=== PATIENT | male | born 1945 | race Caucasian/White ===

== ENCOUNTER → 2016-05-27 | Outpatient (CLI) | payer OTHER, MEDICARE ==
[~2016-05-27] MED LIST: B-COCAP2 PO; CHOL1000 PO; GLUC10007 PO; LISI5TAB PO; METH-589 PO; MULT-506 PO; OMEG10007 PO
[2016-05-27 16:51] LABS: BASO % 0.6 %; BASO ABS # 0.04 K/uL (0-0.2); COMPLETE YES; EOS % 1.2 %; HEMATOCRIT 41.6 % (42-52); IG% 0.3 %; LYMPH % 41.3 %; LYMPH ABS # 2.72 K/uL (1.2-3.4); MEAN CELL VOLUME 87.8 fL (80-100); MEAN CORPUSCULAR HEMOGLOBIN 30.8 pg (25-34); MEAN CORPUSCULAR HGB CONC 35.1 g/dl (32-36); MONO % 10.8 %; NEUT % 45.8 %; PLATELET COUNT 176 K/uL (130-400); RED BLOOD COUNT 4.74 M/uL (4.7-6.1); WHITE BLOOD COUNT 6.58 K/uL (4.8-10.8)
[2016-05-27 17:12] LABS: THYROID STIMULATING HORMONE 1.91 uIu/ml (0.300-4.500)
== END | disposition home or self-care (01) ==
LOC: C.LABBC 14:30
PROVIDERS: ATTEND Internal Medicine Endocrinology, Diabetes & Metabolism
DX: E05.00 Thyrotoxicosis with diffuse goiter without thyrotoxic crisis or storm (principal); R07.89 Other chest pain

== ENCOUNTER → 2016-06-06 | Outpatient (CLI) | payer OTHER, MEDICARE | END | disposition home or self-care (01) | LOC: C.RDSM 08:00 | PROVIDERS: ATTEND Physical Medicine & Rehabilitation Sports Medicine | DX: Z96.651 Presence of right artificial knee joint (principal); M25.561 Pain in right knee; M25.562 Pain in left knee ==

== ENCOUNTER → 2016-08-23 | Outpatient (CLI) | payer OTHER, MEDICARE ==
[2016-08-23 17:25] LABS: ALKALINE PHOSPHATASE 57 U/L (45-117); ALT/SGPT 32 U/L (12-78); AST/SGOT 19 U/L (15-37); BLOOD UREA NITROGEN 20 mg/dl (7-18); CALCIUM 8.9 mg/dl (8.5-10.1); CARBON DIOXIDE 27 mmol/L (21-32); CHLORIDE 109 mmol/L (98-107); GLUCOSE 99 mg/dl (70-99); HDL CHOLESTEROL 36 mg/dl; POTASSIUM 4.2 mmol/L (3.5-5.1); SODIUM 143 mmol/L (136-145)
[2016-08-23 17:28] LABS: ALB/GLOB RATIO 0.9 (0.9-2); CHOLESTEROL 195 mg/dl (0-200); CHOLESTEROL/HDL RATIO 5.4; LDL CHOLESTEROL CALCULATED 121 mg/dl; TRIGLYCERIDES 191 mg/dl (0-150); VERY LOW DENSITY LIPOPROT CALC 38 mg/dl
[2016-08-24 06:37] LABS: ESTIMATED AVERAGE GLUCOSE 134 mg/dl; HA1C FLAG Normal (Normal)
--- NOTE | 2016-08-31 11:46 | CODING QUERY MEDICAL NECESSITY ---
CQSUPPORTING DIAGNOSIS NEEDED A supporting diagnosis is required for the test/procedure performed on this patient in order for us to be reimbursed by the patient's insurance. Please provide a supporting diagnosis for the following test/procedure listed below next to the test name along with your signature. *If there is no additional diagnosis for this patient that would support the following test/procedure please document that below next to the test/procedure. Test(s)/Procedure(s) that require a supporting diagnosis: LIDIA 08/23/16 GLYCATED HEMOGLOBIN Provider Signature: Date: Thank you Trisha Dodge ASYM III Information Management Once completed, please kindly fax back to [phone] For questions please call [phone]
== END | disposition home or self-care (01) ==
LOC: C.LABBC 13:32
PROVIDERS: ATTEND Physician Assistant
DX: R73.03 Prediabetes (principal); I10 Essential (primary) hypertension; E78.5 Hyperlipidemia, unspecified; E05.00 Thyrotoxicosis with diffuse goiter without thyrotoxic crisis or storm

== ENCOUNTER → 2016-11-29 | Outpatient (CLI) | payer OTHER, MEDICARE ==
[2016-11-29 17:22] LABS: THYROID STIMULATING HORMONE 1.72 uIu/ml (0.300-4.500)
== END | disposition home or self-care (01) ==
LOC: C.LABBC 13:58
PROVIDERS: ATTEND Physician Assistant
DX: E05.00 Thyrotoxicosis with diffuse goiter without thyrotoxic crisis or storm (principal)

== ENCOUNTER → 2017-02-27 | Outpatient (CLI) | payer OTHER, MEDICARE ==
[2017-02-27 11:07] LABS: ALT/SGPT 31 U/L (12-78); BLOOD UREA NITROGEN 21 mg/dl (7-18); CARBON DIOXIDE 25 mmol/L (21-32); CHLORIDE 105 mmol/L (98-107); CHOLESTEROL 219 mg/dl (0-200); CREATININE 1.01 mg/dl (0.60-1.40); GLUCOSE 132 mg/dl (70-99); POTASSIUM 4.1 mmol/L (3.5-5.1); SODIUM 137 mmol/L (136-145); TRIGLYCERIDES 233 mg/dl (0-150); VERY LOW DENSITY LIPOPROT CALC 47 mg/dl
[2017-02-27 11:17] LABS: CHOLESTEROL/HDL RATIO 5.5; HDL CHOLESTEROL 40 mg/dl; LDL CHOLESTEROL CALCULATED 132 mg/dl
[2017-02-27 12:21] LABS: ESTIMATED AVERAGE GLUCOSE 128 mg/dl; HA1C FLAG Normal (Normal)
== END | disposition home or self-care (01) ==
LOC: C.LABBC 07:59
PROVIDERS: ATTEND Physician Assistant
DX: E05.90 Thyrotoxicosis, unspecified without thyrotoxic crisis or storm (principal); R73.03 Prediabetes; I10 Essential (primary) hypertension

== ENCOUNTER → 2017-03-23 | Outpatient (CLI) | payer OTHER, MEDICARE ==
[~2017-03-23] MED LIST changes: +NRN300 PO
== END | disposition home or self-care (01) ==
LOC: C.LABBC 10:54
PROVIDERS: ATTEND Internal Medicine Endocrinology, Diabetes & Metabolism
DX: E05.90 Thyrotoxicosis, unspecified without thyrotoxic crisis or storm (principal)

== ENCOUNTER 2017-05-01 13:05 | Emergency (ER) | payer OTHER, MEDICARE ==
[~2017-05-01] VITALS: Ht 185.4 cm; Wt 114.7 kg
[~2017-05-01 13:05] MED LIST changes: -NRN300 PO
[2017-05-01 13:10] VITALS: TEMP 36.4; Ht 185.4 cm; Wt 114.7 kg
--- NOTE | 2017-05-01 14:20 | DIAGNOSTIC IMAGING REPORT ---
CT OF THE HEAD WITHOUT CONTRAST CLINICAL HISTORY: Fall. COMPARISON STUDY: Head CT T February 06, 2015. TECHNIQUE: Helical axial images of the head were obtained without IV contrast. Automated exposure control was utilized for the study. A dose lowering technique was utilized adhering to the principles of ALARA. FINDINGS: No acute intracranial hemorrhage, midline shift or mass effect is present. Ventricular system is stable. Basilar cisterns are patent. There are no extra-axial collections. Rodriguez-white differentiation is maintained. Mild white matter hypodensity suggests small vessel disease. A small left posterior scalp contusion is noted. There is no calvarial fracture. IMPRESSION: 1. No acute intracranial findings. 2. Small left posterior scalp contusion. No calvarial fracture. Electronically signed by: Roderick Villa M.D. 05/01/2017 2:19 PM Dictated Date/Time: 05/01/2017 2:17 PM
[2017-05-01] MEDS ORDERED: NRN300 PO (14:23)
--- NOTE | 2017-05-01 14:25 | DIAGNOSTIC IMAGING REPORT ---
CERVICAL SPINE W/O CLINICAL HISTORY: 72 years-old Male presenting with EVAL TRAUMA, fall, head injury, head and neck pain. TECHNIQUE: Multidetector CT of the cervical spine was performed without the use of intravenous contrast. IV contrast: None. A dose lowering technique was used consistent with the principles of ALARA (as low as reasonably achievable). COMPARISON: None. CT DOSE (mGy.cm): The estimated cumulative dose is 1114.04 mGy.cm. FINDINGS: Thread Grinder topogram: Unremarkable. Straightening of normal cervical lordosis likely positional and related to degenerative change. Vertebral bodies demonstrate normal height and alignment. Intervertebral disc height loss noted at C4-5 through C7-T1, where there are disc osteophyte complexes. No acute fracture or subluxation. No osseous spinal canal narrowing. Disc osteophyte complexes/uncovertebral hypertrophy and facet arthropathy result in osseous neural foraminal narrowing on the left at C4-5, bilaterally at C5-6, bilaterally at C6-7, and on the right at C7-T1. Lucent lesion noted in the right lateral mass of C1, indeterminate. Skull base intact. IMPRESSION: 1. No acute osseous injury. 2. Multilevel degenerative changes with varying degrees of osseous neural foraminal narrowing. 3. Indeterminate lucent lesion in the right lateral mass of C1. Correlate for a history of malignancy. Electronically signed by: Hawk Rene M.D. 05/01/2017 2:23 PM Dictated Date/Time: 05/01/2017 2:19 PM
--- NOTE | 2017-05-01 14:52 | EMERGENCY ROOM VISIT NOTE ---
ED Visit Note First contact with patient: 13:38 CHIEF COMPLAINT: Head injury 3 and half hours ago HISTORY OF PRESENT ILLNESS: Patient is a 72-year-old white male who presents to emergency department for evaluation after he sustained a head injury earlier this morning. Patient reports that he was taking some garbage out to the dumpster, and did not realize that the ground with icy, slipped and fell landing primarily striking the back of his head on the asphalt. He states that he was dazed initially, and felt slightly like he was going to pass out, but did not. He laid on the ground for a few moments, reached his hand back and felt that he had some blood work he struck his head. He was able to get up and was back into his home. He was seen at [facility] [place] them referred to the emergency department. He reports a mild generalized headache in addition to pain really struck the back of his head. He also complains of pain primarily in the left side of his neck that is worse with movement. He feels a little bit woozy at times, but denies evelyn lightheadedness or dizziness. No vision changes. No nausea or vomiting. He denies any difficulty with balance, speech or coordination. He denies any numbness, tingling or weakness radiating into the upper extremities. REVIEW OF SYSTEMS: Review of systems as per HPI. All other systems reviewed were negative. 10 systems reviewed. PMH: Electronic medical records are reviewed and summarized as above/below. See Problem List. He believes that his tetanus is up-to-date. SOCIAL HISTORY: Patient lives at home. PHYSICAL EXAM: Vital Signs: Reviewed Nurse's notes. CONSTITUTIONAL: Patient is a pleasant, well-appearing 72-year-old white male who is awake and alert and in no acute distress. GCS: 15 HEENT: Occipital scalp hematoma with abrasion, no repairable laceration. Pupils equal, round, reactive to light and accommodation. EOMs intact without nystagmus. Sclera are anicteric. Tympanic membranes intact, with normal landmarks. External canals are clear. No hemotympanum or Claros sign. Oral and nasopharynx are clear. No CSF rhinorrhea. Mucous membranes are moist. NECK: Supple, nontender, no lymphadenopathy. Full range of motion. HEART: Regular rate and rhythm, with normal S1 and S2, no murmur or gallop or rub is heard. LUNGS: Breath sounds equal and clear to auscultation without wheezes, rales, or rhonchi heard. SKIN: No lesions or rash, normal skin turgor. EXTREMITIES: No cyanosis, edema, joint tenderness or swelling. No deformity. NEUROLOGICAL: Alert and oriented x4. Cranial nerves 2 through 12, sensation and strength grossly intact. Gait is normal. Patient is able to toe, heel and tandem walk without difficulty. Negative Romberg, and pronator drift. Finger to nose, finger to finger and rapid alternating movements are intact. Immediate , recent and remote memories are intact. Concentration is normal. ED course: The patient was seen and assessed as above. Head and cervical spine CT scans were obtained. CT scan did not note any evidence for acute intracranial bleed, skull fracture or C-spine fracture. Patient was. CT findings were discussed with the patient. Conservative care measures were discussed. Differential diagnosis included head/scalp contusion, skull fracture , acute intracranial bleed, concussion, C-spine injury, among others. The patient was reassured. He was educated on the worrisome signs and symptoms for which she should return to the emergency he was discharged home in good condition. Medication reconciliation: I attest that I have personally reviewed the patient' s current medication list. Blood pressure screening: Patient was found to have a slightly elevated blood pressure due to circumstances. I do not believe that the patient requires hypertension monitoring. CERVICAL SPINE W/O CLINICAL HISTORY: 72 years-old Male presenting with EVAL TRAUMA, fall, head injury, head and neck pain. TECHNIQUE: Multidetector CT of the cervical spine was performed without the use of intravenous contrast. IV contrast: None. A dose lowering technique was used consistent with the principles of ALARA (as low as reasonably achievable). COMPARISON: None. CT DOSE (mGy.cm): The estimated cumulative dose is 1114.04 mGy.cm. FINDINGS: Airfield Engineer Officer topogram: Unremarkable. Straightening of normal cervical lordosis likely positional and related to degenerative change. Vertebral bodies demonstrate normal height and alignment. Intervertebral disc height loss noted at C4-5 through C7-T1, where there are disc osteophyte complexes. No acute fracture or subluxation. No osseous spinal canal narrowing. Disc osteophyte complexes/uncovertebral hypertrophy and facet arthropathy result in osseous neural foraminal narrowing on the left at C4-5, bilaterally at C5-6, bilaterally at C6-7, and on the right at C7-T1. Lucent lesion noted in the right lateral mass of C1, indeterminate. Skull base intact. IMPRESSION: 1. No acute osseous injury. 2. Multilevel degenerative changes with varying degrees of osseous neural foraminal narrowing. 3. Indeterminate lucent lesion in the right lateral mass of C1. Correlate for a history of malignancy. CT OF THE HEAD WITHOUT CONTRAST CLINICAL HISTORY: Fall. COMPARISON STUDY: Head CT T February 06, 2015. TECHNIQUE: Helical axial images of the head were obtained without IV contrast. Automated exposure control was utilized for the study. A dose lowering technique was utilized adhering to the principles of ALARA. FINDINGS: No acute intracranial hemorrhage, midline shift or mass effect is present. Ventricular system is stable. Basilar cisterns are patent. There are no extra-axial collections. Rodriguez-white differentiation is maintained. Mild white matter hypodensity suggests small vessel disease. A small left posterior scalp contusion is noted. There is no calvarial fracture. IMPRESSION: 1. No acute intracranial findings. 2. Small left posterior scalp contusion. No calvarial fracture. Problem List Medical Problems: (1) Anemia Status: Resolved (2) Dehydration Status: Resolved (3) Diverticulosis Status: Chronic (4) Essential (Primary) Hypertension Status: Chronic (5) Prostatitis Status: Resolved (6) Right knee DJD Status: Resolved (7) Skin cancer Status: Resolved (8) Syncope Status: Resolved (9) Vasovagal episode Status: Resolved Surgical Problems: (1) Knee Joint Replacement Status Status: Resolved Current/Historical Medications Scheduled Cholecalciferol (Vitamin D3), 1,000 UNITS PO QAM Fish Oil (St John-3), 3 CAP PO QAM Gabapentin (Gabapentin), 300 MG PO BID Glucosamine Sulfate (Glucosamine), 2 TAB PO QAM Lisinopril (Prinivil), 5 MG PO QAM Methimazole (Methimazole ), 2.5 MG PO QAM Multivitamin (Multivitamin), 1 TAB PO QAM Vitamin B Cmplx/Vitc/Folic Ac (Nephrocaps), 1 CAP PO QAM Allergies Coded Allergies: No Known Allergies (Verified , 05/01/17) Vital Signs Date Time Temp Pulse Resp B/P (MAP) Pulse Ox O2 Delivery O2 Flow Rate FiO2 05/01/17 15:23 83 18 149/91 99 05/01/17 13:10 36.4 82 20 158/95 98 Room Air Departure Information Impression Primary Impression: Closed head injury Additional Impressions: Scalp abrasion Neck pain Fall Referrals Susie Grissom MD (PCP) Patient Instructions [facility] Additional Instructions CONCUSSION DISCHARGE INSTRUCTIONS: What is a concussion? A concussion is a disturbance in the function of the brain caused by a direct or indirect force to the head. It results in a variety of symptoms like: headache, balance problems, nausea, vomiting, vision problems, hearing problems/ringing, drowsiness, irritability, and/or difficulty concentrating or remembering. A concussion may, or may not involve memory problems or loss of consciousness. Concussion instructions: Stop and stay away from ALL physical activity until you are symptom free from: Headaches Balance problems Feeling "dinged" Poor concentration Drowsy Fatigued Rest and avoid strenuous activities for the next few days. Get 8-10 hours of sleep per night. Limit activities that involve significant concentration and attention during this time to speed your recovery. This includes studying, attending school, playing video games, and heavy reading. Your brain needs to rest. Eat right and eat often. Now is the time to feed your brain. Well balanced diets that avoid high sugar foods, sodas, caffeine, etc. are better for your brain. NO ALCOHOL OR DRUGS! Avoid stimulants like caffeine, red bull, mountain dew, "energy" drinks, etc. Tylenol(acetaminophen) may be used for headaches. Use 1000mg every six hours as needed. Avoid using more than 3000mg in a 24 hour period. Avoid anti-inflammatories such as aspirin, ibuprofen, Alleve, naprosyn, Motrin, or Advil as these can interfere with blood clotting and lead to bleeding within the brain after a traumatic injury. Stepwise return to sports for athletes: You may progress to the next step after 24 hours if you are symptom free. If you experience symptoms, you must return to the previous stage and try again after another 24 hours of rest and being symptom free. Best case scenario is full contact game play in 96 hours from the time of injury. Remember repeat concussions are worse than the first. Time invested in recovery will allow for better performance and less downtime in the future. If you have any questions see your market development trainer or make an appointment to see one of the team physicians. 1) No activity, complete rest. Once all symptoms have resolved, report to the team physician or market development trainer to be cleared to progress to step 2. 2) Start light aerobic exercise, such as walking or stationary cycling, no resistance training permitted. 3) Sport specific exercises. Add light resistance slowly. Go slow to allow your body to readapt. 4) Non-contact full speed practice. 5) Full contact practice and/or game play. FOLLOW UP INSTRUCTIONS: You should have a follow up with your family doctor or team physician in 3-5 days regarding your injury. POST CONCUSSIVE SYNDROME: Occasionally patients can experience a postconcussive syndrome which includes prolonged headaches and memory difficulties. This may occur over the next several days, weeks or rarely, even months. It is important to have a primary care physician follow-up in order to help if the situation develops. Problems could arise over the next 24 to 48 hours. You should not be left alone and MUST go to the hospital immediately if you: -Have a headache that suddenly gets worse. -Are very drowsy or cannot be woken up from sleep. -Can't recognize people or places. -Have repeated vomiting. -Behave unusually, seemed confused, or start acting irritable. -Have a seizure (arms and legs start jerking uncontrollably). -Have weak or numb arms or legs. -Are unsteady on your feet -Experience slurred speech or difficulty speaking. Problem Qualifiers
[2017-05-01 15:23] VITALS: BP 149/91; PULSE 83; O2SAT 99
== END 2017-05-01 15:20 | disposition home or self-care (01) ==
LOC: C.EDB 13:07 → C.EDD 15:20
DX: S09.90XA Unspecified injury of head, initial encounter (principal); S00.01XA Abrasion of scalp, initial encounter; W00.0XXA Fall on same level due to ice and snow, initial encounter; Y93.E9 Activity, other interior property and clothing maintenance; M54.2 Cervicalgia; K57.90 Diverticulosis of intestine, part unspecified, without perforation or abscess without bleeding; I10 Essential (primary) hypertension; Z96.659 Presence of unspecified artificial knee joint; Z85.828 Personal history of other malignant neoplasm of skin

== ENCOUNTER → 2017-05-29 | Outpatient (CLI) | payer OTHER, MEDICARE ==
[~2017-05-29] MED LIST changes: +NRN300 PO
== END | disposition home or self-care (01) ==
LOC: C.RDSM 13:15
PROVIDERS: ATTEND Physical Medicine & Rehabilitation Sports Medicine
DX: Z96.651 Presence of right artificial knee joint (principal); M17.12 Unilateral primary osteoarthritis, left knee

== ENCOUNTER → 2017-06-19 | Outpatient (CLI) | payer OTHER, MEDICARE ==
[~2017-06-19] MED LIST changes: +GADAVIST IV PRN
--- NOTE | 2017-06-19 16:07 | DIAGNOSTIC IMAGING REPORT ---
CERVICAL SPINE COMBO CLINICAL HISTORY: 72 years-old Male presenting with HX OF BONE CA,EVAL LESION ON C1, reported fall on ice with head injury, neck pain and stiffness. TECHNIQUE: Multisequence, multiplanar MR imaging of the cervical spine was performed before and after the administration of intravenous contrast. IV contrast: 10.5 mL of Gadavist. COMPARISON: CT of the cervical spine from 02/28/2018. FINDINGS: Localizer images: Unremarkable. Straightening of normal cervical lordosis likely positional and due to multilevel degenerative change. Vertebral bodies maintain normal height, alignment, and bone marrow signal intensity. The focal lesion in C1 of clinical interest loses signal on fat suppression, consistent with an intraosseous lipoma. Diffuse intervertebral disc desiccation with disc osteophyte complexes noted from C3-4 through C7-T1. Multilevel degenerative changes further detailed below: C2-3: No significant spinal canal or neural foraminal narrowing. C3-4: Disc osteophyte complex/uncovertebral hypertrophy results in mild right neural foraminal narrowing and minimal effacement of the ventral thecal sac. C4-5: Disc osteophyte complex/uncovertebral hypertrophy results in minimal bilateral neural foraminal narrowing and anterior thecal sac effacement. Mild contouring of the anterior spinal cord. C5-6: Disc osteophyte complex/uncovertebral hypertrophy results in mild right and moderate left neural foraminal narrowing. Mild effacement of the ventral thecal sac with contouring of the anterior spinal cord. C6-7: Disc osteophyte complex/uncovertebral hypertrophy results in severe right and moderate to severe left neural foraminal narrowing. Minimal effacement of the ventral thecal sac evident. C7-T1: Disc osteophyte complex results in moderate to severe right neural foraminal narrowing. No significant spinal canal narrowing. Cervical spinal cord maintains normal morphology and signal intensity apart from mild contouring deformities as detailed above. No evidence of circumferential impingement. No abnormal spinal cord signal intensity. Craniocervical junction normal. Paraspinal soft tissues within normal limits. Postcontrast imaging demonstrates no abnormal spinal cord enhancement. Vertebral bodies demonstrate normal enhancement. The lesion and C1 is T1 hyperintense precontrast due to fat content. No suspicious nodular enhancement. IMPRESSION: 1. No suspicious osseous lesion. 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 2. Multilevel degenerative changes with very degrees of neural foraminal and spinal canal stenosis as detailed above. No spinal cord impingement. Electronically signed by: Hawk Rene M.D. 06/19/2017 4:06 PM Dictated Date/Time: 06/19/2017 3:59 PM
== END | disposition home or self-care (01) ==
LOC: C.MRI 14:35
PROVIDERS: ATTEND Internal Medicine Hematology & Oncology
DX: D48.0 Neoplasm of uncertain behavior of bone and articular cartilage (principal)

== ENCOUNTER → 2017-06-26 | Outpatient (CLI) | payer OTHER, MEDICARE ==
[~2017-06-26] MED LIST changes: -GADAVIST IV PRN
== END | disposition home or self-care (01) ==
LOC: C.LABBC 13:26
PROVIDERS: ATTEND Physician Assistant
DX: E05.90 Thyrotoxicosis, unspecified without thyrotoxic crisis or storm (principal); R93.8 Abnormal findings on diagnostic imaging of other specified body structures

== ENCOUNTER → 2017-10-16 | Outpatient (CLI) | payer OTHER, MEDICARE | END | disposition home or self-care (01) | LOC: C.RDSM 11:04 | PROVIDERS: ATTEND Physical Medicine & Rehabilitation Sports Medicine | DX: Z96.653 Presence of artificial knee joint, bilateral (principal) ==

== ENCOUNTER 2018-11-24 00:13 | Inpatient (IN) ==
[2018-11-24] MEDS ORDERED: NITROGLYCERIN SL 0.4 MG/TAB TAB SL STA (00:32)
[2018-11-24] MEDS ORDERED: ASPIRIN 81 MG CHEW PO STA (00:32)
[2018-11-24 00:48] LABS: Hematocrit (blood only) 39.2 % (42-52); Hemoglobin 13.7 g/dL (14.0-18.0); Mean Corpuscular Hgb Conc 34.9 g/dL (32-36); Mean Corpuscular Volume 88.3 fL (80-100); Platelet Count 141 K/uL (130-400); RDW Coefficient of Variation 13.7 % (11.5-14.5); RDW Standard Deviation 44.9 fL (36.4-46.3); Red Blood Count 4.44 M/uL (4.7-6.1); White Blood Count 5.38 K/uL (4.8-10.8)
[2018-11-24 01:05] LABS: INR 1.1 (0.9-1.1); Prothrombin Time 11.4 Seconds (9.0-12.0)
[2018-11-24 01:10] LABS: BUN Creatinine Ratio 28.1 (10-20); Blood Urea Nitrogen 29 mg/dl (7-18); Calcium 8.6 mg/dl (8.5-10.1); Carbon Dioxide 28 mmol/L (21-32); Chloride 107 mmol/L (98-107); Est GFR (African American) 83.3; Est GFR (Non-African American) 71.9; Glucose 102 mg/dl (70-99); Magnesium 2.3 mg/dl (1.8-2.4); Potassium 3.9 mmol/L (3.5-5.1); Sodium 139 mmol/L (136-145)
[2018-11-24 01:15] LABS: Troponin I < 0.015 ng/ml (0-0.045)
[2018-11-24 01:28] LABS: Basophils # (auto) 0.02 K/uL (0-0.2); Basophils % (auto) 0.4 %; Eosinophils % (auto) 1.9 %; Immature Granulocytes # (auto) 0.01 K/uL (0.00-0.02); Immature Granulocytes % (auto) 0.2 %; Lymphocytes # (auto) 2.75 K/uL (1.2-3.4); Lymphocytes % (auto) 51.1 %; Monocytes # (auto) 0.54 K/uL (0.11-0.59); Neutrophils # (auto) 1.96 K/uL (1.4-6.5); Neutrophils % (auto) 36.4 %; RBC Morphology Unremarkable
[2018-11-24] MEDS ORDERED: MAGNESIUM HYDROXIDE SUSP 30 ML UDC PO PRN (03:44)
[2018-11-24] MEDS ORDERED: ALUMINUM/MAGNESIUM SUSP 30 ML UDC PO PRN (03:44)
[2018-11-24] MEDS ORDERED: ONDANSETRON INJ 2 MG/ML 2 ML VIAL IV PRN (03:44)
[2018-11-24] MEDS ORDERED: ACETAMINOPHEN 325 MG TAB PO PRN (03:44)
--- NOTE | 2018-11-24 04:49 | Emergency Department Note ---
Entered by Bright Herrera acting as a scribe for ED Provider Note Name: Rom Mart Age: 73 Arrives Via: Private Vehicle Informant: Self CC: Substernal chest pain HPI: 73 y/o male arrives for evaluation of intermittent chest pain and palpitations beginning a few months ago. The patient states he gets an anxious feeling in his chest that is a combination of pain and shortness of breath. He reports afterwards he feels mildly weak, slightly nauseous, and loopy. The patient notes his chest pain is currently gone, but he still feels slightly off. He states during his episodes, his pulse also seems lower. He states his heart rate has frequently been in the 50s, and this evening it dropped to the 30s on his machine. The patient's reports she took his pulse with her hand and found it to be in the 60s but irregular. He notes he was evaluated by Dr. Holloway for similar symptoms and had a day monitor on and is scheduled to wear a month long halter monitor. The patient states he came into the ED because his symptoms have been more frequent. He reports he takes Lisinopril for his HTN and nothing for his high cholesterol. The patient notes a history of an incomplete RBBB and denies a history of stent placement, AL, and heart catheterization. He states he has a history of smoking and has had stress tests performed as well. The patient denies abdominal pain, headache, shoulder pain, and neck pain. He denies a history of using blood thinners, stomach ulcers, and DM. The patient notes a history of smoking. He takes Meloxicam for knee pain. ROS: See above HPI for pertinent positives & negatives. A total of 10 systems reviewed and were otherwise negative. Past Medical History: AA, anxiety, diverticulosis, dyslipidemia, graves d isease, HTN, incomplete RBBB Past Surgical History: Knee surgery Family History: DM, cancer, AL Social History: and lives with spouse. Home Medications: lisinopril, gabapentin, meloxicam Allergies amoxicillin Physical: Vitals: BP 149/93, Pulse 62, Resp 20, Temp 97.5 F, O2Sat 98 on RA Exam: GENERAL: Patient is anxious appearing and in mild acute distress. EYES: No scleral icterus, unremarkable pupils. ENT: Mucous membranes moist, no nasal congestion. NECK: No masses appreciated, no meningismus, trachea is midline. RESPIRATORY: No dyspnea. Clear to auscultation and equal bilaterally. No wheeze, no rhonchi. CARDIOVASCULAR: Regular rate and rhythm. No murmurs, rubs, gallops appreciated. GASTROINTESTINAL: Abdomen soft, non-tender, no peritonitis. Bowel sounds positive. No masses appreciated. BACK: No midline tenderness, no CVA tenderness EXTREMITIES: Normal motion all extremities, no cyanosis, no edema. NEUROLOGIC: Alert and oriented, no acute motor or sensory deficits, no focal wea kness, cranial nerves grossly intact. SKIN: No rash, no jaundice, no diaphoresis. ED Course: Prior Medical Record, Triage/Nursing Notes, Medications, Allergies reviewed by Me Vital Signs: reviewed and remarkable for HTN Labs: Reviewed and remarkable for wnl Interventions: saline lock, asa 324mg po, slntg Imaging: X ray results are stated below per my interpretation: Chest: 1 view: No infiltrate, no effusion, normal cardiac border. EKG #1: Per My Interpretation: Indication Chest Discomfort: Sinus Rhythm 65 bpm without ischemia nor ectopy. There is 1st av block and incomplete RBBB. QTC 430. When compared to EKG 05/12/2014 the AV block is new and rbbb is similar. EKG #2: Per My Interpretation: Indication Rhythm Change: Sinus sven with bigemeny and HTN 34 bpm. 1st av block. Incomplete RBBB. When compared to earlier now in bigemeny Consults: 0148: I discussed the patient's case with Dr. Majano, [facility] Hospitalist. The patient will be evaluated for further management and care. Reassessments/Times: 0024: Past medical records reviewed. The patient was evaluated in room A02. A complete history and physical exam was performed. 0123: I reevaluated the patient and discussed his test results. He currently has a heart rate of 30 and is in bigeminy. He denies current chest discomfort. He is agreeable with the treatment plan and hospitalist evaluation. Blood pressure: Elevated - Monitored by hospitalist Disposition: Hospitalization Prescriptions: none. Differentials: Differential: Cardiac Ischemia (STEMI, NSTEMI, Unstable Angina, etc), Aortic Dissection, Arrhythmia, Pulmonary Embolism, Pneumonia, Pneumothorax, MSK, Infectious, Pericarditis/Myocarditis, Esophageal Rupture, Gastrointestinal, amongst other pathologies entertained. Medical Decision Makin yr old male with vague discomfort of chest associated with palpitations/bradycardia. ON exam looks well with 1st av block on EKG but otherwise unremarkable exam and findings. Initially given asa/slntg with improvement in BP. No evidence ACS, PE, Dissection. After a little while noticed on monitor converted to bigemeny and EKG confirms this which is clearly associated with bradycardic pulse. He has furtherly having no further symptoms. His heart rate remains in 30s for prolonged periods of times and I suspect this is cause of his symptoms. Reviewed with hospitalist who will evaluate further. Impression: Bradycardia Chest discomfort Toby Sloan MD The scribe's documentation has been prepared under my direction and personally reviewed by me in its entirety. I confirm that the note above accurately reflects all work, treatment, procedures, and medical decision making performed by me. 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) Hypertension (Chronic) Incomplete RBBB (Chronic) Prediabetes (Chronic) Surgical History H/O elbow surgery H/O knee surgery Family History Mother Type 2 diabetes mellitus Social History Preferred Language: Iraqi Communication Ability: Effective Visual Impairment: No Limitations Hearing Ability: Normal Beliefs That Will Affect Care: None marital status: Current Living Situation: Spouse current occupational status: retired Other Information That Helps Us Care for You: No Feels Safe at Home: Yes Safety Concerns: Feels Safe At This Time Smoking Status: Never smoker Tobacco Type: cigarettes ; Age Started Using Tobacco: 22 ; Age Quit Using Tobacco: 57 ; packs per day: 1 ; Hx Alcohol Use: Yes Alcohol Intake Frequency: Rarely Hx Substance Use: No Childhood Exposure to Second-Hand Smoke: Yes Dental Care, Regularly: No Physical Activity Frequency: Daily Seatbelt Use: always Sunscreen Use: Yes Results & Data Vital Signs Vital Signs - 24 hr 11/24/18 00:18 11/24/18 00:39 11/24/18 01:35 Temperature 36.4 C L Temperature Source Oral Sepsis Recent Fever Within 48 Hours No Sepsis Action Taken by Nursing No Action Required Pulse Rate 70 Pulse Rate [Right Finger] 62 71 Pulse Rhythm [Right Finger] Regular Pulse Strength [Right Finger] Normal Respiratory Rate 18 20 16 Respiratory Effort / Characteristics Non-Labored Non-Labored Non-Labored Respiratory Depth Normal Normal Normal Respiratory Pattern Regular Regular Blood Pressure 156/89 H Blood Pressure [Right Arm] 149/93 H 145/68 H Blood Pressure Mean 111 Blood Pressure Mean [Right Arm] 111 93 Blood Pressure Position [Right Arm] Lying Lying Pulse Oximetry 98 98 96 Oxygen Delivery Method Room Air Room Air Room Air 11/24/18 02:29 Temperature Temperature Source Sepsis Recent Fever Within 48 Hours Sepsis Action Taken by Nursing Pulse Rate Pulse Rate [Right Finger] 56 L Pulse Rhythm [Right Finger] Pulse Strength [Right Finger] Respiratory Rate 16 Respiratory Effort / Characteristics Non-Labored Respiratory Depth Normal Respiratory Pattern Regular Blood Pressure Blood Pressure [Right Arm] 158/91 H Blood Pressure Mean Blood Pressure Mean [Right Arm] 113 Blood Pressure Position [Right Arm] Pulse Oximetry 97 Oxygen Delivery Method Room Air Home Medications Current Medication List: was personally reviewed by me Laboratory Data Attestation: I reviewed the patient's lab results. Result diagrams: 11/24/18 00:35 11/24/18 00:35 Lab Results 11/24/18 11/24/18 11/24/18 Range/Units 00:35 00:35 00:35 WBC 5.38 (4.8-10.8) K/uL RBC 4.44 L (4.7-6.1) M/uL Hgb 13.7 L (14.0-18.0) g/dL Hct 39.2 L (42-52) % MCV 88.3 (80-100) fL MCH 30.9 (25-34) pg MCHC 34.9 (32-36) g/dL RDW Std Deviation 44.9 (36.4-46.3) fL RDW Coeff of Shantel 13.7 (11.5-14.5) % Plt Count 141 (130-400) K/uL MPV 10.0 (7.4-10.4) fL Immature Gran % (Auto) 0.2 % Neut % (Auto) 36.4 % Lymph % (Auto) 51.1 % [place] % (Auto) 10.0 % Eos % (Auto) 1.9 % Baso % (Auto) 0.4 % Immature Gran # (Auto) 0.01 (0.00-0.02) K/uL Neut # (Auto) 1.96 (1.4-6.5) K/uL Lymph # (Auto) 2.75 (1.2-3.4) K/uL [place] # (Auto) 0.54 (0.11-0.59) K/uL Eos # (Auto) 0.10 (0-0.5) K/uL Baso # (Auto) 0.02 (0-0.2) K/uL RBC Morphology Unremarkable PT 11.4 (9.0-12.0) Seconds INR 1.1 (0.9-1.1) Sodium 139 (136-145) mmol/L Potassium 3.9 (3.5-5.1) mmol/L Chloride 107 (98-107) mmol/L Carbon Dioxide 28 (21-32) mmol/L Anion Gap 4.0 (3-11) BUN 29 H (7-18) mg/dl Creatinine 1.04 (0.6-1.4) mg/dl Est Cr Clr Drug Dosing 84.0 ml/min Est GFR ( Amer) 83.3 Est GFR (Non-Af Amer) 71.9 BUN/Creatinine Ratio 28.1 H (10-20) Glucose 102 H (70-99) mg/dl Calcium 8.6 (8.5-10.1) mg/dl Magnesium 2.3 (1.8-2.4) mg/dl Troponin I < 0.015 (0-0.045) ng/ml TSH 2.400 (0.300-4.500) uIu/ml Administered Medications Discontinued Medications Aspirin (Aspirin Chew) 324 mg PO NOW STA Stop: 11/24/18 00:33 Last Admin: 11/24/18 00:38 Dose: 324 mg Documented by: [id number] Nitroglycerin (Nitrostat) 0.4 mg SL NOW STA Stop: 11/24/18 00:33 Last Admin: 11/24/18 00:38 Dose: 0.4 mg Documented by: [id number] Blood Pressure Blood Pressure Findings: Elevated blood pressure Blood Pressure Disposition: further management by hospitalist Discharge Plan Visit Data *Final* Discharge Date/Time: 11/24/18 03:16 Chief Complaint: Cardiac Assessment Stated Complaint: IRREG HEART BEAT-SLOW,STRANGE CHEST FEELING ED Provider: oTby Sloan Discharge Problem: Bradycardia, Chest discomfort Patient Disposition: Admitted As Inpatient Discharge Instructions Interventions: ED Discharge Assessment Last Done: 11/24/18 03:16 The scribe's documentation has been prepared under my direction and personally reviewed by me in its entirety. I confirm that the note above accurately reflects all work, treatment, procedures, and medical decision making performed by me.
--- NOTE | 2018-11-24 05:06 | History & Physical Report ---
Date of Service November 24, 2018 Assessment & Plan (1) Bradycardia: Patient was noted on monitor in the ED, and from presence of EKGs, to have alternating normal sinus rhythm with atrial bigeminy. The patient will be admitted to telemetry for serial cardiac enzymes, serial EKG's, cardiac rhythm monitoring and a 2-D echocardiogram with Dopplers. We will consult his industrial relations manager Dr. Holloway. Present on Admission?: Yes (2) Chest discomfort: See above Present on Admission?: Yes (3) AAA (abdominal aortic aneurysm): Being followed in the outpatient setting (4) Dyslipidemia: Being followed in the outpatient setting Present on Admission?: Yes (5) Graves disease: Being followed in the outpatient setting. Present on Admission?: Yes (6) Hypertension: Hold lisinopril Present on Admission?: Yes History of Present Illness Chief Complaint: The patient presents to the emergency department with complaint of intermittent chest discomfort and palpitations over the past few months, that in particular worsened over the past 24 hours. Primary Care Provider: Susie Grissom MD The patient is a 73-year-old male with a past medical history including hypertension, dyslipidemia, Graves' disease, incomplete right bundle branch block, anxiety and diverticulosis, who presents to the emergency department for a 24-hour worsening of ongoing chest discomfort and palpitations. He has been seen by Dr. Holloway from cardiology, having had a recently normal 24-hour Holter monitor, and was told there would be plans for a longer interval monitor in his near future, but he was waiting until golf season was over. He does not have any associated lightheadedness, dizziness or near syncopal associated symptoms. He denies any accompanying neurologic symptoms such as headaches focal weakness numbness or tingling in arms or legs. Allergies Allergy/AdvReac Type Severity Reaction Status Date / Time amoxicillin Allergy Severe HEAD TO Verified 11/24/18 01:32 TOE ITCHY RASH Home Medications Home Medications Medication Instructions Recorded Confirmed Type gabapentin 300 mg capsule 300 mg PO BID 10/22/18 11/24/18 History cholecalciferol (vitamin D3) 1,000 1,000 units PO DAILY tab 10/30/18 11/24/18 History unit (25 mcg) tablet lisinopril 10 mg tablet 10 mg PO DAILY #90 tab 10/30/18 11/24/18 History meloxicam 15 mg tablet 7.5 mg PO DAILY #30 tab 10/30/18 11/24/18 History glucos sul [id number] 1 cap PO DAILY 11/24/18 11/24/18 History [Glucosamine Chondroitin] multivitamin 1 tab PO DAILY 11/24/18 11/24/18 History omega 0-scp-otf-fish oil [[place]-3] 1 cap PO DAILY 11/24/18 11/24/18 History vitamin B complex 1 tab PO DAILY 11/24/18 11/24/18 History Past Med/Surg History Medical History AAA (abdominal aortic aneurysm) (Chronic) Acid indigestion (Chronic) Anxiety (Chronic) Diverticulosis of colon (Chronic) Dyslipidemia (Chronic) Dysmetabolic syndrome X (Chronic) Erectile dysfunction (Chronic) Essential hypertriglyceridemia (Chronic) Graves disease (Chronic) Hepatic steatosis (Chronic) 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) Hypertension (Chronic) Incomplete RBBB (Chronic) Prediabetes (Chronic) Surgical History H/O elbow surgery H/O knee surgery Family History Mother Type 2 diabetes mellitus Social History Preferred Language: Kazakh Communication Ability: Effective Visual Impairment: No Limitations Hearing Ability: Normal Beliefs That Will Affect Care: None marital status: Current Living Situation: Spouse current occupational status: retired Other Information That Helps Us Care for You: No Feels Safe at Home: Yes Safety Concerns: Feels Safe At This Time Smoking Status: Never smoker Tobacco Type: cigarettes ; Age Started Using Tobacco: 22 ; Age Quit Using Tobacco: 57 ; packs per day: 1 ; Hx Alcohol Use: Yes Alcohol Intake Frequency: Rarely Hx Substance Use: No Childhood Exposure to Second-Hand Smoke: Yes Dental Care, Regularly: No Physical Activity Frequency: Daily Seatbelt Use: always Sunscreen Use: Yes Review of Systems Review of Systems: The patient denies shortness of breath, dyspnea on exertion, cough, lower extremity swelling, sore throat, fevers, chills, sweats, weight change, fatigue, nausea, vomiting, diarrhea , constipation, abdominal pain, pelvic pain, blood in urine or stool, dysuria, urinary frequency or urgency, memory loss, loss of consciousness, rash, abnormal bruising or bleeding, imbalance, focal or generalized weakness, numbness or tingling in arms or legs, generalized arthralgias or myalgias, back or neck pain, or night sweats. The review of systems is otherwise negative other than for that already noted above, and at least 10 systems have been reviewed. Physical Exam Physical Exam: The patient is awake, alert and oriented 3, well developed and well nourished, normocephalic and atraumatic, sitting upright in bed and in no acute distress. HEENT--PERRL, EOMI, mucous membranes and oropharynx normal. Neck--supple. No JVD. No bruits. Thyroid normal, trachea midline, no adenopathy. Heart--normal S1 and S2. No murmurs, rubs or gallops. Lungs--clear bilaterally, no respiratory distress, no accessory muscle use. Abdomen--normal bowel sounds and soft. Nontender. Nondistended. Extremities--no cyanosis or clubbing. No edema. There are good distal pulses b/l. Dermatologic--normal skin turgor, normal color, no abnormal lymph nodes, no rash. Neurologic--cranial nerves II through XII grossly intact. Rheumatologic--normal range of motion. Psychiatric--normal affect. Results & Data Vital Signs (Past 12 Hours) Vital Signs Temp Pulse Pulse Resp BP BP Pulse Ox 11/24/18 03:44 98.2 F 67 16 126/71 97 11/24/18 03:30 64 11/24/18 03:16 71 16 121/75 99 11/24/18 03:00 64 16 121/75 96 11/24/18 02:29 56 L 16 158/91 H 97 11/24/18 01:35 71 16 145/68 H 96 11/24/18 00:39 62 20 149/93 H 98 11/24/18 00:18 97.5 F L 70 18 156/89 H 98 Laboratory Results Laboratory Results WBC 5.38 K/uL (4.8-10.8) 11/24/18 00:35 RBC 4.44 M/uL (4.7-6.1) L 11/24/18 00:35 Hgb 13.7 g/dL (14.0-18.0) L 11/24/18 00:35 Hct 39.2 % (42-52) L 11/24/18 00:35 MCV 88.3 fL (80-100) 11/24/18 00:35 MCH 30.9 pg (25-34) 11/24/18 00:35 MCHC 34.9 g/dL (32-36) 11/24/18 00:35 RDW Std Deviation 44.9 fL (36.4-46.3) 11/24/18 00:35 RDW Coeff of Shantel 13.7 % (11.5-14.5) 11/24/18 00:35 Plt Count 141 K/uL (130-400) 11/24/18 00:35 MPV 10.0 fL (7.4-10.4) 11/24/18 00:35 Immature Gran % (Auto) 0.2 % 11/24/18 00:35 Neut % (Auto) 36.4 % 11/24/18 00:35 Lymph % (Auto) 51.1 % 11/24/18 00:35 [place] % (Auto) 10.0 % 11/24/18 00:35 Eos % (Auto) 1.9 % 11/24/18 00:35 Baso % (Auto) 0.4 % 11/24/18 00:35 Immature Gran # (Auto) 0.01 K/uL (0.00-0.02) 11/24/18 00:35 Neut # (Auto) 1.96 K/uL (1.4-6.5) 11/24/18 00:35 Lymph # (Auto) 2.75 K/uL (1.2-3.4) 11/24/18 00:35 [place] # (Auto) 0.54 K/uL (0.11-0.59) 11/24/18 00:35 Eos # (Auto) 0.10 K/uL (0-0.5) 11/24/18 00:35 Baso # (Auto) 0.02 K/uL (0-0.2) 11/24/18 00:35 RBC Morphology Unremarkable 11/24/18 00:35 PT 11.4 Seconds (9.0-12.0) 11/24/18 00:35 INR 1.1 (0.9-1.1) 11/24/18 00:35 Sodium 139 mmol/L (136-145) 11/24/18 00:35 Potassium 3.9 mmol/L (3.5-5.1) 11/24/18 00:35 Chloride 107 mmol/L (98-107) 11/24/18 00:35 Carbon Dioxide 28 mmol/L (21-32) 11/24/18 00:35 Anion Gap 4.0 (3-11) 11/24/18 00:35 BUN 29 mg/dl (7-18) H 11/24/18 00:35 Creatinine 1.04 mg/dl (0.6-1.4) 11/24/18 00:35 Est Cr Clr Drug Dosing 84.0 ml/min 11/24/18 00:35 Est GFR ( Amer) 83.3 11/24/18 00:35 Est GFR (Non-Af Amer) 71.9 11/24/18 00:35 BUN/Creatinine Ratio 28.1 (10-20) H 11/24/18 00:35 Glucose 102 mg/dl (70-99) H 11/24/18 00:35 Calcium 8.6 mg/dl (8.5-10.1) 11/24/18 00:35 Magnesium 2.3 mg/dl (1.8-2.4) 11/24/18 00:35 Troponin I < 0.015 ng/ml (0-0.045) 11/24/18 00:35 TSH 2.400 uIu/ml (0.300-4.500) 11/24/18 00:35 Code Status & VTE Plan Code Status Full code VTE Prophylaxis Plan VTE Prophylaxis will be ordered: Yes PG Care Time/CCT Total # of Minutes Spent Total Time Spent with Patient: Total time spent is greater than 50% in coordination of care (as documented) at patient's floor/unit and/or counseling patient:
[2018-11-24 05:54] LABS: Basophils # (auto) 0.02 K/uL (0-0.2); Basophils % (auto) 0.4 %; Eosinophils # (auto) 0.11 K/uL (0-0.5); Eosinophils % (auto) 2.2 %; Hematocrit (blood only) 37.4 % (42-52); Lymphocytes # (auto) 2.42 K/uL (1.2-3.4); Lymphocytes % (auto) 47.5 %; Mean Corpuscular Hgb Conc 34.8 g/dL (32-36); Mean Corpuscular Volume 87.8 fL (80-100); Mean Platelet Volume 10.9 fL (7.4-10.4); Monocytes # (auto) 0.58 K/uL (0.11-0.59); Monocytes % (auto) 11.4 %; Neutrophils # (auto) 1.96 K/uL (1.4-6.5); Neutrophils % (auto) 38.5 %; Platelet Count 129 K/uL (130-400); RDW Coefficient of Variation 13.7 % (11.5-14.5); RDW Standard Deviation 43.6 fL (36.4-46.3); Red Blood Count 4.26 M/uL (4.7-6.1); White Blood Count 5.09 K/uL (4.8-10.8)
[2018-11-24 06:09] LABS: INR 1.1 (0.9-1.1); Partial Thromboplastin Time 27.6 Seconds (21.0-31.0); Prothrombin Time 11.6 Seconds (9.0-12.0)
--- NOTE | 2018-11-24 06:19 | XRay Report ---
XR chest 1V portable CLINICAL HISTORY: Atypical chest pain COMPARISON STUDY: 05/12/2014 FINDINGS: Heart is mildly enlarged. There is no failure. There is no focal pulmonary consolidation. T here are no pleural effusions.[ IMPRESSION: No active disease in the chest. Electronically signed by: Aayush Vu M.D. 11/24/2018 6:17 AM
[2018-11-24 06:21] LABS: Albumin Level 3.2 gm/dl (3.4-5.0); BUN Creatinine Ratio 31.4 (10-20); Calcium 8.2 mg/dl (8.5-10.1); Creatinine Clr Calc Pharmacy 96.6 ml/min; Est GFR (African American) 99.7; Potassium 3.9 mmol/L (3.5-5.1)
[2018-11-24 06:24] LABS: Albumin Globulin Ratio 0.9 (0.9-2); Bilirubin,Total 0.4 mg/dl (0.2-1); Globulin 3.7 gm/dl (2.5-4.0); Total Protein 6.9 gm/dl (6.4-8.2)
[2018-11-24] MEDS ORDERED: NON-FORMULARY MEDICATION (Glucos Sul 2kcl-Msm-Chond-C-Mn [Glucosamine Chondroitin] 1 CAP) PO SCH (09:00)
[2018-11-24] MEDS ORDERED: LISINOPRIL 10 MG TAB PO SCH (09:00)
[2018-11-24] MEDS: MULTIVITAMIN TAB PO SCH (09:01)
[2018-11-24] MEDS: GABAPENTIN 300 MG CAP PO SCH ×2 (09:01→20:38)
[2018-11-24] MEDS: CHOLECALCIFEROL 1,000 UNITS TAB PO SCH (09:02)
[2018-11-24] MEDS: VITAMIN B COMPLEX TAB PO SCH (09:02)
[2018-11-24] MEDS: HEPARIN SOD 5,000 UNIT/0.5 ML VIAL SQ SCH ×2 (09:08→20:39)
--- NOTE | 2018-11-24 10:59 | Cardiology Consultation ---
Date of Consultation November 24, 2018 Assessment & Plan (1) Lightheaded: I believe his lightheadedness is due to his ventricular bigeminy leading to decreased cardiac output, possibly decreased blood pressure. We have not proven that but based on monitoring here in the hospital that seems to be the case. (2) Bradycardia: I have not seen significant bradycardia, he reports that but I believe that is due to his blood pressure cuff not recording all the premature beats since they probably do not create a pulse, we have not seen bradycardia on the monitor. (3) Incomplete RBBB: He does have an incomplete right bundle branch block pattern, he also has first-degree AV block but he has had no high-grade AV block identified. I would not pursue evaluation of this but we will be keeping him on the monitor. (4) Ventricular bigeminy: He has episodes of ventricular bigeminy, these are intermittent and his twelve-lead electrocardiograms do not show them. I therefore do not know where the premature beats are coming from but they seem unifocal. Treatment options include initially medical therapy with beta blockade or calcium blockade, possibly antiarrhythmic therapy and lastly consideration of ablation but I would not move to that right away. I am going to start beta-blockade today, he is on lisinopril and I am going to discontinue that although he already had it today. If he has a little bit of hypotension today I would not be overly concerned about it since he did have the lisinopril. Possibly we can get by with just with a beta-melanie for control of blood pressure and his arrhythmia. I would keep him on the monitor at least overnight to see how effective this dose. History of Present Illness Attending Physician: Aleksandar Burr MD History of Present Illness This is a 73-year-old gentleman who has had several episodes of syncope. The first episode he recalls was somewhere before 2004, it was hot and humid and he was at a driving range and afterwards he passed out as a passenger in a car. The episode was probably brief although he doesn't know the duration. I don't believe he was evaluated at that time. Around 10 years later he lost a lot of weight (about 20 pounds) in the beginning of 2014 evidently from a thyroid condition, and had a knee replacement in April 2014. Following surgery he felt felt weak and "played out". He was getting physical therapy at home, he felt dizzy and passed out on his steps. He thinks it may been 10-15 seconds. Evaluation at that time was unremarkable except that he was observed to have intermittent first degree AV block and an unusual situation where when his ID interval shortened he appeared to develop an intraventricular conduction abnormality suggesting the possibility of an unusual AV electrical connection. He had no indication for pacing however therefore we have been watching for recurrent symptoms or signs of AV block. He also has a distal abdominal aortic aneurysm with a mural thrombus present and a true lumen of 2.1 cm, the aneurysm is around 3.2 cm in diameter. This has been stable and asymptomatic. He has been having difficulty with episodic lightheadedness that we have not been able to diagnose, he noticed that again prior to admission and also noted on his blood pressure cuff that his heart rate was low and irregular and therefore came into the emergency room. He has had a little bit of that here in the hospital as well. Allergies Allergy/AdvReac Type Severity Reaction Status Date / Time amoxicillin Allergy Severe HEAD TO Verified 11/24/18 01:32 TOE ITCHY RASH Home Medications Home Medications Medication Instructions Recorded Confirmed Type gabapentin 300 mg capsule 300 mg PO BID 10/22/18 11/24/18 History cholecalciferol (vitamin D3) 1,000 1,000 units PO DAILY tab 10/30/18 11/24/18 History unit (25 mcg) tablet lisinopril 10 mg tablet 10 mg PO DAILY #90 tab 10/30/18 11/24/18 History meloxicam 15 mg tablet 7.5 mg PO DAILY #30 tab 10/30/18 11/24/18 History glucos sul [id number] 1 cap PO DAILY 11/24/18 11/24/18 History [Glucosamine Chondroitin] multivitamin 1 tab PO DAILY 11/24/18 11/24/18 History omega [id number]-[id number]-fish oil [[place]-3] 1 cap PO DAILY 11/24/18 11/24/18 History vitamin B complex 1 tab PO DAILY 11/24/18 11/24/18 History Patient History Medical History AAA (abdominal aortic aneurysm) (Chronic) Acid indigestion (Chronic) Anxiety (Chronic) Diverticulosis of colon (Chronic) Dyslipidemia (Chronic) Dysmetabolic syndrome X (Chronic) Erectile dysfunction (Chronic) Essential hypertriglyceridemia (Chronic) Graves disease (Chronic) Hepatic steatosis (Chronic) 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) Hypertension (Chronic) Incomplete RBBB (Chronic) Prediabetes (Chronic) Surgical History H/O elbow surgery H/O knee surgery Family History Mother Type 2 diabetes mellitus Social History Preferred Language: Y[place] Communication Ability: Effective Visual Impairment: No Limitations Hearing Ability: Normal Beliefs That Will Affect Care: None marital status: Current Living Situation: Spouse current occupational status: retired Other Information That Helps Us Care for You: No Feels Safe at Home: Yes Safety Concerns: Feels Safe At This Time Smoking Status: Never smoker Tobacco Type: cigarettes ; Age Started Using Tobacco: 22 ; Age Quit Using Tobacco: 57 ; packs per day: 1 ; Hx Alcohol Use: Yes Alcohol Intake Frequency: Rarely Hx Substance Use: No Childhood Exposure to Second-Hand Smoke: Yes Dental Care, Regularly: No Physical Activity Frequency: Daily Seatbelt Use: always Sunscreen Use: Yes Review of Systems Review of Systems: All systems reviewed & are unremarkable except as noted in HPI & below Physical Exam Physical Exam: Constitutional: Alert, cooperative and in no distress. HEENT: Unremarkable Neck: No jugular venous distention, carotid pulses are normal and equal bilaterally without bruits. Pulmonary: Clear to auscultation bilaterally. Cardiac: Regular rhythm with no murmur, gallop or rub. Abdomen: Soft, nontender with normal bowel sounds. Extremities: No edema. Distal pulses intact. Neurologic: No focal findings. Gait is steady. Skin: No rash, ecchymoses or petechiae. Results & Data Vital Signs (Past 12 Hours) Vital Signs Temp Pulse Pulse Resp BP BP Pulse Ox 11/24/18 07:11 36.3 C L 59 L 18 117/72 94 11/24/18 03:44 36.8 C 67 16 126/71 97 11/24/18 03:30 64 11/24/18 03:16 71 16 121/75 99 11/24/18 03:00 64 16 121/75 96 11/24/18 02:29 56 L 16 158/91 H 97 11/24/18 01:35 71 16 145/68 H 96 11/24/18 00:39 62 20 149/93 H 98 11/24/18 00:18 36.4 C L 70 18 156/89 H 98 PG Care Time/CCT Total # of Minutes Spent Total Time Spent with Patient: Total time spent is greater than 50% in coordination of care (as documented) at patient's floor/unit and/or counseling patient:
[2018-11-24] MEDS: METOPROLOL TARTRATE 50 MG TAB PO SCH ×2 (11:55→20:38)
--- NOTE | 2018-11-24 15:31 | History & Physical Bridge Note ---
Date of Service November 24, 2018 History & Physical Bridge Note Patient seen and examined this morning. Feeling well this minimal dizziness. Only mildly bradycardic this morning. Normal BP. - Started on beta-melanie by cardiology; holding lisinopril - Echo pending - Follow with Dr. Holloway in the morning
[2018-11-24] MEDS: MELOXICAM 7.5 MG TAB PO SCH (20:38)
[2018-11-25 05:51] LABS: Basophils # (auto) 0.03 K/uL (0-0.2); Basophils % (auto) 0.6 %; Eosinophils # (auto) 0.08 K/uL (0-0.5); Eosinophils % (auto) 1.5 %; Hematocrit (blood only) 38.3 % (42-52); Hemoglobin 13.5 g/dL (14.0-18.0); Immature Granulocytes # (auto) 0.01 K/uL (0.00-0.02); Immature Granulocytes % (auto) 0.2 %; Lymphocytes # (auto) 2.29 K/uL (1.2-3.4); Lymphocytes % (auto) 42.5 %; Mean Corpuscular Hgb Conc 35.2 g/dL (32-36); Mean Corpuscular Volume 88.7 fL (80-100); Mean Platelet Volume 10.8 fL (7.4-10.4); Monocytes # (auto) 0.33 K/uL (0.11-0.59); Monocytes % (auto) 6.1 %; Neutrophils # (auto) 2.65 K/uL (1.4-6.5); Neutrophils % (auto) 49.1 %; Platelet Count 131 K/uL (130-400); RDW Coefficient of Variation 13.7 % (11.5-14.5); RDW Standard Deviation 44.7 fL (36.4-46.3); Red Blood Count 4.32 M/uL (4.7-6.1); White Blood Count 5.39 K/uL (4.8-10.8)
[2018-11-25 06:00] LABS: INR 1.1 (0.9-1.1); Prothrombin Time 11.4 Seconds (9.0-12.0)
[2018-11-25 06:30] LABS: BUN Creatinine Ratio 28.4 (10-20); Calcium 8.1 mg/dl (8.5-10.1); Creatinine Clr Calc Pharmacy 94.5 ml/min; Est GFR (African American) 97.9; Est GFR (Non-African American) 84.5; Potassium 4.1 mmol/L (3.5-5.1)
[2018-11-25 06:33] LABS: Albumin Globulin Ratio 0.8 (0.9-2); Bilirubin,Total 0.5 mg/dl (0.2-1); Globulin 3.6 gm/dl (2.5-4.0); Total Protein 6.6 gm/dl (6.4-8.2)
[2018-11-25] MEDS: GABAPENTIN 300 MG CAP PO SCH (09:01)
[2018-11-25] MEDS: VITAMIN B COMPLEX TAB PO SCH (09:01)
[2018-11-25] MEDS: MELOXICAM 7.5 MG TAB PO SCH ×2 (09:01→09:07)
[2018-11-25] MEDS: MULTIVITAMIN TAB PO SCH (09:01)
[2018-11-25] MEDS: CHOLECALCIFEROL 1,000 UNITS TAB PO SCH (09:01)
[2018-11-25] MEDS: HEPARIN SOD 5,000 UNIT/0.5 ML VIAL SQ SCH (09:02)
--- NOTE | 2018-11-25 09:38 | Cardiology Progress Note ---
Date of Service November 25, 2018 Assessment & Plan (1) Lightheaded: I believe his lightheadedness is due to his ventricular bigeminy leading to decreased cardiac output, possibly decreased blood pressure. We have not proven that but based on monitoring here in the hospital that seems to be the case. (2) Bradycardia: I have not seen significant bradycardia, he reports that but I believe that is due to his blood pressure cuff not recording all the premature beats since they probably do not create a pulse, we have not seen bradycardia on the monitor. (3) Incomplete RBBB: He does have an incomplete right bundle branch block pattern, he also has first-degree AV block but he has had no high-grade AV block identified. I would not pursue evaluation of this but we will be keeping him on the monitor. So far he has had no evidence of AV block of higher degree. (4) Ventricular bigeminy: He has episodes of ventricular bigeminy, these are intermittent and his twelve-lead electrocardiograms do not show them. I therefore do not know where the premature beats are coming from but they seem unifocal. Treatment options include initially medical therapy with beta blockade or calcium blockade, possibly antiarrhythmic therapy and lastly consideration of ablation but I would not move to that right away. I am going to increase did not derive much benefit from beta-blockade today, he 50 mg twice a day. Possibly we can get by with just with a beta-melanie for control of blood pressure and his arrhythmia. I would keep him on the monitor at least until the afternoon is, to see how effective this dose if this does not work to help control the arrhythmia then we can switch to a calcium channel melanie and I think he can still go home. If we do switch to a calcium channel melanie I would probably start Calan SR tomorrow morning, since he is on high-dose beta-blockade I would probably go with a higher dose of verapamil, perhaps 300 mg daily. Unfortunately none of the electrocardiograms here show the PVCs, it would be nice to have a twelve-lead electrocardiogram to identify them. We are prepared to do 12 leads if he has recurrent ventricular bigeminy, generally lasts long enough that we can get a recording. That way we can get a better idea of where they originate to determine whether ablation is a reasonable option in the future. Subjective In general he is feeling well, he is aware from time to time of his arrhythmia. He is tolerating the change in medications well. Physical Exam Physical Exam: Constitutional: Alert, cooperative and in no distress. Pulmonary: Clear to auscultation bilaterally. Cardiac: Regular rhythm with no murmur, gallop or rub. Abdomen: Soft, nontender with normal bowel sounds. Extremities: No edema. Skin: No rash, ecchymoses or petechiae. Results & Data Vital Signs (Past 12 Hours) Vital Signs Temp Pulse Resp BP Pulse Ox 11/25/18 07:50 36.8 C 62 17 106/65 95 11/25/18 03:44 36.4 C L 61 16 113/66 95 11/24/18 23:02 36.3 C L 56 L 19 108/57 L 96 Diagnostic Findings Electrocardiogram: Sinus bradycardia, no PVCs Telemetry: Periods of ventricular bigeminy, no significantly slow sinus rhythm or ventricular tachycardia. PG Care Time/CCT Total # of Minutes Spent Total Time Spent with Patient: Total time spent is greater than 50% in coordination of care (as documented) at patient's floor/unit and/or counseling patient:
[2018-11-25] MEDS ORDERED: METOPROLOL TARTRATE 100 MG TAB PO SCH ×2 (09:45→16:30)
[2018-11-25] MEDS: METOPROLOL TARTRATE 50 MG TAB PO SCH (10:35)
--- NOTE | 2018-11-25 16:34 | Discharge Summary ---
Date of Service November 25, 2018 Admission HPI Per Admitting Provider The patient is a 73-year-old male with a past medical history including hypertension, dyslipidemia, Graves' disease, incomplete right bundle branch block, anxiety and diverticulosis, who presents to the emergency department for a 24-hour worsening of ongoing chest discomfort and palpitations. He has been seen by Dr. Holloway from cardiology, having had a recently normal 24-hour Holter monitor, and was told there would be plans for a longer interval monitor in his near future, but he was waiting until golf season was over. He does not have any associated lightheadedness, dizziness or near syncopal associated symptoms. He denies any accompanying neurologic symptoms such as headaches focal weakness numbness or tingling in arms or legs. Principal Diagnosis Symptomatic ventricular bigeminy Discharge Exam Constitutional WD/WN, vitals as above Eyes + anicteric sclerae ENMT external ear and nose normal, oropharynx normal Neck trachea midline, no thyromegaly Respiratory normal respiratory effort, lungs clear to auscultation Cardiovascular RRR, no murmur, no edema (With frequent ectopy) Extremities: no calf tenderness Gastrointestinal (Abdomen) normal bowel sounds, soft, nontender, no hepatosplenomegaly Musculoskeletal Extremities: extremities normal to inspection; no cyanosis and no clubbing Skin no rashes, warm and dry Neurologic moves all extremities and awake; no focal motor deficits Psychiatric A+Ox3, euthymic affect Discharge Data Allergies Allergy/AdvReac Type Severity Reaction Status Date / Time amoxicillin Allergy Severe HEAD TO Verified 11/24/18 01:32 TOE ITCHY RASH Consultations Cardiology Procedures Performed Echocardiogram Ordered Studies Chest x-ray Hospital Course (1) Ventricular bigeminy: Patient admitted with palpitations and feeling intermittently lightheaded due to frequent ventricular bigeminy Seen by cardiology here Troponin was negative TSH was normal at 2.4 Echocardiogram without structural abnormality and with preserved EF ECG with first-degree AV block and incomplete right bundle branch block Had frequent bigeminy and frequent PVCs on telemetry throughout his stay which improved with starting him on and then increasing the dose of metoprolol tartrate to 100 mg p.o. twice daily Seen in consultation by cardiology/electrophysiology-recommended stable for discharge to home on metoprolol tartrate 100 mg p.o. twice daily and will have close follow-up in the office later this week Patient was feeling much improved overall at the time of discharge (2) Bradycardia: Patient was admitted with bradycardia but was actually having frequent ventricular bigeminy and having falsely low heart rate readings due to the ectopic beats not being picked up (3) Chest discomfort: See above, was more a sensation of heart palpitations and not chest pressure angina Troponin was negative No ischemic changes on ECG (4) AAA (abdominal aortic aneurysm): Being followed in the outpatient setting, no need for vascular intervention (5) Dyslipidemia: Continue omega-3 (6) Graves disease: Has a history of such TSH here is normal (7) Hypertension: Was started on metoprolol for PVCs and bigeminy as above. He did then have some low normal blood pressures -He was advised to stop his lisinopril -Started on metoprolol tartrate 100 mg p.o. twice daily as above -Follow blood pressures as an outpatient-gave precautions to call MD if blood pressures drop below the 90 systolic or the 50s for the diastolic or if has lightheadedness (8) DVT prophylaxis: Was provided with heparin SQ Disposition-stable for discharge to home Total Time Total Time Spent Total Time Spent (In Minutes): Greater than 30 minutes Total Time Includes: Examination of the Patient, Discharge Planning, Medication Reconciliation and Communication With Other Providers (Cardiology) Discharge Plan Discharge Items Patient Disposition: Home - Self-Care Reason For Visit: SYMPTOMATIC BRADYCARDIA Discharge Diagnosis: Ventricular bigeminy, palpitations Condition: Good Discharge Goals: Diagnostic testing, Improve disease control, Learn about illness and Therapeutic intervention Activity: As commented below Lifting: Gradually increase as tolerated Bathing: No limitations Exercise/Sports: Gradually increase as tolerated Driving/Machine Use: No limitations Non-emergency contact: Primary Care Provider and Computer Hardware Technician Call non-emergency contact if: you have any medication questions and your symptoms worsen Follow-up/Referrals: Deepak Holloway MD [Family Provider] - (Dr. Holloway's office will call you with your appointment date and time on this .) Susie Grissom MD [Primary Care Provider] - (Please call for a follow up appointment within 1-2 weeks after discharge. ) Diet: Heart Healthy Addtl Provider Instructions: You were admitted with palpitations secondary to frequent premature ventricular contractions (PVCs). You were seen by Dr. Holloway who recommended starting you on metoprolol tartrate 100mg by mouth twice daily. This did decrease the number of extra beats you had. He wants you to STOP your lisinopril so your blood pressure does not drop too low. Please follow up with Dr. Holloway on and call your PCP to schedule an appointment. Prescriptions: New metoprolol tartrate 100 mg Tablet 100 mg PO BID Qty: 60 RF: 0 Continued gabapentin 300 mg capsule 300 mg PO BID RF: 0 cholecalciferol (vitamin D3) 1,000 unit (25 mcg) tablet 1,000 units PO DAILY RF: 0 meloxicam 15 mg tablet 7.5 mg PO DAILY Qty: 30 RF: 0 multivitamin Tablet 1 tab PO DAILY RF: 0 vitamin B complex Tablet 1 tab PO DAILY RF: 0 [place]-3 350 mg-235 mg- 90 mg-597 mg Capsule,Delayed Release(Dr/Ec) 1 cap PO DAILY RF: 0 Glucosamine Chondroitin 550-30-1 mg Capsule 1 cap PO DAILY RF: 0 Discontinued lisinopril 10 mg tablet 10 mg PO DAILY Qty: 90 RF: 0 Stand-Alone Forms: [facility] Discharge Orders: Discharge Order (Routine); Ordered 11/25/18 Ordered By: Lilliam Doan Admission Data Admit Date/Time: 11/24/18 02:48 Attending Provider: Lilliam Doan Admit Provider: Carl Majano Primary Care Provider: Susie Grissom Other Providers: Deepak Holloway ; Aleksandar Burr Service: Telemetry Other Interventions: Discharge Summary Assessment (RN) Last Done: 11/25/18 16:58 Pending Studies at Discharge: No
== END 2018-11-25 17:49 | disposition home or self-care (01) | DRG 316 ==
LOC: ED 00:13 → SUATTDRO 02:48 → 2E 02:48

== ENCOUNTER 2019-09-10 17:25 | Inpatient (IN) ==
[2019-09-10] MEDS ORDERED: ACETAMINOPHEN 1,000 MG/100 ML VIAL IV STA (18:14)
[2019-09-10] MEDS ORDERED: SODIUM CHLORIDE 0.9% 1000ML 1,000 ML IV SCH (18:15)
[2019-09-10] MEDS ORDERED: METOPROLOL TARTRATE 1 MG/ML VIAL IV PRN ×2 (18:25→22:21)
[2019-09-10 18:26] LABS: Basophils # (auto) 0.01 K/uL (0-0.2); Basophils % (auto) 0.2 %; Eosinophils # (auto) 0.01 K/uL (0-0.5); Eosinophils % (auto) 0.2 %; Hematocrit (blood only) 38.1 % (42-52); Hemoglobin 13.2 g/dL (14.0-18.0); Immature Granulocytes # (auto) 0.08 K/uL (0.00-0.02); Immature Granulocytes % (auto) 1.2 %; Lymphocytes # (auto) 1.38 K/uL (1.2-3.4); Lymphocytes % (auto) 21.4 %; Mean Corpuscular Hemoglobin 29.3 pg (25-34); Mean Corpuscular Hgb Conc 34.6 g/dL (32-36); Mean Corpuscular Volume 84.5 fL (80-100); Mean Platelet Volume 9.6 fL (7.4-10.4); Monocytes # (auto) 0.62 K/uL (0.11-0.59); Monocytes % (auto) 9.6 %; Neutrophils # (auto) 4.34 K/uL (1.4-6.5); Neutrophils % (auto) 67.4 %; Platelet Count 187 K/uL (130-400); RDW Coefficient of Variation 13.5 % (11.5-14.5); RDW Standard Deviation 41.4 fL (36.4-46.3); Red Blood Count 4.51 M/uL (4.7-6.1); White Blood Count 6.44 K/uL (4.8-10.8)
[2019-09-10 18:36] LABS: Sodium 128 mmol/L (136-145)
[2019-09-10 18:37] LABS: Alanine Aminotransferase 66 U/L (12-78); Albumin Level 2.7 gm/dl (3.4-5.0); Aspartate Aminotransferase 95 U/L (15-37); BUN Creatinine Ratio 23.8 (10-20); Blood Urea Nitrogen 21 mg/dl (7-18); Carbon Dioxide 21 mmol/L (21-32); Chloride 97 mmol/L (98-107); Creatinine Clr Calc Pharmacy 97.5 ml/min; Est GFR (Non-African American) 85.4; Glucose 109 mg/dl (70-99); Lipase 85 U/L (73-393)
[2019-09-10 18:41] LABS: Albumin Globulin Ratio 0.5 (0.9-2); Alkaline Phosphatase 262 U/L (45-117); Bilirubin,Total 0.9 mg/dl (0.2-1); Globulin 5.2 gm/dl (2.5-4.0); Total Protein 7.9 gm/dl (6.4-8.2); Troponin I < 0.015 ng/ml (0-0.045)
[2019-09-10 18:47] LABS: INR 1.3 (0.9-1.1); Partial Thromboplastin Ratio 1.2; Partial Thromboplastin Time 34.3 Seconds (21.0-31.0); Prothrombin Time 13.2 Seconds (9.0-12.0)
[2019-09-10 19:13] LABS: Thyroid Stimulating Hormone 0.062 uIu/ml (0.300-4.500)
[2019-09-10 19:25] LABS: T4 Free Thyroxine 1.67 ng/dl (0.8-1.6)
--- NOTE | 2019-09-10 21:24 | History & Physical Report ---
Date of Service September 10, 2019 Assessment & Plan (1) Lethargy: Patient's main presenting symptom to the ED was lethargy. These are the same symptoms that he had when he initially developed Graves' disease 5 years ago. Present on Admission?: Yes (2) New onset atrial fibrillation: New onset atrial fibrillation/hypertension- The patient will be admitted to telemetry for serial cardiac enzymes, serial EKG's, cardiac rhythm monitoring and a 2-D echocardiogram with Dopplers. Continue metoprolol tartrate 100 mg p.o. twice daily Continue to treat Graves' disease. Placed on Lopressor 5 mg IV every 4 hours as needed. Consult cardiology Present on Admission?: Yes (3) History of Graves' disease: Restarted on methimazole 15 mg p.o. daily approximately 2 weeks ago. We will consider calling endocrinology in the a.m. for further recommendations, as they will be following his hyperthyroidism as outpatient Present on Admission?: Yes (4) Hypertension: See above Present on Admission?: Yes (5) Fever: Patient had a single recorded elevated temperature upon arrival of 101.3 F. He did not have any further elevated temperatures, and shows no signs of active infection. Temperature may be secondary to partially treated hyperthyroidism, and will monitor for now unless more specific symptoms develop Present on Admission?: Yes (6) Obstructive sleep apnea syndrome: Placed order for CPAP to use at bedtime as needed Present on Admission?: Yes History of Present Illness Chief Complaint: Patient presents to the emergency department with complaint of a few weeks of generalized fatigue that he blames on his Graves' disease Primary Care Provider: Susie Grissom MD The patient is a 74-year-old male with a past medical history including Graves' disease, perianal abscess, obstructive sleep apnea, ventricular bigeminy, bradycardia, AAA, GERD, anxiety, dyslipidemia, disc metabolic syndrome, hepatic steatosis, 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 The patient reports he had been treated for Graves' disease with antithyroid medications for 3 years beginning 5 years ago and was stopped 2 years ago. About 2 weeks ago, he began to have the symptoms of fatigue and generalized lethargy, and was restarted on his antithyroid me dication at that time. He reports however his symptoms have been persistent, and he presents to the ED for assessment tonight. He denies any recent travels or sick exposures, including COVID exposures. He was COVID-19 negative while in the ER. He was noted to have new onset atrial fibrillation with RVR on monitor in the ED, and did respond to Lopressor 5 mg IV with return to sinus rhythm. TSH was 0.062, and free T4 was 1.67. Sodium was 128 hemoglobin was 13.2. Allergies Allergy/AdvReac Type Severity Reaction Status Date / Time amoxicillin Allergy Severe HEAD TO Verified 09/10/19 20:44 TOE ITCHY RASH Home Medications Home Medications Medication Instructions Recorded Confirmed Type gabapentin 300 mg capsule 300 mg PO BID 10/22/18 09/10/19 History cholecalciferol (vitamin D3) 25 1,000 units PO DAILY tab 10/30/18 09/10/19 History mcg (1,000 unit) tablet Glucosamine Chondroitin 1 cap PO DAILY 11/24/18 09/10/19 History [place]vel-3 1 cap PO DAILY 11/24/18 09/10/19 History multivitamin 1 tab PO DAILY 11/24/18 09/10/19 History vitamin B complex 1 tab PO DAILY 11/24/18 09/10/19 History metoprolol tartrate 100 mg tablet 100 mg PO BID #60 tab 12/23/18 09/10/19 Rx meloxicam 7.5 mg tablet 7.5 mg PO DAILY #60 tab 01/29/19 09/10/19 History CPAP Machine #1 ea 02/21/19 09/10/19 Rx methimazole 5 mg tablet 15 mg PO DAILY tab 09/10/19 09/10/19 History methocarbamol 500 mg PO Q8H 09/10/19 09/10/19 History Past Med/Surg History Medical History AAA (abdominal aortic aneurysm) (Chronic) Acid indigestion (Chronic) Anxiety (Chronic) Diverticulosis of colon (Chronic) Dyslipidemia (Chronic) Dysmetabolic syndrome X (Chronic) Erectile dysfunction (Chronic) Essential hypertriglyceridemia (Chronic) Graves disease (Chronic) Hepatic steatosis (Chronic) 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) Hypertension (Chronic) Incomplete RBBB (Chronic) Obstructive sleep apnea syndrome Prediabetes (Chronic) Rectal fistula Skin cancer (Resolved) Sleep apnea Surgical History H/O elbow surgery H/O knee surgery History of wisdom tooth extraction Status post Mohs surgery Family History Mother Type 2 diabetes mellitus Denies family history of Ovarian cancer Prostate cancer Cardiac disorder Myocardial infarction Breast cancer Colorectal cancer Social History Preferred Language: Mongolian Communication Ability: Effective Visual Impairment: No Limitations Hearing Ability: Normal Oil Filters Inspector Required: No Beliefs That Will Affect Care: None marital status: Current Living Situation: Spouse current occupational status: retired Feels Safe at Home: Yes Safety Concerns: Feels Safe At This Time Smoking Status: Former smoker packs per day: 1 ; Hx Alcohol Use: Yes Alcohol Intake Frequency: Rarely Hx Substance Use: No Childhood Exposure to Second-Hand Smoke: Yes Dental Care, Regularly: No Physical Activity Frequency: Daily Seatbelt Use: always Sunscreen Use: Yes Review of Systems Review of Systems: The patient denies chest pain, shortness of breath, dyspnea on exertion, cough, lower extremity swelling, sore throat, fevers, chills, sweats, nausea, vomiting, diarrhea , constipation, abdominal pain, pelvic pain, blood in urine or stool, dysuria, urinary frequency or urgency, lightheadedness, dizziness, headache, memory loss, loss of consciousness, rash, abnormal bruising or bleeding, imbalance, focal weakness, numbness or tingling in arms or legs, generalized arthralgias or myalgias, back or neck pain, or night sweats. The review of systems is otherwise negative other than for that already noted above, and at least 10 systems have been reviewed. Physical Exam Physical Exam: The patient is awake, alert and oriented 3, well developed and well nourished, normocephalic and atraumatic, lying in bed and in no acute distress. HEENT--PERRL, EOMI, mucous membranes and oropharynx normal. Neck--supple. No JVD. No bruits. Thyroid normal, trachea midline, no adenopathy. Heart--normal S1 and S2. No murmurs, rubs or gallops. Lungs--clear bilaterally, no respiratory distress, no accessory muscle use. Abdomen--normal bowel sounds and soft. Nontender. Nondistended. Extremities--no cyanosis or clubbing. No edema. Dermatologic--normal skin turgor, normal color, no abnormal lymph nodes, no rash. Neurologic--cranial nerves II through XII grossly intact. Rheumatologic--normal range of motion. Psychiatric--lethargic Results & Data Results & Data ([facility]) Vital Signs (Past 12 Hours) Vital Signs Temp Pulse Resp BP Pulse Ox 09/10/19 20:30 99.1 F 09/10/19 20:01 83 20 94 09/10/19 20:00 85 20 146/77 H 93 09/10/19 19:31 89 20 94 09/10/19 19:30 105 H 20 134/85 93 09/10/19 19:01 95 H 20 93 09/10/19 19:00 90 20 136/90 94 09/10/19 18:48 105 H 145/71 H 09/10/19 17:30 101.3 F H 129 H 20 152/75 H 92 Laboratory Results Laboratory Results WBC 6.44 K/uL (4.8-10.8) 09/10/19 17:45 RBC 4.51 M/uL (4.7-6.1) L 09/10/19 17:45 Hgb 13.2 g/dL (14.0-18.0) L 09/10/19 17:45 Hct 38.1 % (42-52) L 09/10/19 17:45 MCV 84.5 fL (80-100) 09/10/19 17:45 MCH 29.3 pg (25-34) 09/10/19 17:45 MCHC 34.6 g/dL (32-36) 09/10/19 17:45 RDW Std Deviation 41.4 fL (36.4-46.3) 09/10/19 17:45 RDW Coeff of Shantel 13.5 % (11.5-14.5) 09/10/19 17:45 Plt Count 187 K/uL (130-400) 09/10/19 17:45 MPV 9.6 fL (7.4-10.4) 09/10/19 17:45 Immature Gran % (Auto) 1.2 % 09/10/19 17:45 Neut % (Auto) 67.4 % 09/10/19 17:45 Lymph % (Auto) 21.4 % 09/10/19 17:45 [place] % (Auto) 9.6 % 09/10/19 17:45 Eos % (Auto) 0.2 % 09/10/19 17:45 Baso % (Auto) 0.2 % 09/10/19 17:45 Neut # (Auto) 4.34 K/uL (1.4-6.5) 09/10/19 17:45 Lymph # (Auto) 1.38 K/uL (1.2-3.4) 09/10/19 17:45 [place] # (Auto) 0.62 K/uL (0.11-0.59) H 09/10/19 17:45 Eos # (Auto) 0.01 K/uL (0-0.5) 09/10/19 17:45 Baso # (Auto) 0.01 K/uL (0-0.2) 09/10/19 17:45 Immature Gran # (Auto) 0.08 K/uL (0.00-0.02) H 09/10/19 17:45 PT 13.2 Seconds (9.0-12.0) H 09/10/19 17:45 INR 1.3 (0.9-1.1) H 09/10/19 17:45 APTT 34.3 Seconds (21.0-31.0) H 09/10/19 17:45 PTT Ratio 1.2 09/10/19 17:45 Sodium 128 mmol/L (136-145) L 09/10/19 17:45 Potassium 4.0 mmol/L (3.5-5.1) 09/10/19 17:45 Chloride 97 mmol/L (98-107) L 09/10/19 17:45 Carbon Dioxide 21 mmol/L (21-32) 09/10/19 17:45 Anion Gap 11.0 (3-11) 09/10/19 17:45 BUN 21 mg/dl (7-18) H 09/10/19 17:45 Creatinine 0.89 mg/dl (0.6-1.4) 09/10/19 17:45 Est Cr Clr Drug Dosing 97.5 ml/min 09/10/19 17:45 Est GFR ( Amer) 99.0 09/10/19 17:45 Est GFR (Non-Af Amer) 85.4 09/10/19 17:45 BUN/Creatinine Ratio 23.8 (10-20) H 09/10/19 17:45 Glucose 109 mg/dl (70-99) H 09/10/19 17:45 Lactate 1.0 mmol/L (0.4-2.0) 09/10/19 18:43 Calcium 9.0 mg/dl (8.5-10.1) 09/10/19 17:45 Total Bilirubin 0.9 mg/dl (0.2-1) 09/10/19 17:45 AST 95 U/L (15-37) H 09/10/19 17:45 ALT 66 U/L (12-78) 09/10/19 17:45 Alkaline Phosphatase 262 U/L (45-117) H 09/10/19 17:45 Troponin I < 0.015 ng/ml (0-0.045) 09/10/19 22:45 Total Protein 7.9 gm/dl (6.4-8.2) 09/10/19 17:45 Albumin 2.7 gm/dl (3.4-5.0) L 09/10/19 17:45 Globulin 5.2 gm/dl (2.5-4.0) H 09/10/19 17:45 Albumin/Globulin Ratio 0.5 (0.9-2) L 09/10/19 17:45 Lipase 85 U/L (73-393) 09/10/19 17:45 TSH 0.062 uIu/ml (0.300-4.500) L 09/10/19 17:45 Free T4 1.67 ng/dl (0.8-1.6) H 09/10/19 17:45 COVID-19 PCR NEGATIVE (Negative) 09/10/19 18:55 SARS-CoV-2 RNA (RT-PCR) Cancelled 09/10/19 18:55 Code Status & VTE Plan Code Status Full code VTE Prophylaxis Plan VTE Prophylaxis will be ordered: Yes PG Care Time/CCT Total # of Minutes Spent Total Time Spent with Patient: Total time spent is greater than 50% in coordination of care (as documented) at patient's floor/unit and/or counseling patient: Coding Level of Care Code 59827 Initial Inpt Care Lvl 3 Diagnoses Lethargy R53.83 New onset atrial fibrillation I48.91 History of Graves' disease Z86.39 Hypertension I10 Fever R50.9 Fever type: unspecified Obstructive sleep apnea syndrome G47.33 (1) Fever Fever type: unspecified Qualified Code(s): R50.9 - Fever, unspecified
[2019-09-10] MEDS ORDERED: ALUMINUM/MAGNESIUM SUSP 30 ML UDC PO PRN (22:21)
[2019-09-10] MEDS ORDERED: ONDANSETRON INJ 2 MG/ML 2 ML VIAL IV PRN (22:21)
[2019-09-10] MEDS ORDERED: MAGNESIUM HYDROXIDE SUSP 30 ML UDC PO PRN (22:21)
[2019-09-10] MEDS: GABAPENTIN 300 MG CAP PO SCH (23:15)
[2019-09-10] MEDS: METOPROLOL TARTRATE 100 MG TAB PO SCH (23:15)
[2019-09-10] MEDS: NSS + 20MEQ KCL 20 MEQ/1,000 ML BAG IV SCH (23:15)
[2019-09-10] MEDS: METHOCARBAMOL 500 MG TABLET PO SCH (23:15)
[2019-09-11] MEDS: ACETAMINOPHEN 325 MG TAB PO PRN ×3 (00:02→20:50)
--- NOTE | 2019-09-11 00:57 | Emergency Department Note ---
History of Present Illness General Chief complaint: Arrhythmia/Palpitations Stated complaint: TACHYCARDIA Time Seen by Provider: 09/10/19 18:10 Source: patient and RN notes reviewed Mode of arrival: EMS Limitations: no limitations History of Present Illness Provider complaint: Fever, generalized fatigue Maximum Pain Intensity: 4 This patient is a 74-year-old male who presents to the emergency department with complaints of generalized fatigue for the last week +. Patient states he has been treated for Graves' disease recently. Patient denies any chest pain or shortness of breath but does admit to some exertional fatigue. Patient denies any significant palpitations. He denies any recent cough, vomiting or diarrhea. Home Medications Home Medications Medication Instructions Recorded Confirmed Type gabapentin 300 mg capsule 300 mg PO BID 10/22/18 09/10/19 History cholecalciferol (vitamin D3) 25 1,000 units PO DAILY tab 10/30/18 09/10/19 History mcg (1,000 unit) tablet Glucosamine Chondroitin 1 cap PO DAILY 11/24/18 09/10/19 History [place]-3 1 cap PO DAILY 11/24/18 09/10/19 History multivitamin 1 tab PO DAILY 11/24/18 09/10/19 History vitamin B complex 1 tab PO DAILY 11/24/18 09/10/19 History metoprolol tartrate 100 mg tablet 100 mg PO BID #60 tab 12/23/18 09/10/19 Rx meloxicam 7.5 mg tablet 7.5 mg PO DAILY #60 tab 01/29/19 09/10/19 History CPAP Machine #1 ea 02/21/19 09/10/19 Rx methimazole 5 mg tablet 15 mg PO DAILY tab 09/10/19 09/10/19 History methocarbamol 500 mg PO Q8H 09/10/19 09/10/19 History Allergies Allergy/AdvReac Type Severity Reaction Status Date / Time amoxicillin Allergy Severe HEAD TO Verified 09/10/19 20:44 TOE ITCHY RASH Past Med/Surg History Medical History AAA (abdominal aortic aneurysm) (Chronic) Acid indigestion (Chronic) Anxiety (Chronic) Diverticulosis of colon (Chronic) Dyslipidemia (Chronic) Dysmetabolic syndrome X (Chronic) Erectile dysfunction (Chronic) Essential hypertriglyceridemia (Chronic) Graves disease (Chronic) Hepatic steatosis (Chronic) 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) Hypertension (Chronic) Incomplete RBBB (Chronic) Obstructive sleep apnea syndrome Prediabetes (Chronic) Rectal fistula Skin cancer (Resolved) Sleep apnea Surgical History H/O elbow surgery H/O knee surgery History of wisdom tooth extraction Status post Mohs surgery Family History Mother Type 2 diabetes mellitus Denies family history of Ovarian cancer Prostate cancer Cardiac disorder Myocardial infarction Breast cancer Colorectal cancer Social History Preferred Language: Lao Communication Ability: Effective Visual Impairment: No Limitations Hearing Ability: Normal Solar Technician Required: No Beliefs That Will Affect Care: None marital status: Current Living Situation: Spouse current occupational status: retired Feels Safe at Home: Yes Safety Concerns: Feels Safe At This Time Smoking Status: Former smoker packs per day: 1 ; Hx Alcohol Use: Yes Alcohol Intake Frequency: Rarely Hx Substance Use: No Childhood Exposure to Second-Hand Smoke: Yes Dental Care, Regularly: No Physical Activity Frequency: Daily Seatbelt Use: always Sunscreen Use: Yes Review of Systems See HPI for pertinent positives & negatives. and A total of 10 systems reviewed and were otherwise negative Physical Exam Vital Signs Vital Signs - 24 hr 09/10/19 17:30 09/10/19 18:48 09/10/19 19:00 Temperature 38.5 C H Temperature Source Oral Pulse Rate 129 H 105 H 90 Pulse Rate from SpO2 Sensor 94 H Pulse Rhythm Irregular Pulse Strength Normal Respiratory Rate 20 20 Respiratory Effort / Characteristics Non-Labored Spontaneous Respiratory Depth Normal Respiratory Pattern Regular Blood Pressure 152/75 H 145/71 H 136/90 Blood Pressure Mean 100 93 Blood Pressure Position Lying Pulse Oximetry 92 94 Oxygen Delivery Method Room Air Sepsis Recent Fever Within 48 Hours No Sepsis New/Unexplained Change in Mental Status No Sepsis Action Taken by Nursing No Action Required 09/10/19 19:01 09/10/19 19:30 09/10/19 19:31 Temperature Temperature Source Pulse Rate 95 H 105 H 89 Pulse Rate from SpO2 Sensor 99 H 102 H 91 H Pulse Rhythm Pulse Strength Respiratory Rate 20 20 20 Respiratory Effort / Characteristics Respiratory Depth Respiratory Pattern Blood Pressure 134/85 Blood Pressure Mean 111 Blood Pressure Position Pulse Oximetry 93 93 94 Oxygen Delivery Method Sepsis Recent Fever Within 48 Hours Sepsis New/Unexplained Change in Mental Status Sepsis Action Taken by Nursing 09/10/19 20:00 09/10/19 20:01 09/10/19 20:30 Temperature 37.3 C Temperature Source Oral Pulse Rate 85 83 85 Pulse Rate from SpO2 Sensor 79 85 83 Pulse Rhythm Pulse Strength Respiratory Rate 20 20 21 Respiratory Effort / Characteristics Respiratory Depth Respiratory Pattern Blood Pressure 146/77 H 115/78 Blood Pressure Mean 94 95 Blood Pressure Position Pulse Oximetry 93 94 90 Oxygen Delivery Method Sepsis Recent Fever Within 48 Hours Sepsis New/Unexplained Change in Mental Status Sepsis Action Taken by Nursing 09/10/19 20:31 09/10/19 21:00 09/10/19 21:01 Temperature Temperature Source Pulse Rate 85 84 84 Pulse Rate from SpO2 Sensor 83 82 84 Pulse Rhythm Pulse Strength Respiratory Rate 19 19 21 Respiratory Effort / Characteristics Respiratory Depth Respiratory Pattern Blood Pressure 154/85 H Blood Pressure Mean 92 Blood Pressure Position Pulse Oximetry 94 94 94 Oxygen Delivery Method Sepsis Recent Fever Within 48 Hours Sepsis New/Unexplained Change in Mental Status Sepsis Action Taken by Nursing Vital signs reviewed. General: Somewhat ill-appearing 74-year-old male, no significant distress. HEENT: No scleral icterus, PERRLA, neck supple. Atraumatic. Cardiovascular: Tachycardic, irregular, no extra sounds. Pulmonary: Clear to auscultation bilaterally, normal work of breathing. Abdomen: Soft, nontender, nondistended, positive bowel sounds. Musculoskeletal: Atraumatic, no peripheral edema. Neurologic: Patient awake alert and oriented x 3 Skin: Warm, dry, no rash Course Administered Medications Acetaminophen (Tylenol) 650 mg PO Q4H PRN PRN Reason: Pain or Fever Stop: 10/10/19 22:20 Last Admin: 09/11/19 00:02 Dose: 650 mg Documented by: [id number] Gabapentin (Neurontin) 300 mg PO BID [facility] Stop: 10/10/19 22:29 Last Admin: 09/10/19 23:15 Dose: 300 mg Documented by: [id number] Potassium Chloride/Sodium Chloride (Normal Saline W/20 Meq Kcl) 20 meq in 1,000 mls @ 80 mls/hr IV .[id number] [facility] Stop: 10/10/19 22:29 Last Admin: 09/10/19 23:15 Dose: 80 mls/hr Documented by: [id number] Methocarbamol (Robaxin) 500 mg PO Q8 [facility] Stop: 10/10/19 22:29 Last Admin: 09/10/19 23:15 Dose: 500 mg Documented by: [id number] Metoprolol Tartrate (Lopressor) 100 mg PO BID [facility] Stop: 10/10/19 22:29 Last Admin: 09/10/19 23:15 Dose: 100 mg Documented by: [id number] Discontinued Medications Sodium Chloride (Nss 1000ml) 1,000 mls @ 999 mls/hr IV .Q1H1M [facility] Stop: 09/10/19 19:15 Last Infusion: 09/10/19 19:55 Dose: 0 mls/hr Documented by: [id number] Admin: 09/10/19 18:48 Dose: 999 mls/hr Documented by: [id number] Acetaminophen (Ofirmev) 1,000 mg in 100 mls @ 400 mls/hr IV NOW STA Stop: 09/10/19 18:28 Last Infusion: 09/10/19 19:11 Dose: 0 mls/hr Documented by: [id number] Admin: 09/10/19 18:49 Dose: 400 mls/hr Documented by: [id number] Metoprolol Tartrate (Lopressor) 5 mg IV Q5M PRN PRN Reason: Tachycardia Stop: 10/10/19 18:24 Last Admin: 09/10/19 18:48 Dose: 5 mg Documented by: [id number] Medical Decision Making Differential Diagnosis Differential diagnosis: Etiologies such as viral syndrome, otitis, pharyngitis, pneumonia, influenza, meningitis, urinary tract infection, septic arthritis, soft tissue infectious process, intra-abdominal process, sepsis, bacteremia, as well as others were entertained. Medical Records Attestation: I reviewed the patient's medical records. Home Medications Current Medication List: was personally reviewed by me Laboratory Data Attestation: I reviewed the patient's lab results. Result diagrams: 09/10/19 17:45 09/10/19 17:45 Lab Results 09/10/19 09/10/19 09/10/19 Range/Units 17:45 17:45 17:45 WBC 6.44 (4.8-10.8) K/uL RBC 4.51 L (4.7-6.1) M/uL Hgb 13.2 L (14.0-18.0) g/dL Hct 38.1 L (42-52) % MCV 84.5 (80-100) fL MCH 29.3 (25-34) pg MCHC 34.6 (32-36) g/dL RDW Std Deviation 41.4 (36.4-46.3) fL RDW Coeff of Shantel 13.5 (11.5-14.5) % Plt Count 187 (130-400) K/uL MPV 9.6 (7.4-10.4) fL Immature Gran % (Auto) 1.2 % Neut % (Auto) 67.4 % Lymph % (Auto) 21.4 % [facility] % (Auto) 9.6 % Eos % (Auto) 0.2 % Baso % (Auto) 0.2 % Neut # (Auto) 4.34 (1.4-6.5) K/uL Lymph # (Auto) 1.38 (1.2-3.4) K/uL [facility] # (Auto) 0.62 H (0.11-0.59) K/uL Eos # (Auto) 0.01 (0-0.5) K/uL Baso # (Auto) 0.01 (0-0.2) K/uL Immature Gran # (Auto) 0.08 H (0.00-0.02) K/uL PT 13.2 H (9.0-12.0) Seconds INR 1.3 H (0.9-1.1) APTT 34.3 H (21.0-31.0) Seconds PTT Ratio 1.2 Sodium 128 L (136-145) mmol/L Potassium 4.0 (3.5-5.1) mmol/L Chloride 97 L (98-107) mmol/L Carbon Dioxide 21 (21-32) mmol/L Anion Gap 11.0 (3-11) BUN 21 H (7-18) mg/dl Creatinine 0.89 (0.6-1.4) mg/dl Est Cr Clr Drug Dosing 97.5 ml/min Est GFR ( Amer) 99.0 Est GFR (Non-Af Amer) 85.4 BUN/Creatinine Ratio 23.8 H (10-20) Glucose 109 H (70-99) mg/dl Lactate (0.4-2.0) mmol/L Calcium 9.0 (8.5-10.1) mg/dl Total Bilirubin 0.9 (0.2-1) mg/dl AST 95 H (15-37) U/L ALT 66 (12-78) U/L Alkaline Phosphatase 262 H (45-117) U/L Troponin I < 0.015 (0-0.045) ng/ml Total Protein 7.9 (6.4-8.2) gm/dl Albumin 2.7 L (3.4-5.0) gm/dl Globulin 5.2 H (2.5-4.0) gm/dl Albumin/Globulin Ratio 0.5 L (0.9-2) Lipase 85 (73-393) U/L TSH (0.300-4.500) uIu/ml Free T4 (0.8-1.6) ng/dl COVID-19 PCR (Negative) SARS-CoV-2 RNA (RT-PCR) 09/10/19 09/10/19 09/10/19 Range/Units 17:45 18:43 18:55 WBC (4.8-10.8) K/uL RBC (4.7-6.1) M/uL Hgb (14.0-18.0) g/dL Hct (42-52) % MCV (80-100) fL MCH (25-34) pg MCHC (32-36) g/dL RDW Std Deviation (36.4-46.3) fL RDW Coeff of Shantel (11.5-14.5) % Plt Count (130-400) K/uL MPV (7.4-10.4) fL Immature Gran % (Auto) % Neut % (Auto) % Lymph % (Auto) % [facility] [place] % (Auto) % Eos % (Auto) % Baso % (Auto) % Neut # (Auto) (1.4-6.5) K/uL Lymph # (Auto) (1.2-3.4) K/uL [facility] [place] # (Auto) (0.11-0.59) K/uL Eos # (Auto) (0-0.5) K/uL Baso # (Auto) (0-0.2) K/uL Immature Gran # (Auto) (0.00-0.02) K/uL PT (9.0-12.0) Seconds INR (0.9-1.1) APTT (21.0-31.0) Seconds PTT Ratio Sodium (136-145) mmol/L Potassium (3.5-5.1) mmol/L Chloride (98-107) mmol/L Carbon Dioxide (21-32) mmol/L Anion Gap (3-11) BUN (7-18) mg/dl Creatinine (0.6-1.4) mg/dl Est Cr Clr Drug Dosing ml/min Est GFR ( Amer) Est GFR (Non-Af Amer) BUN/Creatinine Ratio (10-20) Glucose (70-99) mg/dl Lactate 1.0 (0.4-2.0) mmol/L Calcium (8.5-10.1) mg/dl Total Bilirubin (0.2-1) mg/dl AST (15-37) U/L ALT (12-78) U/L Alkaline Phosphatase (45-117) U/L Troponin I (0-0.045) ng/ml Total Protein (6.4-8.2) gm/dl Albumin (3.4-5.0) gm/dl Globulin (2.5-4.0) gm/dl Albumin/Globulin Ratio (0.9-2) Lipase (73-393) U/L TSH 0.062 L (0.300-4.500) uIu/ml Free T4 1.67 H (0.8-1.6) ng/dl COVID-19 PCR (Negative) SARS-CoV-2 RNA (RT-PCR) Cancelled 09/10/19 Range/Units 18:55 WBC (4.8-10.8) K/uL RBC (4.7-6.1) M/uL Hgb (14.0-18.0) g/dL Hct (42-52) % MCV (80-100) fL MCH (25-34) pg MCHC (32-36) g/dL RDW Std Deviation (36.4-46.3) fL RDW Coeff of Shantel (11.5-14.5) % Plt Count (130-400) K/uL MPV (7.4-10.4) fL Immature Gran % (Auto) % Neut % (Auto) % Lymph % (Auto) % [facility] [place] [facility] % (Auto) % Eos % (Auto) % Baso % (Auto) % Neut # (Auto) (1.4-6.5) K/uL Lymph # (Auto) (1.2-3.4) K/uL [facility] [place] [facility] # (Auto) (0.11-0.59) K/uL Eos # (Auto) (0-0.5) K/uL Baso # (Auto) (0-0.2) K/uL Immature Gran # (Auto) (0.00-0.02) K/uL PT (9.0-12.0) Seconds INR (0.9-1.1) APTT (21.0-31.0) Seconds PTT Ratio Sodium (136-145) mmol/L Potassium (3.5-5.1) mmol/L Chloride (98-107) mmol/L Carbon Dioxide (21-32) mmol/L Anion Gap (3-11) BUN (7-18) mg/dl Creatinine (0.6-1.4) mg/dl Est Cr Clr Drug Dosing ml/min Est GFR ( Amer) Est GFR (Non-Af Amer) BUN/Creatinine Ratio (10-20) Glucose (70-99) mg/dl Lactate (0.4-2.0) mmol/L Calcium (8.5-10.1) mg/dl Total Bilirubin (0.2-1) mg/dl AST (15-37) U/L ALT (12-78) U/L Alkaline Phosphatase (45-117) U/L Troponin I (0-0.045) ng/ml Total Protein (6.4-8.2) gm/dl Albumin (3.4-5.0) gm/dl Globulin (2.5-4.0) gm/dl Albumin/Globulin Ratio (0.9-2) Lipase (73-393) U/L TSH (0.300-4.500) uIu/ml Free T4 (0.8-1.6) ng/dl COVID-19 PCR NEGATIVE (Negative) SARS-CoV-2 RNA (RT-PCR) ECG Data Attestation: I personally reviewed and interpreted this ECG as follows: Indication: + weakness Rate (beats per minute): 121 Rhythm: + atrial fibrillation ECG Intervals/blocks: + Incomplete right bundle branch block and + Prolonged QT ECG ST segments: + Nonspecific ST abnormalities Blood Pressure Blood Pressure Findings: Elevated blood pressure Blood Pressure Disposition: further management by hospitalist MDM Narrative This patient was evaluated and appeared to be in no significant distress. An order for cardiac monitoring was placed and the patient is noted to be in a rapid atrial fibrillation. He is also noted to be febrile. Patient was given 1 g of IV Tylenol, gentle IV hydration. He was placed on airborne precautions and a rapid COVID swab was performed. COVID is negative. Patient was given IV metoprolol with conversion to a normal sinus rhythm. Patient's TSH is 0.062 with a free T4 of 1.67. Patient's troponin is negative. WBC is within normal limits as well as a lactate of 1.0. Sodium was noted to be 128. Patient remained stable for several hours in the emergency department. Patient's case was discussed with Dr. Rouse of the hospitalist service who will evaluate the patient for further management. Patient is aware of the plan and agrees. Impression & Plan New onset atrial fibrillation, Fever Discharge Plan Visit Data *Final* Discharge Date/Time: 09/10/19 22:03 Chief Complaint: Arrhythmia/Palpitations Stated Complaint: TACHYCARDIA ED Provider: Chiara Davies Discharge Problem: New onset atrial fibrillation, Fever Patient Disposition: Admitted As Inpatient Discharge Instructions Interventions: ED Discharge Assessment Last Done: 09/10/19 22:03 Discharge Problem: Fever Qualifiers: Fever type: unspecified Qualified Code(s): R50.9 - Fever, unspecified
[2019-09-11] MEDS: METHOCARBAMOL 500 MG TABLET PO SCH ×2 (05:52→14:24)
[2019-09-11 07:35] LABS: Basophils # (auto) 0.01 K/uL (0-0.2); Basophils % (auto) 0.2 %; Eosinophils # (auto) 0.01 K/uL (0-0.5); Eosinophils % (auto) 0.2 %; Hematocrit (blood only) 33.9 % (42-52); Hemoglobin 11.9 g/dL (14.0-18.0); Immature Granulocytes # (auto) 0.09 K/uL (0.00-0.02); Immature Granulocytes % (auto) 1.7 %; Lymphocytes # (auto) 1.25 K/uL (1.2-3.4); Lymphocytes % (auto) 24.1 %; Mean Corpuscular Hemoglobin 29.4 pg (25-34); Mean Corpuscular Hgb Conc 35.1 g/dL (32-36); Mean Corpuscular Volume 83.7 fL (80-100); Monocytes # (auto) 0.39 K/uL (0.11-0.59); Monocytes % (auto) 7.5 %; Neutrophils # (auto) 3.44 K/uL (1.4-6.5); Neutrophils % (auto) 66.3 %; Platelet Count 160 K/uL (130-400); RDW Coefficient of Variation 13.6 % (11.5-14.5); RDW Standard Deviation 41.6 fL (36.4-46.3); Red Blood Count 4.05 M/uL (4.7-6.1); White Blood Count 5.19 K/uL (4.8-10.8)
[2019-09-11 07:49] LABS: INR 1.3 (0.9-1.1); Partial Thromboplastin Ratio 1.2; Partial Thromboplastin Time 32.6 Seconds (21.0-31.0); Prothrombin Time 13.2 Seconds (9.0-12.0)
--- NOTE | 2019-09-11 08:04 | XRay Report ---
XR chest 1V portable CLINICAL HISTORY: febrile, hypoxia COMPARISON STUDY: 11/24/2018 FINDINGS: The heart is enlarged. There are right midlung zone airspace opacity suspicious for pneumon itis. The left lung appears generally clear. There is no failure. There are no pleural effusions.[ IMPRESSION: Right perihilar airspace opacity suspicious for a pneumonitis. Clinical and radiographic follow-up is recommended ACT 112: Negative or not required by law. Electronically signed by: Aayush Vu M.D. 09/11/2019 8:03 AM
[2019-09-11 08:07] LABS: Albumin Level 2.2 gm/dl (3.4-5.0); Calcium 8.2 mg/dl (8.5-10.1); Est GFR (African American) 105.6; Est GFR (Non-African American) 91.1; Magnesium 2.4 mg/dl (1.8-2.4); Phosphorus 3.3 mg/dl (2.5-4.9); Potassium 3.9 mmol/L (3.5-5.1)
[2019-09-11] MEDS: VITAMIN B COMPLEX TAB PO SCH (08:58)
[2019-09-11] MEDS: GABAPENTIN 300 MG CAP PO SCH ×2 (08:58→20:45)
[2019-09-11] MEDS: METOPROLOL TARTRATE 100 MG TAB PO SCH ×2 (08:58→20:44)
[2019-09-11] MEDS: CHOLECALCIFEROL 1,000 UNITS 25 MCG TAB PO SCH (08:59)
[2019-09-11] MEDS: MULTIVITAMIN TAB PO SCH (08:59)
[2019-09-11] MEDS: OMEGA-3 (PURIFIED FISH OIL) 1 GM CAP PO SCH (08:59)
[2019-09-11] MEDS ORDERED: methIMAzole 5 MG TABLET PO SCH (09:00)
[2019-09-11] MEDS ORDERED: NON-FORMULARY MEDICATION (Glucos Sul 2kcl-Msm-Chond-C-Mn [Glucosamine Chondroitin] 1 CAP) PO SCH (09:00)
--- NOTE | 2019-09-11 11:00 | Cardiology Consultation ---
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 New onset Atrial Fib/Flutter in the setting of Graves Disease -Atrial Flutter initially noted on Telemetry with conversion to Atrial Fibrillation and finally Sinus Rhythm s/p IV Lopressor at 19:33 on 09/10/19. -No noted prior history atrial fib/flutter, unseen on most recent holter monitor study 12/05/19 -TTE EF 55-60%, no LV dysfunction, no significant change from Echo on 11/25/19 -Likely secondary to current recurrence of Graves Dz -TSH 0.062, T4 1.67 -Would continue with Methimazole 15mg QD -[id number] score 2 -Would recommend starting long-term anticoagulation at this time, will give 1 dose of Eliquis 5mg PO now. -Patient will require further consideration of continuing anticoagulation s/p control of Graves disease as it likely precipitated current afib/aflutter. Hx Ventricular Bigeminy -Followed closely with Dr. Holloway -Multiple PVCs with Bigeminy and Trigeminy noted on Telemetry -Has been well controlled on BB therapy -Continue Metoprolol Tartrate 100mg BID (2) Fatigue: (3) History of Graves' disease: (4) Ventricular bigeminy: (5) Graves disease: (6) New onset atrial flutter: Supervising Physician Co-Signing Physician Notes Pt seen and examined with Dr. Vee. Agree with his assessment and plan. Will start Eliquis as extermination inspector anticoagulant. Continue metoprolol succinate. Followup with Dr. Holloway. 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 Upon arrival to the ED patient was found to be in afib/aflutter and was treated with IV bolus and Lopressor IV which spontaneously converted him around 7:33PM while in the ED. Since then patient has continued to be in sinus rhythm with multiple PVCs. Patient notes that he had been feeling increasingly weaker and "lousy" for the past 2 weeks, possibly longer, and that his symptoms were reminiscent of his Graves disease from 5 years ago. He notes that he was treated for 3 years and has been in remission for the past 2 until more recently when he was restarted on Methimazole. He also notes that he has followed with Dr. Holloway for his ventricular bigemy which has been well controlled with metoprolol tartrate 100mg BID. They had discussed the possibility of a calcium channel blockade, antiarrhythmia, or possible ablation, but as his symptoms had been well controlled opted to continue with beta melanie therapy alone. Currently patient notes that he still feels tired, but otherwise has no other complaints. States he has no chest pain, chest pressure, dizziness, shortness of breath, palpitations that he can feel. Allergies Allergy/AdvReac Type Severity Reaction Status Date / Time amoxicillin Allergy Severe HEAD TO Verified 09/10/19 20:44 TOE ITCHY RASH Home Medications Home Medications Medication Instructions Recorded Confirmed Type gabapentin 300 mg capsule 300 mg PO BID 10/22/18 09/10/19 History cholecalciferol (vitamin D3) 25 1,000 units PO DAILY tab 10/30/18 09/10/19 History mcg (1,000 unit) tablet Glucosamine Chondroitin 1 cap PO DAILY 11/24/18 09/10/19 History [place]-3 1 cap PO DAILY 11/24/18 09/10/19 History multivitamin 1 tab PO DAILY 11/24/18 09/10/19 History vitamin B complex 1 tab PO DAILY 11/24/18 09/10/19 History metoprolol tartrate 100 mg tablet 100 mg PO BID #60 tab 12/23/18 09/10/19 Rx meloxicam 7.5 mg tablet 7.5 mg PO DAILY #60 tab 01/29/19 09/10/19 History CPAP Machine #1 ea 02/21/19 09/10/19 Rx methimazole 5 mg tablet 15 mg PO DAILY tab 09/10/19 09/10/19 History methocarbamol 500 mg PO Q8H 09/10/19 09/10/19 History Patient History Medical History AAA (abdominal aortic aneurysm) (Chronic) Acid indigestion (Chronic) Anxiety (Chronic) Diverticulosis of colon (Chronic) Dyslipidemia (Chronic) Dysmetabolic syndrome X (Chronic) Erectile dysfunction (Chronic) Essential hypertriglyceridemia (Chronic) Graves disease (Chronic) Hepatic steatosis (Chronic) 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) Hypertension (Chronic) Incomplete RBBB (Chronic) Obstructive sleep apnea syndrome Prediabetes (Chronic) Rectal fistula Skin cancer (Resolved) Sleep apnea Surgical History H/O elbow surgery H/O knee surgery History of wisdom tooth extraction Status post Mohs surgery Family History Mother Type 2 diabetes mellitus Denies family history of Ovarian cancer Prostate cancer Cardiac disorder Myocardial infarction Breast cancer Colorectal cancer Social History Preferred Language: Japanese Communication Ability: Effective Visual Impairment: No Limitations Hearing Ability: Normal Telehealth Director Required: No Beliefs That Will Affect Care: None marital status: Current Living Situation: Spouse current occupational status: retired Feels Safe at Home: Yes Safety Concerns: Feels Safe At This Time Smoking Status: Former smoker packs per day: 1 ; Hx Alcohol Use: Yes Alcohol Intake Frequency: Rarely Hx Substance Use: No Childhood Exposure to Second-Hand Smoke: Yes Dental Care, Regularly: No Physical Activity Frequency: Daily Seatbelt Use: always Sunscreen Use: Yes Review of Systems Constitutional: + weakness; no fever and no chills Eyes: no worsening vision Respiratory: no cough, no chest congestion, no dyspnea, no dyspnea on exertion and no pain on inspiration Cardiovascular: no chest pain, no chest pain at rest, no radiating jaw, neck or arm pain, no dyspnea, no dyspnea on exertion, no palpitations, no lightheadedness and no syncope Gastrointestinal: no abdominal pain, no nausea, no vomiting, no constipation and no diarrhea/loose stools Genitourinary: no dysuria Musculoskeletal: + back pain Neurologic: no falls Endocrine: + fatigue Physical Exam Constitutional: well developed, well nourished and cooperative; no acute distress tired appearing Eyes: normal visual gallardo by confrontation Neck: normal visual inspection Respiratory: normal respiratory effort, lungs clear to auscultation Cardiovascular: Rate/Rhythm: regular rate and regular rhythm (occasional extra beats ) Vessels: posterior tibial pulses present, dorsalis pedis pulses present, radial pulses present and ulnar pulses present; no JVD and no carotid bruit Gastrointestinal (Abdomen): normal bowel sounds, soft, nontender, no hepatosplenomegaly Inspection/Auscultation: abdomen normal to inspection Neurologic: PERRL, EOMI, accommodation nl, no face palsy, no dysarthria Psychiatric: A+Ox3, euthymic affect Results & Data ([facility]) Vital Signs (Past 12 Hours) Vital Signs Temp Pulse Pulse Resp BP Pulse Ox 09/11/19 07:33 37.2 C 73 20 137/81 94 09/11/19 03:22 36.6 C 68 18 133/80 95 09/11/19 00:18 82 09/10/19 23:30 36.8 C 80 18 153/82 H 94 PG Care Time/CCT Total # of Minutes Spent Total Time Spent with Patient: Total time spent is greater than 50% in coordination of care (as documented) at patient's floor/unit and/or counseling patient: Coding Level of Care Code 77071 OBS Care - Level 3 Diagnoses New onset atrial fibrillation I48.91 Fatigue R53.83 History of Graves' disease Z86.39 Ventricular bigeminy I49.9 Graves disease E05.00 New onset atrial flutter I48.92 Resident Activity Tracking Resident Involvement: Resident Care Provided Care Provided: Adult Hospital Medicine
--- NOTE | 2019-09-11 11:28 | XCELERA ---
[id number]
[2019-09-11] MEDS: NSS + 20MEQ KCL 20 MEQ/1,000 ML BAG IV SCH (12:03)
--- NOTE | 2019-09-11 13:16 | Electrocardiogram Report ---
Test Reason : Blood Pressure : / mmHG Vent. Rate : 121 BPM Atrial Rate : 121 BPM P-R Int : 148 ms QRS Dur : 096 ms QT Int : 340 ms P-R-T Axes : 086 055 061 degrees QTc Int : 482 ms Atrial flutter with variable A-V block Incomplete right bundle branch block Borderline ECG When compared with ECG of 25-NOV-2018 11:35, Significant changes have occurred Confirmed by Nakul Brooks ([id number]) on 09/11/2019 1:16:14 PM Referred By: REFERRED SELF Confirmed By:Nakul Brooks
--- NOTE | 2019-09-11 15:49 | Hospitalist Progress Note ---
Date of Service September 11, 2019 Assessment & Plan (1) Lethargy: Patient's main presenting symptom to the ED was lethargy. These are the same symptoms that he had when he initially developed Graves' disease 5 years ago. - Likely from combination of Graves and afib (2) New onset atrial fibrillation: New onset atrial fibrillation. Does have a history of PVCs in the past. - Troponins negative x 3. - Echo shows EF 55-60%. No regional wall motion abnormalities. - Transition to metoprolol XL 200 mg daily - Started on Eliquis by cardiology - Consult cardiology - Appreciate recs (3) History of Graves' disease: Restarted on methimazole 15 mg p.o. daily approximately 2 weeks ago. - Discussed with Dr. Darnell on 09/10 -> Will increase methimazole to 10 mg PO BID (4) Hypertension: BP is 150/80 today. - Continue beta-melanie (5) Fever: Patient had a single recorded elevated temperature upon arrival of 101.3 F. He did not have any further elevated temperatures, and shows no signs of active infection. - Likely due to hyperthyroidism (6) Obstructive sleep apnea syndrome: Placed order for CPAP to use at bedtime as needed. Admission and Anticipated Discharge Date Admission Date: September 10, 2019 Subjective Still feels fairly wiped out today. No major focal issues. Reports no fevers/chills, chest pain, shortness of breath, abdominal pain, nausea, or vomiting. Physical Exam Constitutional: WD/WN, vitals as above Eyes: EOM intact bilaterally; no conjunctival abnormality ENMT: external ear and nose normal, oropharynx normal Neck: trachea midline, no thyromegaly normal visual inspection Respiratory: normal respiratory effort, lungs clear to auscultation no respiratory distress Cardiovascular: RRR, no murmur, no edema Gastrointestinal (Abdomen): Inspection/Auscultation: abdomen normal to inspection; abdomen not distended Musculoskeletal: no cyanosis or clubbing, extremities motor strength 5/5 Skin: no rashes, warm and dry Neurologic: moves all extremities and awake Psychiatric: Orientation: alert, oriented to person and cooperative Results & Data Results & Data ([facility]) Vital Signs (Past 12 Hours) Vital Signs Temp Pulse Pulse Resp BP Pulse Ox 09/11/19 15:28 79 09/11/19 15:26 37.4 C 77 18 151/82 H 96 06/24/20 12:14 36.8 C 68 20 122/70 93 09/11/19 07:33 37.2 C 73 20 137/81 94 PG Care Time/CCT Total # of Minutes Spent Total Time Spent with Patient: Total time spent is greater than 50% in coordination of care (as documented) at patient's floor/unit and/or counseling patient: Coding Level of Care Code 77474 Subseq Hosp Care Lvl 3 Diagnoses Lethargy R53.83 New onset atrial fibrillation I48.91 History of Graves' disease Z86.39 Hypertension I10 Fever R50.9 Fever type: unspecified Obstructive sleep apnea syndrome G47.33 (1) Fever Fever type: unspecified Qualified Code(s): R50.9 - Fever, unspecified
[2019-09-11] MEDS ORDERED: METHOCARBAMOL 500 MG TABLET PO PRN (16:45)
[2019-09-11] MEDS: methIMAzole 5 MG TABLET PO SCH (20:44)
[2019-09-11] MEDS: APIXABAN 5 MG TABLET PO SCH (20:45)
[2019-09-12 07:08] LABS: Basophils # (auto) 0.01 K/uL (0-0.2); Basophils % (auto) 0.2 %; Eosinophils # (auto) 0.02 K/uL (0-0.5); Eosinophils % (auto) 0.4 %; Hematocrit (blood only) 34.5 % (42-52); Hemoglobin 11.7 g/dL (14.0-18.0); Immature Granulocytes # (auto) 0.11 K/uL (0.00-0.02); Immature Granulocytes % (auto) 2.2 %; Lymphocytes % (auto) 23.5 %; Mean Corpuscular Hemoglobin 28.8 pg (25-34); Mean Corpuscular Hgb Conc 33.9 g/dL (32-36); Mean Platelet Volume 9.1 fL (7.4-10.4); Monocytes # (auto) 0.38 K/uL (0.11-0.59); Monocytes % (auto) 7.4 %; Neutrophils # (auto) 3.39 K/uL (1.4-6.5); Neutrophils % (auto) 66.3 %; Platelet Count 182 K/uL (130-400); RDW Coefficient of Variation 13.8 % (11.5-14.5); RDW Standard Deviation 42.9 fL (36.4-46.3); Red Blood Count 4.06 M/uL (4.7-6.1); White Blood Count 5.11 K/uL (4.8-10.8)
[2019-09-12 07:18] LABS: INR 1.3 (0.9-1.1); Partial Thromboplastin Ratio 1.2; Partial Thromboplastin Time 33.7 Seconds (21.0-31.0); Prothrombin Time 13.5 Seconds (9.0-12.0)
[2019-09-12 07:40] LABS: Albumin Level 2.1 gm/dl (3.4-5.0); BUN Creatinine Ratio 23.1 (10-20); Calcium 8.4 mg/dl (8.5-10.1); Creatinine Clr Calc Pharmacy 139.9 ml/min; Est GFR (African American) 114.9; Est GFR (Non-African American) 99.1; Magnesium 2.1 mg/dl (1.8-2.4)
[2019-09-12 07:41] LABS: Phosphorus 3.4 mg/dl (2.5-4.9)
[2019-09-12] MEDS: APIXABAN 5 MG TABLET PO SCH (07:49)
[2019-09-12] MEDS: CHOLECALCIFEROL 1,000 UNITS 25 MCG TAB PO SCH (07:49)
[2019-09-12] MEDS: VITAMIN B COMPLEX TAB PO SCH (07:49)
[2019-09-12] MEDS: MULTIVITAMIN TAB PO SCH (07:49)
[2019-09-12] MEDS: GABAPENTIN 300 MG CAP PO SCH (07:49)
[2019-09-12] MEDS: methIMAzole 5 MG TABLET PO SCH (07:49)
[2019-09-12] MEDS: OMEGA-3 (PURIFIED FISH OIL) 1 GM CAP PO SCH (07:49)
[2019-09-12] MEDS ORDERED: METOPROLOL SUCC 50MG EXT REL TAB PO SCH (09:00)
[2019-09-12 12:11] LABS: Appearance Urine Clear (Clear); Bacteria Urine Automated Negative (Negative); Bilirubin Urine Negative (Negative); Blood Urine 2+ (Negative); Color Urine Dark Yellow; Glucose Urine UA 1+ (Negative); Ketones Urine Trace (Negative); Leukocyte Esterase Urine Negative (Negative); Nitrite Urine Negative (Negative); Protein Urine Trace (Negative); Specific Gravity Urine 1.029 (1.000-1.030); Urobilinogen Urine Negative (Negative)
--- NOTE | 2019-09-12 16:16 | Discharge Summary ---
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 The patient reports he had been treated for Graves' disease with antithyroid medications for 3 years beginning 5 years ago and was stopped 2 years ago. About 2 weeks ago, he began to have the symptoms of fatigue and generalized lethargy, and was restarted on his antithyroid medi cation at that time. He reports however his symptoms have been persistent, and he presents to the ED for assessment tonight. He denies any recent travels or sick exposures, including COVID exposures. He was COVID-19 negative while in the ER. He was noted to have new onset atrial fibrillation with RVR on monitor in the ED, and did respond to Lopressor 5 mg IV with return to sinus rhythm. TSH was 0.062, and free T4 was 1.67. Sodium was 128 hemoglobin was 13.2. Principal Diagnosis Hyperthyroidism New onset atrial fibrillation Discharge Exam Constitutional WD/WN, vitals as above Eyes EOM intact bilaterally; no conjunctival abnormality ENMT external ear and nose normal, oropharynx normal Neck trachea midline, no thyromegaly normal visual inspection Respiratory normal respiratory effort, lungs clear to auscultation no respiratory distress Cardiovascular RRR, no murmur, no edema Gastrointestinal (Abdomen) Inspection/Auscultation: abdomen normal to inspection; abdomen not distended Musculoskeletal no cyanosis or clubbing, extremities motor strength 5/5 Skin no rashes, warm and dry Neurologic moves all extremities and awake Psychiatric Orientation: alert, oriented to person and cooperative Discharge Data Allergies Allergy/AdvReac Type Severity Reaction Status Date / Time amoxicillin Allergy Severe HEAD TO Verified 09/10/19 20:44 TOE ITCHY RASH Consultations 09/10/19 20:24 ED Decision to Admit Stat 09/10/19 22:21 Consult Cardiology Routine Consult Case Management - Discharge Planning Routine Hospital Course (1) Lethargy: Patient's main presenting symptom to the ED was lethargy. These are the same symptoms that he had when he initially developed Graves' disease 5 years ago. - Likely from combination of Graves and afib -> No major change from admission; however, in discussion with Dr. Darnell, it can take up to a month to feel ~75% better, so possibly still just needs time. (2) New onset atrial fibrillation: New onset atrial fibrillation. Does have a history of PVCs in the past. CHads-Vasc of 2. - Troponins negative x 3. - Echo shows EF 55-60%. No regional wall motion abnormalities. - Transition to metoprolol XL 100 mg daily from tartrate - Started on Eliquis by cardiology - Consult cardiology - Appreciate recs -> May be able to stop anticoagulation if the afib resolves with resolution of his hyperthyroidism. (3) History of Graves' disease: Restarted on methimazole 15 mg p.o. daily approximately 2 weeks ago. - Discussed with Dr. Darnell on 09/10 -> Will increase methimazole to 10 mg PO BID -> May need iodine ablation in the future if this round is harder to control. (4) Hypertension: BP is 150/80 yesterday. Up to 170/75. - Continue beta-melanie (5) Fever: Patient had a single recorded elevated temperature upon arrival of 101.3 F. He did not have any further elevated temperatures until the day of discharge. He showed no signs of active infection, and WBC was normal. CXR showed a pneumonitis; however, he had no cough, no shortness of breath, no other respiratory symptoms. - Likely due to hyperthyroidism (6) Obstructive sleep apnea syndrome: Placed order for CPAP to use at bedtime as needed. Total Time Total Time Spent Total Time Spent (In Minutes): 35 Discharge Plan Discharge Items Patient Disposition: Home - Self-Care Reason For Visit: ATRIAL FIB WITH RVR Discharge Diagnosis: Hyperthyroidism, atrial fibrillation Activity: Resume your previous activity Non-emergency contact: Primary Care Provider and Specialist Call non-emergency contact if: your symptoms worsen and your temperature is above 101 Follow-up/Referrals: Derek Darnell MD [Physician] - 09/17/19 8:00 am (Please, follow up with Dr. Darnell on MondaySeptember 16 at 8:00 am via a PHONE VISIT. If you have any questions, call the office at [phone].) Susie Grissom MD [Primary Care Provider] - 09/19/19 9:20 am (Please, follow up at Dr. Grissom's office with her associate, Kalin MANZO, on September 18 at 9:20 am. *If you need to change this appointment, call their office at [phone].) Diet: Heart Healthy Addtl Attending Provider Instructions: You were admitted for not feeling well and generally sick. We think this is for two reasons which are linked. First, you unfortunately are having a recurrence of your hyperthyroidism. You were started to get treated for this, but you are still in the early phase. Dr. Darnell is recommending an increase in your methimazole for at least the next few weeks to help get things back under control. If you still have trouble controlling your thyroid, you may need an iodine ablation; however, Dr. Darnell will discuss the specifics of this. In the hospital, we noted you had a heart arrhythmia called atrial fibrillation. This is new for you. This can cause your heart rate to speed up, and in this case it did start to go faster in the doctor's office. It can also cause symptoms such as fatigue and shortness of breath. Hyperthyroidism can cause this rhythm to occur and can speed up the heart rate when you are in afib. Luckily, you popped out of it on your own. We would like you to take a blood thinner for at least the next 4-6 weeks to help prevent stroke. If your thyroid gets back into line and you don't have any more episodes of afib, you may be able to stop the anticoagulation after that; however, you will need to speak with Dr. Brooks about this before stopping the medication. While on this medication, please reduce or even avoid taking your meloxicam or other NSAIDs as it can increase your risk of bleeding. Tylenol is probably the safest option while on a blood thinner. You had an episode of hematuria (blood in the urine) on the day of discharge. This is not the first time this has happened. Your cystoscopy with Dr. 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 If you have more episodes of blood in the urine, you may need to go back to Dr. Pineda to see if there are other treatment options. Our testing today DID NOT show a urinary tract infection. Pending Studies at Discharge: No Stand-Alone Forms: My [facility] [employer], Smoking Cessation Medications and DC Order Prescriptions: New Eliquis 5 mg Tablet 5 mg PO BID Qty: 60 RF: 0 metoprolol succinate 100 mg tablet extended release 24 hr 100 mg PO DAILY Qty: 30 RF: 0 methimazole 10 mg tablet 10 mg PO BID Qty: 60 RF: 0 Continued gabapentin 300 mg capsule 300 mg PO BID RF: 0 (DME) CPAP Machine Misc See Rx Instructions .ROUTE .MEDSUPPLY Qty: 1 RF: 0 cholecalciferol (vitamin D3) 1,000 unit (25 mcg) tablet 1,000 units PO DAILY RF: 0 methocarbamol 500 mg tablet 500 mg PO Q8H RF: 0 multivitamin Tablet 1 tab PO DAILY RF: 0 vitamin B complex Tablet 1 tab PO DAILY RF: 0 Rawson-3 350 mg-235 mg- 90 mg-597 mg Capsule,Delayed Release(Dr/Ec) 1 cap PO DAILY RF: 0 Glucosamine Chondroitin 550-30-1 mg Capsule 1 cap PO DAILY RF: 0 Discontinued metoprolol tartrate 100 mg tablet 100 mg PO BID Qty: 60 RF: 11 meloxicam 7.5 mg tablet 7.5 mg PO DAILY Qty: 60 RF: 0 methimazole 5 mg tablet 15 mg PO DAILY RF: 0 Discharge Orders: Discharge Order (Routine); Ordered 09/12/19 Ordered By: Aleksandar Burr Admission Data Admit Date/Time: 09/10/19 21:21 Attending Provider: Aleksandar Burr Admit Provider: Carl Majano Primary Care Provider: Susie Grissom Other Providers: Deepak Holloway ; Aleksandar Burr Other Interventions: Discharge Summary Assessment (RN) Last Done: 09/12/19 15:33 Coding Level of Care Code D/C Day Management >30 mins Diagnoses Lethargy R53.83 New onset atrial fibrillation I48.91 History of Graves' disease Z86.39 Hypertension I10 Fever R50.9 Fever type: unspecified Obstructive sleep apnea syndrome G47.33
== END 2019-09-12 17:15 | disposition home or self-care (01) | DRG 310 ==
LOC: ED 17:25 → 2N 21:21 → SUATTDRO 21:21 → 2N 22:03

== ENCOUNTER 2019-10-04 17:38 | Inpatient (IN) ==
--- NOTE | 2019-10-04 18:05 | Emergency Department Note ---
Impression & Plan Sepsis, Pneumonia, Lung mass ED Provider Note NAME: JAZZY CLAYTON AGE: 74 SEX: M : 1945 ARRIVES VIA: Ambulance INFORMANT: Patient, ED PROVIDER(S): Man Fox DO CHIEF COMPLAINT: Weakness HPI: Patient is a 74-year-old male who presents the ER for not feeling well over the past several days. He notes that he has a past medical history of Graves' disease. He was recently admitted at the end of August and was found to be in A. fib. He was started on anticoagulation. He notes that he has been taking his medications. He has been having cough, chills and fevers intermittently since this time. He notes he is feeling more short of breath and the believes this is the case as well. He denies any belly pain, dysuria, urgency or frequency. He is eating and drinking okay. He notes that he feels extremely rundown. He was brought in by EMS and had a fever of 102. He has been tested once before for coronavirus which was negative. No exposure to anyone with coronavirus. No loss of taste or smell. He notes he was just tested today but does not have the results back. ROS: See above HPI for pertinent positives & negatives. A total of 10 systems reviewed and were otherwise negative. PAST MEDICAL HISTORY:See Below PAST SURGICAL HISTORY:See Below FAMILY HISTORY:See Below SOCIAL HISTORY:See Below HOME MEDICATIONS:See Below ALLERGIES:See Below VITALS:See Below PHYSICAL EXAMINATION: GENERAL: Sitting up in bed, alert, intermittent cough EYE EXAM: normal conjunctiva. OROPHARYNX: no exudate, no erythema, lips, buccal mucosa, and tongue normal and mucous membranes are moist NECK: supple, no nuchal rigidity, no adenopathy, non-tender LUNGS: Clear to auscultation. Normal chest wall mechanics HEART: no murmurs, S1 normal and S2 normal ABDOMEN: abdomen soft, non-tender, normo-active bowel sounds, no masses, no rebound or guarding. BACK: Back is symmetrical on inspection and there is no deformity, no midline tenderness, no CVA tenderness. SKIN: no rashes and no bruising UPPER EXTREMITIES: upper extremities are grossly normal. LOWER EXTREMITIES: No pitting edema. NEURO EXAM: Normal sensorium, cranial nerves II-XII grossly intact, normal speech, no gross weakness of arms, no gross weakness of legs. MEDICAL DECISION MAKING: Patient is a 74-year-old male who presents the ER for cough, shortness of breath and fever associated with feeling weak. He was brought in by EMS. He was found to be slightly hypoxic. He is placed on 2 L nasal cannula. He was found to be febrile. IV was established blood work was obtained showed a mild leukocytosis. Mild anemia at 8.9. INR is subtherapeutic at 1.4. BMP with a sodium of 132. Lactate was normal. LFTs was unremarkable. Troponin was negative. Procalcitonin was slightly elevated at 2.56. Patient was given IV cefepime, IV vancomycin, IV fluids. Chest x-ray showed worsening infiltrate. He was discussed with hospitalist and was admitted for sepsis. He was tested for coronavirus within the past 24 hours. Patient was updated and admitted for further work-up. Triage Nursing notes reviewed. Prior medical records reviewed Vital Signs: reviewed and remarkable for febrile, tachycardic and hypoxia Differential diagnosis: Differential diagnosis includes etiologies such as sepsis, UTI, pneumonia, metabolic, electrolyte abnormalities, cardiac sources, intracerebral event, toxicologic, neurological, as well as others were entertained. ER treatment provided: See below Diagnostics interpreted by me: ECG: Sinus tachycardia rate of 110 Normal axis No PVCs Right bundle branch block Normal QTC Cardiac Monitoring: An order was placed for continuous cardiac monitoring. The monitor shows a rate of 109 with sinus rhythm. Laboratory studies: As stated above and show below. Imaging studies: Chest x-ray with worsening infiltrate Consultation(s): Discussed with Dr. Carl Griffin for admission ED COURSE: Procedures: none Critical Care: I have personally spent 32 minutes of critical care time in the direct management of this patient. This includes bedside care, interpretation of diagnostic studies, and testing, discussion with consultants, patient, and family members, and other required patient management activities. This 32 minutes is in excess of all separately billable procedures. 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) Hypertension (Chronic) Incomplete RBBB (Chronic) Obstructive sleep apnea syndrome Perianal abscess Prediabetes (Chronic) Rectal fistula Skin cancer (Resolved) Sleep apnea Ventricular bigeminy Surgical History H/O elbow surgery H/O knee surgery History of wisdom tooth extraction Status post Mohs surgery Social History Preferred Language: Sinhala Communication Ability: Effective Visual Impairment: No Limitations Hearing Ability: Normal Content Strategy Lead Required: No Beliefs That Will Affect Care: None marital status: Current Living Situation: Spouse current occupational status: retired Feels Safe at Home: Yes Smoking Status: Never smoker packs per day: 1 ; Hx Alcohol Use: Yes Alcohol Intake Frequency: Rarely Hx Substance Use: No Childhood Exposure to Second-Hand Smoke: Yes Dental Care, Regularly: No Physical Activity Frequency: Daily Seatbelt Use: always Sunscreen Use: Yes Allergies Allergies Allergy/AdvReac Type Severity Reaction Status Date / Time amoxicillin Allergy Severe HEAD TO Verified 10/04/19 19:42 TOE ITCHY RASH Home Meds Home Medications Medication Instructions Recorded Confirmed gabapentin 300 mg capsule 300 mg PO TID 10/22/18 10/04/19 cholecalciferol (vitamin D3) 25 1,000 units PO DAILY tab 10/30/18 10/04/19 mcg (1,000 unit) tablet Glucosamine Chondroitin 1 cap PO DAILY 11/24/18 10/04/19 Hewitt-3 1 cap PO DAILY 11/24/18 10/04/19 multivitamin 1 tab PO DAILY 11/24/18 10/04/19 vitamin B complex 1 tab PO DAILY 11/24/18 10/04/19 acetaminophen 500 mg tablet 1,000 mg PO Q6H PRN tab 09/19/19 10/04/19 methocarbamol 500 mg tablet 500 mg PO DAILY tab 09/19/19 10/04/19 docusate sodium 100 mg capsule 100 mg PO BID 09/23/19 10/04/19 calcium polycarbophil [FiberCon] 1,250 mg PO DAILY PRN 10/04/19 10/04/19 methimazole 15 mg PO BID 10/04/19 10/04/19 polyethylene glycol 3350 [Miralax] 17 g PO DAILY PRN 10/04/19 10/04/19 Previous Rx's Medication Instructions Recorded CPAP Machine #1 [id number] 02/21/19 apixaban [Eliquis] 5 mg PO BID #60 tab 09/12/19 metoprolol tartrate 100 mg tablet 100 mg PO BID #60 tab 09/23/19 Results & Data (ED) Vital Signs Vital Signs - 24 hr 10/04/19 17:45 10/04/19 18:30 10/04/19 19:00 Temperature 37.6 C H Temperature Source Oral Pulse Rate 111 H 105 H 99 H Pulse Rate from SpO2 Sensor 105 H 104 H Pulse Rhythm Regular Pulse Strength Normal Respiratory Rate 26 H 29 H 23 Respiratory Effort / Characteristics Non-Labored Spontaneous Respiratory Depth Normal Respiratory Pattern Regular Blood Pressure 145/76 H Blood Pressure Mean 99 Blood Pressure Position Lying Pulse Oximetry 90 95 95 Oxygen Delivery Method Room Air Nasal Cannula Nasal Cannula Oxygen Flow Rate 2 2 Sepsis Recent Fever Within 48 Hours Yes Sepsis New/Unexplained Change in Mental Status No Sepsis Action Taken by Nursing Physician Notified 10/04/19 19:35 10/04/19 20:00 10/04/19 20:30 Temperature Temperature Source Pulse Rate 102 H 97 H 93 H Pulse Rate from SpO2 Sensor 102 H 98 H 94 H Pulse Rhythm Pulse Strength Respiratory Rate 24 19 20 Respiratory Effort / Characteristics Respiratory Depth Respiratory Pattern Blood Pressure 148/79 H 134/79 131/77 Blood Pressure Mean 98 99 88 Blood Pressure Position Pulse Oximetry 96 95 95 Oxygen Delivery Method Nasal Cannula Nasal Cannula Nasal Cannula Oxygen Flow Rate 2 2 2 Sepsis Recent Fever Within 48 Hours Sepsis New/Unexplained Change in Mental Status Sepsis Action Taken by Nursing 10/04/19 21:00 Temperature Temperature Source Pulse Rate 91 H Pulse Rate from SpO2 Sensor 92 H Pulse Rhythm Pulse Strength Respiratory Rate 21 Respiratory Effort / Characteristics Respiratory Depth Respiratory Pattern Blood Pressure 136/70 Blood Pressure Mean 88 Blood Pressure Position Pulse Oximetry 96 Oxygen Delivery Method Nasal Cannula Oxygen Flow Rate 2 Sepsis Recent Fever Within 48 Hours Sepsis New/Unexplained Change in Mental Status Sepsis Action Taken by Nursing Laboratory Data Result diagrams: 10/04/19 18:04 10/04/19 18:01 Lab Results 10/04/19 10/04/19 10/04/19 Range/Units 18:01 18:01 18:01 WBC (4.8-10.8) K/uL RBC (4.7-6.1) M/uL Hgb (14.0-18.0) g/dL Hct (42-52) % MCV (80-100) fL MCH (25-34) pg MCHC (32-36) g/dL Plt Count (130-400) K/uL Immature Gran % (Auto) % Neut % (Auto) % Lymph % (Auto) % Adams % (Auto) % Eos % (Auto) % Baso % (Auto) % Neut # (Auto) (1.4-6.5) K/uL Lymph # (Auto) (1.2-3.4) K/uL Adams # (Auto) (0.11-0.59) K/uL Eos # (Auto) (0-0.5) K/uL Baso # (Auto) (0-0.2) K/uL Immature Gran # (Auto) (0.00-0.02) K/uL Absolute Nucleated RBC (0-0) K/uL Nucleated RBC % (auto) % PT 14.6 H (9.0-12.0) Seconds INR 1.4 H (0.9-1.1) APTT 37.9 H (21.0-31.0) Seconds PTT Ratio 1.4 Sodium 132 L (136-145) mmol/L Potassium 4.2 (3.5-5.1) mmol/L Chloride 100 (98-107) mmol/L Carbon Dioxide 25 (21-32) mmol/L Anion Gap 7.0 (3-11) BUN 24 H (7-18) mg/dl Creatinine 0.85 (0.6-1.4) mg/dl Est Cr Clr Drug Dosing Not Reportable Est GFR ( Amer) 100.9 Est GFR (Non-Af Amer) 87.1 BUN/Creatinine Ratio 27.9 H (10-20) Glucose 138 H (70-99) mg/dl Lactate 1.2 (0.4-2.0) mmol/L Calcium 8.9 (8.5-10.1) mg/dl Magnesium 2.2 (1.8-2.4) mg/dl Total Bilirubin 0.8 (0.2-1) mg/dl AST 72 H (15-37) U/L ALT 25 (12-78) U/L Alkaline Phosphatase 284 H (45-117) U/L Troponin I < 0.015 (0-0.045) ng/ml Total Protein 7.0 (6.4-8.2) gm/dl Albumin 1.9 L (3.4-5.0) gm/dl Globulin 5.1 H (2.5-4.0) gm/dl Albumin/Globulin Ratio 0.4 L (0.9-2) Procalcitonin (0-0.5) ng/ml 10/04/19 10/04/19 Range/Units 18:01 18:04 WBC 5.02 (4.8-10.8) K/uL RBC 3.09 L (4.7-6.1) M/uL Hgb 8.9 L (14.0-18.0) g/dL Hct 26.1 L (42-52) % MCV 84.5 (80-100) fL MCH 28.8 (25-34) pg MCHC 34.1 (32-36) g/dL Plt Count 148 (130-400) K/uL Immature Gran % (Auto) 2.2 % Neut % (Auto) 66.1 % Lymph % (Auto) 24.9 % Adams % (Auto) 6.6 % Eos % (Auto) 0.0 % Baso % (Auto) 0.2 % Neut # (Auto) 3.32 (1.4-6.5) K/uL Lymph # (Auto) 1.25 (1.2-3.4) K/uL Adams # (Auto) 0.33 (0.11-0.59) K/uL Eos # (Auto) 0.00 (0-0.5) K/uL Baso # (Auto) 0.01 (0-0.2) K/uL Immature Gran # (Auto) 0.11 H (0.00-0.02) K/uL Absolute Nucleated RBC 0.05 H (0-0) K/uL Nucleated RBC % (auto) 1.1 % PT (9.0-12.0) Seconds INR (0.9-1.1) APTT (21.0-31.0) Seconds PTT Ratio Sodium (136-145) mmol/L Potassium (3.5-5.1) mmol/L Chloride (98-107) mmol/L Carbon Dioxide (21-32) mmol/L Anion Gap (3-11) BUN (7-18) mg/dl Creatinine (0.6-1.4) mg/dl Est Cr Clr Drug Dosing Est GFR ( Amer) Est GFR (Non-Af Amer) BUN/Creatinine Ratio (10-20) Glucose (70-99) mg/dl Lactate (0.4-2.0) mmol/L Calcium (8.5-10.1) mg/dl Magnesium (1.8-2.4) mg/dl Total Bilirubin (0.2-1) mg/dl AST (15-37) U/L ALT (12-78) U/L Alkaline Phosphatase (45-117) U/L Troponin I (0-0.045) ng/ml Total Protein (6.4-8.2) gm/dl Albumin (3.4-5.0) gm/dl Globulin (2.5-4.0) gm/dl Albumin/Globulin Ratio (0.9-2) Procalcitonin 2.56 H (0-0.5) ng/ml Administered Medications Discontinued Medications Acetaminophen (Tylenol) 1,000 mg PO NOW STA Stop: 10/04/19 18:25 Last Admin: 10/04/19 19:39 Dose: 1,000 mg Documented by: [id number] Dexamethasone Sodium Phosphate (Decadron Pf) 10 mg IV NOW ONE Stop: 10/04/19 20:59 Last Admin: 10/04/19 21:45 Dose: 10 mg Documented by: [id number] Sodium Chloride (Nss 1000ml) 1,000 mls @ 999 mls/hr IV .Q1H1M ONE Stop: 10/04/19 19:24 Last Infusion: 10/04/19 20:30 Dose: 0 mls/hr Documented by: [id number] Admin: 10/04/19 18:25 Dose: 999 mls/hr Documented by: [id number] Cefepime HCl 1,000 mg/ Syringe 11.3 mls @ 5.5 mls/min IV NOW STA; Protocol Stop: 10/04/19 19:48 Last Admin: 10/04/19 20:30 Dose: 5.5 mls/min Documented by: [id number] Vancomycin HCl 2,000 mg/ (Sodium Chloride) 540 mls @ 200 mls/hr IV NOW ONE Stop: 10/04/19 22:27 Last Admin: 10/04/19 20:30 Dose: 200 mls/hr Documented by: [id number] Sodium Chloride (Nss 1000ml) 500 mls @ 999 mls/hr IV .Q31M ONE Stop: 10/04/19 20:19 Last Infusion: 10/04/19 21:17 Dose: 0 mls/hr Documented by: [id number] Admin: 10/04/19 20:30 Dose: 999 mls/hr Documented by: [id number] Levofloxacin/Dextrose (Levaquin/D5w) 500 mg in 100 mls @ 100 mls/hr IV NOW STA Stop: 10/04/19 21:57 Last Admin: 10/04/19 21:46 Dose: 100 mls/hr Documented by: [id number] Discharge Plan Visit Data Chief Complaint: Fever Stated Complaint: FEVER, COUGH, ILLNESS ED Provider: Man Fox Discharge Problem: Sepsis, Pneumonia, Lung mass Discharge Instructions Interventions: ED Discharge Assessment Last Done: 10/04/19 21:59 Discharge Problem: Sepsis Qualifiers: Sepsis type: sepsis due to unspecified organism Sepsis acute organ dysfunction status: unspecified Qualified Code(s): A41.9 - Sepsis, unspecified organism Pneumonia Qualifiers: Pneumonia type: due to unspecified organism Laterality: unspecified laterality Lung location: unspecified part of lung Qualified Code(s): J18.9 - Pneumonia, unspecified organism
[2019-10-04] MEDS ORDERED: ACETAMINOPHEN 500 MG TAB PO STA (18:24)
[2019-10-04] MEDS ORDERED: SODIUM CHLORIDE 0.9% 1000ML 1,000 ML IV ONE (18:24)
[2019-10-04 18:35] LABS: Nucleated RBC # (auto) 0.05 K/uL (0-0); Nucleated RBC % (auto) 1.1 %
[2019-10-04 18:46] LABS: INR 1.4 (0.9-1.1); Partial Thromboplastin Ratio 1.4; Partial Thromboplastin Time 37.9 Seconds (21.0-31.0); Prothrombin Time 14.6 Seconds (9.0-12.0)
[2019-10-04 18:53] LABS: Alanine Aminotransferase 25 U/L (12-78); Albumin Level 1.9 gm/dl (3.4-5.0); Aspartate Aminotransferase 72 U/L (15-37); BUN Creatinine Ratio 27.9 (10-20); Blood Urea Nitrogen 24 mg/dl (7-18); Calcium 8.9 mg/dl (8.5-10.1); Carbon Dioxide 25 mmol/L (21-32); Chloride 100 mmol/L (98-107); Est GFR (African American) 100.9; Est GFR (Non-African American) 87.1; Glucose 138 mg/dl (70-99); Magnesium 2.2 mg/dl (1.8-2.4); Potassium 4.2 mmol/L (3.5-5.1); Sodium 132 mmol/L (136-145)
[2019-10-04 18:56] LABS: Hematocrit (blood only) 26.1 % (42-52); Hemoglobin 8.9 g/dL (14.0-18.0); Mean Corpuscular Hemoglobin 28.8 pg (25-34); Mean Corpuscular Hgb Conc 34.1 g/dL (32-36); Mean Corpuscular Volume 84.5 fL (80-100); Platelet Count 148 K/uL (130-400); Red Blood Count 3.09 M/uL (4.7-6.1); White Blood Count 5.02 K/uL (4.8-10.8)
[2019-10-04 18:57] LABS: Basophils # (auto) 0.01 K/uL (0-0.2); Basophils % (auto) 0.2 %; Immature Granulocytes # (auto) 0.11 K/uL (0.00-0.02); Immature Granulocytes % (auto) 2.2 %; Lymphocytes # (auto) 1.25 K/uL (1.2-3.4); Lymphocytes % (auto) 24.9 %; Monocytes # (auto) 0.33 K/uL (0.11-0.59); Monocytes % (auto) 6.6 %; Neutrophils # (auto) 3.32 K/uL (1.4-6.5); Neutrophils % (auto) 66.1 %
[2019-10-04 18:58] LABS: Albumin Globulin Ratio 0.4 (0.9-2); Alkaline Phosphatase 284 U/L (45-117); Bilirubin,Total 0.8 mg/dl (0.2-1); Globulin 5.1 gm/dl (2.5-4.0); Troponin I < 0.015 ng/ml (0-0.045)
--- NOTE | 2019-10-04 19:38 | XRay Report ---
XR chest 1V portable HISTORY: 74 years-old Male SEPSIS acute sepsis COMPARISON: Chest radiograph 09/11/2019 TECHNIQUE: Portable AP view of the chest FINDINGS: Cardiac silhouette is moderately enlarged. Ill-defined opacities of the right midlung and right lung base have worsened from comparison. There is no pneumothorax, pleural effusion or overt pulmonary remberto ma. Bones appear grossly intact. IMPRESSION: 1. Airspace opacities of the right midlung and lateral right lung base have progressively worsened fr om the 09/11/2019 exam. Findings are suggestive of recurrent versus worsening pneumonia. Follow-up prem st radiographs are needed to document complete resolution and to exclude underlying malignancy. 2. Cardiomegaly without overt pulmonary edema. ACT 112: Negative or not required by law. The above report was generated using voice recognition software. It may contain grammatical, syntax o r spelling errors. Electronically signed by: Stewart Kan M.D. 10/04/2019 7:36 PM
[2019-10-04] MEDS ORDERED: CEFEPIME 1,000 MG in SYRINGE 0 ML IV STA (19:46)
[2019-10-04] MEDS ORDERED: VANCOMYCIN CONSULT ACTIVE PRN (19:46)
[2019-10-04] MEDS ORDERED: VANCOMYCIN HCL 2,000 MG in SODIUM CHLORIDE 0.9% 500 ML IV ONE (19:46)
[2019-10-04] MEDS ORDERED: SODIUM CHLORIDE 0.9% 1000ML 500 ML IV ONE (19:49)
[2019-10-04] MEDS ORDERED: LEVOFLOXACIN/D5W 500 MG/100 ML BAG IV STA (20:58)
[2019-10-04] MEDS ORDERED: DEXAMETHASONE **PF** INJ 10 MG/ML VIAL IV ONE (20:58)
[2019-10-04] MEDS ORDERED: IOVERSOL 100ml IV PRN (21:26)
[2019-10-04] MEDS ORDERED: ALUMINUM/MAGNESIUM SUSP 30 ML UDC PO PRN (22:32)
[2019-10-04] MEDS ORDERED: MAGNESIUM HYDROXIDE SUSP 30 ML UDC PO PRN (22:32)
[2019-10-04] MEDS ORDERED: METOPROLOL TARTRATE 50 MG TAB PO SCH (22:32)
[2019-10-04] MEDS ORDERED: APIXABAN 5 MG TABLET PO SCH (22:32)
[2019-10-04] MEDS ORDERED: POLYETHYLENE (MIRALAX) 17 GM PACK PO PRN (22:32)
[2019-10-04] MEDS ORDERED: ONDANSETRON INJ 2 MG/ML 2 ML VIAL IV PRN (22:32)
[2019-10-05] MEDS: DOCUSATE SODIUM 100 MG CAP PO SCH ×3 (00:18→20:48)
[2019-10-05] MEDS: methIMAzole 5 MG TABLET PO SCH ×3 (00:19→20:49)
--- NOTE | 2019-10-05 02:51 | History & Physical Report ---
Date of Service October 05, 2019 The patient was seen and examined on October 04, 2019 Assessment & Plan (1) Postobstructive pneumonia: Placed on vancomycin IV, cefepime IV and levofloxacin IV. Duonebs every 4 hours while awake and every 2 hours when necessary. Nasal cannula 2 L oxygen, titrate to keep pulse ox 95% Guaifenesin extended release 600 mg p.o. twice daily Repeat COVID-19 PCR testing pending from outpatient, and therefore admit to negative pressure room. Follow sputum culture and Gram stain. Given Decadron 10 mg IV in the ED, and will continue 6 mg IV every 12 hours. We will need consults to pulmonology and heme-onc, but will need Eliquis held first. Present on Admission?: Yes (2) Mass of middle lobe of right lung: X-ray today suggested a right midlung and lateral right lung process. CT scan of the chest without contrast was then ordered, and suggests a new lung mass. We will hold apixaban, for possible biopsy of the mass. Present on Admission?: Yes (3) Atrial fibrillation and flutter: Atrial fibrillation/flutter/hypertension- Hold apixaban, in the event that a lung biopsy will be performed this admission on lung mass. If no biopsy to be performed, will restart apixaban. Continue metoprolol tartrate 100 mg p.o. twice daily. Present on Admission?: Yes (4) Hypertension: See above Present on Admission?: Yes (5) Hyperthyroidism: Continue methimazole 15 mg p.o. twice daily Present on Admission?: Yes (6) Obstructive sleep apnea syndrome: CPAP at bedtime as needed Present on Admission?: Yes Admission and Anticipated Discharge Date Admission Date: October 04, 2019 History of Present Illness Chief Complaint: The patient presents to the emergency department with complaint of generalized fatigue, right hip pain, shortness of breath and overall not feeling well over the past several days. 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 Patient reports that he was treated for hyperthyroidism for 3 years beginning 5 years ago, and treatment was stopped due to being in remission. He was restarted on methimazole on 08/26/2019, along with metoprolol tartrate 100 mg p.o. twice daily. He had the acute onset of atrial fibrillation for which he was admitted on 09/10/2019. He was COVID-19 PCR negative on 09/10/2019. He did have COVID-19 testing drawn in the afternoon today as an outpatient, which is still pending at this time, and is in negative pressure in the ED at this time. Allergies Allergy/AdvReac Type Severity Reaction Status Date / Time amoxicillin Allergy Severe HEAD TO Verified 10/04/19 19:42 TOE ITCHY RASH Home Medications Home Medications Medication Instructions Recorded Confirmed Type gabapentin 300 mg capsule 300 mg PO TID 10/22/18 10/04/19 History cholecalciferol (vitamin D3) 25 1,000 units PO DAILY tab 10/30/18 10/04/19 History mcg (1,000 unit) tablet Glucosamine Chondroitin 1 cap PO DAILY 11/24/18 10/04/19 History Evarts-3 1 cap PO DAILY 11/24/18 10/04/19 History multivitamin 1 tab PO DAILY 11/24/18 10/04/19 History vitamin B complex 1 tab PO DAILY 11/24/18 10/04/19 History CPAP Machine #1 ea 02/21/19 09/19/19 Rx apixaban [Eliquis] 5 mg PO BID #60 tab 09/12/19 10/04/19 Rx acetaminophen 500 mg tablet 1,000 mg PO Q6H PRN tab 09/19/19 10/04/19 History methocarbamol 500 mg tablet 500 mg PO DAILY tab 09/19/19 10/04/19 History docusate sodium 100 mg capsule 100 mg PO BID 09/23/19 10/04/19 History metoprolol tartrate 100 mg tablet 100 mg PO BID #60 tab 09/23/19 10/04/19 Rx calcium polycarbophil [FiberCon] 1,250 mg PO DAILY PRN 10/04/19 10/04/19 History methimazole 15 mg PO BID 10/04/19 10/04/19 History polyethylene glycol 3350 [Miralax] 17 g PO DAILY PRN 10/04/19 10/04/19 History Past Med/Surg History Medical History (Updated 10/05/19 @ 03:39 by Carl Majano MD) AAA (abdominal aortic aneurysm) (Chronic) Acid indigestion Anxiety (Chronic) Atrial fibrillation and flutter Bradycardia (Inactive) Diverticulosis of colon Dyslipidemia (Chronic) Erectile dysfunction Graves disease (Chronic) Gross hematuria Hepatic steatosis (Chronic) 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) Hypertension (Chronic) Incomplete RBBB (Chronic) Obstructive sleep apnea syndrome Perianal abscess Prediabetes (Chronic) Rectal fistula Skin cancer (Resolved) Sleep apnea Ventricular bigeminy Surgical History H/O elbow surgery H/O knee surgery History of wisdom tooth extraction Status post Mohs surgery Social History Preferred Language: Thai Communication Ability: Effective Visual Impairment: No Limitations Hearing Ability: Normal Oven Heater Required: No Beliefs That Will Affect Care: None marital status: Current Living Situation: Spouse current occupational status: retired Other Information That Helps Us Care for You: No Feels Safe at Home: Yes Safety Concerns: Feels Safe At This Time Smoking Status: Former smoker packs per day: 1 ; Tobacco Cessation Education Requested by Patient: No Hx Alcohol Use: Yes Alcohol Intake Frequency: Rarely Hx Substance Use: No Childhood Exposure to Second-Hand Smoke: Yes Dental Care, Regularly: No Physical Activity Frequency: Daily Seatbelt Use: always Sunscreen Use: Yes Review of Systems Review of Systems: The patient denies chest pain, palpitations, shortness of breath, dyspnea on exertion cough, lower extremity swelling, sore throat, fevers, chills, sweats, nausea, vomiting, diarrhea , constipation, abdominal pain, pelvic pain, blood in urine or stool, dysuria, urinary frequency or urgency, lightheadedness, dizziness, headache, memory loss, loss of consciousness, rash, abnormal bruising or bleeding, imbalance, focal or generalized weakness, numbness or tingling in arms or legs, neck pain, or night sweats. The review of systems is otherwise negative other than for that already noted above, and at least 10 systems have been reviewed. Physical Exam Physical Exam: The patient is awake, alert and oriented 3, normocephalic and atraumatic, sitting upright in bed and in no acute distress. HEENT--PERRL, EOMI, mucous membranes and oropharynx normal. Neck--supple. No JVD. No bruits. Thyroid normal, trachea midline, no adenopathy. Heart--normal S1 and S2. No murmurs, rubs or gallops. Lungs--few coarse breath sounds on right. No respiratory distress, no accessory muscle use. Abdomen--normal bowel sounds and soft. Nontender. Nondistended. Extremities--no cyanosis or clubbing. No edema. Dermatologic--normal skin turgor, normal color, no abnormal lymph nodes, no rash. Neurologic--cranial nerves II through XII grossly intact. Rheumatologic--normal range of motion. Psychiatric--normal affect. Results & Data Results & Data ([facility]) Vital Signs (Past 12 Hours) Vital Signs Temp Pulse Pulse Resp BP BP Pulse Ox 10/05/19 00:58 91 H 10/05/19 00:16 97.3 F L 81 18 144/86 H 95 10/04/19 22:33 97.5 F L 88 18 147/84 H 96 10/04/19 21:49 93 H 20 149/95 H 96 10/04/19 21:00 91 H 21 136/70 96 10/04/19 20:30 93 H 20 131/77 95 10/04/19 20:00 97 H 19 134/79 95 10/04/19 19:35 102 H 24 148/79 H 96 10/04/19 19:00 99 H 23 95 10/04/19 18:30 105 H 29 H 95 10/04/19 17:45 99.7 F H 111 H 26 H 145/76 H 90 Laboratory Results Laboratory Results WBC 5.02 K/uL (4.8-10.8) 10/04/19 18:04 RBC 3.09 M/uL (4.7-6.1) L 10/04/19 18:04 Hgb 8.9 g/dL (14.0-18.0) L 10/04/19 18:04 Hct 26.1 % (42-52) L 10/04/19 18:04 MCV 84.5 fL (80-100) 10/04/19 18:04 MCH 28.8 pg (25-34) 10/04/19 18:04 MCHC 34.1 g/dL (32-36) 10/04/19 18:04 Plt Count 148 K/uL (130-400) 10/04/19 18:04 Immature Gran % (Auto) 2.2 % 10/04/19 18:04 Neut % (Auto) 66.1 % 10/04/19 18:04 Lymph % (Auto) 24.9 % 10/04/19 18:04 [place] % (Auto) 6.6 % 10/04/19 18:04 Eos % (Auto) 0.0 % 10/04/19 18:04 Baso % (Auto) 0.2 % 10/04/19 18:04 Neut # (Auto) 3.32 K/uL (1.4-6.5) 10/04/19 18:04 Lymph # (Auto) 1.25 K/uL (1.2-3.4) 10/04/19 18:04 [place] # (Auto) 0.33 K/uL (0.11-0.59) 10/04/19 18:04 Eos # (Auto) 0.00 K/uL (0-0.5) 10/04/19 18:04 Baso # (Auto) 0.01 K/uL (0-0.2) 10/04/19 18:04 Immature Gran # (Auto) 0.11 K/uL (0.00-0.02) H 10/04/19 18:04 Absolute Nucleated RBC 0.05 K/uL (0-0) H 10/04/19 18:04 Nucleated RBC % (auto) 1.1 % 10/04/19 18:04 PT 14.6 Seconds (9.0-12.0) H 10/04/19 18:01 INR 1.4 (0.9-1.1) H 10/04/19 18:01 APTT 37.9 Seconds (21.0-31.0) H 10/04/19 18:01 PTT Ratio 1.4 10/04/19 18:01 Sodium 132 mmol/L (136-145) L 10/04/19 18:01 Potassium 4.2 mmol/L (3.5-5.1) 10/04/19 18:01 Chloride 100 mmol/L (98-107) 10/04/19 18:01 Carbon Dioxide 25 mmol/L (21-32) 10/04/19 18:01 Anion Gap 7.0 (3-11) 10/04/19 18:01 BUN 24 mg/dl (7-18) H 10/04/19 18:01 Creatinine 0.85 mg/dl (0.6-1.4) 10/04/19 18:01 Est Cr Clr Drug Dosing Not Reportable 10/04/19 18:01 Est GFR ( Amer) 100.9 10/04/19 18:01 Est GFR (Non-Af Amer) 87.1 10/04/19 18:01 BUN/Creatinine Ratio 27.9 (10-20) H 10/04/19 18:01 Glucose 138 mg/dl (70-99) H 10/04/19 18:01 Lactate 1.2 mmol/L (0.4-2.0) 10/04/19 18:01 Calcium 8.9 mg/dl (8.5-10.1) 10/04/19 18: Magnesium 2.2 mg/dl (1.8-2.4) 10/04/19 18:01 Total Bilirubin 0.8 mg/dl (0.2-1) 10/04/19 18:01 AST 72 U/L (15-37) H 10/04/19 18:01 ALT 25 U/L (12-78) 10/04/19 18:01 Alkaline Phosphatase 284 U/L (45-117) H 10/04/19 18:01 Troponin I < 0.015 ng/ml (0-0.045) 10/04/19 18:01 Total Protein 7.0 gm/dl (6.4-8.2) 10/04/19 18:01 Albumin 1.9 gm/dl (3.4-5.0) L 10/04/19 18:01 Globulin 5.1 gm/dl (2.5-4.0) H 10/04/19 18:01 Albumin/Globulin Ratio 0.4 (0.9-2) L 10/04/19 18:01 Procalcitonin 2.56 ng/ml (0-0.5) H 10/04/19 18:01 Diagnostic Findings [facility] [place] [phone] XRay Report Patient: JAZZY CLAYTON Date: 10/04/19 MR#: [id number]: [address] Acct ID:[id number]: Date: 1945[facility] Zip: [place] [address] Age: 74Location: ED Sex: M Room/Bed: Att Phy:Diagnosis: FEVER, COUGH, ILLNESS Karen Phy: Susie Grissom MDService Date: 10/04/19 Fam Phy:Interpreting Phy: Rene Kan Admit Phy: Ordering Phy: Man Fox DO cc: ~ XR chest 1V portable HISTORY: 74 years-old Male SEPSIS acute sepsis COMPARISON: Chest radiograph 09/11/2019 TECHNIQUE: Portable AP view of the chest FINDINGS: Cardiac silhouette is moderately enlarged. Ill-defined opacities of the right midlung and right lung base have worsened from comparison. There is no pneumothorax, pleural effusion or overt pulmonary edema. Bones appear grossly intact. IMPRESSION: 1. Airspace opacities of the right midlung and lateral right lung base have progressively worsened from the 09/11/2019 exam. Findings are suggestive of recurrent versus worsening pneumonia. Follow-up chest radiographs are needed to document complete resolution and to exclude underlying malignancy. 2. Cardiomegaly without overt pulmonary edema. ACT 112: Negative or not required by law. The above report was generated using voice recognition software. It may contain grammatical, syntax or spelling errors. Electronically signed by: Stewart Kan M.D. 10/04/2019 7:36 PM Dictated: 10/04/191934 Transcribed: 10/04/191934 [facility] Patient: JAZZY CLAYTON JR (Male) : 49 Status: ER Date: 10/04/19 21:32 Room #: History: pneumonia Slices: [id number] Priors: [place]: Benjie Arredondo @ [phone] Exams: CT CHEST Without Contrast Accession Numbers: [id number] Preliminary Findings Only See Final Report For Complete Findings CT CHEST Without Contrast: Impression: Right lung mass measuring approximately 7 x 4.3 x 7.9 cm. This is concerning for malignancy. Associated opacities in the right lung, most significantly in the right upper lobe may represent postobstructive pneumonia. Bulky mediastinal lymphadenopathy. Findings are concerning for milo metastasis. Reactive lymphadenopathy is considered less likely. Small right pleural effusion. This could potentially represent a malignant effusion. Degenerative changes seen throughout the spine. Radiologist: Ruperto Louis MD Study ready at 21:36 and initial results transmitted at 21:45 *This report constitutes a preliminary interpretation only. Non-acute findings felt to be unrelated to the clinical presentation may not be discussed in this report. The study will be interpreted and a final report will be generated by the local Radiologist the following shift. To reach the [facility] radiology depa rtment call [phone]. If a discrepancy is found between the preliminary and final interpretations of this study, please notify us via our Client Portal at [email or web address] under QA Exams.You can also fax this report with a description of the discrepancy, or include the final report, to our daytime fax number [phone].If faxing, please indicate the severity of discrepancy using one of the following categories: [ ] 1 - Agree/Informational [ ] 2 - Unlikely to Affect Management [ ] 3 - Possible Eventual Change of Management [ ] 4 - Probable Immediate Change of Management For all other patient related information, please fax us at [phone]. [id number] Code Status & VTE Plan Code Status Full code VTE Prophylaxis Plan VTE Prophylaxis will be ordered: Yes PG Care Time/CCT Total # of Minutes Spent Total Time Spent with Patient: Total time spent is greater than 50% in coordination of care (as documented) at patient's floor/unit and/or counseling patient: Coding Level of Care Code 70795 Initial Inpt Care Lvl 3 Diagnoses Postobstructive pneumonia J18.9 Mass of middle lobe of right lung R91.8 Atrial fibrillation and flutter I48.91; I48.92 Hypertension I10 Hyperthyroidism E05.90 Obstructive sleep apnea syndrome G47.33
[2019-10-05] MEDS: CEFEPIME 1,000 MG in SYRINGE 0 ML IV SCH ×3 (05:00→20:47)
[2019-10-05] MEDS: VANCOMYCIN HCL 1,250 MG in SODIUM CHLORIDE 0.9% 250 ML IV SCH ×2 (05:27→17:46)
[2019-10-05] MEDS: CHOLECALCIFEROL 1,000 UNITS 25 MCG TAB PO SCH (08:15)
[2019-10-05] MEDS: METOPROLOL TARTRATE 100 MG TAB PO SCH ×2 (08:15→20:50)
[2019-10-05] MEDS: MULTIVITAMIN TAB PO SCH (08:15)
[2019-10-05] MEDS: VITAMIN B COMPLEX TAB PO SCH (08:16)
[2019-10-05] MEDS: GABAPENTIN 300 MG CAP PO SCH ×3 (08:16→20:49)
[2019-10-05] MEDS: OMEGA-3 (PURIFIED FISH OIL) 1 GM CAP PO SCH (08:16)
[2019-10-05] MEDS: METHOCARBAMOL 500 MG TABLET PO SCH (08:16)
--- NOTE | 2019-10-05 08:56 | XRay Report ---
XR hip RT 2V w pelvis CLINICAL HISTORY: Right hip pain. COMPARISON: CT of the abdomen and pelvis May 07, 2019. FINDINGS: Sacroiliac joints and symphysis pubis are intact. There is no acute fracture within the pe lvis or hips. There is mild osteoarthritis of the hips. IMPRESSION: 1. No acute fracture within the pelvis.. 2. Mild osteoarthritis of the bilateral hips. ACT 112: Negative or not required by law. Electronically signed by: Roderick Villa M.D. 10/05/2019 8:55 AM
[2019-10-05] MEDS ORDERED: NON-FORMULARY MEDICATION (Glucos Sul 2kcl-Msm-Chond-C-Mn [Glucosamine Chondroitin] 1 CAP) PO SCH (09:00)
--- NOTE | 2019-10-05 09:12 | CT Scan Report ---
CT chest wo con CT DOSE: 549.72 mGy.cm HISTORY: pneumonia TECHNIQUE: Multiaxial CT images of the chest were performed without contrast. A dose lowering techni que was utilized adhering to the principles of ALARA. COMPARISON: None. FINDINGS: Small right pleural effusion. Large right hilar/perihilar masslike opacity. This extends in to the right hilum and measures approximately 8 cm. This almost completely obstructs the right upper lobe and right middle lobe bronchi with moderate to severe narrowing of the right lower lobe bronchus . No suspicious lytic or blastic osseous lesions. Groundglass and nodular densities surrounding this suspected right lung mass may represent a postobstructive pneumonitis. This is most pronounced within the right upper lobe posteriorly. No pneumothorax. Mild emphysema. A 4 mm nodule within the left armand g apex on image 73. A 4 mm nodule within the left upper lobe posteriorly on image 125. Mediastinal an d left hilar lymphadenopathy. The heart is normal in size. Normal caliber thoracic aorta. The esophag us is also normal in caliber. Limited views of the upper abdomen demonstrate normal liver and spleen. The visualized adrenal glands are unremarkable. Dominant right paratracheal lymph node measures 3.7 cm. There is a single enlarged right axillary lymph node best seen image 24. This measures 14 x 11 mm . IMPRESSION: 1. An 8 cm right hilar/perihilar masslike opacity which results in near complete obstruction of the r ight upper and middle bronchi as well as moderate to severe narrowing of the right lower lobe bronchu s. There is associated mediastinal and left hilar lymphadenopathy. Therefore, this is highly suspicio us for a primary bronchogenic malignancy. Bronchoscopy recommended for further evaluation. 2. Small right pleural effusion, possibly malignant. 3. Groundglass and nodular opacity surrounding this right perihilar mass favor a postobstructive pneu monitis. 4. There are 2 subcentimeter nodules within the left lung measuring 4 mm. These bear watching on futu re examinations to exclude the possibility of metastatic disease. 5. A single enlarged high right axillary lymph node. ACT 112: Negative or not required by law. Electronically signed by: Jamaal Sparrow M.D. 10/05/2019 9:11 AM
[2019-10-05 09:34] LABS: Hemoglobin 9.8 g/dL (14.0-18.0); Immature Granulocytes # (auto) 0.08 K/uL (0.00-0.02); Immature Granulocytes % (auto) 1.7 %; Lymphocytes # (auto) 1.03 K/uL (1.2-3.4); Lymphocytes % (auto) 21.5 %; Mean Corpuscular Hemoglobin 28.7 pg (25-34); Mean Corpuscular Hgb Conc 33.8 g/dL (32-36); Mean Corpuscular Volume 84.8 fL (80-100); Mean Platelet Volume 9.6 fL (7.4-10.4); Monocytes # (auto) 0.12 K/uL (0.11-0.59); Monocytes % (auto) 2.5 %; Neutrophils # (auto) 3.55 K/uL (1.4-6.5); Neutrophils % (auto) 74.3 %; Nucleated RBC # (auto) 0.04 K/uL (0-0); Nucleated RBC % (auto) 0.7 %; Platelet Count 170 K/uL (130-400); RDW Coefficient of Variation 14.8 % (11.5-14.5); RDW Standard Deviation 46.1 fL (36.4-46.3); Red Blood Count 3.42 M/uL (4.7-6.1); White Blood Count 4.78 K/uL (4.8-10.8)
[2019-10-05] MEDS: ACETAMINOPHEN 500 MG TAB PO PRN ×2 (09:45→20:48)
[2019-10-05 09:48] LABS: INR 1.5 (0.9-1.1); Prothrombin Time 15.2 Seconds (9.0-12.0)
[2019-10-05 10:36] LABS: Albumin Level 1.8 gm/dl (3.4-5.0); BUN Creatinine Ratio 38.5 (10-20); Creatinine Clr Calc Pharmacy 114.1 ml/min; Est GFR (African American) 106.8; Est GFR (Non-African American) 92.2; Potassium 4.3 mmol/L (3.5-5.1)
[2019-10-05 10:39] LABS: Albumin Globulin Ratio 0.3 (0.9-2); Bilirubin,Total 0.5 mg/dl (0.2-1); Globulin 5.5 gm/dl (2.5-4.0); Total Protein 7.3 gm/dl (6.4-8.2)
--- NOTE | 2019-10-05 12:55 | Hospitalist Progress Note ---
Date of Service October 05, 2019 Assessment & Plan (1) Postobstructive pneumonia: RUL. Postobstructive due to large right-sided hilar mass (8cm) causing compression on bronchi leading to RUL, RML, and RLL. Cont cefepime. Cont levaquin. d/c vanco - MRSA swab neg. Await COVID-19 PCR, but suspect he does not have coronavirus. Follow blood cx's. Remains stable in RA. (2) Mass of middle lobe of right lung: Large right-sided lung mass causing compression of RUL, RML, and RLL bronchi. Most certainly this is lung cancer until proven otherwise. Spoke with Dr Lynn from pulmonary who will consult. In light of slow responses to questions, slight confusion, etc - needs brain MRI to r/o mets. Will also need CT abd/pelvis. COVID-19 testing will need to return before pursuing these studies. While I was in the room today I spoke with the patient and his who was on the phone. Discussed CT results, plan, etc. Answered questions. (3) Atrial fibrillation and flutter: Now in NSR. Cont BB. Hold eliquis as patient may need biopsy and/or thoracentesis. Cont tele monitoring. (4) Hypertension: Controlled with outpatient meds (5) Hyperthyroidism: Continue methimazole 15 mg p.o. twice daily 2nd Graves Disease Controlled (6) Obstructive sleep apnea syndrome: CPAP at bedtime (7) Pleural effusion: right-sided highly concerning for malignant effusion small in size but may be amenable to thoracentesis for diagnostic purposes (8) Prediabetes: a1c just over 6% in 04/2019 change diet to DM diet defer on BSGs since he is in airborne isolation (9) Anemia: progressive over time b12 wnl ferritin markedly elevated; will obtain rest of Fe panel in am check folate as well suspect due to malignancy (10) Hyponatremia: SIADH due to malignancy? check serum osm, urine osm, urine Na. bmp am. (11) Abnormal LFTs: 2nd to liver mets? alk phos elevation - from bone mets? will need CT abd/pelvis when able. due to slight confusion check ammonia level in am. (12) Severe protein-calorie malnutrition: 8.8% weight loss (10kg) since April. certainly hyperthyroidism contributed, but also the right lung mass is likely contributing. (13) DVT prophylaxis: hold eliquis for possible procedure extensively updated along with patient during the visit Admission and Anticipated Discharge Date Admission Date: October 04, 2019 Subjective patient reports essentially no cough. no dyspnea at rest. no orthopnea. does have JEAN BAPTISTE. no chest pain, chest tightness or pleuritic pain. no loss of taste or smell. has had several days in the last few weeks with nocturnal night-sweats. has had weight loss - 10kg since 04/2019. former smoker - 1ppd x 30 years. no COVID exposures. no travel. works as pediatric PT. Review of Systems Constitutional: + fatigue and + anorexia; no fever and no chills Ear, Nose, Mouth, Throat: no sore throat Respiratory: no hemoptysis and no wheezing Cardiovascular: no chest pain, no paroxysmal nocturnal dyspnea and no edema Gastrointestinal: no abdominal pain, no nausea and no vomiting Physical Exam Constitutional: no acute distress and no altered mental status (but slow at responding to questions ) ENMT: external ear and nose normal, oropharynx normal Respiratory: Auscultation: lungs clear to auscultation bilaterally and + diminished lung sounds (RUL and RLL ); no crackles and no wheezes Cardiovascular: Rate/Rhythm: regular rate and regular rhythm Heart Sounds: normal S1 and normal S2; no murmur Vessels: posterior tibial pulses present and dorsalis pedis pulses present; no JVD Extremities: no edema Gastrointestinal (Abdomen): normal bowel sounds, soft, nontender, no hepatosplenomegaly Skin: + pallor Psychiatric: Orientation: alert and oriented x 3 (but slow to respond, seems to have difficulty recalling events, etc) Results & Data Results & Data ([facility]) Vital Signs (Past 12 Hours) Vital Signs Temp Pulse Pulse Resp BP Pulse Ox 10/05/19 08:05 36.5 C 78 18 139/72 93 10/05/19 02:59 36.3 C L 70 16 151/88 H 97 10/05/19 00:58 91 H Laboratory Results Laboratory Results - last 24 hr 10/04/19 10/04/19 10/04/19 18:01 18:01 18:01 WBC RBC Hgb Hct MCV MCH MCHC RDW Std Deviation RDW Coeff of Shantel Plt Count MPV Immature Gran % (Auto) Neut % (Auto) Lymph % (Auto) Clayton % (Auto) Eos % (Auto) Baso % (Auto) Neut # (Auto) Lymph # (Auto) Clayton # (Auto) Eos # (Auto) Baso # (Auto) Immature Gran # (Auto) Absolute Nucleated RBC Nucleated RBC % (auto) PT 14.6 H INR 1.4 H APTT 37.9 H PTT Ratio 1.4 Sodium 132 L Potassium 4.2 Chloride 100 Carbon Dioxide 25 Anion Gap 7.0 BUN 24 H Creatinine 0.85 Est Cr Clr Drug Dosing Not Reportable Est GFR ( Amer) 100.9 Est GFR (Non-Af Amer) 87.1 BUN/Creatinine Ratio 27.9 H Glucose 138 H Lactate 1.2 Calcium 8.9 Magnesium 2.2 Total Bilirubin 0.8 AST 72 H ALT 25 Alkaline Phosphatase 284 H Troponin I < 0.015 Total Protein 7.0 Albumin 1.9 L Globulin 5.1 H Albumin/Globulin Ratio 0.4 L Procalcitonin Hepatitis C Ab Screen 10/04/19 10/04/19 10/05/19 18:01 18:04 09:14 WBC 5.02 RBC 3.09 L Hgb 8.9 L Hct 26.1 L MCV 84.5 MCH 28.8 MCHC 34.1 RDW Std Deviation RDW Coeff of Shantel Plt Count 148 MPV Immature Gran % (Auto) 2.2 Neut % (Auto) 66.1 Lymph % (Auto) 24.9 Clayton % (Auto) 6.6 Eos % (Auto) 0.0 Baso % (Auto) 0.2 Neut # (Auto) 3.32 Lymph # (Auto) 1.25 Clayton # (Auto) 0.33 Eos # (Auto) 0.00 Baso # (Auto) 0.01 Immature Gran # (Auto) 0.11 H Absolute Nucleated RBC 0.05 H Nucleated RBC % (auto) 1.1 PT INR APTT PTT Ratio Sodium Potassium Chloride Carbon Dioxide Anion Gap BUN Creatinine Est Cr Clr Drug Dosing Est GFR ( Amer) Est GFR (Non-Af Amer) BUN/Creatinine Ratio Glucose Lactate Calcium Magnesium Total Bilirubin AST ALT Alkaline Phosphatase Troponin I Total Protein Albumin Globulin Albumin/Globulin Ratio Procalcitonin 2.56 H Hepatitis C Ab Screen Neg 10/05/19 10/05/19 10/05/19 09:14 09:14 09:14 WBC 4.78 L RBC 3.42 L Hgb 9.8 L Hct 29.0 L MCV 84.8 MCH 28.7 MCHC 33.8 RDW Std Deviation 46.1 RDW Coeff of Shantel 14.8 H Plt Count 170 MPV 9.6 Immature Gran % (Auto) 1.7 Neut % (Auto) 74.3 Lymph % (Auto) 21.5 Clayton % (Auto) 2.5 Eos % (Auto) 0.0 Baso % (Auto) 0.0 Neut # (Auto) 3.55 Lymph # (Auto) 1.03 L Clayton # (Auto) 0.12 Eos # (Auto) 0.00 Baso # (Auto) 0.00 Immature Gran # (Auto) 0.08 H Absolute Nucleated RBC 0.04 H Nucleated RBC % (auto) 0.7 PT 15.2 H INR 1.5 H APTT PTT Ratio Sodium 133 L Potassium 4.3 Chloride 103 Carbon Dioxide 24 Anion Gap 7.0 BUN 29 H Creatinine 0.74 Est Cr Clr Drug Dosing 114.1 Est GFR ( Amer) 106.8 Est GFR (Non-Af Amer) 92.2 BUN/Creatinine Ratio 38.5 H Glucose 243 H Lactate Calcium 9.0 Magnesium Total Bilirubin 0.5 AST 55 H ALT 22 Alkaline Phosphatase 287 H Troponin I Total Protein 7.3 Albumin 1.8 L Globulin 5.5 H Albumin/Globulin Ratio 0.3 L Procalcitonin Hepatitis C Ab Screen PG Care Time/CCT Total # of Minutes Spent Total Time Spent with Patient: Total time spent is greater than 50% in coordination of care (as documented) at patient's floor/unit and/or counseling patient: Coding Level of Care Code 37458 Subseq Hosp Care Lvl 3 Diagnoses Postobstructive pneumonia J18.9 Mass of middle lobe of right lung R91.8 Atrial fibrillation and flutter I48.91; I48.92 Hypertension I10 Hypertension type: essential hypertension Hyperthyroidism E05.90 Obstructive sleep apnea syndrome G47.33 Pleural effusion J90 Prediabetes R73.03 Anemia D64.9 Anemia type: unspecified type Hyponatremia E87.1 Abnormal LFTs R94.5 Severe protein-calorie malnutrition E43 DVT prophylaxis Z29.9 (1) Hypertension Hypertension type: essential hypertension Qualified Code(s): I10 - Essential (primary) hypertension (2) Anemia Anemia type: unspecified type Qualified Code(s): D64.9 - Anemia, unspecified
--- NOTE | 2019-10-05 19:18 | Procedure Note ---
Procedure Note Date of Service October 05, 2019 Procedure: Diagnostic therapeutic ultrasound-guided catheter thoracentesis Salon Manager: Dr. Marquis Lynn Indication: Pleural effusion Consent: Signed by patient and verified with timeout prior to procedure Anesthesia: 8 mL's 1% lidocaine without epinephrine local. Procedure: Consent was verified and timeout performed. Appropriate imaging studies were reviewed prior to the procedure. Patient was placed in a seated position and limited thoracic ultrasound was performed of the right chest. Images not saved to the medical record due to technical issues. Site appropriate for thoracentesis was selected. The skin was prepped and draped in normal sterile fashion. Lidocaine was used for local analgesia. Fluid was aspirated via the finder needle. A small skin titi was made with the scalpel and the catheter over the needle apparatus was advanced over the rib into the pleural space. Using the syringe one-way valve system, a total of 250 mL's of cloudy jenni fluid was removed. Procedure was terminated due to adequate sampling. The catheter was removed and observed to be intact. A sterile dressing was applied. Post procedure chest x-ray was ordered. Fluid was sent for cytology, cell count differential, Gram stain and culture, LDH, pH, glucose, and total protein. The patient tolerated the procedure well without obvious complication Coding CPT Codes Pulmonary/Thoracic - Pulmonary and Thoracic: 76839 Thoracentesis w imaging ([id number]) [facility] [place] Procedure Codes (Charges) Pulmonary/Thoracic Procedure 1: Pulmonary and Thoracic: 52038 Thoracentesis w imaging
[2019-10-05 19:48] LABS: Total Protein Pleural Fluid 3.5 g/dl
--- NOTE | 2019-10-05 20:03 | Pulmonary Consultation ---
Date of Consultation October 05, 2019 Assessment & Plan (1) Mass of middle lobe of right lung: Impression: 74 Y/O M with R hilar lung mass, pleural effusion and associated adenopathy. Findings highly suggestive of neoplastic process. Recommendations: 1. Thoracentesis done tonight. Follow up CXR pending. Await pleural fluid studies and cytology. If positive would diagnose and stage. Cytology likely not going to be available until Mon or Tues 2. Recommend MRI of brain with contrast. If unable to do MRI, CT head with contrast. 3. If pleural fluid negative, lesions amenable to bronchoscopy with EBUS. Would need to be off eliquis for 24 hours and negative COVID test. 4. Will need outpatient PET scan 5. Will likely need medical oncology and possible radiation oncology evaluation once diagnosis made. 6. Work up can be done as outpatinet. From pulmonary perspective, OK to discharge. If bronch needed, I can set up as outpatinet next week. Call if questions. (2) Postobstructive pneumonia: (3) Pleural effusion: History of Present Illness Attending Physician: Murtaza Paz History of Present Illness Asked by hospitalists to assist with patient admitted with abnormal CT scan. History obtained from discussion with patient, hospitalists and review of EMR. 74 y/o M with 30 pack year history of tobacco abuse, quit smoking 20 years ago admitted with fevers, SOB and constitutional symptoms. CXR and CT abnormal. COVID testing done in outpatient setting and results pending. No prior CT imaging performed. Pt endorses cough but no sputum production. No chest pain. Some difficulty with memory and gait. No seizure activity. No [employer] imaging. Allergies Allergy/AdvReac Type Severity Reaction Status Date / Time amoxicillin Allergy Severe HEAD TO Verified 10/04/19 19:42 TOE ITCHY RASH Home Medications Home Medications Medication Instructions Recorded Confirmed Type gabapentin 300 mg capsule 300 mg PO TID 10/22/18 10/04/19 History cholecalciferol (vitamin D3) 25 1,000 units PO DAILY tab 10/30/18 10/04/19 History mcg (1,000 unit) tablet Glucosamine Chondroitin 1 cap PO DAILY 11/24/18 10/04/19 History Acton-3 1 cap PO DAILY 11/24/18 10/04/19 History multivitamin 1 tab PO DAILY 11/24/18 10/04/19 History vitamin B complex 1 tab PO DAILY 11/24/18 10/04/19 History CPAP Machine #1 ea 02/21/19 09/19/19 Rx apixaban [Eliquis] 5 mg PO BID #60 tab 09/12/19 10/04/19 Rx acetaminophen 500 mg tablet 1,000 mg PO Q6H PRN tab 09/19/19 10/04/19 History methocarbamol 500 mg tablet 500 mg PO DAILY tab 09/19/19 10/04/19 History docusate sodium 100 mg capsule 100 mg PO BID 09/23/19 10/04/19 History metoprolol tartrate 100 mg tablet 100 mg PO BID #60 tab 09/23/19 10/04/19 Rx calcium polycarbophil [FiberCon] 1,250 mg PO DAILY PRN 10/04/19 10/04/19 History methimazole 15 mg PO BID 10/04/19 10/04/19 History polyethylene glycol 3350 [Miralax] 17 g PO DAILY PRN 10/04/19 10/04/19 History Patient History Medical History (Updated 10/05/19 @ 20:04 by Marquis Lynn MD) AAA (abdominal aortic aneurysm) (Chronic) Acid indigestion Anxiety (Chronic) Atrial fibrillation and flutter Bradycardia (Inactive) Diverticulosis of colon Dyslipidemia (Chronic) Erectile dysfunction Graves disease (Chronic) Gross hematuria Hepatic steatosis (Chronic) 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) Hypertension (Chronic) Incomplete RBBB (Chronic) Obstructive sleep apnea syndrome Perianal abscess Prediabetes (Chronic) Rectal fistula Skin cancer (Resolved) Sleep apnea Ventricular bigeminy Surgical History H/O elbow surgery H/O knee surgery History of wisdom tooth extraction Status post Mohs surgery Social History Preferred Language: Russian Communication Ability: Effective Visual Impairment: No Limitations Hearing Ability: Normal System Analyst Required: No Beliefs That Will Affect Care: None marital status: Current Living Situation: Spouse current occupational status: retired Other Information That Helps Us Care for You: No Feels Safe at Home: Yes Safety Concerns: Feels Safe At This Time Smoking Status: Former smoker packs per day: 1 ; Tobacco Cessation Education Requested by Patient: No Hx Alcohol Use: Yes Alcohol Intake Frequency: Rarely Hx Substance Use: No Childhood Exposure to Second-Hand Smoke: Yes Dental Care, Regularly: No Physical Activity Frequency: Daily Seatbelt Use: always Sunscreen Use: Yes Review of Systems Review of Systems: See H&P. No changes Physical Exam Constitutional: WD/WN, vitals as above Neck: trachea midline, no thyromegaly Respiratory: normal respiratory effort Decreased BS R lung base Cardiovascular: RRR, no murmur, no edema Gastrointestinal (Abdomen): normal bowel sounds, soft, nontender, no hepatosplenomegaly Musculoskeletal: Extremities: extremities normal to inspection Skin: no rashes, warm and dry Neurologic: Nonfocal exam Lymphatic: no cervical lymphadenopathy Results & Data Results & Data ([facility]) Vital Signs (Past 12 Hours) Vital Signs Temp Pulse Resp BP Pulse Ox 10/05/19 16:00 36.5 C 78 18 126/72 94 10/05/19 12:00 36.3 C L 79 18 133/73 96 10/05/19 08:05 36.5 C 78 18 139/72 93 Laboratory Results 10/05/19 09:14 10/05/19 09:[address] chest independently reviewed. CT chest wo con CT DOSE: 549.72 mGy.cm HISTORY: pneumonia TECHNIQUE: Multiaxial CT images of the chest were performed without contrast. A dose lowering technique was utilized adhering to the principles of ALARA. COMPARISON: None. FINDINGS: Small right pleural effusion. Large right hilar/perihilar masslike opacity. This extends into the right hilum and measures approximately 8 cm. This almost completely obstructs the right upper lobe and right middle lobe bronchi with moderate to severe narrowing of the right lower lobe bronchus. No suspicious lytic or blastic osseous lesions. Groundglass and nodular densities surrounding this suspected right lung mass may represent a postobstructive pneumonitis. This is most pronounced within the right upper lobe posteriorly. No pneumothorax. Mild emphysema. A 4 mm nodule within the left lung apex on image 73. A 4 mm nodule within the left upper lobe posteriorly on image 125. Mediastinal and left hilar lymphadenopathy. The heart is normal in size. Normal caliber thoracic aorta. The esophagus is also normal in caliber. Limited views of the upper abdomen demonstrate normal liver and spleen. The visualized adrenal glands are unremarkable. Dominant right paratracheal lymph node measures 3.7 cm. There is a single enlarged right axillary lymph node best seen image 24. This measures 14 x 11 mm. IMPRESSION: 1. An 8 cm right hilar/perihilar masslike opacity which results in near complete obstruction of the right upper and middle bronchi as well as moderate to severe narrowing of the right lower lobe bronchus. There is associated mediastinal and left hilar lymphadenopathy. Therefore, this is highly suspicious for a primary bronchogenic malignancy. Bronchoscopy recommended for further evaluation. 2. Small right pleural effusion, possibly malignant. 3. Groundglass and nodular opacity surrounding this right perihilar mass favor a postobstructive pneumonitis. 4. There are 2 subcentimeter nodules within the left lung measuring 4 mm. These bear watching on future examinations to exclude the possibility of metastatic disease. 5. A single enlarged high right axillary lymph node. PG Care Time/CCT Total # of Minutes Spent Total Time Spent with Patient: Total time spent is greater than 50% in coordination of care (as documented) at patient's floor/unit and/or counseling patient: Coding Level of Care Code 12981 Initial Inpt Care Lvl 3 Diagnoses Mass of middle lobe of right lung R91.8 Postobstructive pneumonia J18.9 Pleural effusion J90
[2019-10-05 20:12] LABS: Appearance Pleural Fluid CLOUDY; Basophils, Fluid 0 %; Color Pleural Fluid YELLOW; Eosinophils, Fluid 0 %; Lymphocytes, Fluid 21 %; Mono,Macrophage,Mesothelial 38 %; Neutrophils, Fluid 41 %; RBC Pleural Fluid (A) 3000 /uL; Source Pleural Fluid RIGHT LUNG; WBC Pleural Fluid (A) 2198 /uL
[2019-10-05] MEDS: LACTOBACILLUS ACIDOPHILUS (FLORANEX) TAB PO SCH (20:50)
[2019-10-05] MEDS ORDERED: LEVOFLOXACIN/D5W 500 MG/100 ML BAG IV SCH (22:00)
[2019-10-06] MEDS: CEFEPIME 1,000 MG in SYRINGE 0 ML IV SCH ×2 (04:59→12:50)
--- NOTE | 2019-10-06 07:40 | Electrocardiogram Report ---
Test Reason : Blood Pressure : / mmHG Vent. Rate : 110 BPM Atrial Rate : 110 BPM P-R Int : 158 ms QRS Dur : 100 ms QT Int : 338 ms P-R-T Axes : 048 058 064 degrees QTc Int : 457 ms Sinus tachycardia Incomplete right bundle branch block Borderline ECG When compared with ECG of 10-SEP-2019 17:39, Sinus rhythm has replaced Atrial flutter Confirmed by Allen Casanova ([id number]) on 10/06/2019 7:40:11 AM Referred By: REFERRED SELF Confirmed By:Allen Casanova
[2019-10-06 07:55] LABS: Hematocrit (blood only) 27.5 % (42-52); Hemoglobin 9.3 g/dL (14.0-18.0); Immature Granulocytes # (auto) 0.17 K/uL (0.00-0.02); Immature Granulocytes % (auto) 3.3 %; Lymphocytes # (auto) 1.11 K/uL (1.2-3.4); Lymphocytes % (auto) 21.3 %; Mean Corpuscular Hemoglobin 28.3 pg (25-34); Mean Corpuscular Hgb Conc 33.8 g/dL (32-36); Mean Corpuscular Volume 83.6 fL (80-100); Mean Platelet Volume 9.5 fL (7.4-10.4); Monocytes # (auto) 0.28 K/uL (0.11-0.59); Monocytes % (auto) 5.4 %; Neutrophils # (auto) 3.65 K/uL (1.4-6.5); Nucleated RBC # (auto) 0.05 K/uL (0-0); Nucleated RBC % (auto) 0.9 %; Platelet Count 164 K/uL (130-400); RDW Coefficient of Variation 14.7 % (11.5-14.5); RDW Standard Deviation 44.4 fL (36.4-46.3); Red Blood Count 3.29 M/uL (4.7-6.1); White Blood Count 5.21 K/uL (4.8-10.8)
--- NOTE | 2019-10-06 08:27 | XRay Report ---
XR chest 1V portable HISTORY: S/P Thoracentesis COMPARISON: Chest 10/04/2019. FINDINGS: Right perihilar mass is again noted. No pneumothorax. No pleural effusions. The heart is mi ldly enlarged. Right paratracheal lymphadenopathy is also noted. IMPRESSION: 1. No pneumothorax. 2. Right perihilar mass and right paratracheal lymphadenopathy is again noted. ACT 112: Negative or not required by law. Electronically signed by: Jamaal Sparrow M.D. 10/06/2019 8:25 AM
[2019-10-06 08:29] LABS: BUN Creatinine Ratio 50.6 (10-20); Calcium 8.5 mg/dl (8.5-10.1); Est GFR (African American) 113.4; Est GFR (Non-African American) 97.8; Potassium 3.8 mmol/L (3.5-5.1)
[2019-10-06] MEDS ORDERED: LACTULOSE SYRUP 20 GM/30 ML UDC PO ONE (08:41)
[2019-10-06] MEDS ORDERED: IOVERSOL 100ml IV PRN (08:53)
[2019-10-06] MEDS: MULTIVITAMIN TAB PO SCH (09:05)
[2019-10-06] MEDS: methIMAzole 5 MG TABLET PO SCH ×2 (09:05→21:11)
[2019-10-06] MEDS: METOPROLOL TARTRATE 100 MG TAB PO SCH ×2 (09:05→21:10)
[2019-10-06] MEDS: DOCUSATE SODIUM 100 MG CAP PO SCH ×2 (09:05→21:09)
[2019-10-06] MEDS: VITAMIN B COMPLEX TAB PO SCH (09:05)
[2019-10-06] MEDS: OMEGA-3 (PURIFIED FISH OIL) 1 GM CAP PO SCH (09:06)
[2019-10-06] MEDS: CHOLECALCIFEROL 1,000 UNITS 25 MCG TAB PO SCH (09:06)
[2019-10-06] MEDS: LACTOBACILLUS ACIDOPHILUS (FLORANEX) TAB PO SCH ×4 (09:08→21:08)
[2019-10-06] MEDS: METHOCARBAMOL 500 MG TABLET PO SCH (09:08)
[2019-10-06] MEDS: GABAPENTIN 300 MG CAP PO SCH ×3 (09:09→21:11)
--- NOTE | 2019-10-06 10:54 | CT Scan Report ---
ABDOMEN AND PELVIS CT WITH IV CONTRAST CT DOSE: 885.12 mGy.cm HISTORY: large R lung mass; eval intra-abd mets TECHNIQUE: Multiaxial CT images of the abdomen and pelvis were performed following the use of intrave nous contrast. A dose lowering technique was utilized adhering to the principles of ALARA. COMPARISON STUDY: Abdomen and pelvis CT 05/07/2019. FINDINGS: Please refer to the recent chest CT for further evaluation of the right chest abnormalities . Trace right pleural effusion has decreased in size. There is a new mildly enlarged right anterior d uct chronic lymph node measuring 1.5 x 0.7 cm. This could represent a metastatic focus. No pneumoperi toneum. No pneumatosis. No suspicious lytic are blastic osseous lesions. Lucent lesion at the L3 vert ebral body favors a hemangioma. This remains unchanged. Possible 11 mm hypodense lesion within the ri ght hepatic lobe on image 117. This was not present on the prior study. The gallbladder, spleen, and pancreas are unremarkable. The kidneys enhance normally. No hydronephrosis. Mild bilateral perinephri c edema, unchanged. Mild nodular thickening of the bilateral jugular glands, unchanged. Questionable 9 mm left adrenal gland nodule which could represent hyperplasia. The main portal vein is patent. A 3 .4 cm infrarenal abdominal aortic aneurysm. No retroperitoneal lymphadenopathy. Normal bladder. Colon ic diverticulosis. No evidence for diverticulitis. No bowel wall thickening or obstruction. No pelvic lymphadenopathy. No pelvic free fluid. 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 IMPRESSION: 1. Please refer to the recent chest CT for further evaluation of the right lung base abnormalities. T his includes a mildly enlarged right anterior diaphragmatic lymph node which is new from the prior st udy. 2. Trace right pleural effusion has decreased in size. 3. There appears to be a new 11 mm hypodense lesion within the right hepatic lobe. This is concerning for metastatic focus. Follow-up abdominal ultrasound can be used for further evaluation. 4. No change in the 3.4 cm infrarenal abdominal aortic aneurysm. There is also a stable 3 cm left com mon iliac artery aneurysm. ACT 112: Negative or not required by law. Electronically signed by: Jamaal Sparrow M.D. 10/06/2019 10:53 AM
[2019-10-06] MEDS ORDERED: LORazepam 0.5 MG TAB PO STA (11:09)
[2019-10-06] MEDS ORDERED: VANCOMYCIN TROUGH ONE (11:30)
--- NOTE | 2019-10-06 12:06 | Pulmonology Progress Note ---
Date of Service October 06, 2019 Assessment & Plan (1) Mass of middle lobe of right lung: Impression: 74 Y/O M with R hilar lung mass, pleural effusion and associated adenopathy. Findings highly suggestive of neoplastic process. I did go over the patient's CT imaging at length with the and the patient himself. We also went over possible diagnosis at length. Recommendations: 1. Patient is status post thoracentesis on the right which demonstrates an exudative pleural effusion. Awaiting cytology results which will likely be back midweek. Gram stain cultures have been negative thus far.Continue antibiotic treatment for postobstructive pneumonia. I would recommend a 7-day course. His procalcitonin was elevated to 2.56. 2. He is to undergo an MRI of his brain today. He underwent a CT of his abdomen and pelvisThat demonstrated a new 11 mm hypodense lesion within the right hep atic lobe concerning for metastatic foci. 3. If pleural fluid negative, lesions amenable to bronchoscopy with EBUS. Would need to be off eliquis for 24 hours and negative COVID test. 4. Will need outpatient PET scan. He may also need an outpatient thoracic and lumbar spine as he does have back pain. 5. Will likely need medical oncology and possible radiation oncology evaluation once diagnosis made. 6. Work up can be done as Outpatient. From pulmonary perspective, OK to discharge. If bronc is needed at that point, we can certainly set up an outpatient procedure after his Eliquis has been held and COVID testing has been negative. I am recommending that he be restarted on his Eliquis today. Call if questions. (2) Postobstructive pneumonia: (3) Pleural effusion: (4) Atrial fibrillation and flutter: Admission and Anticipated Discharge Date Admission Date: October 04, 2019 Subjective Patient seen and examined this morning. is at bedside. I had a lengthy discussion with the patient and he indicated that he still feeling lethargic and fatigued, but this is definitely improved since he was first hospitalized.His breathing is still a bit labored, but also improved since hospitalization.He describes that he has not been tolerant of his CPAP over the last 2 months due to all of his recent medical issues. He does see Dr. sellers as an outpatient for obstructive sleep apnea. Review of Systems Review of Systems: All systems reviewed & are unremarkable except as noted in HPI & below Physical Exam Constitutional: WD/WN, vitals as above Neck: trachea midline, no thyromegaly Respiratory: normal respiratory effort Decreased BS R lung base Cardiovascular: RRR, no murmur, no edema Gastrointestinal (Abdomen): normal bowel sounds, soft, nontender, no hepatosplenomegaly Musculoskeletal: Extremities: extremities normal to inspection Skin: no rashes, warm and dry Neurologic: Nonfocal exam Lymphatic: no cervical lymphadenopathy Results & Data Results & Data ([facility]) Vital Signs (Past 12 Hours) Vital Signs Temp Pulse Pulse Resp BP Pulse Ox 10/06/19 11:17 97.7 F 88 20 138/80 95 10/06/19 07:21 97.7 F 95 H 18 156/89 H 96 10/06/19 05:01 97.5 F L 83 20 146/87 H 96 10/06/19 02:06 94 H I personally reviewed the patient's labs, chest imaging and vital signs. PG Care Time/CCT Total # of Minutes Spent Total Time Spent with Patient: Total time spent is greater than 50% in coordination of care (as documented) at patient's floor/unit and/or counseling patient: Coding Level of Care Code 85717 Subseq Hosp Care Lvl 3 Diagnoses Mass of middle lobe of right lung R91.8 Postobstructive pneumonia J18.9 Pleural effusion J90 Atrial fibrillation and flutter I48.91; I48.92
[2019-10-06] MEDS ORDERED: APIXABAN 5 MG TABLET PO SCH (13:40)
[2019-10-06] MEDS ORDERED: GADOBUTROL 65ML VIAL IV PRN (13:57)
--- NOTE | 2019-10-06 14:23 | Magnetic Resonance Report ---
Brain MRI WITH AND WITHOUT CONTRAST HISTORY: Suspected lung cancer. Evaluate for intracranial metastatic disease. Mild confusion. TECHNIQUE: Multiplanar multisequence MRI of the brain was performed both before and after the intrave nous administration of contrast. COMPARISON STUDY: Brain MRI 06/10/2006. FINDINGS: There is no mass, hematoma, midline shift, or acute infarct. The paranasal sinuses are víctor r. The mastoid air cells are clear. The ventricles and sulci demonstrate mild age-related involutiona l changes. Scattered foci of T2 hyperintensity seen within the periventricular and subcortical white matter are nonspecific but suggestive of mild microvascular ischemic changes. The major vascular flow voids at the skull base are well-maintained. No abnormal enhancement. Hypointense C2 vertebral body on the sagittal sequences. However, this is a nonmasslike pattern. No abnormal marrow pattern within the calvarium. IMPRESSION: 1. No acute intracranial abnormality. 2. No evidence for intracranial metastatic disease. 3. Hypointense C2 vertebral body on the sagittal sequences. However, this has a nonmasslike pattern. Follow-up nuclear medicine bone scan can be performed to exclude the less likely possibility of metas tatic disease. ACT 112: Negative or not required by law. Electronically signed by: Jamaal Sparrow M.D. 10/06/2019 2:21 PM
[2019-10-06] MEDS ORDERED: LACTULOSE SYRUP 20 GM/30 ML UDC PO SCH (16:00)
--- NOTE | 2019-10-06 21:01 | Hospitalist Progress Note ---
Date of Service October 06, 2019 Assessment & Plan (1) Postobstructive pneumonia: RUL. Postobstructive due to large right-sided hilar mass (8cm) causing compression on RUL, RML, and RLL bronchi. MUCH improved. Can stop cefepime later tonight. Can stop IV levaquin today and convert to PO levaquin; finish abx course with PO levaquin 750mg daily. Blood cultures negatives. COVID-19 PCR NEGATIVE. Remains stable in RA. (2) Pleural effusion: right-sided highly concerning for malignant effusion fluid appears transudative await cytologies culture thus far negative no post-procedure pneumothorax (3) Mass of middle lobe of right lung: Large right-sided lung mass causing compression of RUL, RML, and RLL bronchi. Most certainly this is lung cancer until proven otherwise. Appreciate Dr Lynn and Dr Kyle consultations. MRI brain without intra-cranial mets. ??C2 abnormality incidentally seen. CT abd/pelvis with possible 11mm right-sided liver met. s/p thoracentesis. If cytologies from pleural fluid do not make a diagnosis then will need bronchoscopy with EBUS and biopsies. [facility] would perform later this week as outpatient. Would need to be off eliquis for 24 hours prior to this procedure. I spoke with Dr Crowley who will consult in AM. He will comment on lung findings and abnormal Fe studies. (4) Hyperammonemia: Concerning for liver dysfunction. Likely cause of mental slowing and recent mild confusion. lactulose x 2 doses today. repeat ammonia level in am. I have asked Dr Moore from [facility] to see in am regarding abnormal LFTs, e levated ferritin/transferrin sat, and the possibility of hemochromatosis. (5) Abnormal iron saturation: Transferrin sat 90%. Ferritin 6860 just prior to the hospital stay. These values are concerning for iron overload/hemochromatosis. Will send hereditary hemochromatosis DNA in am. Patient does NOT take iron supplements nor drink alcohol. Heme consult requested. GI consult requested. The liver does not appear cirrhotic on CT today despite the above. (6) Atrial fibrillation and flutter: Remains in NSR. Cont BB. Dx with a.fib last month in the setting of hyperthyroidism. Resume eliquis tonight. (7) Hypertension: Controlled with outpatient meds (8) Hyperthyroidism: Continue methimazole 15 mg p.o. twice daily 2nd Graves Disease Controlled Follows with Dr Darnell (9) Obstructive sleep apnea syndrome: CPAP at bedtime (10) Prediabetes: a1c just over 6% in 04/2019 cont DM diet check a1c in am (11) Anemia: progressive over time b12 wnl ferritin markedly elevated; see discussion above folate wnl if he does not have hemochromatosis the elevated ferritin could be 2nd to omkar gnancy, infection, ACD, combination of factors, etc. H/H stable today (12) Hyponatremia: improved 2nd SIADH due to malignancy? serum osm in normal range urine osm, urine Na pending. bmp am. (13) Abnormal LFTs: only 1 possible metastatic focus seen on CT today; doubt causing abnormal LFTs in light of elevated ammonia level appears to have some element of liver dysfunction may need dedicated RUQ us GI [facility] requested for their opinion recheck LFTs am (14) Severe protein-calorie malnutrition: 8.8% weight loss (10kg) since April. certainly hyperthyroidism contributed, but also the right lung mass is contributing. (15) Abnormal MRI, cervical spine: in 2018 was found to have an abnormal C1. 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 HOWEVER, abnormality is in C2 on today's brain MRI. will likely need dedicated MRI c-spine or bone scan. (16) DVT prophylaxis: resume tarun extensively updated and questions answered during the visit today total time today about 70 minutes including lengthy bedside visit with pt/, phone discussions with GI/heme-onc/pulmonary, coordination of care and ordering/interpreting of tests, etc Admission and Anticipated Discharge Date Admission Date: October 04, 2019 Subjective during the visit today pt's was at bedside. patient reports that mental status is improved, and concurs he is thinking better. asks about mild, quiet stridor and if that will continue. no family h/o iron overload/hemochromatosis to his knowledge. appetite fair. no dyspnea/orthopnea; mild JEAN BAPTISTE remains. tele overnight NSR with PVCs. pt and his report they had good conversation with Dr Kyle from pulmonary about plan of care. lastly, they were told that C1 on the brain MRI looked abnormal but unlikely to be mets. they report that he was worked up for this abnormal C1 in the past and it was deemed benign. it was felt to be possibly from trauma/injury. Review of Systems Constitutional: + fatigue and + anorexia; no fever and no chills Respiratory: + cough; no hemoptysis, no pain on inspiration, no pain with cough and no wheezing Cardiovascular: no chest pain, no orthopnea, no paroxysmal nocturnal dyspnea and no edema Gastrointestinal: no abdominal pain, no nausea and no vomiting Musculoskeletal: no neck pain Physical Exam Constitutional: no acute distress and no altered mental status (thinking much more clear; more normal response time to questions) ENMT: external ear and nose normal, oropharynx normal Respiratory: no respiratory distress Auscultation: lungs clear to auscultation bilaterally and + diminished lung sounds (RUL - anterior ); no crackles and no wheezes Cardiovascular: Rate/Rhythm: regular rate and regular rhythm Heart Sounds: normal S1 and normal S2; no murmur Vessels: posterior tibial pulses present and dorsalis pedis pulses present; no JVD Extremities: no edema Gastrointestinal (Abdomen): normal bowel sounds, soft, nontender, no hepatosplenomegaly Skin: + pallor Neurologic: Motor/Sensory: no asterixis Psychiatric: Orientation: alert and oriented x 3 Results & Data Results & Data ([facility]) Vital Signs (Past 12 Hours) Vital Signs Temp Pulse Resp BP Pulse Ox 10/06/19 19:14 37.1 C 98 H 22 144/79 H 93 10/06/19 15:46 36.5 C 92 H 20 135/77 95 10/06/19 11:17 36.5 C 88 20 138/80 95 Laboratory Results Laboratory Results - last 24 hr 10/06/19 10/06/19 10/06/19 07:41 07:41 07:41 WBC 5.21 RBC 3.29 L Hgb 9.3 L Hct 27.5 L MCV 83.6 MCH 28.3 MCHC 33.8 RDW Std Deviation 44.4 RDW Coeff of Shantel 14.7 H Plt Count 164 MPV 9.5 Immature Gran % (Auto) 3.3 Neut % (Auto) 70.0 Lymph % (Auto) 21.3 [place] % (Auto) 5.4 Eos % (Auto) 0.0 Baso % (Auto) 0.0 Neut # (Auto) 3.65 Lymph # (Auto) 1.11 L [place] # (Auto) 0.28 Eos # (Auto) 0.00 Baso # (Auto) 0.00 Immature Gran # (Auto) 0.17 H Absolute Nucleated RBC 0.05 H Nucleated RBC % (auto) 0.9 Sodium 135 L Potassium 3.8 Chloride 105 Carbon Dioxide 24 Anion Gap 6.0 BUN 33 H Creatinine 0.64 Est Cr Clr Drug Dosing 132.0 Est GFR ( Amer) 113.4 Est GFR (Non-Af Amer) 97.8 BUN/Creatinine Ratio 50.6 H Glucose 154 H POC Glucose Osmolality Calcium 8.5 Iron 145 Transferrin 114 L Transferrin % Sat 90 H Ammonia 60.0 H Folate 10/06/19 10/06/19 10/06/19 07:41 07:41 17:26 WBC RBC Hgb Hct MCV MCH MCHC RDW Std Deviation RDW Coeff of Shantel Plt Count MPV Immature Gran % (Auto) Neut % (Auto) Lymph % (Auto) [place] % (Auto) Eos % (Auto) Baso % (Auto) Neut # (Auto) Lymph # (Auto) [place] # (Auto) Eos # (Auto) Baso # (Auto) Immature Gran # (Auto) Absolute Nucleated RBC Nucleated RBC % (auto) Sodium Potassium Chloride Carbon Dioxide Anion Gap BUN Creatinine Est Cr Clr Drug Dosing Est GFR ( Amer) Est GFR (Non-Af Amer) BUN/Creatinine Ratio Glucose POC Glucose 166 H Osmolality 293 Calcium Iron Transferrin Transferrin % Sat Ammonia Folate 15.83 Diagnostic Findings MR brain - IMPRESSION: 1. No acute intracranial abnormality. 2. No evidence for intracranial metastatic disease. 3. Hypointense C2 vertebral body on the sagittal sequences. However, this has a nonmasslike pattern. Follow-up nuclear medicine bone scan can be performed to exclude the less likely possibility of metastatic disease. CT abd/pelvis - IMPRESSION: 1. Please refer to the recent chest CT for further evaluation of the right lung base abnormalities. This includes a mildly enlarged right anterior diaphragmatic lymph node which is new from the prior study. 2. Trace right pleural effusion has decreased in size. 3. There appears to be a new 11 mm hypodense lesion within the right hepatic lobe. This is concerning for metastatic focus. Follow-up abdominal ultrasound can be used for further evaluation. 4. No change in the 3.4 cm infrarenal abdominal aortic aneurysm. 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 PG Care Time/CCT Total # of Minutes Spent Total Time Spent with Patient: Total time spent is greater than 50% in coordination of care (as documented) at patient's floor/unit and/or counseling patient: Prolonged Care Time Prolonged Care Time: Yes Total Prolonged Care Time: 70 Coding Level of Care Code 09517 Subseq Hosp Care Lvl 3 (25 - SIGNIFICANT, SEPARATELY IDENTIFIABLE ) Diagnoses Postobstructive pneumonia J18.9 Pleural effusion J90 Mass of middle lobe of right lung R91.8 Hyperammonemia E72.20 Abnormal iron saturation R79.0 Atrial fibrillation and flutter I48.91; I48.92 Hypertension I10 Hypertension type: essential hypertension Hyperthyroidism E05.90 Obstructive sleep apnea syndrome G47.33 Prediabetes R73.03 Anemia D64.9 Anemia type: unspecified type Hyponatremia E87.1 Abnormal LFTs R94.5 Severe protein-calorie malnutrition E43 Abnormal MRI, cervical spine R93.7 DVT prophylaxis Z29.9 Additional Codes Prolonged Care Time - Prolonged Care Time: Yes ([id number]) Time Spent (min) 70 (1) Hypertension Hypertension type: essential hypertension Qualified Code(s): I10 - Essential (primary) hypertension (2) Anemia Anemia type: unspecified type Qualified Code(s): D64.9 - Anemia, unspecified
[2019-10-06] MEDS: ACETAMINOPHEN 500 MG TAB PO PRN (21:11)
[2019-10-06] MEDS ORDERED: levoFLOXacin 750 MG TAB PO SCH (22:00)
[2019-10-07 06:01] LABS: Hematocrit (blood only) 24.8 % (42-52); Hemoglobin 8.5 g/dL (14.0-18.0); Mean Corpuscular Hemoglobin 28.8 pg (25-34); Mean Corpuscular Hgb Conc 34.3 g/dL (32-36); Mean Corpuscular Volume 84.1 fL (80-100); Mean Platelet Volume 9.2 fL (7.4-10.4); Nucleated RBC # (auto) 0.13 K/uL (0-0); Nucleated RBC % (auto) 2.6 %; Platelet Count 147 K/uL (130-400); RDW Coefficient of Variation 15.1 % (11.5-14.5); Red Blood Count 2.95 M/uL (4.7-6.1); White Blood Count 5.05 K/uL (4.8-10.8)
[2019-10-07 06:21] LABS: Basophils # (auto) 0.01 K/uL (0-0.2); Basophils % (auto) 0.2 %; Eosinophils # (auto) 0.01 K/uL (0-0.5); Eosinophils % (auto) 0.2 %; Immature Granulocytes # (auto) 0.26 K/uL (0.00-0.02); Immature Granulocytes % (auto) 5.1 %; Lymphocytes # (auto) 1.43 K/uL (1.2-3.4); Lymphocytes % (auto) 28.3 %; Monocytes # (auto) 0.32 K/uL (0.11-0.59); Monocytes % (auto) 6.3 %; Neutrophils # (auto) 3.02 K/uL (1.4-6.5); Neutrophils % (auto) 59.9 %; RBC Morphology Unremarkable
[2019-10-07 06:36] LABS: Albumin Level 1.7 gm/dl (3.4-5.0); BUN Creatinine Ratio 39.8 (10-20); Calcium 8.2 mg/dl (8.5-10.1); Creatinine Clr Calc Pharmacy 119.9 ml/min; Est GFR (African American) 109.9; Est GFR (Non-African American) 94.8; Potassium 3.7 mmol/L (3.5-5.1)
[2019-10-07 06:44] LABS: Albumin Globulin Ratio 0.4 (0.9-2); Bilirubin,Total 0.6 mg/dl (0.2-1); Globulin 4.6 gm/dl (2.5-4.0); Total Protein 6.3 gm/dl (6.4-8.2)
[2019-10-07] MEDS: CEFEPIME 1,000 MG in SYRINGE 0 ML IV SCH (06:59)
[2019-10-07] MEDS: DOCUSATE SODIUM 100 MG CAP PO SCH (08:04)
[2019-10-07] MEDS: methIMAzole 5 MG TABLET PO SCH (08:04)
[2019-10-07] MEDS: LACTOBACILLUS ACIDOPHILUS (FLORANEX) TAB PO SCH (08:05)
[2019-10-07] MEDS: CHOLECALCIFEROL 1,000 UNITS 25 MCG TAB PO SCH (08:05)
[2019-10-07] MEDS: MULTIVITAMIN TAB PO SCH (08:05)
[2019-10-07] MEDS: METOPROLOL TARTRATE 100 MG TAB PO SCH (08:05)
[2019-10-07] MEDS: VITAMIN B COMPLEX TAB PO SCH (08:05)
[2019-10-07] MEDS: METHOCARBAMOL 500 MG TABLET PO SCH (08:05)
[2019-10-07] MEDS: OMEGA-3 (PURIFIED FISH OIL) 1 GM CAP PO SCH (08:06)
[2019-10-07] MEDS: GABAPENTIN 300 MG CAP PO SCH (08:06)
[2019-10-07 08:07] LABS: Ferritin 5873.5 ng/ml (8-388)
[2019-10-07 09:16] LABS: Estimated Average Glucose 180 mg/dl; Hemoglobin A1C 7.9 % (4.5-5.6)
--- NOTE | 2019-10-07 09:55 | Gastrointestinal Consultation ---
Date of Consultation October 07, 2019 Assessment & Plan (1) Abnormal LFTs: (2) Abnormal iron saturation: Suspect elevated ferritin is an acute phase reactant, less likely hemochromatosis. 1. Await DNA testing which is pending. 2. Avoid iron rich foods and vitamin C. 3. Await pending work up from pulmonology. 4. Continue supportive care. Supervising Physician Co-Signing Physician Notes I personally evaluated the patient and agree with the findings as documented by ANAIS Chisholm Exam: abd: soft, nt, nd transferrin saturation very high with elevated ferritin, possible hemosiderosis vs. hemochromatosis. agree with obtaining HFE testing. If iron overload is secondary, then may improve with treating underlying cancer. if it does not, then would likely need phlebotomies. History of Present Illness Reason for Consultation: Elevated ferritin Requesting Physician: Dr. Paz Attending Physician: Azael Rojas, DO History of Present Illness Patient is a 74 year-old male with a history of anemia admitted due to generalized fatigue and shortness of breath. He was found to have a right lung mass with possible mets to the liver. He did undergo a thoracentesis for cytology which is pending and possible bronchoscopy with biopsy this week. GI has been consulted in regard to an incidental finding of significantly elevated ferritin of 5873. A hemochromatosis DNA is pending. No family history of hereditary hemochromatosis. He denies any abdominal pain, n/v, dark urine, acholic stools, pruritus, melena, hematochezia or hematemesis. Has been having fatigue as mentioned and poor appetite. Allergies Allergy/AdvReac Type Severity Reaction Status Date / Time amoxicillin Allergy Severe HEAD TO Verified 10/04/19 19:42 TOE ITCHY RASH Home Medications Home Medications Medication Instructions Recorded Confirmed Type gabapentin 300 mg capsule 300 mg PO TID 10/22/18 10/04/19 History cholecalciferol (vitamin D3) 25 1,000 units PO DAILY tab 10/30/18 10/04/19 History mcg (1,000 unit) tablet Glucosamine Chondroitin 1 cap PO DAILY 11/24/18 10/04/19 History [place]-3 1 cap PO DAILY 11/24/18 10/04/19 History multivitamin 1 tab PO DAILY 11/24/18 10/04/19 History vitamin B complex 1 tab PO DAILY 11/24/18 10/04/19 History CPAP Machine #1 ea 02/21/19 09/19/19 Rx Eliquis 5 mg PO BID #60 tab 09/12/19 10/04/19 Rx acetaminophen 500 mg tablet 1,000 mg PO Q6H PRN tab 09/19/19 10/04/19 History methocarbamol 500 mg tablet 500 mg PO DAILY tab 09/19/19 10/04/19 History docusate sodium 100 mg capsule 100 mg PO BID 09/23/19 10/04/19 History metoprolol tartrate 100 mg tablet 100 mg PO BID #60 tab 09/23/19 10/04/19 Rx calcium polycarbophil [FiberCon] 1,250 mg PO DAILY PRN 10/04/19 10/04/19 History polyethylene glycol 3350 [Miralax] 17 g PO DAILY PRN 10/04/19 10/04/19 History guaifenesin [Mucinex] 1,200 mg PO BID #14 tab 10/07/19 Rx lactulose 10 gm PO DAILY #500 ml 10/07/19 Rx levofloxacin 750 mg PO DAILY 6 Days #6 tab 10/07/19 Rx methimazole 10 mg tablet 10 mg PO BID #60 tab 10/07/19 Rx prednisone 5 mg PO DAILY #30 tab 10/07/19 Rx Patient History Medical History AAA (abdominal aortic aneurysm) (Chronic) Acid indigestion Anxiety (Chronic) Atrial fibrillation and flutter Bradycardia (Inactive) Diverticulosis of colon Dyslipidemia (Chronic) Erectile dysfunction Graves disease (Chronic) Gross hematuria Hepatic steatosis (Chronic) 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) Hypertension (Chronic) Incomplete RBBB (Chronic) Obstructive sleep apnea syndrome Perianal abscess Prediabetes (Chronic) Rectal fistula Skin cancer (Resolved) Sleep apnea Ventricular bigeminy Surgical History H/O elbow surgery H/O knee surgery History of wisdom tooth extraction Status post Mohs surgery Family History Mother Type 2 diabetes mellitus Denies family history of Ovarian cancer Prostate cancer Cardiac disorder Myocardial infarction Breast cancer Colorectal cancer Social History Preferred Language: Persian Communication Ability: Effective Visual Impairment: No Limitations Hearing Ability: Normal Supervisor Asbestos Removal Required: No Beliefs That Will Affect Care: None marital status: Current Living Situation: Spouse current occupational status: retired Other Information That Helps Us Care for You: No Feels Safe at Home: Yes Safety Concerns: Feels Safe At This Time Smoking Status: Former smoker packs per day: 1 ; Tobacco Cessation Education Requested by Patient: No Hx Alcohol Use: Yes Alcohol Intake Frequency: Rarely Hx Substance Use: No Childhood Exposure to Second-Hand Smoke: Yes Dental Care, Regularly: No Physical Activity Frequency: Daily Seatbelt Use: always Sunscreen Use: Yes Review of Systems Review of Systems: All systems reviewed & are unremarkable except as noted in HPI & below Physical Exam Constitutional: WD/WN, vitals as above Eyes: EOM intact bilaterally Neck: normal appearance Respiratory: normal respiratory effort, lungs clear to auscultation Cardiovascular: Rate/Rhythm: regular rate and regular rhythm Heart Sounds: no gallop and no murmur Gastrointestinal (Abdomen): normal bowel sounds, soft, nontender, no hepatosplenomegaly Inspection/Auscultation: abdomen not distended Musculoskeletal: Extremities: no cyanosis no lower extremity edema Skin: no rashes, warm and dry Neurologic: moves all extremities Psychiatric: A+Ox3, euthymic affect Results & Data ([facility]) Vital Signs (Past 12 Hours) Vital Signs Temp Pulse Pulse Resp BP Pulse Ox 10/07/19 07:00 36.7 C 89 19 136/80 94 10/07/19 02:49 36.4 C L 85 16 137/83 93 10/06/19 23:45 81 10/06/19 23:22 36.6 C 93 H 16 135/79 93 Laboratory Results Abnormal lab results 10/06/19 10/07/19 10/07/19 Range/Units 17:26 00:00 05:39 RBC 2.95 L (4.7-6.1) M/uL Hgb 8.5 L (14.0-18.0) g/dL Hct 24.8 L (42-52) % RDW Coeff of Shantel 15.1 H (11.5-14.5) % Immature Gran # (Auto) 0.26 H (0.00-0.02) K/uL Absolute Nucleated RBC 0.13 H (0-0) K/uL BUN (7-18) mg/dl BUN/Creatinine Ratio (10-20) Glucose (70-99) mg/dl POC Glucose 166 H (70-99) mg/dl Hemoglobin A1c (4.5-5.6) % Calcium (8.5-10.1) mg/dl TIBC (250-450) mcg/dl Ferritin (8-388) ng/ml AST (15-37) U/L Alkaline Phosphatase (45-117) U/L Ammonia (11-32) umol/L Total Protein (6.4-8.2) gm/dl Albumin (3.4-5.0) gm/dl Globulin (2.5-4.0) gm/dl Albumin/Globulin Ratio (0.9-2) Urine Osmolality 861 H (500-800) mOsm/kg 10/07/19 10/07/19 10/07/19 Range/Units 05:39 05:39 05:39 RBC (4.7-6.1) M/uL Hgb (14.0-18.0) g/dL Hct (42-52) % RDW Coeff of Shantel (11.5-14.5) % Immature Gran # (Auto) (0.00-0.02) K/uL Absolute Nucleated RBC (0-0) K/uL BUN 28 H (7-18) mg/dl BUN/Creatinine Ratio 39.8 H (10-20) Glucose 115 H (70-99) mg/dl POC Glucose (70-99) mg/dl Hemoglobin A1c 7.9 H (4.5-5.6) % Calcium 8.2 L (8.5-10.1) mg/dl TIBC 151 L (250-450) mcg/dl Ferritin 5873.5 H (8-388) ng/ml AST 46 H (15-37) U/L Alkaline Phosphatase 220 H (45-117) U/L Ammonia (11-32) umol/L Total Protein 6.3 L (6.4-8.2) gm/dl Albumin 1.7 L (3.4-5.0) gm/dl Globulin 4.6 H (2.5-4.0) gm/dl Albumin/Globulin Ratio 0.4 L (0.9-2) Urine Osmolality (500-800) mOsm/kg 10/07/19 Range/Units 05:50 RBC (4.7-6.1) M/uL Hgb (14.0-18.0) g/dL Hct (42-52) % RDW Coeff of Shantle (11.5-14.5) % Immature Gran # (Auto) (0.00-0.02) K/uL Absolute Nucleated RBC (0-0) K/uL BUN (7-18) mg/dl BUN/Creatinine Ratio (10-20) Glucose (70-99) mg/dl POC Glucose (70-99) mg/dl Hemoglobin A1c (4.5-5.6) % Calcium (8.5-10.1) mg/dl TIBC (250-450) mcg/dl Ferritin (8-388) ng/ml AST (15-37) U/L Alkaline Phosphatase (45-117) U/L Ammonia 51.0 H (11-32) umol/L Total Protein (6.4-8.2) gm/dl Albumin (3.4-5.0) gm/dl Globulin (2.5-4.0) gm/dl Albumin/Globulin Ratio (0.9-2) Urine Osmolality (500-800) mOsm/kg PG Care Time/CCT Total # of Minutes Spent Total Time Spent with Patient: Total time spent is greater than 50% in coordination of care (as documented) at patient's floor/unit and/or counseling patient: Coding Level of Care Code 59303 Initial Inpt Care Lvl 3 Diagnoses Abnormal LFTs R94.5 Abnormal iron saturation R79.0
--- NOTE | 2019-10-07 10:24 | XRay Report ---
XR lumbar spine 2-3V CLINICAL HISTORY: low back pain COMPARISON STUDY: No previous studies for comparison. FINDINGS: There is slight rightward curvature of the lumbar spine. Vertebral body heights are maintai wilder. There is moderate to severe multilevel disc space narrowing, osteophytosis and facet arthrosis w ithin the lumbar spine. No suspicious osseous lesion is noted. IMPRESSION: 1. No lumbar spine fracture. 2. Moderate to severe multilevel degenerative disc disease and facet arthrosis within the lumbar spin e. ACT 112: Negative or not required by law. Electronically signed by: Roderick Villa M.D. 10/07/2019 10:23 AM
--- NOTE | 2019-10-07 11:04 | Consultation Report ---
DATE OF CONSULTATION: 10/07/2019 MEDICAL ONCOLOGY CONSULTATION REASON FOR CONSULTATION: Right lung mass, diagnosis yet to be established. HISTORY OF PRESENT ILLNESS: The patient is a very pleasant 74-year-old gentleman with a past medical history of Graves' disease and cardiac arrhythmias including new onset atrial fibrillation, was admitted for general clinical decline and asthenia. This gentleman had just been admitted back in late August with atrial fibrillation and placed on medications. He states that he has been struggling for the last couple of months and admits to losing 25 pounds roughly. He also reports intermittent cough one in particular, resulted in a small amount of blood. In general, he reported intermittent cough, chills with low-grade fevers. His felt that he needed to come to the hospital and was subsequently brought in by EMS with a fever of 102. He was previously tested for coronavirus, which I believe was repeated during this admission. He denies any coronavirus contacts. The patient had radiographic workup including CT scan of the chest which reveals an 8 cm right perihilar mass-like opacity which results in near complete obstruction of the right upper and middle lobes. There is a small right pleural effusion noted as well. Two subcentimeter nodules in the left lung measuring 4 mm. A single enlarged right axillary node measuring 1.[address] scan of the abdomen and pelvis revealed a 1 cm indeterminate liver lesion which is certainly concerning for metastatic focus. Pulmonary has been consulted and biopsy is pending later on this week. The patient is on anticoagulation for atrial fibrillation, hence delaying pursuing diagnosis. PAST MEDICAL HISTORY: Again significant for Graves' disease, hypertension, obstructive sleep apnea, atrial fibrillation, abdominal aortic aneurysm, fatty liver, prediabetes, ventricular bigeminy, diverticulosis, anxiety. PAST SURGICAL HISTORY: History of elbow and knee surgery, wisdom teeth extraction, Mohs surgery. MEDICATIONS: Prior to admission including methimazole 15 mg p.o. b.i.d., FiberCon 1250 mg p.o. daily, metoprolol 100 mg p.o. b.i.d., docusate sodium 100 mg p.o. b.i.d., methocarbamol 500 mg p.o. daily, Eliquis 5 mg p.o. b.i.d., vitamin B complex 1 tablet p.o. daily, multivitamin 1 tablet p.o. daily, omega-3 one tablet p.o. daily, glucosamine chondroitin 1 tablet p.o. daily, cholecalciferol 1000 units p.o. daily, gabapentin 300 mg p.o. t.i.d. ALLERGIES: TO AMOXICILLIN. SOCIAL HISTORY: The patient lives with his . He was a 30-pack year smoker, quitting 20 years ago. He consumes social alcohol, negative for substance abuse. FAMILY HISTORY: Noncontributory. REVIEW OF SYSTEMS: CONSTITUTIONAL: Positive for low-grade fevers, chills. Positive for anorexia and 25-pound weight loss. Positive for asthenia. SKIN: Negative for rashes or lesions. No history of dermatoses. HEENT: He denies headaches, lightheadedness or dizziness. No acute visual or hearing deficits. No sinus symptoms, sore throat or dysphagia. LYMPH: No history of lymphoproliferative disease. CARDIAC: No history of coronary artery disease. He does suffer from atrial fibrillation, currently on anticoagulation. No current angina or palpitations. PULMONARY: Positive for shortness of breath. Positive for cough. Positive for episodic hemoptysis. GASTROINTESTINAL: Negative for abdominal pain, nausea, vomiting, diarrhea or constipation, hematochezia or melena stools. GENITOURINARY: No hematuria, dysuria, urinary incontinence. MUSCULOSKELETAL: No focal muscle weakness. No arthralgias or myalgias. ENDOCRINE: Suffers from Graves' disease. He is prediabetic. NEUROLOGIC: Negative for seizure, stroke or migraine headache. HEMATOLOGIC: Positive for anemia. Negative for bleeding diathesis. PHYSICAL EXAMINATION: GENERAL: Very pleasant 74-year-old, awake, alert and appropriate, in no acute distress. VITAL SIGNS: Temperature 36.7, pulse 89, respiratory rate 19, blood pressure 136/80. SKIN: Warm, dry, noncyanotic without petechia, rash or ecchymosis. HEENT: Head atraumatic, normocephalic. Eyes: PERRLA, EOMI. Sclerae nonicteric. No conjunctival injection. Nares are patent without rhinorrhea or discharge. Throat is clear. Tongue is midline. Mucous membranes are moist. NECK: Supple without JVD or thyromegaly. LYMPH: No supraclavicular, cervical or axillary palpable lymphadenopathy. HEART: Regular rate and rhythm. LUNGS: Diminished breath sounds in the right hemithorax with expiratory wheeze. ABDOMEN: Soft, nontender, nondistended without palpable hepatosplenomegaly. EXTREMITIES: No clubbing, cyanosis or edema. NEUROLOGICAL: The patient is awake, alert and oriented x3. Cranial nerves are grossly intact. LABORATORY DATA: WBC count 5050, hemoglobin 8.5, platelet count 147,000. Sodium 140, potassium 3.7, chloride 107, carbon dioxide 27, creatinine 0.69, BUN 28. AST 446, ALT 39, alkaline phosphatase 220. Ammonia 51. Albumin 1.7. RADIOGRAPHIC DATA: As reported above. IMPRESSION: 1. Right lung mass. 2. Hypoalbuminemia. 3. Anorexia/weight loss. 4. Fever/pneumonia. 5. Questionable iron overload, rule out hemochromatosis. PLAN: It was my pleasure to visit with the patient at bedside. He relates a story of general clinical decline including anorexia and weight loss over the past couple of months. He also reports some shortness of breath, dyspnea along with semi-productive intermittent cough with some hemoptysis. The patient's albumin reflects his current poor nutritional status. CT of the chest, abdomen and pelvis reveals a large perihilar right-sided mass about 8 cm, obstructing both the upper and middle right lobes. Additionally, there is a regional lymphadenopathy that is suspicious along with a 1 cm hepatic lesion. Therefore, this gentleman is minimally stage III, perhaps stage IV lung cancer is suspected. Pulmonary is on consult and anticipates pursuing biopsy within the next couple of days. I was alerted by the patient's case by Dr. Paz, the managing hospitalist who also imparted abnormal iron studies that need to be investigated. I briefly discussed these findings with the patient and told him that iron studies are of low priority at this point, but would certainly be worked up along with the lung mass. Did not provide specifics on therapeutic approach. Perhaps once he is in outpatient, would pursue a PET scan to further delineate extent of disease. Ultimately, we will plan on reconvening with him once medically stable and formulate a treatment plan at that point. I agree with current medical management and I have nothing further to add. Thank you very much for allowing me to participate in his care. CHING
--- NOTE | 2019-10-07 16:30 | Discharge Summary ---
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 Patient reports that he was treated for hyperthyroidism for 3 years beginning 5 years ago, and treatment was stopped due to being in remission. He was restarted on methimazole on 08/26/2019, along with metoprolol tartrate 100 mg p.o. twice daily. He had the acute onset of atrial fibrillation for which he was admitted on 09/10/2019. He was COVID-19 PCR negative on 09/10/2019. He did have COVID-19 testing drawn in the afternoon today as an outpatient, which is still pending at this time, and is in negative pressure in the ED at this time. Principal Diagnosis Metastatic Small cell lung cancer Discharge Exam Constitutional well developed, well nourished, + frail appearing and well groomed; no acute distress Eyes PERRL, conjunctivae normal, anicteric sclerae ENMT external ear and nose normal, oropharynx normal Neck trachea midline, no thyromegaly Respiratory normal respiratory effort; no respiratory distress Auscultation: + diminished lung sounds (right base); no crackles, no rales and no wheezes Cardiovascular RRR, no murmur, no edema Gastrointestinal (Abdomen) normal bowel sounds, soft, nontender, no hepatosplenomegaly Musculoskeletal no cyanosis or clubbing, extremities motor strength 5/5 Skin no rashes, warm and dry Neurologic patellar DTR's 2+ bilat, sensation intact and PERRL, EOMI, accommodation nl, no face palsy, no dysarthria Psychiatric A+Ox3, euthymic affect Lymphatic no cervical or axillary lymphadenopathy Discharge Data Allergies Allergy/AdvReac Type Severity Reaction Status Date / Time amoxicillin Allergy Severe HEAD TO Verified 10/04/19 19:42 TOE ITCHY RASH Consultations 10/04/19 19:56 ED Decision to Admit Stat 10/04/19 22:32 Consult Case Management - Discharge Planning Routine 10/05/19 13:50 Consult Pulmonology Routine 10/06/19 13:45 Consult Oncology Routine 10/06/19 20:56 Consult Gastroenterology Routine Ordered Studies 10/04/19 20:58 CT chest wo con Urgent 10/06/19 08:38 CT abd pelvis IV con only Routine MR brain wo/w con Routine Hospital Course (1) Postobstructive pneumonia: RUL. Postobstructive due to large right-sided hilar mass (8cm) causing compression on RUL, RML, and RLL bronchi. MUCH improved. initially treated with Levaquin IV Can stop IV levaquin and convert to PO levaquin; finish abx course with PO levaquin 750mg daily, 6 more days Blood cultures negatives. COVID-19 PCR NEGATIVE. Remains stable on RA. (2) Pleural effusion: right-sided highly concerning for malignant effusion fluid appears transudative Cytology report -- METASTATIC SMALL CELL LUNG CANCER follow up with Dr. Crowley (3) Mass of middle lobe of right lung: Large right-sided lung mass causing compression of RUL, RML, and RLL bronchi. Appreciate Dr Lynn and Dr Kyle consultations. MRI brain without intra-cranial mets. ??C2 abnormality incidentally seen. CT abd/pelvis with possible 11mm right-sided liver met. diagnosis made with thoracentesis on right -- METASTATIC SMALL CELL LUNG CANCER no need for follow up bronchoscopy since diagnosis now made Dr. Crowley is aware of pathology, spoke with him the following day he will see patient in follow up for discussion on treatment, chemotherapy (4) Hyperammonemia: Concerning for liver dysfunction. Likely cause of mental slowing and recent mild confusion. lactulose x 2 doses today. repeat ammonia level going down to near 50 from 60 improved mental status will give daily dose of Lactulose to keep ammonia down explained to patient and that we want him to have 1-2 BM a day can repeat ammonia level outpatient (5) Abnormal iron saturation: Transferrin sat 90%. Ferritin 6860 just prior to the hospital stay coming down into the 5000's on day of discharge hereditary hemochromatosis DNA sent out, will take at least a week to come back Patient does NOT take iron supplements nor drink alcohol. The liver does not appear cirrhotic on CT despite the above. appreciate GI consult, elevated Ferritin is likely acute phase reactant with the pneumonia, lung CA will follow up on hereditary hemochromatosis DNA follow Ferritin level (6) Atrial fibrillation and flutter: Remains in NSR. Cont BB. Dx with monica last month in the setting of hyperthyroidism. Resume tarun on discharge, was held for thoracentesis (7) Hypertension: Controlled with outpatient meds (8) Hyperthyroidism: Continue methimazole 10 mg p.o. twice daily 2nd Graves Disease Controlled Follows with Dr Darnell (9) Obstructive sleep apnea syndrome: CPAP at bedtime (10) Prediabetes: a1c just over 6% in 04/2019 cont DM diet (11) Anemia: progressive over time b12 wnl ferritin markedly elevated; see discussion above folate wnl H/H stable today, will follow with Dr. Crowley (12) Hyponatremia: improved 2nd SIADH due to malignancy? serum osm in normal range urine osm, urine Na pending. (13) Abnormal LFTs: only 1 possible metastatic focus seen on CT; doubt causing abnormal LFTs (14) Severe protein-calorie malnutrition: 8.8% weight loss (10kg) since April. due to small cell lung CA (15) Abnormal MRI, cervical spine: in 2018 was found to have an abnormal C1. 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 HOWEVER, abnormality is in C2 on brain MRI. will likely need dedicated MRI c-spine or bone scan outpatient (16) DVT prophylaxis: resume tarun extensively updated and questions answered at time of discharge at the time of discharge, cytology report on pleural fluid was still pending Total Time Total Time Spent Total Time Spent (In Minutes): 40 minutes Total Time Includes: Examination of the Patient, Discharge Planning, Medication Reconciliation, Communication With Other Providers (Dr. Moore, Dr. Crowley, Dr. Lynn) and Other (discussed with patient's ) Discharge Plan Discharge Items Patient Disposition: Home - Self-Care Reason For Visit: PNEUMONIA,HYPOXIA Discharge Diagnosis: Right sided post-obstructive pneumonia, resolving Right hilar mass Right pleural effusion, status post thoracentesis Condition on Discharge: Fair Goals: follow up with pulmonology for possible bronchoscopy later this week improve appetite follow low iron diet, low vitamin C pain control, improve rest Activity: Resume your previous activity Non-emergency contact: Primary Care Provider and Tray Setter Call non-emergency contact if: you have any medication questions and your symptoms worsen Follow-up/Referrals: Susie Grissom MD [Primary Care Provider] - (next week) Barney Crowley DO [Physician] - (2-3 weeks after diagnosis made on hilar mass) Marquis Lynn MD [Physician] - (later this week for possible bronchoscopy) Diet: Regular Diet Comment: low iron, low vitamin C Addtl Attending Provider Instructions: Medications: - LEVOFLOXACIN: 750mg daily in the evening for 6 more doses, start this evening - MUCINEX: continue to take twice a day for 7 days to help thin secretions - METHIMAZOLE: dose reduced to 10mg twice a day - LACTULOSE: take 10gm daily in effort to keep ammonia level down, see below - PREDNISONE: 5mg daily, trial for appetite stimulant Right sided pneumonia, post-obstructive due to hilar mass on right side pneumonia improved with Cefepime, transitioned to Levaquin will complete 6 more doses of the Levaquin, start this evening continue to take mucinex to thin secretions Hilar mass: right sided associated with right sided pleural effusion, fluid tapped, cytology is still PENDING if the cytology returns negative, then you will need bronchoscopy with endoscopic ultrasound guided biopsy to obtain tissue diagnosis this should be done later this week, expect a phone call from pulmonology for directions on holding Eliquis, for the time being you should continue to take Eliquis Dr. Crowley, oncologist, will follow up with you in 2-3 weeks once a diagnosis has been made to discuss treatment plan, any further work up Elevated ferritin level doubt hemochromatosis, but lab sent out, still pending more likely explanation is acute phase reactant with the pneumonia, hilar mass can follow up with Dr Crowley, priority at this time is work up of hilar mass in the meantime, follow low iron diet and avoid excessive Vitamin C as this promotes iron absorption Weight loss will try low dose Prednisone 5mg daily as appetite stimulant follow up with PCP, Dr. Crowley Elevated ammonia, confusion no evidence of cirrhosis on imaging, only one lesion that is small, 1cm will give you Lactulose 10gm daily with goal to move bowels once daily your ammonia went down after two doses of lactulose on Monday difficult issue is that you have lost weight and typically we want you to eat protein however, increasing protein intake can elevate ammonia level for now, follow a regular, balanced diet of carbohydrates and protein can check an ammonia level in one week with Dr. Grissom if you are having excessive diarrhea, then stop the Lactulose all together if you do not hear from Dr. Lynn / Dr. Kyle office by Monday morning, then I recommend calling them to check on plan for bronchoscopy later in the week Pending Studies at Discharge: Yes Studies:: cytology from thoracentesis hemochromatosis DNA lab test Stand-Alone Forms: My [facility], Smoking Cessation Medications and DC Order Prescriptions: New Mucinex 1,200 mg tablet extended release 12hr 1,200 mg PO BID Qty: 14 RF: 0 prednisone 5 mg tablet 5 mg PO DAILY Qty: 30 RF: 0 Continued gabapentin 300 mg capsule 300 mg PO TID RF: 0 (DME) CPAP Machine Misc See Rx Instructions .ROUTE .MEDSUPPLY Qty: 1 RF: 0 cholecalciferol (vitamin D3) 1,000 unit (25 mcg) tablet 1,000 units PO DAILY RF: 0 acetaminophen [Tylenol Extra Strength] 500 mg tablet 1,000 mg PO Q6H PRN (Reason: Pain) RF: 0 docusate sodium [Colace] 100 mg capsule 100 mg PO BID RF: 0 metoprolol tartrate 100 mg tablet 100 mg PO BID Qty: 60 RF: 5 methocarbamol 500 mg tablet 500 mg PO DAILY RF: 0 calcium polycarbophil [FiberCon] 625 mg Tablet 1,250 mg PO DAILY PRN (Reason: Constipation) RF: 0 polyethylene glycol 3350 [Miralax] 17 gram/dose Powder 17 g PO DAILY PRN (Reason: Constipation) RF: 0 multivitamin Tablet 1 tab PO DAILY RF: 0 vitamin B complex Tablet 1 tab PO DAILY RF: 0 [place]-3 350 mg-235 mg- 90 mg-597 mg Capsule,Delayed Release(Dr/Ec) 1 cap PO DAILY RF: 0 Glucosamine Chondroitin 550-30-1 mg Capsule 1 cap PO DAILY RF: 0 No Action methimazole 10 mg tablet 10 mg PO BID Qty: 60 RF: 5 lactulose 10 gram/15 mL solution 20 gm PO DAILY Qty: 500 RF: 0 Eliquis 5 mg tablet 5 mg PO BID Qty: 60 RF: 11 Discharge Orders: Discharge Order (Routine); Ordered 10/07/19 Ordered By: Azael Lujan/Other Patient Handouts: Pleural Effusion, Thoracentesis Dc, Lactulose oral solution, Prednisolone tablets, Levofloxacin tablets Admission Data Admit Date/Time: 10/04/19 21:11 Attending Provider: Azael Rojas Admit Provider: Carl Majano Primary Care Provider: Susie Grissom Other Providers: Carl Majano ; Marquis Lynn ; Barney Crowley V. ; Stefano Moore Other Interventions: Discharge Summary Assessment (RN) Last Done: 10/07/19 12:17 DC Date/Time DO NOT enter until pt leaves facility: 10/07/19 13:30 Coding Level of Care Code D/C Day Management >30 mins Diagnoses Postobstructive pneumonia J18.9 Pleural effusion J90 Mass of middle lobe of right lung R91.8 Hyperammonemia E72.20 Abnormal iron saturation R79.0 Atrial fibrillation and flutter I48.91; I48.92 Hypertension I10 Hypertension type: essential hypertension Hyperthyroidism E05.90 Obstructive sleep apnea syndrome G47.33 Prediabetes R73.03 Anemia D64.9 Anemia type: unspecified type Hyponatremia E87.1 Abnormal LFTs R94.5 Severe protein-calorie malnutrition E43 Abnormal MRI, cervical spine R93.7 DVT prophylaxis Z29.9
== END 2019-10-07 13:30 | disposition home or self-care (01) | DRG 180 ==
LOC: ED 17:38 → 2S 21:11 → SUATTDRO 21:11 → 2S 21:59

== ENCOUNTER 2019-10-30 09:41 | Inpatient (IN) ==
[2019-10-30] MEDS ORDERED: SODIUM CHLORIDE 0.9% 500 ML IV SCH (10:00)
--- NOTE | 2019-10-30 10:04 | Emergency Department Note ---
History of Present Illness General Chief Complaint: Chest Pain Time Seen by Provider: 10/30/19 09:45 Source: patient Mode of arrival: ambulatory Limitations: no limitations History of Present Illness Provider Complaint: chest pain Maximum Pain Intensity: 2 This is a 74-year-old male who presents to the ED with a chief complaint of right-sided chest pain. The patient describes it as a sharp pain that first started around 2 AM when he got up to go to the bathroom. He states that it is worse with sitting up and leaning forward and better with staying still or lying down. The patient has a history of non-small cell lung cancer. He also has a history of A. fib. His last chemotherapy was on . He contacted Dr. Crowley, his oncologist and was advised to come into the ED for further evaluation. The patient states that he was concerned about possible PE. The patient has no additional complaints. Denies any shortness of breath. Lying still in the bed, he states that he does not have any pain. The patient denies any infectious symptoms such as fevers or productive cough. Home Medications Home Medications Medication Instructions Recorded Confirmed Type gabapentin 300 mg capsule 300 mg PO BID 10/22/18 10/30/19 History CPAP Machine #1 ea 02/21/19 09/19/19 Rx metoprolol tartrate 100 mg tablet 100 mg PO BID #60 tab 09/23/19 10/30/19 Rx guaifenesin [Mucinex] 1,200 mg PO BID #14 tab 10/07/19 10/30/19 Rx hydrocodone-homatropine 5 ml PO BID PRN 10/19/19 10/30/19 History lactulose 15 ml PO BID 10/19/19 10/30/19 History prednisone 20 mg PO QAM 10/19/19 10/30/19 History sodium chloride [Saline Nasal] 0 spray INTRANASAL DAILY PRN 10/19/19 10/30/19 History albuterol sulfate [Ventolin HFA] 2 puffs INH Q4 PRN #8 gm 10/20/19 10/30/19 Rx methimazole 5 - 10 mg PO BID 10/30/19 10/30/19 History Allergies Allergy/AdvReac Type Severity Reaction Status Date / Time amoxicillin Allergy Severe HEAD TO Verified 10/30/19 11:51 TOE ITCHY RASH Past Med/Surg History Medical History (Updated 10/30/19 @ 14:02 by Robin Post DO) AAA (abdominal aortic aneurysm) Acid indigestion Anxiety Atrial fibrillation and flutter Bradycardia Diverticulosis of colon Dyslipidemia Erectile dysfunction Graves disease Gross hematuria Hepatic steatosis 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 No problems noted. Denies family history of Ovarian cancer Prostate cancer Cardiac disorder Myocardial infarction Breast cancer Colorectal cancer Social History (Updated 10/30/19 @ 12:47 by Murtaza Paz) Smoking Status: Former smoker Tobacco Type: Cigarettes packs per day: 1; Years Smoked: 35; Second Hand Exposure: No; Do You Dip or Chew Tobacco: No; Tobacco Cessation Education Requested by Patient: No Hx Alcohol Use: Yes Alcohol type: beer Alcohol Intake Frequency: Monthly or Less Hx Substance Use: No Preferred Language: Khmer Communication Ability: Effective Visual Impairment: No Limitations Hearing Ability: Normal Moving Picture Producer Required: No Beliefs That Will Affect Care: None marital status: Current Living Situation: Spouse current occupational status: retired 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 How many Children do You have: 3 Other Information That Helps Us Care for You: No Feels Safe at Home: Yes Safety Concerns: Feels Safe At This Time Childhood Exposure to Second-Hand Smoke: Yes Dental Care, Regularly: No Physical Activity Frequency: Daily Seatbelt Use: always Sunscreen Use: Yes Review of Systems A total of 10 systems reviewed and were otherwise negative Physical Exam Vital Signs Vital Signs - 24 hr 10/30/19 09:47 10/30/19 10:00 10/30/19 10:30 Temperature 37.0 C Temperature Source Oral Pulse Rate 79 77 74 Pulse Rate from SpO2 Sensor 78 74 Pulse Rhythm Regular Respiratory Rate 18 13 16 Respiratory Effort / Characteristics Non-Labored Spontaneous Respiratory Depth Normal Respiratory Pattern Regular Blood Pressure 124/83 112/72 130/67 Blood Pressure Mean 96 86 80 Pulse Oximetry 96 95 96 Oxygen Delivery Method Room Air Sepsis Recent Fever Within 48 Hours No Sepsis New/Unexplained Change in Mental Status No Sepsis Action Taken by Nursing No Action Required 10/30/19 11:47 10/30/19 12:00 10/30/19 13:54 Temperature Temperature Source Pulse Rate 79 71 Pulse Rate from SpO2 Sensor 78 72 Pulse Rhythm Respiratory Rate 17 19 Respiratory Effort / Characteristics Respiratory Depth Respiratory Pattern Blood Pressure 129/87 124/64 Blood Pressure Mean 120 86 Pulse Oximetry 93 95 Oxygen Delivery Method Room Air Sepsis Recent Fever Within 48 Hours Sepsis New/Unexplained Change in Mental Status Sepsis Action Taken by Nursing CONSTITUTIONAL/VITAL SIGNS: Reviewed / noted above. GENERAL: Non-toxic in appearance. INTEGUMENTARY: Warm, dry, and [place]. HEAD: Normocephalic. EYES: without scleral icterus or trauma. ENT/OROPHARYNX: clear and moist. LYMPHADENOPATHY/NECK: Is supple without lymphadenopathy or meningismus. RESPIRATORY: Lungs clear and equal. CARDIOVASCULAR: Regular rate and rhythm. GI/ABDOMEN: Soft and nontender. No organomegaly or pulsatile mass. No rebound or guarding. Normal bowel sounds. EXTREMITIES: Warm and well perfused. BACK: No CVA tenderness. NEUROLOGICAL: Intact without focal deficits. PSYCHIATRIC: normal affect. MUSCULOSKELETAL: Normally developed with good muscle tone. TRIAGE NURSING DOCUMENTATION REVIEWED. Course Administered Medications Levofloxacin/Dextrose (Levaquin/D5w) 750 mg in 150 mls @ 100 mls/hr IV NOW STA Stop: 10/30/19 14:08 Last Admin: 10/30/19 13:29 Dose: 100 mls/hr Documented by: [id number] Discontinued Medications Sodium Chloride (Nss) 500 mls @ 999 mls/hr IV .Q31M MAIA Stop: 10/30/19 10:30 Last Infusion: 10/30/19 10:51 Dose: 0 mls/hr Documented by: [id number] Admin: 10/30/19 10:18 Dose: 999 mls/hr Documented by: [id number] Ioversol (Optiray 320 125ml) 120 ml IV ONCE ONE Stop: 10/30/19 11:39 Last Admin: 10/30/19 11:39 Dose: 120 ml Documented by: [id number] Medical Decision Making Differential Diagnosis CONSTITUTIONAL/VITAL SIGNS: Reviewed / noted above. GENERAL: Non-toxic in appearance. INTEGUMENTARY: Warm, dry, and [place]. HEAD: Normocephalic. EYES: without scleral icterus or trauma. ENT/OROPHARYNX: clear and moist. LYMPHADENOPATHY/NECK: Is supple without lymphadenopathy or meningismus. RESPIRATORY: Lungs clear and equal. CARDIOVASCULAR: Regular rate and rhythm. GI/ABDOMEN: Soft and nontender. No organomegaly or pulsatile mass. No rebound or guarding. Normal bowel sounds. EXTREMITIES: Warm and well perfused. BACK: No CVA tenderness. NEUROLOGICAL: Intact without focal deficits. PSYCHIATRIC: normal affect. MUSCULOSKELETAL: Normally developed with good muscle tone. TRIAGE NURSING DOCUMENTATION REVIEWED. Medical Records Attestation: I reviewed the patient's medical records. Home Medications Current Medication List: was personally reviewed by me Laboratory Data Attestation: I reviewed the patient's lab results. Result diagrams: 10/30/19 09:50 10/30/19 09:50 Labs: Lab Results 10/30/19 10/30/19 10/30/19 Range/Units 09:50 09:50 09:50 WBC 0.88 L* (4.8-10.8) K/uL RBC 2.61 L (4.7-6.1) M/uL Hgb 7.6 L (14.0-18.0) g/dL Hct 20.9 L* (42-52) % MCV 80.1 (80-100) fL MCH 29.1 (25-34) pg MCHC 36.4 H (32-36) g/dL RDW Std Deviation 45.9 (36.4-46.3) fL RDW Coeff of Shantel 16.1 H (11.5-14.5) % Plt Count 45 L (130-400) K/uL MPV 9.4 (7.4-10.4) fL Neutrophils % (Manual) 22.8 % Lymphocytes % (Manual) 73.3 % Monocytes % (Manual) 1.3 % Basophils % (Manual) 1.3 % Blast Cells % (Manual) % Neutrophils # (Manual) 0.20 L (1.4-6.5) K/uL Total Absolute Neuts 0.20 L* (1.4-6.5) K/uL Lymphocytes # (Manual) 0.65 L (1.2-3.4) K/uL Total Abs Lymphocytes 0.65 L (1.2-3.4) K/uL Monocytes # (Manual) 0.01 L (0.11-0.59) K/uL Basophils # (Manual) 0.01 (0-0.2) K/uL Blast Cells # (Man) (0-0) K/uL Microcytosis Present PT 12.5 H (9.0-12.0) Seconds INR 1.2 H (0.9-1.1) APTT 26.4 (21.0-31.0) Seconds PTT Ratio 0.9 Sodium 120 L (136-145) mmol/L Potassium 4.2 (3.5-5.1) mmol/L Chloride 86 L (98-107) mmol/L Carbon Dioxide 24 (21-32) mmol/L Anion Gap 10.0 (3-11) BUN 18 (7-18) mg/dl Creatinine 0.54 L (0.6-1.4) mg/dl Est Cr Clr Drug Dosing 139.7 ml/min Est GFR ( Amer) 121.6 Est GFR (Non-Af Amer) 104.9 BUN/Creatinine Ratio 34.1 H (10-20) Glucose 127 H (70-99) mg/dl Osmolality (280-300) mOsm/kg Calcium 7.8 L (8.5-10.1) mg/dl Total Bilirubin 0.7 (0.2-1) mg/dl AST 37 (15-37) U/L ALT 33 (12-78) U/L Alkaline Phosphatase 211 H (45-117) U/L Troponin I < 0.015 (0-0.045) ng/ml Total Protein 6.0 L (6.4-8.2) gm/dl Albumin 2.1 L (3.4-5.0) gm/dl Globulin 3.9 (2.5-4.0) gm/dl Albumin/Globulin Ratio 0.5 L (0.9-2) 10/30/19 Range/Units 09:50 WBC (4.8-10.8) K/uL RBC (4.7-6.1) M/uL Hgb (14.0-18.0) g/dL Hct (42-52) % MCV (80-100) fL MCH (25-34) pg MCHC (32-36) g/dL RDW Std Deviation (36.4-46.3) fL RDW Coeff of Shantel (11.5-14.5) % Plt Count (130-400) K/uL MPV (7.4-10.4) fL Neutrophils % (Manual) % Lymphocytes % (Manual) % Monocytes % (Manual) % Basophils % (Manual) % Blast Cells % (Manual) % Neutrophils # (Manual) (1.4-6.5) K/uL Total Absolute Neuts (1.4-6.5) K/uL Lymphocytes # (Manual) (1.2-3.4) K/uL Total Abs Lymphocytes (1.2-3.4) K/uL Monocytes # (Manual) (0.11-0.59) K/uL Basophils # (Manual) (0-0.2) K/uL Blast Cells # (Man) (0-0) K/uL Microcytosis PT (9.0-12.0) Seconds INR (0.9-1.1) APTT (21.0-31.0) Seconds PTT Ratio Sodium (136-145) mmol/L Potassium (3.5-5.1) mmol/L Chloride (98-107) mmol/L Carbon Dioxide (21-32) mmol/L Anion Gap (3-11) BUN (7-18) mg/dl Creatinine (0.6-1.4) mg/dl Est Cr Clr Drug Dosing ml/min Est GFR ( Amer) Est GFR (Non-Af Amer) BUN/Creatinine Ratio (10-20) Glucose (70-99) mg/dl Osmolality 248 L (280-300) mOsm/kg Calcium (8.5-10.1) mg/dl Total Bilirubin (0.2-1) mg/dl AST (15-37) U/L ALT (12-78) U/L Alkaline Phosphatase (45-117) U/L Troponin I (0-0.045) ng/ml Total Protein (6.4-8.2) gm/dl Albumin (3.4-5.0) gm/dl Globulin (2.5-4.0) gm/dl Albumin/Globulin Ratio (0.9-2) Imaging Data Chest x-ray: Radiologist's impression: IMPRESSION: 1. Improved aeration right pulmonary apex compared to the prior study. 2. Unchanging right pleural effusion. CT scan - chest: Radiologist's impression: IMPRESSION: 1. No evidence for pulmonary embolus. 2. Generally similar right hilar masslike changes, adenopathy, as well as large right pleural effusion type changes. 3. Progressive interstitial infiltrate right upper lung and right pulmonary apex. ECG Data Attestation: I personally reviewed and interpreted this ECG as follows: Indication: chest pain Rate (beats per minute): 80 Rhythm: normal sinus Findings: no PVC, no ST elevation and no prolonged QT Blood Pressure Blood Pressure Findings: Normal blood pressure MDM Narrative The patient presents with right-sided chest pain with a history of lung cancer. His pain seems to be most prominent when he sits up and leans forward. His vital signs here are normal. He is afebrile. Oxygen saturation's are normal on room air. He is not tachycardic. His initial twelve-lead EKG shows a normal sinus rhythm at a rate of 80. His exam did not reveal any concerning abnormalities. The patient's hemoglobin today is 7.6. This is slightly lower than his baseline of 8.4. His white blood cell count is 0.88. His sodium is 120. Chloride is 86. Troponin is negative. A chest x-ray shows improved aeration. A CT scan of the chest did not show PE. There is a progressive interstitial infiltrate in the right upper lung. The patient is currently afebrile. The patient was told the results of the test. He was started on IV Levaquin. The patient will be seen by the hospitalist for further inpatient evaluation of care. Impression & Plan Right upper lobe pneumonia, Neutropenia, Acute hyponatremia, Anemia Discharge Plan Visit Data Chief Complaint: Chest Pain ED Provider: Robin Post Discharge Problem: Right upper lobe pneumonia, Neutropenia, Acute hyponatremia, Anemia Patient Disposition: Being Evaluated by Hospitalist Discharge Instructions Interventions: ED Discharge Assessment Last Done: 10/30/19 13:54 Forms Stand Alone Forms: [facility] Prescriptions Prescriptions: No Action gabapentin 300 mg capsule 300 mg PO BID RF: 0 (DME) CPAP Machine Misc See Rx Instructions .ROUTE .MEDSUPPLY Qty: 1 RF: 0 Hold Instructions: NOT CURENTLY USING metoprolol tartrate 100 mg tablet 100 mg PO BID Qty: 60 RF: 5 Mucinex 1,200 mg tablet extended release 12hr 1,200 mg PO BID Qty: 14 RF: 0 methimazole 10 mg tablet 5 - 10 mg PO BID RF: 0 prednisone 20 mg tablet 20 mg PO QAM RF: 0 hydrocodone-homatropine 5-1.5 mg/5 mL syrup 5 ml PO BID PRN (Reason: Pain) RF: 0 lactulose 10 gram/15 mL solution 15 ml PO BID RF: 0 sodium chloride [Saline Nasal] 0.65 % Aerosol,[place] 0 spray INTRANASAL DAILY PRN (Reason: Congestion) RF: 0 albuterol sulfate [Ventolin HFA] 90 mcg/actuation HFA aerosol inhaler 2 puffs INH Q4 PRN (Reason: shortness of breath or wheezing) Qty: 8 RF: 0 Referrals Referrals: Susie Grissom MD [Primary Care Provider] - Discharge Problem: Right upper lobe pneumonia Qualifiers: Pneumonia type: due to unspecified organism Qualified Code(s): J18.9 - Pneumonia, unspecified organism Neutropenia Qualifiers: Neutropenia type: secondary to cancer chemotherapy Qualified Code(s): D70.1 - Agranulocytosis secondary to cancer chemotherapy Anemia Qualifiers: Anemia type: unspecified type Qualified Code(s): D64.9 - Anemia, unspecified
--- NOTE | 2019-10-30 10:24 | XRay Report ---
XR chest 1V portable CLINICAL HISTORY: Chest Pain pain COMPARISON STUDY: 10/19/2019 FINDINGS: Improved aeration right pulmonary apex. Persistent right pleural effusion considered unchan ged. Left lung is considered clear. IMPRESSION: 1. Improved aeration right pulmonary apex compared to the prior study. 2. Unchanging right pleural effusion. ACT 112: Negative or not required by law. The above report was generated using voice recognition software. It may contain grammatical, syntax or spelling errors. Electronically signed by: Kendall Sánchez M.D. 10/30/2019 10:23 AM
[2019-10-30 10:26] LABS: INR 1.2 (0.9-1.1); Partial Thromboplastin Ratio 0.9; Partial Thromboplastin Time 26.4 Seconds (21.0-31.0); Prothrombin Time 12.5 Seconds (9.0-12.0)
[2019-10-30 10:28] LABS: Hematocrit (blood only) 20.9 % (42-52); Hemoglobin 7.6 g/dL (14.0-18.0); Mean Corpuscular Hemoglobin 29.1 pg (25-34); Mean Corpuscular Hgb Conc 36.4 g/dL (32-36); Mean Corpuscular Volume 80.1 fL (80-100); Mean Platelet Volume 9.4 fL (7.4-10.4); Platelet Count 45 K/uL (130-400); RDW Coefficient of Variation 16.1 % (11.5-14.5); RDW Standard Deviation 45.9 fL (36.4-46.3); Red Blood Count 2.61 M/uL (4.7-6.1); White Blood Count 0.88 K/uL (4.8-10.8)
[2019-10-30 10:29] LABS: Alanine Aminotransferase 33 U/L (12-78); Albumin Globulin Ratio 0.5 (0.9-2); Albumin Level 2.1 gm/dl (3.4-5.0); Alkaline Phosphatase 211 U/L (45-117); Aspartate Aminotransferase 37 U/L (15-37); BUN Creatinine Ratio 34.1 (10-20); Bilirubin,Total 0.7 mg/dl (0.2-1); Blood Urea Nitrogen 18 mg/dl (7-18); Calcium 7.8 mg/dl (8.5-10.1); Carbon Dioxide 24 mmol/L (21-32); Chloride 86 mmol/L (98-107); Creatinine Clr Calc Pharmacy 139.7 ml/min; Est GFR (African American) 121.6; Est GFR (Non-African American) 104.9; Globulin 3.9 gm/dl (2.5-4.0); Glucose 127 mg/dl (70-99); Potassium 4.2 mmol/L (3.5-5.1); Sodium 120 mmol/L (136-145); Troponin I < 0.015 ng/ml (0-0.045)
[2019-10-30 10:42] LABS: Microcytosis Present
[2019-10-30 10:45] LABS: ALC (manual) 0.65 K/uL (1.2-3.4); Basophils # (manual) 0.01 K/uL (0-0.2); Basophils % (manual) 1.3 %; Lymphocytes # (manual) 0.65 K/uL (1.2-3.4); Lymphocytes % (manual) 73.3 %; Monocytes # (manual) 0.01 K/uL (0.11-0.59); Monocytes % (manual) 1.3 %; Neutrophils % (manual) 22.8 %
[2019-10-30] MEDS ORDERED: OPTIRAY 320 125ml IV ONE (11:38)
--- NOTE | 2019-10-30 11:54 | CT Scan Report ---
CT angio chest PE protocol CT DOSE: 553.58 mGy.cm HISTORY: Chest pain. Dyspnea. Chest Pain, eval for PE TECHNIQUE: Multiaxial CT images of the chest were performed following the intravenous administration of contrast to evaluate the pulmonary arteries. Maximal intensity projection images were also obtaine d. A dose lowering technique was utilized adhering to the principles of ALARA. COMPARISON STUDY: 10/19/2019 FINDINGS: The thoracic aorta is unremarkable. The pulmonary vasculature enhances appropriately. There is a right pleural effusion slightly increased in volume from the prior study. Mediastinal and hilar adenopathy, right hilar masslike changes, as well as left hilar adenopathy abena ins generally stable. Subtle improvement in aeration right pulmonary apex with evidence for progressive interstitial infilt rative change throughout the right upper lobe and superior segment of the right lower lobe. IMPRESSION: 1. No evidence for pulmonary embolus. 2. Generally similar right hilar masslike changes, adenopathy, as well as large right pleural effusio n type changes. 3. Progressive interstitial infiltrate right upper lung and right pulmonary apex. ACT 112: Negative or not required by law. The above report was generated using voice recognition software. It may contain grammatical, syntax or spelling errors. Electronically signed by: Kendall Sánchez M.D. 10/30/2019 11:53 AM
--- NOTE | 2019-10-30 12:32 | History & Physical Report ---
Date of Service October 30, 2019 Assessment & Plan (1) Hyponatremia: acute/chronic. 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 Na markedly worse in just 1 week. Presenting Na level today 120. Patient looked mildly volume depleted at presentation today (poor oral intake last few days). ER gave 500cc of fluid; I gave additional 500cc of NS. With the total of 1 L his Na dropped to 118. Formal consult placed to Dr Blackwood from nephrology. for acute hyponatremia Dr Blackwood to give 3% saline bolus with repeat Na 4 hours after, then 6 hours following that depending on trend. urine Na, urine Osm, serum Osm all c/w SIADH. TSH wnl. No use of checking cortisol as patient has been taking prednisone daily since September. appreciate Dr Blackwood's consult. (2) Right-sided chest pain: suspect 2nd to worsening malignant effusion on right, right-sided lung ca, and potentially a progressive post-obstructive pneumonia. ischemic chest pain highly unlikely. doubt GI. pulmonary consult for malignant effusion - pleurX catheter? abx for RUL pneumonia. rad onc / onc consults in am for lung ca. CTA neg for PE. (3) Postobstructive pneumonia: treated for such in September. uncertain if CTA findings in RUL represent new pneumonia or old findings. in light of severe neutropenia will treat for a recurrent post-obstructive pneumonia with levaquin 750mg daily. low threshold to add cefepime but hold off for now. blood cx's sent prior to abx initiation. (4) Candidiasis of mouth and esophagus: severe. I ALSO SUSPECT CANDIDAL ESOPHAGITIS GIVEN HIS DYSPHAGIA. nystatin 5cc qid - swish/swallow. diflucan 200mg x 1, then 100mg daily for 9 days. if dysphagia fails to improve -- GI consultation. (5) Neutropenia: spoke with Dr Crowley - jake 480mcg SC x 1. CBC w/ diff in am. neutropenic precautions. 2nd to recent chemo 1 week ago. (6) Pancytopenia due to antineoplastic chemotherapy: chemo for small cell lung ca was ~1 week ago. repeat CBC w/ diff in am. Dr Crowley formally consulted in am. (7) Small cell lung cancer: right sided. very large tumor burden. worsening right-sided effusion which is malignant. pulmonary consult for effusion management (pleurX?). Dr Crowley to see in am. he also advises rad onc consult for consideration of xrt. (8) Pleural effusion: right. large. worsening. 2nd to lung ca. pulmonary consult. likely contributing to pain, dyspnea, etc. (9) Severe protein-calorie malnutrition: ongoing weight loss since hospitalization in September, despite prednisone daily for appetite stimulation. 2nd to cancer. cont prednisone. (10) Hyperthyroidism: TSH wnl today. methimazole 10mg qam methimazole 5mg qhs follows with Dr Darnell (11) Obstructive sleep apnea syndrome: CPAP hs (12) Hypertension: controlled (13) Prediabetes: DM diet novolog for correction/carb coverage BSGs will be worse with prednisone, stress, etc (14) Anemia: (15) Atrial fibrillation and flutter: hospital stay earlier this summer for such. paroxysmal in setting of hyperthyroidism. controlled; in NSR. cont BB. (16) DVT prophylaxis: platelets <50 chemical means contraindicated at this moment; thus, SCDs extensively updated at bedside questions answered prognosis guarded History of Present Illness Chief Complaint: right-sided chest pain Primary Care Provider: Susie Grissom MD 74yo male with recently diagnosed small cell lung cancer (right lung) who presents with right-sided chest pain. He was sleeping in the recliner and about 2/3am he tried to get up from the recliner and this brought on a sharp right-sided chest pain. Laying back into the recliner made the pain better. This am he contacted [facility] and he advised him to go to the ER. While preparing to get ready to come to the hospital he had a 2nd episode of right-sided chest pain while trying to stand up. First round of chemo was last week (/Mon/). He does have cough, mildly productive, with occasional blood but none recently. He has dyspnea on exertion and excessive fatigue with any activity. Denies orthopnea or PND. Has very poor appetite. Liquid intake is also poor. Has dizziness / lightheadedness intermittently - had it with the right-sided chest pain. No fever. Allergies Allergy/AdvReac Type Severity Reaction Status Date / Time amoxicillin Allergy Severe HEAD TO Verified 10/30/19 11:51 TOE ITCHY RASH Home Medications Home Medications Medication Instructions Recorded Confirmed Type gabapentin 300 mg capsule 300 mg PO BID 10/22/18 10/30/19 History CPAP Machine #1 ea 02/21/19 09/19/19 Rx metoprolol tartrate 100 mg tablet 100 mg PO BID #60 tab 09/23/19 10/30/19 Rx guaifenesin [Mucinex] 1,200 mg PO BID #14 tab 10/07/19 10/30/19 Rx hydrocodone-homatropine 5 ml PO BID PRN 10/19/19 10/30/19 History lactulose 15 ml PO BID 10/19/19 10/30/19 History prednisone 20 mg PO QAM 10/19/19 10/30/19 History sodium chloride [Saline Nasal] 0 spray INTRANASAL DAILY PRN 10/19/19 10/30/19 History albuterol sulfate [Ventolin HFA] 2 puffs INH Q4 PRN #8 gm 10/20/19 10/30/19 Rx methimazole 5 - 10 mg PO BID 10/30/19 10/30/19 History Past Med/Surg History Medical History (Updated 10/30/19 @ 23:22 by Murtaza Paz) AAA (abdominal aortic aneurysm) Acid indigestion Anxiety Atrial fibrillation and flutter Bradycardia Diverticulosis of colon Dyslipidemia Erectile dysfunction Graves disease Gross hematuria Hepatic steatosis 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 No problems noted. Denies family history of Ovarian cancer Prostate cancer Cardiac disorder Myocardial infarction Breast cancer Colorectal cancer Social History Smoking Status: Former smoker Tobacco Type: Cigarettes packs per day: 1; Years Smoked: 35; Second Hand Exposure: No; Do You Dip or Chew Tobacco: No; Tobacco Cessation Education Requested by Patient: No Hx Alcohol Use: Yes Alcohol type: beer Alcohol Intake Frequency: Monthly or Less Hx Substance Use: No Preferred Language: Lebanese Communication Ability: Effective Visual Impairment: No Limitations Hearing Ability: Normal Dry Wall Sprayer Required: No Beliefs That Will Affect Care: None marital status: Current Living Situation: Spouse current occupational status: retired 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 How many Children do You have: 3 Other Information That Helps Us Care for You: No Feels Safe at Home: Yes Safety Concerns: Feels Safe At This Time Childhood Exposure to Second-Hand Smoke: Yes Dental Care, Regularly: No Physical Activity Frequency: Daily Seatbelt Use: always Sunscreen Use: Yes Review of Systems Constitutional: + fatigue, + weakness, + anorexia and + weight loss; no fever and no chills Eyes: no worsening vision Ear, Nose, Mouth, Throat: + mouth lesions and + dysphagia (lower portion of esophagus, with solids) Respiratory: + cough, + dyspnea, + dyspnea on exertion and + sputum production Cardiovascular: as per Subjective / HPI, + chest pain and + edema (ankles - but improved ) Gastrointestinal: + vomiting (with chemotherapy ) and + diarrhea/loose stools (loose - Monday (5+ times) ); no abdominal pain Genitourinary: no dysuria Musculoskeletal: no back pain Integumentary: no rash Neurologic: no numbness Psychiatric: + depression Endocrine: no diabetes (pre-DM however) Hematologic / Lymphatic: no easy bleeding and no easy bruising Physical Exam Constitutional: no acute distress and no altered mental status looks tired, pallor Eyes: + anicteric sclerae and PERRL ENMT: Mouth: + oral mucosal abnormality (copious thrush plaques tongue & buccal mucosa ) and + dry oral mucous membranes (modest ) Neck: normal visual inspection and trachea midline Respiratory: no respiratory distress course BS with focal rhonchi and slight stridor RUL; decreased BS (marked) right posterior hemithorax; left lung clear Cardiovascular: Rate/Rhythm: regular rate and regular rhythm Heart Sounds: normal S1 and normal S2; no murmur Vessels: posterior tibial pulses present and dorsalis pedis pulses present; no JVD Extremities: no edema Gastrointestinal (Abdomen): normal bowel sounds, soft, nontender, no hepatosplenomegaly Musculoskeletal: no cyanosis or clubbing, extremities motor strength 5/5 Skin: + pallor; no rashes and no lesions Neurologic: deep tendon reflexes 2+ bilaterally and moves all extremities; no focal motor deficits Psychiatric: Orientation: alert and oriented x 3 Affect: + depressed affect Lymphatic: no cervical lymphadenopathy Results & Data Results & Data ([facility]) Vital Signs (Past 12 Hours) Vital Signs Temp Pulse Resp BP Pulse Ox 10/30/19 12:00 71 19 124/64 95 10/30/19 11:47 79 17 129/87 93 10/30/19 10:30 74 16 130/67 96 10/30/19 10:00 77 13 112/72 95 10/30/19 09:47 37.0 C 79 18 124/83 96 Laboratory Results Laboratory Results - last 24 hr 10/30/19 10/30/19 10/30/19 09:50 09:50 09:50 WBC 0.88 L* RBC 2.61 L Hgb 7.6 L Hct 20.9 L* MCV 80.1 MCH 29.1 MCHC 36.4 H RDW Std Deviation 45.9 RDW Coeff of Shantel 16.1 H Plt Count 45 L MPV 9.4 Neutrophils % (Manual) 22.8 Lymphocytes % (Manual) 73.3 Monocytes % (Manual) 1.3 Basophils % (Manual) 1.3 Blast Cells % (Manual) Neutrophils # (Manual) 0.20 L Total Absolute Neuts 0.20 L* Lymphocytes # (Manual) 0.65 L Total Abs Lymphocytes 0.65 L Monocytes # (Manual) 0.01 L Basophils # (Manual) 0.01 Blast Cells # (Man) Microcytosis Present PT 12.5 H INR 1.2 H APTT 26.4 PTT Ratio 0.9 Sodium 120 L Potassium 4.2 Chloride 86 L Carbon Dioxide 24 Anion Gap 10.0 BUN 18 Creatinine 0.54 L Est Cr Clr Drug Dosing 139.7 Est GFR ( Amer) 121.6 Est GFR (Non-Af Amer) 104.9 BUN/Creatinine Ratio 34.1 H Glucose 127 H POC Glucose Osmolality Calcium 7.8 L Total Bilirubin 0.7 AST 37 ALT 33 Alkaline Phosphatase 211 H Troponin I < 0.015 Total Protein 6.0 L Albumin 2.1 L Globulin 3.9 Albumin/Globulin Ratio 0.5 L TSH Urine Osmolality Ur Random Sodium 10/30/19 10/30/19 10/30/19 09:50 09:50 17:56 WBC RBC Hgb Hct MCV MCH MCHC RDW Std Deviation RDW Coeff of Shantel Plt Count MPV Neutrophils % (Manual) Lymphocytes % (Manual) Monocytes % (Manual) Basophils % (Manual) Blast Cells % (Manual) Neutrophils # (Manual) Total Absolute Neuts Lymphocytes # (Manual) Total Abs Lymphocytes Monocytes # (Manual) Basophils # (Manual) Blast Cells # (Man) Microcytosis PT INR APTT PTT Ratio Sodium 118 L* Potassium 4.6 Chloride 86 L Carbon Dioxide 24 Anion Gap 8.0 BUN 17 Creatinine 0.49 L Est Cr Clr Drug Dosing 154.0 Est GFR ( Amer) 126.5 Est GFR (Non-Af Amer) 109.2 BUN/Creatinine Ratio 35.0 H Glucose 129 H POC Glucose Osmolality 248 L Calcium 8.0 L Total Bilirubin AST ALT Alkaline Phosphatase Troponin I Total Protein Albumin Globulin Albumin/Globulin Ratio TSH 2.520 Urine Osmolality Ur Random Sodium 10/30/19 10/30/19 10/30/19 18:04 18:04 20:49 WBC RBC Hgb Hct MCV MCH MCHC RDW Std Deviation RDW Coeff of Shantel Plt Count MPV Neutrophils % (Manual) Lymphocytes % (Manual) Monocytes % (Manual) Basophils % (Manual) Blast Cells % (Manual) Neutrophils # (Manual) Total Absolute Neuts Lymphocytes # (Manual) Total Abs Lymphocytes Monocytes # (Manual) Basophils # (Manual) Blast Cells # (Man) Microcytosis PT INR APTT PTT Ratio Sodium Potassium Chloride Carbon Dioxide Anion Gap BUN Creatinine Est Cr Clr Drug Dosing Est GFR ( Amer) Est GFR (Non-Af Amer) BUN/Creatinine Ratio Glucose POC Glucose 131 H Osmolality Calcium Total Bilirubin AST ALT Alkaline Phosphatase Troponin I Total Protein Albumin Globulin Albumin/Globulin Ratio TSH Urine Osmolality 646 Ur Random Sodium 48 10/30/19 21:54 WBC RBC Hgb Hct MCV MCH MCHC RDW Std Deviation RDW Coeff of Shantel Plt Count MPV Neutrophils % (Manual) Lymphocytes % (Manual) Monocytes % (Manual) Basophils % (Manual) Blast Cells % (Manual) Neutrophils # (Manual) Total Absolute Neuts Lymphocytes # (Manual) Total Abs Lymphocytes Monocytes # (Manual) Basophils # (Manual) Blast Cells # (Man) Microcytosis PT INR APTT PTT Ratio Sodium 120 L Potassium Chloride Carbon Dioxide Anion Gap BUN Creatinine Est Cr Clr Drug Dosing Est GFR ( Amer) Est GFR (Non-Af Amer) BUN/Creatinine Ratio Glucose POC Glucose Osmolality Calcium Total Bilirubin AST ALT Alkaline Phosphatase Troponin I Total Protein Albumin Globulin Albumin/Globulin Ratio TSH Urine Osmolality Ur Random Sodium Diagnostic Findings CTA chest: IMPRESSION: 1. No evidence for pulmonary embolus. 2. Generally similar right hilar masslike changes, adenopathy, as well as large right pleural effusion type changes. 3. Progressive interstitial infiltrate right upper lung and right pulmonary apex. EKG: my reading -- NSR, IRBBB; QTc wnl; no ST changes. Code Status & VTE Plan Code Status full code VTE Prophylaxis Plan VTE Prophylaxis will be ordered: Yes PG Care Time/CCT Total # of Minutes Spent Total Time Spent with Patient: Total time spent is greater than 50% in coordination of care (as documented) at patient's floor/unit and/or counseling patient: Coding Level of Care Code 89516 Initial Inpt Care Lvl 3 Diagnoses Hyponatremia E87.1 Right-sided chest pain R07.9 Postobstructive pneumonia J18.9 Candidiasis of mouth and esophagus B37.81; B37.0 Neutropenia D70.1; T45.1X5A Neutropenia type: secondary to cancer chemotherapy Pancytopenia due to antineoplastic chemotherapy D61.810; T45.1X5A Small cell lung cancer C34.90 Pleural effusion J90 Severe protein-calorie malnutrition E43 Hyperthyroidism E05.90 Obstructive sleep apnea syndrome G47.33 Hypertension I10 Hypertension type: essential hypertension Prediabetes R73.03 Anemia D64.9 Anemia type: unspecified type Atrial fibrillation and flutter I48.91; I48.92 DVT prophylaxis Z29.9 (1) Anemia Anemia type: unspecified type Qualified Code(s): D64.9 - Anemia, unspecified (2) Neutropenia Neutropenia type: secondary to cancer chemotherapy Qualified Code(s): D70.1 - Agranulocytosis secondary to cancer chemotherapy; T45.1X5A - Adverse effect of antineoplastic and immunosuppressive drugs, initial encounter (3) Hypertension Hypertension type: essential hypertension Qualified Code(s): I10 - Essential (primary) hypertension
[2019-10-30] MEDS ORDERED: LEVOFLOXACIN/D5W 750 MG/150 ML BAG IV STA (12:39)
[2019-10-30] MEDS ORDERED: SODIUM CHLORIDE 0.9% 1000ML 1,000 ML IV SCH (15:05)
[2019-10-30] MEDS ORDERED: ALBUTEROL HFA 8 GM INHALER INH PRN (15:05)
[2019-10-30] MEDS ORDERED: HYDROmorphone INJ 0.5 MG/0.5 ML SYR IV PRN (15:05)
[2019-10-30] MEDS ORDERED: SODIUM CHLORIDE 1 GM TABLET PO SCH (15:05)
[2019-10-30] MEDS ORDERED: HYDROCODONE/HOMATROPINE SYRUP 5MG/1.5MG 5ML UDP PO PRN (15:05)
[2019-10-30] MEDS ORDERED: FLUCONAZOLE 100 MG TAB PO ONE (15:05)
[2019-10-30] MEDS ORDERED: SODIUM CHLORIDE 0.65% NA SOLN 45 ML (OCEAN) PRN (15:05)
[2019-10-30] MEDS ORDERED: ONDANSETRON INJ 2 MG/ML 2 ML VIAL IV STA (15:25)
[2019-10-30] MEDS: NYSTATIN SUSP 500,000 U/5 ML UDC PO SCH ×2 (15:46→21:02)
[2019-10-30 18:37] LABS: Est GFR (African American) 126.5; Est GFR (Non-African American) 109.2; Potassium 4.6 mmol/L (3.5-5.1)
[2019-10-30] MEDS ORDERED: FILGRASTIM 480 MCG/1.6 ML VIAL SC ONE (20:00)
[2019-10-30] MEDS ORDERED: SODIUM CHLORIDE 1 GM TABLET PO STA (20:00)
[2019-10-30] MEDS ORDERED: SODIUM CHLORIDE 3 % 150 ML IV ONE (20:11)
--- NOTE | 2019-10-30 20:24 | Nephrology Consultation ---
Date of Consultation October 30, 2019 Assessment & Plan (1) Acute hyponatremia: Acute on chronic hyponatremia. Patient seems relatively asymptomatic. He is euvolemic to slightly hypovolemic on exam. Urine osmolality is markedly elevated at 646. 1 gram of oral sodium chloride was provided earlier today. The patient did not tolerate the medication well. At this time I think the most appropriate therapy would be to continue with hypertonic saline solution. I have concerns about the risk of over correction with the use of vaptan therapy. The documentation of chronic liver disease as well as overall volume status are also relative contraindications. I have also voided loop diuretic therapy for this reason as well. Given the patient's history I suspect that over-correction is highly unlikely. however, close monitoring will be necessary. I explained the complexity of the situation the patient is . We discussed potential risks including osmotic demyelination. I would certainly attempt to avoid correction at a rate of greater than 1 milliequivalent/liter per hour. My goal will be to correct by only a few milliequivalents per liter by tomorrow morning. A bolus of 150 milliliters of 3 percent saline has been ordered. A stat repeat serum sodium level will then be obtained. Therapy will be adjusted as needed. As the patient's condition improves, I hope to transition to oral sodium chloride. I recognize that the patient has significantly elevated urine osmolality is concerning but hypovolemic volume status is contributory. A fluid restriction has been placed to prevent to excessive free water intake. 50 minutes was spent reviewing the plan of care in discussing options for management with the patient and his as well as the other care providers involved. This time was necessary for coordinating appropriate plan of care. (2) Small cell lung cancer: (3) Hyponatremia: History of Present Illness Reason for Consultation: Hyponatremia/SIADH Requesting Physician: Murtaza Paz Attending Physician: Murtaza Paz History of Present Illness Mr. Rom Brown is a 74-year-old male With recent diagnosis small cell lung cancer. The patient started chemotherapy last week. Unfortunately I do not have all those records available at this time. Nephrology consultation was requested this evening for evaluation of acute on chronic hyponatremia. Mr. Brown presented to the emergency department earlier today with a sudden onset of chest pain. Laboratory studies of the upper notable for a serum sodium 120 millimoles per liter. 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 Serum osmolality was as high as 860 at that time. Serum sodium has been chronically low most recently at 132 millimoles per liter on October 20. in the emergency department the patient was found to be volume depleted. Recent history includes poor appetite as well as limited fluid intake. Progressive weakness has been noted. Mr. Brown denied any vomiting or diarrhea. He denies headaches. There are no reported mental status changes. However he did seem to have some difficulty working his cell phone when trying to call his today. He was certainly oriented and answers questions generally appropriately but is short term recall under from subjective was questionable. IV normal saline was provided in the ER and following admission. Repeat sodium level this evening was 118 millimoles per liter. I was contacted by Dr. Paz. I met with the patient in his hospital room and reviewed the plan of care with his over the phone. We have discussed the patient with the ICU team in case he were to require a higher level of care overnight. Medical history is notable for recent hospitalizations in August and September. 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 He has recently restarted methimazole. during recent hospitalization in August he was diagnosed with atrial fibrillation /flutter. He has documented obstructive sleep apnea, hepatic steatosis, hypertension, and prediabetes. The the diagnosis of small cell lung cancer was made during hospitalization in September based on malignant cytology from pleural effusion. Patient has a right lung mass. Allergies Allergy/AdvReac Type Severity Reaction Status Date / Time amoxicillin Allergy Severe HEAD TO Verified 10/30/19 11:51 TOE ITCHY RASH Home Medications Home Medications Medication Instructions Recorded Confirmed Type gabapentin 300 mg capsule 300 mg PO BID 10/22/18 10/30/19 History CPAP Machine #1 ea 02/21/19 09/19/19 Rx metoprolol tartrate 100 mg tablet 100 mg PO BID #60 tab 09/23/19 10/30/19 Rx guaifenesin [Mucinex] 1,200 mg PO BID #14 tab 10/07/19 10/30/19 Rx hydrocodone-homatropine 5 ml PO BID PRN 10/19/19 10/30/19 History lactulose 15 ml PO BID 10/19/19 10/30/19 History prednisone 20 mg PO QAM 10/19/19 10/30/19 History sodium chloride [Saline Nasal] 0 spray INTRANASAL DAILY PRN 10/19/19 10/30/19 History albuterol sulfate [Ventolin HFA] 2 puffs INH Q4 PRN #8 gm 10/20/19 10/30/19 Rx methimazole 5 - 10 mg PO BID 10/30/19 10/30/19 History Patient History Medical History AAA (abdominal aortic aneurysm) Acid indigestion Anxiety Atrial fibrillation and flutter Bradycardia Diverticulosis of colon Dyslipidemia Erectile dysfunction Graves disease Gross hematuria Hepatic steatosis 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 No problems noted. Denies family history of Ovarian cancer Prostate cancer Cardiac disorder Myocardial infarction Breast cancer Colorectal cancer Social History Smoking Status: Former smoker Tobacco Type: Cigarettes packs per day: 1; Years Smoked: 35; Second Hand Exposure: No; Do You Dip or Chew Tobacco: No; Tobacco Cessation Education Requested by Patient: No Hx Alcohol Use: Yes Alcohol type: beer Alcohol Intake Frequency: Monthly or Less Hx Substance Use: No Preferred Language: Welsh Communication Ability: Effective Visual Impairment: No Limitations Hearing Ability: Normal Hospice Patient Care Secretary Required: No Beliefs That Will Affect Care: None marital status: Current Living Situation: Spouse current occupational status: retired 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 How many Children do You have: 3 Other Information That Helps Us Care for You: No Feels Safe at Home: Yes Safety Concerns: Feels Safe At This Time Childhood Exposure to Second-Hand Smoke: Yes Dental Care, Regularly: No Physical Activity Frequency: Daily Seatbelt Use: always Sunscreen Use: Yes Review of Systems Constitutional: + fatigue and + anorexia; no fever and no chills Eyes: no problem reported Ear, Nose, Mouth, Throat: no dysphagia and no problem reported Respiratory: no problem reported Cardiovascular: no problem reported Gastrointestinal: no nausea, no vomiting and no diarrhea/loose stools Genitourinary: no problem reported Musculoskeletal: no problem reported Integumentary: no problem reported Neurologic: no problem reported Psychiatric: no problem reported Endocrine: no problem reported Physical Exam Constitutional: + ill appearing and + thin Eyes: no scleral abnormality and no corneal abnormality ENMT: Mouth: no oral mucosal abnormality and oral mucous membranes not dry Neck: normal visual inspection and trachea midline Respiratory: normal respiratory effort Auscultation: lungs clear to auscultation bilaterally Cardiovascular: Rate/Rhythm: regular rate Heart Sounds: normal S1 and normal S2 Extremities: no edema Musculoskeletal: Extremities: no cyanosis and no clubbing Skin: normal turgor; no lesions Neurologic: Motor/Sensory: no tremor and no asterixis Psychiatric: Orientation: alert and oriented x 3 Results & Data ([facility]) Vital Signs (Past 12 Hours) Vital Signs Temp Pulse Pulse Resp BP BP Pulse Ox 10/30/19 19:20 36.6 C 81 16 131/76 94 10/30/19 18:30 94 H 10/30/19 15:06 36.9 C 76 16 136/85 96 10/30/19 14:00 78 23 147/81 H 96 10/30/19 13:30 70 19 140/77 96 10/30/19 13:00 73 23 129/75 97 10/30/19 12:30 71 17 137/77 97 10/30/19 12:00 71 19 124/64 95 10/30/19 11:47 79 17 129/87 93 10/30/19 10:30 74 16 130/67 96 10/30/19 10:00 77 13 112/72 95 10/30/19 09:47 37.0 C 79 18 124/83 96 Laboratory Results Laboratory Results - last 24 hr 10/30/19 10/30/19 10/30/19 09:50 09:50 09:50 WBC 0.88 L* RBC 2.61 L Hgb 7.6 L Hct 20.9 L* MCV 80.1 MCH 29.1 MCHC 36.4 H RDW Std Deviation 45.9 RDW Coeff of Shantel 16.1 H Plt Count 45 L MPV 9.4 Neutrophils % (Manual) 22.8 Lymphocytes % (Manual) 73.3 Monocytes % (Manual) 1.3 Basophils % (Manual) 1.3 Blast Cells % (Manual) Neutrophils # (Manual) 0.20 L Total Absolute Neuts 0.20 L* Lymphocytes # (Manual) 0.65 L Total Abs Lymphocytes 0.65 L Monocytes # (Manual) 0.01 L Basophils # (Manual) 0.01 Blast Cells # (Man) Microcytosis Present PT 12.5 H INR 1.2 H APTT 26.4 PTT Ratio 0.9 Sodium 120 L Potassium 4.2 Chloride 86 L Carbon Dioxide 24 Anion Gap 10.0 BUN 18 Creatinine 0.54 L Est Cr Clr Drug Dosing 139.7 Est GFR ( Amer) 121.6 Est GFR (Non-Af Amer) 104.9 BUN/Creatinine Ratio 34.1 H Glucose 127 H Osmolality Calcium 7.8 L Total Bilirubin 0.7 AST 37 ALT 33 Alkaline Phosphatase 211 H Troponin I < 0.015 Total Protein 6.0 L Albumin 2.1 L Globulin 3.9 Albumin/Globulin Ratio 0.5 L TSH Urine Osmolality Ur Random Sodium 10/30/19 10/30/19 10/30/19 09:50 09:50 17:56 WBC RBC Hgb Hct MCV MCH MCHC RDW Std Deviation RDW Coeff of Shantel Plt Count MPV Neutrophils % (Manual) Lymphocytes % (Manual) Monocytes % (Manual) Basophils % (Manual) Blast Cells % (Manual) Neutrophils # (Manual) Total Absolute Neuts Lymphocytes # (Manual) Total Abs Lymphocytes Monocytes # (Manual) Basophils # (Manual) Blast Cells # (Man) Microcytosis PT INR APTT PTT Ratio Sodium 118 L* Potassium 4.6 Chloride 86 L Carbon Dioxide 24 Anion Gap 8.0 BUN 17 Creatinine 0.49 L Est Cr Clr Drug Dosing 154.0 Est GFR ( Amer) 126.5 Est GFR (Non-Af Amer) 109.2 BUN/Creatinine Ratio 35.0 H Glucose 129 H Osmolality 248 L Calcium 8.0 L Total Bilirubin AST ALT Alkaline Phosphatase Troponin I Total Protein Albumin Globulin Albumin/Globulin Ratio TSH 2.520 Urine Osmolality Ur Random Sodium 10/30/19 10/30/19 18:04 18:04 WBC RBC Hgb Hct MCV MCH MCHC RDW Std Deviation RDW Coeff of Shantel Plt Count MPV Neutrophils % (Manual) Lymphocytes % (Manual) Monocytes % (Manual) Basophils % (Manual) Blast Cells % (Manual) Neutrophils # (Manual) Total Absolute Neuts Lymphocytes # (Manual) Total Abs Lymphocytes Monocytes # (Manual) Basophils # (Manual) Blast Cells # (Man) Microcytosis PT INR APTT PTT Ratio Sodium Potassium Chloride Carbon Dioxide Anion Gap BUN Creatinine Est Cr Clr Drug Dosing Est GFR ( Amer) Est GFR (Non-Af Amer) BUN/Creatinine Ratio Glucose Osmolality Calcium Total Bilirubin AST ALT Alkaline Phosphatase Troponin I Total Protein Albumin Globulin Albumin/Globulin Ratio TSH Urine Osmolality 646 Ur Random Sodium 48 PG Care Time/CCT Total # of Minutes Spent Total Time Spent: 50 Total Time Spent with Patient: Total time spent is greater than 50% in coordination of care (as documented) at patient's floor/unit and/or counseling patient: Coding Level of Care Code 77745 Inpt Consult Level 5 Diagnoses Acute hyponatremia E87.1 Small cell lung cancer C34.90 Hyponatremia E87.1
[2019-10-30] MEDS ORDERED: SODIUM CHLORIDE 3% IV ONE (20:30)
[2019-10-30] MEDS ORDERED: methIMAzole 5 MG TABLET PO SCH (21:00)
[2019-10-30] MEDS: guaiFENesin 600 MG TABCR PO SCH (21:03)
[2019-10-30] MEDS: GABAPENTIN 300 MG CAP PO SCH (21:03)
[2019-10-30] MEDS: METOPROLOL TARTRATE 100 MG TAB PO SCH (21:03)
[2019-10-30] MEDS: INSULIN ASPART 100 UNITS/ML 3 ML PEN SC SCH (21:06)
[2019-10-30] MEDS: LACTULOSE SYRUP 10 GM/15 ML BTL 960 ML PO SCH (21:06)
[2019-10-30] MEDS: methIMAzole 5 MG TABLET PO SCH (21:10)
[2019-10-31 03:26] LABS: Potassium Random Urine 50.9 mmol/L
--- NOTE | 2019-10-31 06:20 | Electrocardiogram Report ---
Test Reason : Blood Pressure : / mmHG Vent. Rate : 081 BPM Atrial Rate : 081 BPM P-R Int : 192 ms QRS Dur : 098 ms QT Int : 370 ms P-R-T Axes : 058 040 061 degrees QTc Int : 429 ms Poor data quality, interpretation may be adversely affected Normal sinus rhythm Incomplete right bundle branch block Borderline ECG When compared with ECG of 19-OCT-2019 18:03, No significant change was found Confirmed by Allen Casanova ([id number]) on 10/31/2019 6:20:41 AM Referred By: REFERRED SELF Confirmed By:Allen Casanova
[2019-10-31 06:35] LABS: Mean Corpuscular Hgb Conc 36.4 g/dL (32-36); Mean Platelet Volume 9.7 fL (7.4-10.4); Platelet Count 28 K/uL (130-400)
[2019-10-31 06:36] LABS: Hematocrit (blood only) 17.6 % (42-52); Hemoglobin 6.4 g/dL (14.0-18.0); Lymphocytes # (auto) 0.68 K/uL (1.2-3.4); Lymphocytes % (auto) 81.9 %; Mean Corpuscular Hemoglobin 28.8 pg (25-34); Mean Corpuscular Volume 79.3 fL (80-100); Monocytes # (auto) 0.01 K/uL (0.11-0.59); Monocytes % (auto) 1.2 %; Neutrophils # (auto) 0.14 K/uL (1.4-6.5); Neutrophils % (auto) 16.9 %; Platelet Estimate SIGNIFIC DECREASED (Normal); RDW Coefficient of Variation 16.4 % (11.5-14.5); RDW Standard Deviation 46.6 fL (36.4-46.3); Red Blood Count 2.22 M/uL (4.7-6.1); White Blood Count 0.83 K/uL (4.8-10.8)
[2019-10-31 06:43] LABS: Albumin Level 1.9 gm/dl (3.4-5.0); BUN Creatinine Ratio 48.3 (10-20); Calcium 7.5 mg/dl (8.5-10.1); Creatinine Clr Calc Pharmacy 215.6 ml/min; Est GFR (African American) 145.3; Est GFR (Non-African American) 125.4; Phosphorus 2.3 mg/dl (2.5-4.9)
[2019-10-31] MEDS ORDERED: SODIUM CHLORIDE 0.9% 250 ML IV PRN ×3 (06:50→10:49)
[2019-10-31 06:52] LABS: Potassium 3.9 mmol/L (3.5-5.1)
[2019-10-31] MEDS ORDERED: SODIUM CHLORIDE 3 % 100 ML IV ONE (06:57)
--- NOTE | 2019-10-31 07:18 | Communication Note ---
Date of Service: October 31, 2019 Hgb <7 critical on AM lab. Discussed w/ pt. Recommend xfusion of 1unit pRBC. Ordered changed to IRRADIATED due to neutropenia. Change communicated to blood bank and order updated.
[2019-10-31] MEDS: INSULIN ASPART 100 UNITS/ML 3 ML PEN SC SCH ×4 (07:52→21:56)
[2019-10-31] MEDS: GABAPENTIN 300 MG CAP PO SCH ×2 (08:00→20:12)
[2019-10-31] MEDS: NYSTATIN SUSP 500,000 U/5 ML UDC PO SCH ×4 (08:00→20:10)
[2019-10-31] MEDS: predniSONE 20 MG TAB PO SCH (08:00)
[2019-10-31] MEDS: guaiFENesin 600 MG TABCR PO SCH ×2 (08:01→20:13)
[2019-10-31] MEDS: methIMAzole 5 MG TABLET PO SCH ×2 (08:01→20:11)
[2019-10-31] MEDS: METOPROLOL TARTRATE 100 MG TAB PO SCH ×2 (08:01→20:12)
[2019-10-31] MEDS ORDERED: SODIUM PHOSPHATE 3 MMOL/1 ML INFUSION IV STA (08:03)
--- NOTE | 2019-10-31 08:07 | Hospitalist Progress Note ---
Date of Service October 31, 2019 Assessment & Plan (1) Hyponatremia: acute/chronic. 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 Patient had mild improvement with fluid restriction and hypertonic saline nephrology is providing oversight TSH wnl. No use of checking cortisol as patient has been taking prednisone daily since September. However still may need stress dose coverage although his prednisone dose is [address] Blackwood's consult. (2) Right-sided chest pain: suspect 2nd to worsening malignant effusion on right, right-sided lung ca, and potentially a progressive post-obstructive pneumonia. ischemic chest pain highly unlikely. pulmonary consult for malignant effusion - pleurX catheter to be considered once his hemoglobin and platelet count have improved? abx for RUL pneumonia. Patient has changes of his parenchyma in addition to his pleural effusion rad onc / onc consults in am for lung ca, radiation oncology considering initiating treatment on Monday, November 03. CTA neg for PE. (3) Postobstructive pneumonia: treated for such in September. uncertain if CTA findings in RUL represent new pneumonia or old findings. in light of severe neutropenia will treat for a recurrent post-obstructive pneumonia with levaquin 750mg daily. blood cx's sent prior to abx initiation. (4) Candidiasis of mouth and esophagus: severe. I ALSO SUSPECT CANDIDAL ESOPHAGITIS GIVEN HIS DYSPHAGIA. nystatin 5cc qid - swish/swallow. diflucan 200mg x 1, is on intravenous Diflucan due to swallowing concerns if dysphagia fails to improve -- GI consultation. (5) Neutropenia: spoke with Dr Crowley - neupogen 480mcg SC x 1. neutropenic precautions. If neutropenia remains on 10/31 we will consider repeating Neupogen dosing 2nd to recent chemo 1 week ago. (6) Pancytopenia due to antineoplastic chemotherapy: chemo for small cell lung ca was ~[address] Crowley formally consulted in (7) Small cell lung cancer: right sided. very large tumor burden. worsening right-sided effusion which is malignant. (8) Severe protein-calorie malnutrition: ongoing weight loss since hospitalization in September, despite prednisone daily for appetite stimulation. 2nd to cancer. cont prednisone. (9) Hyperthyroidism: TSH wnl today. methimazole 10mg qam methimazole 5mg qhs follows with Dr Darnell (10) Obstructive sleep apnea syndrome: CPAP hs (11) Hypertension: controlled (12) Prediabetes: DM diet novolog for correction/carb coverage BSGs will be worse with prednisone, stress, etc (13) Anemia: (14) Atrial fibrillation and flutter: hospital stay earlier this summer for such. paroxysmal in setting of hyperthyroidism. controlled; in NSR. cont BB. (15) DVT prophylaxis: platelets <50 chemical means contraindicated at this moment; thus, SCDs extensively updated at bedside questions answered prognosis guarded Admission and Anticipated Discharge Date Admission Date: October 30, 2019 Subjective Patient was seen in his hospital room he is fatigued he is lethargic from not getting much sleep overnight he remains short of breath. He has no complaints of new symptoms but does have some right-sided pleuritic positional chest pain Review of Systems Review of Systems: Mild distress and fatigue no headache, blurry or double vision no speech or swallowing issues no chest pain, pressure or palpitations some dyspnea on exertion no abdominal pain, nausea or vomiting, diarrhea or constipation no dysuria, hematuria or frequency no focal joint pain or swelling no back pain, CVA tenderness or radicular pain no bruising, bleeding or rashes no focal signs of weakness or numbness or altered sensation no complaints or anxiety or depression. Physical Exam Physical Exam: The patient appeared well nourished and normally developed. Vital signs as documented. Head exam is normocephalic atraumatic no scleral icterus Neck is without JVD, thyromegaly, or carotid bruits. Lungs are absent breath sounds to the right lung Cardiac exam, irregular but rate controlled Abdominal exam reveals normal bowel sounds, soft non tender, no masses Extremities are nonedematous and both pedal pulses are normal. Neurologic exam is alert and oriented, no focal loss of strength or sensation Skin is without bruises or rashes Psychologically is without concerns for anxiety or depression Results & Data Results & Data ([facility]) Vital Signs (Past 12 Hours) Vital Signs Temp Pulse Pulse Resp BP Pulse Ox 10/31/19 07:25 98.2 F 89 18 133/75 96 10/31/19 03:38 97.7 F 78 18 138/80 95 10/30/19 23:00 97.3 F L 76 16 134/79 97 PG Care Time/CCT Total # of Minutes Spent Total Time Spent with Patient: Total time spent is greater than 50% in coordination of care (as documented) at patient's floor/unit and/or counseling patient: Coding Level of Care Code 50214 Subseq Hosp Care Lvl 3 Diagnoses Hyponatremia E87.1 Right-sided chest pain R07.9 Postobstructive pneumonia J18.9 Candidiasis of mouth and esophagus B37.81; B37.0 Neutropenia D70.1; T45.1X5A Neutropenia type: secondary to cancer chemotherapy Pancytopenia due to antineoplastic chemotherapy D61.810; T45.1X5A Small cell lung cancer C34.90 Severe protein-calorie malnutrition E43 Hyperthyroidism E05.90 Obstructive sleep apnea syndrome G47.33 Hypertension I10 Hypertension type: essential hypertension Prediabetes R73.03 Anemia D64.9 Anemia type: unspecified type Atrial fibrillation and flutter I48.91; I48.92 DVT prophylaxis Z29.9 (1) Anemia Anemia type: unspecified type Qualified Code(s): D64.9 - Anemia, unspecified (2) Neutropenia Neutropenia type: secondary to cancer chemotherapy Qualified Code(s): D70.1 - Agranulocytosis secondary to cancer chemotherapy; T45.1X5A - Adverse effect of antineoplastic and immunosuppressive drugs, initial encounter (3) Hypertension Hypertension type: essential hypertension Qualified Code(s): I10 - Essential (primary) hypertension
[2019-10-31] MEDS ORDERED: SODIUM PHOSPHATE 15 MMOL in SODIUM CHLORIDE 0.9% 250 ML IV ONE (08:30)
[2019-10-31] MEDS ORDERED: FLUCONAZOLE 200 MG/100 ML BAG IV SCH (09:00)
[2019-10-31] MEDS ORDERED: FLUCONAZOLE 100 MG TAB PO SCH (09:00)
--- NOTE | 2019-10-31 09:47 | Consultation Report ---
DATE OF CONSULTATION: 10/31/2019 MEDICAL ONCOLOGY CONSULTATION REASON FOR CONSULTATION: A 74-year-old gentleman with extensive-stage small cell lung cancer, admitted with shortness of breath and right-sided pleural effusion. HISTORY OF PRESENT ILLNESS: The patient is a pleasant, somewhat unfortunate 74-year-old gentleman, recently diagnosed with extensive-stage small cell lung cancer under my care, admitted to [facility] on 10/30/2019 with subacute onset shortness of breath and asthenia. He also relates associated right-sided chest pain. He had subsequently contacted my office yesterday and was advised by one of our chemotherapy nurses to proceed to the Emergency Room. Again, the pain seems to be exacerbated when he changes position. He reports cough which is mildly productive without hemoptysis. Both he and his also reported very poor appetite and the hospitalist confirmed the patient suffers from oral candidiasis. He was originally diagnosed on 10/05/2019 and recently completed his first cycle of combination etoposide, carboplatin and atezolizumab. The ER physician alerted me to the patient's presence on admission and recommended CTA of the chest to rule out pulmonary embolus. There was no radiographic evidence for PE and generally similar right hilar mass-like changes, adenopathy as well as large right pleural effusion was noted. This morning at bedside, the patient seemed to be pretty comfortable and his breathing was not labored. I have been asked to assist in the care of this very pleasant gentleman moving forward. PAST MEDICAL HISTORY: Significant for abdominal aortic aneurysm, anxiety, extensive stage small cell lung cancer, diverticulosis of the colon, dyslipidemia, Graves' disease, hypertension and hyperthyroidism. PAST SURGICAL HISTORY: History of elbow and knee surgery, history of wisdom tooth extraction, status post Mohs surgery. MEDICATIONS: Prior to admission include methimazole 5-10 mg p.o. b.i.d., albuterol sulfate 2 puffs inhaled q. 4 hours p.r.n., prednisone 20 mg p.o. daily, lactulose ____ p.o. b.i.d., hydrocodone/homatropine 5 mL p.o. b.i.d. p.r.n., guaifenesin 1200 mg p.o. b.i.d., metoprolol tartrate 100 mg p.o. b.i.d., gabapentin 300 mg p.o. b.i.d. ALLERGIES: TO AMOXICILLIN. FAMILY HISTORY: Mother , of complications of diverticulitis. She also suffered from type 2 diabetes mellitus. Father is also , complications of sinusitis. SOCIAL HISTORY: The patient has a 35-pack year history. He is , lives with his , now retired. Drinks social alcohol. REVIEW OF SYSTEMS: GENERAL: As per HPI, most notably for right chest wall pain and shortness of breath. No fevers, chills or sweats. He does report anorexia. No dramatic weight loss. SKIN: No rashes or lesions. No history of dermatoses. HEENT: He denies headaches, lightheadedness or dizziness. No visual or hearing deficits. No sinus symptoms, sore throat or dysphagia. LYMPH: No history of lymphoproliferative disease. CARDIAC: Negative for angina or palpitations. PULMONARY: Positive for right-sided malignant pleural effusion, shortness of breath and dyspnea on exertion. Positive for a nonproductive cough. Negative for hemoptysis. GASTROINTESTINAL: Negative for abdominal pain, nausea, vomiting, diarrhea or constipation, hematochezia or melena stools. GENITOURINARY: No hematuria, dysuria, urinary incontinence. PSYCHIATRIC: Negative for anxiety, depression or psychoses. MUSCULOSKELETAL: No focal muscle weakness. No arthralgias. ENDOCRINE: Positive for Graves' disease by history. NEUROLOGIC: Negative for seizure, stroke or migraine headache. HEMATOLOGIC: Positive for pancytopenia. PHYSICAL EXAMINATION: GENERAL: Very pleasant 74-year-old elderly gentleman, awake, alert and appropriate, in no acute distress. VITAL SIGNS: Temperature 36.8, pulse 89, respiratory rate 18, blood pressure ____. SKIN: Warm, dry, noncyanotic without petechia, rash or ecchymosis. HEENT: Head is atraumatic, normocephalic. Eyes: PERRLA, EOMI. Sclerae nonicteric. No conjunctival injection. Nares are patent without rhinorrhea or discharge. Throat: Punctate white nodules in the soft palate and buccal mucosa consistent with oral thrush. NECK: Supple without JVD or thyromegaly. HEART: Regular rate and rhythm. No clicks, rubs, murmurs or gallops. LUNGS: Diminished breath sounds in the right posterior base predominantly. ABDOMEN: Soft, nontender, nondistended, without palpable hepatosplenomegaly. EXTREMITIES: No clubbing, cyanosis or edema. MUSCULOSKELETAL: Strength and pulses are equal in all 4 quadrants. NEUROLOGICAL: He is awake, alert and oriented x3. Cranial nerves grossly intact. LABORATORY DATA: WBC count 830, hemoglobin 6.4, platelet count 28,000, absolute neutrophil count 140. Sodium 123, potassium 3.9, chloride 91, BUN 17, creatinine 0.35, phosphorus 2.3, albumin 1.9. IMPRESSION: 1. Right-sided chest pain/pleuritis attributable to malignant effusion. 2. Extensive stage small cell lung cancer. 3. Pancytopenia attributable to chemotherapeutic effect. 4. Hypoalbuminemia. 5. Oral candidiasis. 6. Syndrome of inappropriate antidiuretic hormone secretion. 7. Hypophosphatemia. PLAN: The patient is a very pleasant unfortunate 74-year-old gentleman recently diagnosed with extensive-stage small cell lung cancer. He began to receive salvage etoposide, carboplatin and atezolizumab which completed on 10/25/2019. Not surprising, his counts have plummeted and would provide granulocyte colony stimulating growth factor, perhaps 480 mcg daily over the next 2-3 days. In addition, provide 2 units of packed RBCs. Initiate antifungal therapy for oral candidiasis. I would even consider supplementing with albumin daily while the patient is here. He was placed on prednisone for appetite stimulation at beginning of therapy. Would ask Pulmonary to drain pleural effusion and send for cytometric analysis. Need to consider a dose reduction moving forward as he became profoundly pancytopenic on initiation of one dose, which may suggest he has infiltrating bone marrow disease. Agree with medical management otherwise and will continue to follow the patient throughout his hospital stay. Thank you very much for allowing me to participate in the patient's care.
[2019-10-31] MEDS: LACTULOSE SYRUP 10 GM/15 ML BTL 960 ML PO SCH ×2 (10:03→20:12)
--- NOTE | 2019-10-31 10:17 | Nephrology Progress Note ---
Date of Service October 31, 2019 Assessment & Plan (1) Acute hyponatremia: Acute on chronic hyponatremia. 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 UOsm remains notably elevated. Remains relatively asymptomatic. Appropriate improvement with 300 ml 3% saline overnight. Additional 100 ml 3% saline ordered for this AM. Repeat metabolic profile at 11 AM. Daily fluid restriction 2 L for now and adjust as needed. Encourage high protein diet. Document I/O's. Goal rate of correction ~0.5 mmol/L/hr. (2) Small cell lung cancer: Management per oncology. PRBC support to be provided today. (3) Hyponatremia: Chronic. Baseline ~132 mmol/L. Admission and Anticipated Discharge Date Admission Date: October 30, 2019 Subjective No acute events overnight. I had a follow up conversation with the patient and his this morning. Tolerated IV hypertonic saline overnight. Overall feels reasonably well. Chest congestion persists. Appetite slightly improved. PRBC ordered for anemia. Patient met with Dr. Crowley prior to my arrival. Review of Systems Review of Systems: All systems reviewed & are unremarkable except as noted in HPI & below Physical Exam Physical Exam: Limited due to COVID 19 pandemic. ENMT: Mouth: no oral mucosal abnormality and oral mucous membranes not dry Cardiovascular: Extremities: no edema Results & Data ([facility]) Vital Signs (Past 12 Hours) Vital Signs Temp Pulse Pulse Resp BP Pulse Ox 10/31/19 07:25 36.8 C 89 18 133/75 96 10/31/19 03:38 36.5 C 78 18 138/80 95 10/30/19 23:00 36.3 C L 76 16 134/79 97 Laboratory Results Laboratory Results - last 24 hr 10/30/19 10/30/19 10/30/19 09:50 09:50 09:50 WBC 0.88 L* RBC 2.61 L Hgb 7.6 L Hct 20.9 L* MCV 80.1 MCH 29.1 MCHC 36.4 H RDW Std Deviation 45.9 RDW Coeff of Shantel 16.1 H Plt Count 45 L MPV 9.4 Immature Gran % (Auto) Neut % (Auto) Lymph % (Auto) [place] % (Auto) Eos % (Auto) Baso % (Auto) Neut # (Auto) Lymph # (Auto) [place] # (Auto) Eos # (Auto) Baso # (Auto) Immature Gran # (Auto) Neutrophils % (Manual) 22.8 Lymphocytes % (Manual) 73.3 Monocytes % (Manual) 1.3 Basophils % (Manual) 1.3 Blast Cells % (Manual) Neutrophils # (Manual) 0.20 L Total Absolute Neuts 0.20 L* Lymphocytes # (Manual) 0.65 L Total Abs Lymphocytes 0.65 L Monocytes # (Manual) 0.01 L Basophils # (Manual) 0.01 Blast Cells # (Man) Platelet Estimate Microcytosis Present PT 12.5 H INR 1.2 H APTT 26.4 PTT Ratio 0.9 Sodium 120 L Potassium 4.2 Chloride 86 L Carbon Dioxide 24 Anion Gap 10.0 BUN 18 Creatinine 0.54 L Est Cr Clr Drug Dosing 139.7 Est GFR ( Amer) 121.6 Est GFR (Non-Af Amer) 104.9 BUN/Creatinine Ratio 34.1 H Glucose 127 H POC Glucose Osmolality Calcium 7.8 L Phosphorus Total Bilirubin 0.7 AST 37 ALT 33 Alkaline Phosphatase 211 H Troponin I < 0.015 Total Protein 6.0 L Albumin 2.1 L Globulin 3.9 Albumin/Globulin Ratio 0.5 L TSH Urine Osmolality Ur Random Sodium Ur Random Potassium Blood Type Blood Type Recheck Antibody Screen Crossmatch 10/30/19 10/30/19 10/30/19 09:50 09:50 17:56 WBC RBC Hgb Hct MCV MCH MCHC RDW Std Deviation RDW Coeff of Shantel Plt Count MPV Immature Gran % (Auto) Neut % (Auto) Lymph % (Auto) [place] % (Auto) Eos % (Auto) Baso % (Auto) Neut # (Auto) Lymph # (Auto) [place] # (Auto) Eos # (Auto) Baso # (Auto) Immature Gran # (Auto) Neutrophils % (Manual) Lymphocytes % (Manual) Monocytes % (Manual) Basophils % (Manual) Blast Cells % (Manual) Neutrophils # (Manual) Total Absolute Neuts Lymphocytes # (Manual) Total Abs Lymphocytes Monocytes # (Manual) Basophils # (Manual) Blast Cells # (Man) Platelet Estimate Microcytosis PT INR APTT PTT Ratio Sodium 118 L* Potassium 4.6 Chloride 86 L Carbon Dioxide 24 Anion Gap 8.0 BUN 17 Creatinine 0.49 L Est Cr Clr Drug Dosing 154.0 Est GFR ( Amer) 126.5 Est GFR (Non-Af Amer) 109.2 BUN/Creatinine Ratio 35.0 H Glucose 129 H POC Glucose Osmolality 248 L Calcium 8.0 L Phosphorus Total Bilirubin AST ALT Alkaline Phosphatase Troponin I Total Protein Albumin Globulin Albumin/Globulin Ratio TSH 2.520 Urine Osmolality Ur Random Sodium Ur Random Potassium Blood Type Blood Type Recheck Antibody Screen Crossmatch 10/30/19 10/30/19 10/30/19 18:04 18:04 20:49 WBC RBC Hgb Hct MCV MCH MCHC RDW Std Deviation RDW Coeff of Shantel Plt Count MPV Immature Gran % (Auto) Neut % (Auto) Lymph % (Auto) [place] % (Auto) Eos % (Auto) Baso % (Auto) Neut # (Auto) Lymph # (Auto) [place] # (Auto) Eos # (Auto) Baso # (Auto) Immature Gran # (Auto) Neutrophils % (Manual) Lymphocytes % (Manual) Monocytes % (Manual) Basophils % (Manual) Blast Cells % (Manual) Neutrophils # (Manual) Total Absolute Neuts Lymphocytes # (Manual) Total Abs Lymphocytes Monocytes # (Manual) Basophils # (Manual) Blast Cells # (Man) Platelet Estimate Microcytosis PT INR APTT PTT Ratio Sodium Potassium Chloride Carbon Dioxide Anion Gap BUN Creatinine Est Cr Clr Drug Dosing Est GFR ( Amer) Est GFR (Non-Af Amer) BUN/Creatinine Ratio Glucose POC Glucose 131 H Osmolality Calcium Phosphorus Total Bilirubin AST ALT Alkaline Phosphatase Troponin I Total Protein Albumin Globulin Albumin/Globulin Ratio TSH Urine Osmolality 646 Ur Random Sodium 48 Ur Random Potassium Blood Type Blood Type Recheck Antibody Screen Crossmatch 10/30/19 10/30/19 10/30/19 21:54 23:03 23:03 WBC RBC Hgb Hct MCV MCH MCHC RDW Std Deviation RDW Coeff of Shantel Plt Count MPV Immature Gran % (Auto) Neut % (Auto) Lymph % (Auto) [place] % (Auto) Eos % (Auto) Baso % (Auto) Neut # (Auto) Lymph # (Auto) [place] # (Auto) Eos # (Auto) Baso # (Auto) Immature Gran # (Auto) Neutrophils % (Manual) Lymphocytes % (Manual) Monocytes % (Manual) Basophils % (Manual) Blast Cells % (Manual) Neutrophils # (Manual) Total Absolute Neuts Lymphocytes # (Manual) Total Abs Lymphocytes Monocytes # (Manual) Basophils # (Manual) Blast Cells # (Man) Platelet Estimate Microcytosis PT INR APTT PTT Ratio Sodium 120 L Potassium Chloride Carbon Dioxide Anion Gap BUN Creatinine Est Cr Clr Drug Dosing Est GFR ( Amer) Est GFR (Non-Af Amer) BUN/Creatinine Ratio Glucose POC Glucose Osmolality Calcium Phosphorus Total Bilirubin AST ALT Alkaline Phosphatase Troponin I Total Protein Albumin Globulin Albumin/Globulin Ratio TSH Urine Osmolality 700 Ur Random Sodium 48 Ur Random Potassium 50.9 Blood Type Blood Type Recheck Antibody Screen Crossmatch 10/31/19 10/31/19 10/31/19 05:28 05:28 05:28 WBC 0.83 L* RBC 2.22 L Hgb 6.4 L* Hct 17.6 L* MCV 79.3 L MCH 28.8 MCHC 36.4 H RDW Std Deviation 46.6 H RDW Coeff of Shantel 16.4 H Plt Count 28 L* MPV 9.7 Immature Gran % (Auto) 0.0 Neut % (Auto) 16.9 Lymph % (Auto) 81.9 [place] % (Auto) 1.2 Eos % (Auto) 0.0 Baso % (Auto) 0.0 Neut # (Auto) 0.14 L* Lymph # (Auto) 0.68 L [place] # (Auto) 0.01 L Eos # (Auto) 0.00 Baso # (Auto) 0.00 Immature Gran # (Auto) 0.00 Neutrophils % (Manual) Lymphocytes % (Manual) Monocytes % (Manual) Basophils % (Manual) Blast Cells % (Manual) Neutrophils # (Manual) Total Absolute Neuts Lymphocytes # (Manual) Total Abs Lymphocytes Monocytes # (Manual) Basophils # (Manual) Blast Cells # (Man) Platelet Estimate SIGNIFIC DECREASED Microcytosis PT INR APTT PTT Ratio Sodium 123 L Potassium 3.9 D Chloride 91 L Carbon Dioxide 22 Anion Gap 10.0 BUN 17 Creatinine 0.35 L Est Cr Clr Drug Dosing 215.6 Est GFR ( Amer) 145.3 Est GFR (Non-Af Amer) 125.4 BUN/Creatinine Ratio 48.3 H Glucose 88 POC Glucose Osmolality Calcium 7.5 L Phosphorus 2.3 L Total Bilirubin AST ALT Alkaline Phosphatase Troponin I Total Protein Albumin 1.9 L Globulin Albumin/Globulin Ratio TSH Urine Osmolality Ur Random Sodium Ur Random Potassium Blood Type Blood Type Recheck A Positive Antibody Screen Crossmatch 10/31/19 10/31/19 06:56 07:24 WBC RBC Hgb Hct MCV MCH MCHC RDW Std Deviation RDW Coeff of Shantel Plt Count MPV Immature Gran % (Auto) Neut % (Auto) Lymph % (Auto) [place] % (Auto) Eos % (Auto) Baso % (Auto) Neut # (Auto) Lymph # (Auto) [place] # (Auto) Eos # (Auto) Baso # (Auto) Immature Gran # (Auto) Neutrophils % (Manual) Lymphocytes % (Manual) Monocytes % (Manual) Basophils % (Manual) Blast Cells % (Manual) Neutrophils # (Manual) Total Absolute Neuts Lymphocytes # (Manual) Total Abs Lymphocytes Monocytes # (Manual) Basophils # (Manual) Blast Cells # (Man) Platelet Estimate Microcytosis PT INR APTT PTT Ratio Sodium Potassium Chloride Carbon Dioxide Anion Gap BUN Creatinine Est Cr Clr Drug Dosing Est GFR ( Amer) Est GFR (Non-Af Amer) BUN/Creatinine Ratio Glucose POC Glucose 97 Osmolality Calcium Phosphorus Total Bilirubin AST ALT Alkaline Phosphatase Troponin I Total Protein Albumin Globulin Albumin/Globulin Ratio TSH Urine Osmolality Ur Random Sodium Ur Random Potassium Blood Type A Positive Blood Type Recheck Antibody Screen NEGATIVE Crossmatch See Detail PG Care Time/CCT Total # of Minutes Spent Total Time Spent with Patient: Total time spent is greater than 50% in coordination of care (as documented) at patient's floor/unit and/or counseling patient: Coding Level of Care Code 84963 Subseq Hosp Care Lvl 3 Diagnoses Acute hyponatremia E87.1 Small cell lung cancer C34.90 Hyponatremia E87.1
--- NOTE | 2019-10-31 12:56 | Radiation OncologyConsultation ---
Date of Consultation October 31, 2019 Assessment & Plan (1) Small cell lung cancer: Assessment: Mr. Brown is a 74-year-old gentleman who presents with extensive stage small cell lung carcinoma. The patient recently received his first cycle of carboplatin/etoposide/atezolizumab on 10/25/2019. The patient was subsequently admitted to the hospital on 10/30/2019 due to hyponatremia, neutropenia and pancytopenia. The patient has been evaluated by Dr. Crowley for medical oncology who is recommended consideration of a therapeutic thoracentesis with or without Pleurx catheter placement and radiation oncology consultation for consideration of palliative external beam radiation therapy. I am now seeing the patient in consultation to discuss the role of radiation therapy. Recommendation: Palliative external beam radiation therapy. 10 fractions. 300 cGy per fraction. Plan: 1. Pulmonary consultation with plan for thoracentesis with or without Pleurx catheter. 2. CT simulation next Monday for treatment planning for radiation therapy. Plan to start palliative external beam radiation shortly after. Thoracentesis to be completed prior to CT simulation. 3. Patient and family encouraged to call us with any further questions or concerns. Rationale/Explanation of Treatment: I have explained the indications, alternatives, benefits, risks and side effects of radiation therapy. I have explained the most common side effects which include but are not limited to skin erythema, skin break down, pulmonary fibrosis, adhesion development, radiation pneumonitis, spinal cord damage, brachial plexus damage, rib fracture, heart failure and heart disease, esophagitis, development of fistula, fatigue and development of secondary malignancy. I have explained the CT simulation process and treatment planning. I explained what to expect before, during and after treatment on a regular basis. The patient understands and would be willing to consent to treatment. The patient and had multiple questions which were answered to their full satisfaction. Thank you for allowing us to participate in the care of this patient. This chart was completed in part utilizing [employer] Speech Voice Recognition software. Attempts were made to minimize the grammatical errors, random word insertions, pronoun errors and incomplete sentences. Any formal questions or concerns about the content, text or information contained within the body of this dictation should be directly addressed to the provider for clarification. Ruth Rowan MD Department of Radiation Oncology [facility] Present on Admission?: Yes History of Present Illness Attending Physician: Bob Raymond MD History of Present Illness 09/11/2019. Chest x-ray. IMPRESSION: Right perihilar airspace opacity suspicious for a pneumonitis. Clinical and radiographic follow-up is recommended. 10/04/2019. Presents to emergency room with complaints of not feeling well over the last several days. Admitted to hospital for further work-up and evaluation. 10/04/2019. CT of chest. IMPRESSION: 1. An 8 cm right hilar/perihilar masslike opacity which results in near complete obstruction of the right upper and middle bronchi as well as moderate to severe narrowing of the right lower lobe bronchus. There is associated mediastinal and left hilar lymphadenopathy. Therefore, this is highly suspicious for a primary bronchogenic malignancy. Bronchoscopy recommended for further evaluation. 2. Small right pleural effusion, possibly malignant. 3. Groundglass and nodular opacity surrounding this right perihilar mass favor a postobstructive pneumonitis. 4. There are 2 subcentimeter nodules within the left lung measuring 4 mm. These bear watching on future examinations to exclude the possibility of metastatic disease. 5. A single enlarged high right axillary lymph node. 10/06/2019. CT of abdomen/pelvis. IMPRESSION: 1. Please refer to the recent chest CT for further evaluation of the right lung base abnormalities. This includes a mildly enlarged right anterior diaphragmatic lymph node which is new from the prior study. 2. Trace right pleural effusion has decreased in size. 3. There appears to be a new 11 mm hypodense lesion within the right hepatic lobe. This is concerning for metastatic focus. Follow-up abdominal ultrasound can be used for further evaluation. 4. No change in the 3.4 cm infrarenal abdominal aortic aneurysm. 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 10/06/2019. MRI brain. IMPRESSION: 1. No acute intracranial abnormality. 2. No evidence for intracranial metastatic disease. 3. Hypointense C2 vertebral body on the sagittal sequences. However, this has a nonmasslike pattern. Follow-up nuclear medicine bone scan can be performed to exclude the less likely possib ility of metastatic disease. 10/07/2019. Pleural fluid, right: Metastatic small cell carcinoma. 10/14/2019. Medical oncology consultation with Dr. Crowley. Dr. Crowley has recommended carboplatin, etoposide and atezolizumab. 10/16/2019. PET/CT. IMPRESSION: 1. Large hypermetabolic right perihilar mass measuring up to 8.4 x 5.6 cm is compatible with the patient's known primary bronchogenic malignancy. Again, there is encasement of the right upper, middle and lower lobe bronchi with progressive volume loss and consolidation of the right lung. 2. Increased metabolic activity throughout the consolidated right upper lung is suggestive of atelectasis with postobstructive pneumonitis. Local metastasis would be difficult to exclude. 3. Metastatic mediastinal and hilar adenopathy as above. Nonenlarged mildly hypermetabolic right supraclavicular lymph nodes are also suspicious for metastatic disease. 4. There are a few small foci of slightly increased metabolic activity within the liver which are not well-seen on the CT correlate images, suspicious for hepatic metastasis. 5. Diffuse heterogeneous patchy hypermetabolic activity throughout the axial and appendicular skeletal system without well-defined lytic or sclerotic lesion seen on the CT images is suspicious for osseous metastatic disease. Correlation with a follow-up bone scan is needed. 6. Interval development of mild groundglass opacities of the left upper lobe with slightly increased metabolic activity suggestive of an infectious or inflammatory pneumonitis. 7. Moderate to large right pleural effusion without significant hypermetabolic activity. 10/19/2019. CT of chest. IMPRESSION: 1. Progressive increase in right hilar/perihilar masslike change as well as progressive mediastinal and hilar adenopathy. 2. Near-complete and/or progressive consolidative change of the right upper lobe. 3. Progressive right pleural effusion 4. Progressive neoplastic change with associated postobstructive progressive findings must be the diagnosis of exclusion. 10/25/2019. Carboplatin, etoposide and atezolizumab, cycle 1. 10/30/2019. Patient presents to emergency room with hyponatremia. Patient admitted to hospital. 10/30/2019. CTA of chest. IMPRESSION: 1. No evidence for pulmonary embolus. 2. Generally similar right hilar masslike changes, adenopathy, as well as large right pleural effusion type changes 3. Progressive interstitial infiltrate right upper lung and right pulmonary apex. 10/31/2019. Medical oncology consultation with Dr. Crowley. Dr. Crowley has recommended pulmonary consultation for consideration of thoracentesis for p leural effusion. Dr. Crowley has also recommended radiation oncology consultation for consideration of palliative external beam radiation therapy. Currently, the patient is relatively stable. He has no significant complaints. Allergies Allergy/AdvReac Type Severity Reaction Status Date / Time amoxicillin Allergy Severe HEAD TO Verified 10/30/19 11:51 TOE ITCHY RASH Home Medications Home Medications Medication Instructions Recorded Confirmed Type gabapentin 300 mg capsule 300 mg PO BID 10/22/18 10/30/19 History CPAP Machine #1 ea 02/21/19 09/19/19 Rx metoprolol tartrate 100 mg tablet 100 mg PO BID #60 tab 09/23/19 10/30/19 Rx guaifenesin [Mucinex] 1,200 mg PO BID #14 tab 10/07/19 10/30/19 Rx hydrocodone-homatropine 5 ml PO BID PRN 10/19/19 10/30/19 History lactulose 15 ml PO BID 10/19/19 10/30/19 History prednisone 20 mg PO QAM 10/19/19 10/30/19 History sodium chloride [Saline Nasal] 0 spray INTRANASAL DAILY PRN 10/19/19 10/30/19 History albuterol sulfate [Ventolin HFA] 2 puffs INH Q4 PRN #8 gm 10/20/19 10/30/19 Rx methimazole 5 - 10 mg PO BID 10/30/19 10/30/19 History Patient History Medical History (Updated 10/31/19 @ 13:00 by Ruth Rowan MD) AAA (abdominal aortic aneurysm) Acid indigestion Anxiety Atrial fibrillation and flutter Bradycardia Diverticulosis of colon Dyslipidemia Erectile dysfunction Graves disease Gross hematuria Hepatic steatosis 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 No problems noted. Denies family history of Ovarian cancer Prostate cancer Cardiac disorder Myocardial infarction Breast cancer Colorectal cancer Social History Smoking Status: Former smoker Tobacco Type: Cigarettes packs per day: 1; Years Smoked: 35; Second Hand Exposure: No; Do You Dip or Chew Tobacco: No; Tobacco Cessation Education Requested by Patient: No Hx Alcohol Use: Yes Alcohol type: beer Alcohol Intake Frequency: Monthly or Less Hx Substance Use: No Preferred Language: Mongolian Communication Ability: Effective Visual Impairment: No Limitations Hearing Ability: Normal Aquatic Facility Manager Required: No Beliefs That Will Affect Care: None marital status: Current Living Situation: Spouse current occupational status: retired 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 How many Children do You have: 3 Other Information That Helps Us Care for You: No Feels Safe at Home: Yes Safety Concerns: Feels Safe At This Time Childhood Exposure to Second-Hand Smoke: Yes Dental Care, Regularly: No Physical Activity Frequency: Daily Seatbelt Use: always Sunscreen Use: Yes Review of Systems Review of Systems: All systems reviewed & are unremarkable except as noted in HPI & below Physical Exam Constitutional: WD/WN, vitals as above well developed and well nourished Eyes: PERRL, conjunctivae normal, anicteric sclerae ENMT: external ear and nose normal, oropharynx normal Neck: trachea midline, no thyromegaly Respiratory: normal respiratory effort, lungs clear to auscultation Cardiovascular: RRR, no murmur, no edema Gastrointestinal (Abdomen): normal bowel sounds, soft, nontender, no hepatosplenomegaly Musculoskeletal: no cyanosis or clubbing, extremities motor strength 5/5 Skin: no rashes, warm and dry Neurologic: patellar DTR's 2+ bilat, sensation intact and PERRL, EOMI, accommodation nl, no face palsy, no dysarthria Psychiatric: A+Ox3, euthymic affect Time Spent Attending I spent 10 minutes in preparation for this consultation including reviewing all the clinical records, reviewing laboratory studies, pathology reports and imaging results. I spent 15 minutes with direct face to face interaction with the patient and/or family including performing a physical exam and answering all questions. I spent 10 minutes documenting this patient's visit. I spent 10 minutes speaking with the following providers regarding this patient's care: Dr. Crowley, Dr. Sharif, Dr. Raymond.
--- NOTE | 2019-10-31 13:27 | Medical Student Progress Note ---
Date of Service October 31, 2019 Assessment & Plan (1) 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: (1) hyponatremia 2/2 [facility] assoc. with small cell lung CA fluid restriction 2000mL sodium chloride 1gm PO BID tab 3% saline 150mL bolus if ordered by nephrology monitor Na on chem panel (2) R c/p 2/2 malignant effusion PE ruled out on CTA will be having thoracentesis today per pulmonology (3) suspected post. obst. PNA continue levaquin may consider switching to cefepime depending on sensitivities pending culture or if clinically worsening with signs of SOB, f/c (4) oral candidiasis/esophagitis continue nystatin up to 14 days depending on compliance continue difulcan up to 21 days depending on improvement on symptoms (5) pancytopenia 2/2 recent chemo given neupogen given irradiated pRBC transfusion today monitor response with CBC may be given plt infusion if counts < 10K (6) malnutrition/weight loss 2/2 to cachexia of CA continue prednisone (7) hyperthyroid continue home methimazole (8) obst. sleep apnea continue cpap at [facility] (9) HTN continue home meds (10) DVT ppx no meds, only SCD Admission and Anticipated Discharge Date Admission Date: October 30, 2019 Subjective Mr. Rom Brown states this morning that he was able to sleep through the night, he is no longer having active significant chest pain, just some discomfort with any significant movement in bed. He continues have coughing productive of mostly clear sputum, intermittent specks of blood. He does not endorse any shortness of breath, is able tolerate breathing RA. He does not endorse f/c, no palpitations. He is still having difficulty swallowing his pills attributed to irritation he still feels in his throat. Review of Systems Review of Systems: All systems reviewed & are unremarkable except as noted in HPI & below Physical Exam Physical Exam: const: NAD, AOx3 cardio: RRR, no M/R/G, s1 s2 normal pulm: left LCA, reduced breath sounds at R middle lobe area ENT: oral mucosa dry, white spots on tongue Results & Data ([facility]) Vital Signs (Past 12 Hours) Vital Signs Temp Pulse Pulse Pulse Resp BP BP 10/31/19 12:22 37.2 C 75 18 150/80 H 10/31/19 11:52 37.3 C 73 18 136/83 10/31/19 11:37 36.9 C 69 16 122/75 10/31/19 11:17 36.9 C 70 16 121/75 10/31/19 07:25 36.8 C 89 18 133/75 10/31/19 03:38 36.5 C 78 18 138/80 Pulse Ox 10/31/19 12:22 98 10/31/19 11:52 96 10/31/19 11:37 95 10/31/19 11:17 96 10/31/19 07:25 96 10/31/19 03:38 95 Laboratory Results Laboratory Results - last 24 hr 10/30/19 10/30/19 10/30/19 09:50 09:50 09:50 WBC 0.88 L* RBC 2.61 L Hgb 7.6 L Hct 20.9 L* MCV 80.1 MCH 29.1 MCHC 36.4 H RDW Std Deviation 45.9 RDW Coeff of Shantel 16.1 H Plt Count 45 L MPV 9.4 Immature Gran % (Auto) Neut % (Auto) Lymph % (Auto) Otero % (Auto) Eos % (Auto) Baso % (Auto) Neut # (Auto) Lymph # (Auto) Otero # (Auto) Eos # (Auto) Baso # (Auto) Immature Gran # (Auto) Neutrophils % (Manual) 22.8 Lymphocytes % (Manual) 73.3 Monocytes % (Manual) 1.3 Basophils % (Manual) 1.3 Blast Cells % (Manual) Neutrophils # (Manual) 0.20 L Total Absolute Neuts 0.20 L* Lymphocytes # (Manual) 0.65 L Total Abs Lymphocytes 0.65 L Monocytes # (Manual) 0.01 L Basophils # (Manual) 0.01 Blast Cells # (Man) Platelet Estimate Microcytosis Present PT 12.5 H INR 1.2 H APTT 26.4 PTT Ratio 0.9 Sodium 120 L Potassium 4.2 Chloride 86 L Carbon Dioxide 24 Anion Gap 10.0 BUN 18 Creatinine 0.54 L Est Cr Clr Drug Dosing 139.7 Est GFR ( Amer) 121.6 Est GFR (Non-Af Amer) 104.9 BUN/Creatinine Ratio 34.1 H Glucose 127 H POC Glucose Osmolality Calcium 7.8 L Phosphorus Total Bilirubin 0.7 AST 37 ALT 33 Alkaline Phosphatase 211 H Troponin I < 0.015 Total Protein 6.0 L Albumin 2.1 L Globulin 3.9 Albumin/Globulin Ratio 0.5 L TSH Urine Osmolality Ur Random Sodium Ur Random Potassium Blood Type Blood Type Recheck Antibody Screen Crossmatch 10/30/19 10/30/19 10/30/19 09:50 09:50 17:56 WBC RBC Hgb Hct MCV MCH MCHC RDW Std Deviation RDW Coeff of Shantel Plt Count MPV Immature Gran % (Auto) Neut % (Auto) Lymph % (Auto) Otero % (Auto) Eos % (Auto) Baso % (Auto) Neut # (Auto) Lymph # (Auto) Otero # (Auto) Eos # (Auto) Baso # (Auto) Immature Gran # (Auto) Neutrophils % (Manual) Lymphocytes % (Manual) Monocytes % (Manual) Basophils % (Manual) Blast Cells % (Manual) Neutrophils # (Manual) Total Absolute Neuts Lymphocytes # (Manual) Total Abs Lymphocytes Monocytes # (Manual) Basophils # (Manual) Blast Cells # (Man) Platelet Estimate Microcytosis PT INR APTT PTT Ratio Sodium 118 L* Potassium 4.6 Chloride 86 L Carbon Dioxide 24 Anion Gap 8.0 BUN 17 Creatinine 0.49 L Est Cr Clr Drug Dosing 154.0 Est GFR ( Amer) 126.5 Est GFR (Non-Af Amer) 109.2 BUN/Creatinine Ratio 35.0 H Glucose 129 H POC Glucose Osmolality 248 L Calcium 8.0 L Phosphorus Total Bilirubin AST ALT Alkaline Phosphatase Troponin I Total Protein Albumin Globulin Albumin/Globulin Ratio TSH 2.520 Urine Osmolality Ur Random Sodium Ur Random Potassium Blood Type Blood Type Recheck Antibody Screen Crossmatch 10/30/19 10/30/19 10/30/19 18:04 18:04 20:49 WBC RBC Hgb Hct MCV MCH MCHC RDW Std Deviation RDW Coeff of Shantel Plt Count MPV Immature Gran % (Auto) Neut % (Auto) Lymph % (Auto) Otero % (Auto) Eos % (Auto) Baso % (Auto) Neut # (Auto) Lymph # (Auto) Otero # (Auto) Eos # (Auto) Baso # (Auto) Immature Gran # (Auto) Neutrophils % (Manual) Lymphocytes % (Manual) Monocytes % (Manual) Basophils % (Manual) Blast Cells % (Manual) Neutrophils # (Manual) Total Absolute Neuts Lymphocytes # (Manual) Total Abs Lymphocytes Monocytes # (Manual) Basophils # (Manual) Blast Cells # (Man) Platelet Estimate Microcytosis PT INR APTT PTT Ratio Sodium Potassium Chloride Carbon Dioxide Anion Gap BUN Creatinine Est Cr Clr Drug Dosing Est GFR ( Amer) Est GFR (Non-Af Amer) BUN/Creatinine Ratio Glucose POC Glucose 131 H Osmolality Calcium Phosphorus Total Bilirubin AST ALT Alkaline Phosphatase Troponin I Total Protein Albumin Globulin Albumin/Globulin Ratio TSH Urine Osmolality 646 Ur Random Sodium 48 Ur Random Potassium Blood Type Blood Type Recheck Antibody Screen Crossmatch 10/30/19 10/30/19 10/30/19 21:54 23:03 23:03 WBC RBC Hgb Hct MCV MCH MCHC RDW Std Deviation RDW Coeff of Shantel Plt Count MPV Immature Gran % (Auto) Neut % (Auto) Lymph % (Auto) Otero % (Auto) Eos % (Auto) Baso % (Auto) Neut # (Auto) Lymph # (Auto) Otero # (Auto) Eos # (Auto) Baso # (Auto) Immature Gran # (Auto) Neutrophils % (Manual) Lymphocytes % (Manual) Monocytes % (Manual) Basophils % (Manual) Blast Cells % (Manual) Neutrophils # (Manual) Total Absolute Neuts Lymphocytes # (Manual) Total Abs Lymphocytes Monocytes # (Manual) Basophils # (Manual) Blast Cells # (Man) Platelet Estimate Microcytosis PT INR APTT PTT Ratio Sodium 120 L Potassium Chloride Carbon Dioxide Anion Gap BUN Creatinine Est Cr Clr Drug Dosing Est GFR ( Amer) Est GFR (Non-Af Amer) BUN/Creatinine Ratio Glucose POC Glucose Osmolality Calcium Phosphorus Total Bilirubin AST ALT Alkaline Phosphatase Troponin I Total Protein Albumin Globulin Albumin/Globulin Ratio TSH Urine Osmolality 700 Ur Random Sodium 48 Ur Random Potassium 50.9 Blood Type Blood Type Recheck Antibody Screen Crossmatch 10/31/19 10/31/19 10/31/19 05:28 05:28 05:28 WBC 0.83 L* RBC 2.22 L Hgb 6.4 L* Hct 17.6 L* MCV 79.3 L MCH 28.8 MCHC 36.4 H RDW Std Deviation 46.6 H RDW Coeff of Shantel 16.4 H Plt Count 28 L* MPV 9.7 Immature Gran % (Auto) 0.0 Neut % (Auto) 16.9 Lymph % (Auto) 81.9 Otero % (Auto) 1.2 Eos % (Auto) 0.0 Baso % (Auto) 0.0 Neut # (Auto) 0.14 L* Lymph # (Auto) 0.68 L Otero # (Auto) 0.01 L Eos # (Auto) 0.00 Baso # (Auto) 0.00 Immature Gran # (Auto) 0.00 Neutrophils % (Manual) Lymphocytes % (Manual) Monocytes % (Manual) Basophils % (Manual) Blast Cells % (Manual) Neutrophils # (Manual) Total Absolute Neuts Lymphocytes # (Manual) Total Abs Lymphocytes Monocytes # (Manual) Basophils # (Manual) Blast Cells # (Man) Platelet Estimate SIGNIFIC DECREASED Microcytosis PT INR APTT PTT Ratio Sodium 123 L Potassium 3.9 D Chloride 91 L Carbon Dioxide 22 Anion Gap 10.0 BUN 17 Creatinine 0.35 L Est Cr Clr Drug Dosing 215.6 Est GFR ( Amer) 145.3 Est GFR (Non-Af Amer) 125.4 BUN/Creatinine Ratio 48.3 H Glucose 88 POC Glucose Osmolality Calcium 7.5 L Phosphorus 2.3 L Total Bilirubin AST ALT Alkaline Phosphatase Troponin I Total Protein Albumin 1.9 L Globulin Albumin/Globulin Ratio TSH Urine Osmolality Ur Random Sodium Ur Random Potassium Blood Type Blood Type Recheck A Positive Antibody Screen Crossmatch 10/31/19 10/31/19 06:56 07:24 WBC RBC Hgb Hct MCV MCH MCHC RDW Std Deviation RDW Coeff of Shantel Plt Count MPV Immature Gran % (Auto) Neut % (Auto) Lymph % (Auto) Otero % (Auto) Eos % (Auto) Baso % (Auto) Neut # (Auto) Lymph # (Auto) Otero # (Auto) Eos # (Auto) Baso # (Auto) Immature Gran # (Auto) Neutrophils % (Manual) Lymphocytes % (Manual) Monocytes % (Manual) Basophils % (Manual) Blast Cells % (Manual) Neutrophils # (Manual) Total Absolute Neuts Lymphocytes # (Manual) Total Abs Lymphocytes Monocytes # (Manual) Basophils # (Manual) Blast Cells # (Man) Platelet Estimate Microcytosis PT INR APTT PTT Ratio Sodium Potassium Chloride Carbon Dioxide Anion Gap BUN Creatinine Est Cr Clr Drug Dosing Est GFR ( Amer) Est GFR (Non-Af Amer) BUN/Creatinine Ratio Glucose POC Glucose 97 Osmolality Calcium Phosphorus Total Bilirubin AST ALT Alkaline Phosphatase Troponin I Total Protein Albumin Globulin Albumin/Globulin Ratio TSH Urine Osmolality Ur Random Sodium Ur Random Potassium Blood Type A Positive Blood Type Recheck Antibody Screen NEGATIVE Crossmatch See Detail Diagnostic Findings CTA chest: IMPRESSION: 1. No evidence for pulmonary embolus. 2. Generally similar right hilar masslike changes, adenopathy, as well as large right pleural effusion type changes. 3. Progressive interstitial infiltrate right upper lung and right pulmonary apex.
[2019-10-31] MEDS: LEVOFLOXACIN/D5W 750 MG/150 ML BAG IV SCH (14:20)
--- NOTE | 2019-10-31 15:12 | Pulmonary Consultation ---
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 This was compared to the CAT scan which was done 10/19/2019. The pleural effusion is less compared to before. The patient has complete consolidation of the right upper lobe at that time currently it seems to be more aerated than before. 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 Saturating 98% on room air at the time of examination at rest Given the patient is pancytopenic from recent chemotherapy and platelets being only 28,000 There is no acute indication to have thoracentesis. I did speak with Dr.V Rowan who is radiation oncologist. He is planning to have mapping of for his radiation done on Monday. It will help if there is minimal effusion to help with the radiation mapping. If the platelets are greater than 55,000 by Monday I will do thoracentesis on the patient. 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 It may contain grammatical, syntax or spelling errors. (2) DVT prophylaxis: (3) Pleural effusion: History of Present Illness Attending Physician: Bob Raymond MD History of Present Illness 74-year-old male with recently diagnosed small cell lung cancer from pleural effusion and recently completed first round of chemotherapy last week, hypertension, RADHA, hypothyroidism was admitted to the hospital with complaints of sharp right-sided chest pain. He does have mild cough which is nonproductive. Denies any hemoptysis. No fever or chills. The chest pain that he has is nonreproducible. Denies any fever or chills. Patient denies any dysphagia odynophagia right now. No recent travel history. Pulmonary was consulted for right-sided pleural effusion. At the time of examination today patient denies any issues with shortness of breath. The only complaint he has is the right-sided chest pain which he gets on movement sometimes. Allergies Allergy/AdvReac Type Severity Reaction Status Date / Time amoxicillin Allergy Severe HEAD TO Verified 10/30/19 11:51 TOE ITCHY RASH Home Medications Home Medications Medication Instructions Recorded Confirmed Type gabapentin 300 mg capsule 300 mg PO BID 10/22/18 10/30/19 History CPAP Machine #1 ea 02/21/19 09/19/19 Rx metoprolol tartrate 100 mg tablet 100 mg PO BID #60 tab 09/23/19 10/30/19 Rx guaifenesin [Mucinex] 1,200 mg PO BID #14 tab 10/07/19 10/30/19 Rx hydrocodone-homatropine 5 ml PO BID PRN 10/19/19 10/30/19 History lactulose 15 ml PO BID 10/19/19 10/30/19 History prednisone 20 mg PO QAM 10/19/19 10/30/19 History sodium chloride [Saline Nasal] 0 spray INTRANASAL DAILY PRN 10/19/19 10/30/19 History albuterol sulfate [Ventolin HFA] 2 puffs INH Q4 PRN #8 gm 10/20/19 10/30/19 Rx methimazole 5 - 10 mg PO BID 10/30/19 10/30/19 History Patient History Medical History (Updated 10/31/19 @ 13:00 by Ruth Rowan MD) AAA (abdominal aortic aneurysm) Acid indigestion Anxiety Atrial fibrillation and flutter Bradycardia Diverticulosis of colon Dyslipidemia Erectile dysfunction Graves disease Gross hematuria Hepatic steatosis 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 No problems noted. Denies family history of Ovarian cancer Prostate cancer Cardiac disorder Myocardial infarction Breast cancer Colorectal cancer Social History Smoking Status: Former smoker Tobacco Type: Cigarettes packs per day: 1; Years Smoked: 35; Second Hand Exposure: No; Do You Dip or Chew Tobacco: No; Tobacco Cessation Education Requested by Patient: No Hx Alcohol Use: Yes Alcohol type: beer Alcohol Intake Frequency: Monthly or Less Hx Substance Use: No Preferred Language: Beninese Communication Ability: Effective Visual Impairment: No Limitations Hearing Ability: Normal Data Processing Clerk Required: No Beliefs That Will Affect Care: None marital status: Current Living Situation: Spouse current occupational status: retired 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 How many Children do You have: 3 Other Information That Helps Us Care for You: No Feels Safe at Home: Yes Safety Concerns: Feels Safe At This Time Childhood Exposure to Second-Hand Smoke: Yes Dental Care, Regularly: No Physical Activity Frequency: Daily Seatbelt Use: always Sunscreen Use: Yes Review of Systems Review of Systems: All systems reviewed & are unremarkable except as noted in HPI & below Physical Exam Physical Exam: Constitutional: No acute distress HEENT: EOMI, PERRLA, pale conjunctiva Respiratory system: Decreased air entry on the right side, no wheeze, no rhonchi, minimal crackles right side CVS: S1-S2 positive, no murmurs or gallops Abdomen: Soft, nontender, nondistended, positive bowel sounds x4 Extremities: +2 pulses bilaterally radialis/ dorsalis pedis, no cyanosis, no edema Neuro: Awake alert oriented x3 Psych: Normal mood and affect G/U: No Nelson Skin: no rashes, warm and dry Lymphatic: no cervical or axillary lymphadenopathy Results & Data Results & Data ([facility]) Vital Signs (Past 12 Hours) Vital Signs Temp Pulse Pulse Pulse Resp BP BP 10/31/19 14:42 36.3 C L 74 16 134/78 10/31/19 14:21 36.7 C 73 16 154/91 H 10/31/19 13:31 37.3 C 73 16 139/80 10/31/19 12:22 37.2 C 75 18 150/80 H 10/31/19 11:52 37.3 C 73 18 136/83 10/31/19 11:37 36.9 C 69 16 122/75 10/31/19 11:17 36.9 C 70 16 121/75 10/31/19 07:25 36.8 C 89 18 133/75 10/31/19 03:38 36.5 C 78 18 138/80 Pulse Ox 10/31/19 14:42 96 10/31/19 14:21 95 10/31/19 13:31 10/31/19 12:22 98 10/31/19 11:52 96 10/31/19 11:37 95 10/31/19 11:17 96 10/31/19 07:25 96 10/31/19 03:38 95 10/31/19 05:28 10/31/19 10:27 PG Care Time/CCT Total # of Minutes Spent Total Time Spent with Patient: Total time spent is greater than 50% in coordination of care (as documented) at patient's floor/unit and/or counseling patient: Coding Level of Care Code 45907 Initial Inpt Care Lvl 3 Diagnoses 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
[2019-10-31] MEDS: SODIUM CHLORIDE 1 GM TABLET PO SCH (15:53)
[2019-10-31] MEDS ORDERED: SODIUM CHLORIDE 3 % 150 ML IV ONE ×4 (19:14→22:20)
[2019-10-31] MEDS ORDERED: FILGRASTIM 480 MCG/1.6 ML VIAL SQ ONE (19:45)
[2019-11-01 06:51] LABS: BUN Creatinine Ratio 45.6 (10-20); Calcium 7.9 mg/dl (8.5-10.1); Creatinine Clr Calc Pharmacy 198.6 ml/min; Est GFR (African American) 140.5; Est GFR (Non-African American) 121.2; Potassium 3.8 mmol/L (3.5-5.1)
[2019-11-01 06:52] LABS: Phosphorus 1.8 mg/dl (2.5-4.9)
[2019-11-01] MEDS ORDERED: SODIUM PHOSPHATE 3 MMOL/1 ML INFUSION IV STA (07:33)
[2019-11-01] MEDS: methIMAzole 5 MG TABLET PO SCH ×2 (07:59→20:16)
[2019-11-01] MEDS: predniSONE 20 MG TAB PO SCH (08:00)
[2019-11-01] MEDS: guaiFENesin 600 MG TABCR PO SCH ×2 (08:00→20:14)
[2019-11-01] MEDS: GABAPENTIN 300 MG CAP PO SCH ×2 (08:00→20:17)
[2019-11-01] MEDS ORDERED: SODIUM PHOSPHATE 15 MMOL in SODIUM CHLORIDE 0.9% 250 ML IV ONE (08:00)
[2019-11-01] MEDS: NYSTATIN SUSP 500,000 U/5 ML UDC PO SCH ×4 (08:01→20:20)
[2019-11-01] MEDS: SODIUM CHLORIDE 1 GM TABLET PO SCH ×3 (08:01→20:15)
[2019-11-01] MEDS: METOPROLOL TARTRATE 100 MG TAB PO SCH ×2 (08:01→20:16)
[2019-11-01] MEDS: LACTULOSE SYRUP 10 GM/15 ML BTL 960 ML PO SCH ×2 (08:03→20:19)
[2019-11-01] MEDS: INSULIN ASPART 100 UNITS/ML 3 ML PEN SC SCH ×4 (08:03→21:05)
[2019-11-01] MEDS ORDERED: FLUCONAZOLE 100 MG TAB PO SCH (09:00)
[2019-11-01] MEDS ORDERED: ALBUMIN 25% IV SCH (09:00)
[2019-11-01] MEDS ORDERED: DEXTROSE 5% IV SCH (09:00)
[2019-11-01] MEDS ORDERED: FILGRASTIM IV SCH (09:00)
[2019-11-01 10:33] LABS: Hematocrit (blood only) 24.3 % (42-52); Hemoglobin 8.8 g/dL (14.0-18.0); Mean Corpuscular Hgb Conc 36.2 g/dL (32-36); Mean Corpuscular Volume 80.2 fL (80-100); Nucleated RBC # (auto) 0.02 K/uL (0-0); Nucleated RBC % (auto) 3.5 %; Platelet Count 21 K/uL (130-400); RDW Standard Deviation 45.9 fL (36.4-46.3); Red Blood Count 3.03 M/uL (4.7-6.1); White Blood Count 0.68 K/uL (4.8-10.8)
[2019-11-01 10:35] LABS: Eosinophils # (auto) 0.01 K/uL (0-0.5); Eosinophils % (auto) 1.5 %; Immature Granulocytes # (auto) 0.01 K/uL (0.00-0.02); Immature Granulocytes % (auto) 1.5 %; Lymphocytes # (auto) 0.58 K/uL (1.2-3.4); Lymphocytes % (auto) 85.3 %; Monocytes # (auto) 0.01 K/uL (0.11-0.59); Monocytes % (auto) 1.5 %; Neutrophils # (auto) 0.07 K/uL (1.4-6.5); Neutrophils % (auto) 10.2 %; Platelet Estimate SIGNIFIC DECREASED (Normal); Poikilocytosis Present
--- NOTE | 2019-11-01 10:53 | Hospitalist Progress Note ---
Date of Service November 01, 2019 Assessment & Plan (1) Hyponatremia: acute/chronic. 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 Patient had mild improvement with fluid restriction and hypertonic saline nephrology is providing oversight has transition oral salt supplementation TSH wnl. patient has been taking prednisone daily since September. this was for appetite stimulation, will decrease dose as poor appetite response, trying marinol appreciate Dr Blackwood's consult and insight. (2) Right-sided chest pain: suspect 2nd to worsening malignant effusion on right, right-sided lung ca, and potentially a progressive post-obstructive pneumonia. ischemic chest pain highly unlikely. pulmonary consult for malignant effusion - pleurX catheter to be considered once his hemoglobin and platelet count have improved, hopeful to have improved bonemarrow response soon abx for RUL pneumonia. Patient has changes of his parenchyma in addition to his pleural effusion rad onc / onc consults in am for lung ca, radiation oncology considering initiating treatment on Monday, November 03. CTA neg for PE. (3) Postobstructive pneumonia: treated for such in September. uncertain if CTA findings in RUL represent new pneumonia or old findings. in light of severe neutropenia will treat for a recurrent post-obstructive pneumonia with levaquin 750mg daily. blood cx's sent prior to abx initiation. (4) Candidiasis of mouth and esophagus: severe. I ALSO SUSPECT CANDIDAL ESOPHAGITIS GIVEN HIS DYSPHAGIA. nystatin 5cc qid - swish/swallow. (5) Neutropenia: spoke with Dr Crowley - neupogen 480mcg SC x 1. neutropenic precautions. 10/31 repeating Neupogen dosing (6) Pancytopenia due to antineoplastic chemotherapy: chemo for small cell lung ca was ~[address] Crowley formally consulted (7) Small cell lung cancer: right sided. very large tumor burden. worsening right-sided effusion which is malignant. (8) Severe protein-calorie malnutrition: ongoing weight loss since hospitalization in September, despite prednisone daily for appetite stimulation. 2nd to cancer. will try marinol, pt will explore outpt cannabis card, reduce prednisone tapering to avoid crisis (9) Hyperthyroidism: TSH wnl today. methimazole 10mg qam methimazole 5mg qhs follows with Dr Darnell (10) Obstructive sleep apnea syndrome: CPAP hs (11) Hypertension: controlled (12) Prediabetes: DM diet novolog for correction/carb coverage BSGs will be worse with prednisone, stress, caution with reducing prednisone (13) Anemia: (14) Atrial fibrillation and flutter: hospital stay earlier this summer for such. paroxysmal in setting of hyperthyroidism. controlled; in NSR. cont BB. (15) DVT prophylaxis: platelets <50 chemical means contraindicated at this moment; thus, SCDs extensively updated at bedside 10/31 Admission and Anticipated Discharge Date Admission Date: October 30, 2019 Subjective Patient looks much improved despite his lower blood counts. We are hopeful waiting in optimism that his Neupogen will improve his neutrophil count is offering no untoward side effects from his pleural effusion and possible postobstructive pneumonia. The patient is complaining of poor appetite and is agreeable to trying Marinol for appetite stimulation. His is at the bedside and all questions were answered Review of Systems Review of Systems: Mild distress and fatigue no headache, blurry or double vision no speech or swallowing issues no chest pain, pressure or palpitations some dyspnea on exertion no abdominal pain, nausea or vomiting, diarrhea or constipation no dysuria, hematuria or frequency no focal joint pain or swelling no back pain, CVA tenderness or radicular pain no bruising, bleeding or rashes no focal signs of weakness or numbness or altered sensation no complaints or anxiety or depression. Ear, Nose, Mouth, Throat: + dysphagia (lower portion of esophagus, with solids) Gastrointestinal: + vomiting (with chemotherapy ) Endocrine: ) Physical Exam Physical Exam: The patient appeared well nourished and normally developed. Vital signs as documented. Head exam is normocephalic atraumatic no scleral icterus Neck is without JVD, thyromegaly, or carotid bruits. Lungs are absent breath sounds to the right lung Cardiac exam, irregular but rate controlled Abdominal exam reveals normal bowel sounds, soft non tender, no masses Extremities are nonedematous and both pedal pulses are normal. Neurologic exam is alert and oriented, no focal loss of strength or sensation Skin is without bruises or rashes Psychologically is without concerns for anxiety or depression Results & Data Results & Data ([facility]) Vital Signs (Past 12 Hours) Vital Signs Temp Pulse Resp BP Pulse Ox 11/01/19 07:29 98.2 F 83 18 146/79 H 99 11/01/19 03:17 98.1 F 80 19 158/83 H 98 10/31/19 23:00 97.5 F L 64 18 131/74 96 PG Care Time/CCT Total # of Minutes Spent Total Time Spent with Patient: Total time spent is greater than 50% in coordination of care (as documented) at patient's floor/unit and/or counseling patient: Coding Level of Care Code 90088 Subseq Hosp Care Lvl 3 Diagnoses Hyponatremia E87.1 Right-sided chest pain R07.9 Postobstructive pneumonia J18.9 Candidiasis of mouth and esophagus B37.81; B37.0 Neutropenia D70.1; T45.1X5A Neutropenia type: secondary to cancer chemotherapy Pancytopenia due to antineoplastic chemotherapy D61.810; T45.1X5A Small cell lung cancer C34.90 Severe protein-calorie malnutrition E43 Hyperthyroidism E05.90 Obstructive sleep apnea syndrome G47.33 Hypertension I10 Hypertension type: essential hypertension Prediabetes R73.03 Anemia D64.9 Anemia type: unspecified type Atrial fibrillation and flutter I48.91; I48.92 DVT prophylaxis Z29.9 (1) Anemia Anemia type: unspecified type Qualified Code(s): D64.9 - Anemia, unspecified (2) Neutropenia Neutropenia type: secondary to cancer chemotherapy Qualified Code(s): D70.1 - Agranulocytosis secondary to cancer chemotherapy; T45.1X5A - Adverse effect of antineoplastic and immunosuppressive drugs, initial encounter (3) Hypertension Hypertension type: essential hypertension Qualified Code(s): I10 - Essential (primary) hypertension
--- NOTE | 2019-11-01 10:59 | Nephrology Progress Note ---
Date of Service November 01, 2019 Assessment & Plan (1) Acute hyponatremia: Acute on chronic hyponatremia. 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 Improving appropriately with therapy. Fluid restriction of 1 liter daily. Oral sodium chloride 1 gram twice daily ordered. Will repeat a serum sodium this afternoon at 3 o'clock. Serum potassium has been acceptable. Patient was receiving IV replacement of phosphorus. Throughout the hospitalization will continue try to decrease obligatory fluid intake. May benefit from some standing oral Phos NaK. Encourage high protein diet. Document I/O's. Continue to monitor metabolic profile with phosphorus as well as serum magnesium a daily basis at least. (2) Small cell lung cancer: Management per oncology. PRBC support provided yesterday. (3) Hyponatremia: Chronic. Baseline ~132 mmol/L. Admission and Anticipated Discharge Date Admission Date: October 30, 2019 Subjective No acute events overnight. Appetite remains poor. Denies excessive thirst. Some dry mouth reported. Receptive to decreasing fluid restriction to 1 liter daily. Overall reports some improvement following packed red cell transfusion yesterday. Remains weak and tired. Difficulty sleeping noted. Review of Systems Review of Systems: All systems reviewed & are unremarkable except as noted in HPI & below Physical Exam Physical Exam: Limited due to COVID 19 pandemic. Constitutional: + thin; no acute distress Eyes: no scleral abnormality and no corneal abnormality ENMT: Mouth: no oral mucosal abnormality and oral mucous membranes not dry Neck: normal visual inspection and trachea midline Respiratory: normal respiratory effort Auscultation: lungs clear to auscultation bilaterally Cardiovascular: Rate/Rhythm: regular rate Heart Sounds: normal S1 and normal S2 Extremities: no edema Musculoskeletal: Extremities: no cyanosis and no clubbing Skin: normal turgor; no lesions Neurologic: Motor/Sensory: no tremor and no asterixis Psychiatric: Orientation: alert and oriented x 3 Results & Data ([facility]) Vital Signs (Past 12 Hours) Vital Signs Temp Pulse Resp BP Pulse Ox 11/01/19 07:29 36.8 C 83 18 146/79 H 99 11/01/19 03:17 36.7 C 80 19 158/83 H 98 10/31/19 23:00 36.4 C L 64 18 131/74 96 Laboratory Results Laboratory Results - last 24 hr 10/31/19 10/31/19 10/31/19 06:56 11:46 16:40 WBC RBC Hgb Hct MCV MCH MCHC RDW Std Deviation RDW Coeff of Shantel Plt Count Immature Gran % (Auto) Neut % (Auto) Lymph % (Auto) Day % (Auto) Eos % (Auto) Baso % (Auto) Neut # (Auto) Lymph # (Auto) Day # (Auto) Eos # (Auto) Baso # (Auto) Immature Gran # (Auto) Absolute Nucleated RBC Nucleated RBC % (auto) Platelet Estimate Poikilocytosis Sodium Potassium Chloride Carbon Dioxide Anion Gap BUN Creatinine Est Cr Clr Drug Dosing Est GFR ( Amer) Est GFR (Non-Af Amer) BUN/Creatinine Ratio Glucose POC Glucose 107 H 141 H Calcium Phosphorus Albumin Blood Type A Positive Antibody Screen NEGATIVE Crossmatch See Detail 10/31/19 10/31/19 10/31/19 16:50 21:15 21:44 WBC RBC Hgb Hct MCV MCH MCHC RDW Std Deviation RDW Coeff of Shantel Plt Count Immature Gran % (Auto) Neut % (Auto) Lymph % (Auto) Day % (Auto) Eos % (Auto) Baso % (Auto) Neut # (Auto) Lymph # (Auto) Day # (Auto) Eos # (Auto) Baso # (Auto) Immature Gran # (Auto) Absolute Nucleated RBC Nucleated RBC % (auto) Platelet Estimate Poikilocytosis Sodium 123 L 124 L Potassium Chloride Carbon Dioxide Anion Gap BUN Creatinine Est Cr Clr Drug Dosing Est GFR ( Amer) Est GFR (Non-Af Amer) BUN/Creatinine Ratio Glucose POC Glucose 128 H Calcium Phosphorus Albumin Blood Type Antibody Screen Crossmatch 11/01/19 11/01/19 11/01/19 05:35 07:27 09:53 WBC RBC Hgb Hct MCV MCH MCHC RDW Std Deviation RDW Coeff of Shantel Plt Count Immature Gran % (Auto) Neut % (Auto) Lymph % (Auto) Day % (Auto) Eos % (Auto) Baso % (Auto) Neut # (Auto) Lymph # (Auto) Day # (Auto) Eos # (Auto) Baso # (Auto) Immature Gran # (Auto) Absolute Nucleated RBC Nucleated RBC % (auto) Platelet Estimate Poikilocytosis Sodium 124 L 126 L Potassium 3.8 Chloride 94 L Carbon Dioxide 23 Anion Gap 7.0 BUN 17 Creatinine 0.38 L Est Cr Clr Drug Dosing 198.6 Est GFR ( Amer) 140.5 Est GFR (Non-Af Amer) 121.2 BUN/Creatinine Ratio 45.6 H Glucose 92 POC Glucose 108 H Calcium 7.9 L Phosphorus 1.8 L Albumin 2.0 L Blood Type Antibody Screen Crossmatch 11/01/19 09:53 WBC 0.68 L* RBC 3.03 L Hgb 8.8 L Hct 24.3 L MCV 80.2 MCH 29.0 MCHC 36.2 H RDW Std Deviation 45.9 RDW Coeff of Shantel 16.0 H Plt Count 21 L* Immature Gran % (Auto) 1.5 Neut % (Auto) 10.2 Lymph % (Auto) 85.3 Day % (Auto) 1.5 Eos % (Auto) 1.5 Baso % (Auto) 0.0 Neut # (Auto) 0.07 L* Lymph # (Auto) 0.58 L Day # (Auto) 0.01 L Eos # (Auto) 0.01 Baso # (Auto) 0.00 Immature Gran # (Auto) 0.01 Absolute Nucleated RBC 0.02 H Nucleated RBC % (auto) 3.5 Platelet Estimate SIGNIFIC DECREASED Poikilocytosis Present Sodium Potassium Chloride Carbon Dioxide Anion Gap BUN Creatinine Est Cr Clr Drug Dosing Est GFR ( Amer) Est GFR (Non-Af Amer) BUN/Creatinine Ratio Glucose POC Glucose Calcium Phosphorus Albumin Blood Type Antibody Screen Crossmatch PG Care Time/CCT Total # of Minutes Spent Total Time Spent with Patient: Total time spent is greater than 50% in coordination of care (as documented) at patient's floor/unit and/or counseling patient: Coding Level of Care Code 12791 Subseq Hosp Care Lvl 3 Diagnoses Acute hyponatremia E87.1 Small cell lung cancer C34.90 Hyponatremia E87.1
[2019-11-01] MEDS ORDERED: FILGRASTIM 480 MCG/1.6 ML VIAL SC ONE (11:00)
--- NOTE | 2019-11-01 12:27 | Pulmonology Progress Note ---
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 This was compared to the CAT scan which was done 10/19/2019. The pleural effusion is less compared to before. The patient has complete consolidation of the right upper lobe at that time currently it seems to be more aerated than before. 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 Saturating 98% on room air at the time of examination at rest Given the patient is pancytopenic from recent chemotherapy and platelets being only 28,000 There is no acute indication to have thoracentesis. I did speak with Dr.V Rowan who is radiation oncologist. He is planning to have mapping of for his radiation done on Monday. It will help if there is minimal effusion to help with the radiation mapping. If the platelets are greater than 55,000 by Monday I will do thoracentesis on the patient. 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 It may contain grammatical, syntax or spelling errors. (2) DVT prophylaxis: (3) Pleural effusion: Admission and Anticipated Discharge Date Admission Date: October 30, 2019 Review of Systems Review of Systems: All systems reviewed & are unremarkable except as noted in Subjective Physical Exam Physical Exam: Constitutional: No acute distress HEENT: EOMI, PERRLA, pale conjunctiva Respiratory system: Decreased air entry on the right side, no wheeze, positive rhonchi right upper lobe, minimal crackles right side CVS: S1-S2 positive, no murmurs or gallops Abdomen: Soft, nontender, nondistended, positive bowel sounds x4 Extremities: +2 pulses bilaterally radialis/ dorsalis pedis, no cyanosis, no edema Neuro: Awake alert oriented x3 Psych: Normal mood and affect G/U: No Nelson Skin: no rashes, warm and dry Lymphatic: no cervical or axillary lymphadenopathy Results & Data Results & Data ([facility]) Vital Signs (Past 12 Hours) Vital Signs Temp Pulse Pulse Resp BP Pulse Ox 11/01/19 12:18 36.3 C L 70 19 151/82 H 96 11/01/19 10:45 90 11/01/19 07:29 36.8 C 83 18 146/79 H 99 11/01/19 03:17 36.7 C 80 19 158/83 H 98 11/01/19 09:53 11/01/19 09:53 PG Care Time/CCT Total # of Minutes Spent Total Time Spent with Patient: Total time spent is greater than 50% in coordination of care (as documented) at patient's floor/unit and/or counseling patient: Coding Diagnoses 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
[2019-11-01] MEDS: LEVOFLOXACIN/D5W 750 MG/150 ML BAG IV SCH (13:42)
--- NOTE | 2019-11-01 17:17 | Pulmonology Progress Note ---
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 This was compared to the CAT scan which was done 10/19/2019. The pleural effusion is less compared to before. The patient has complete consolidation of the right upper lobe at that time currently it seems to be more aerated than before. 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 Saturating well on room air. There is no acute indication to have thoracentesis. 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 No plan for thoracentesis since patient is asymptomatic and there is high risk for bleeding. Case was discussed with radiation oncologist. Will sign off. Recall if needed. Please note the above document was generated using voice recognition software. It may contain grammatical, syntax or spelling errors. (2) DVT prophylaxis: (3) Pleural effusion: Admission and Anticipated Discharge Date Admission Date: October 30, 2019 Subjective Patient seen and examined at bedside. No acute distress. Patient denies any shortness of breath. He did have right-sided chest pain overnight which is not that severe. Good appetite. No hematuria, no hematochezia. No nausea or vomiting. No hemoptysis. Review of Systems Review of Systems: All systems reviewed & are unremarkable except as noted in Subjective Physical Exam Physical Exam: Constitutional: No acute distress HEENT: EOMI, PERRLA, pale conjunctiva Respiratory system: Decreased air entry on the right side, no wheeze, right upper lobe rhonchi, minimal crackles right side CVS: S1-S2 positive, no murmurs or gallops Abdomen: Soft, nontender, nondistended, positive bowel sounds x4 Extremities: +2 pulses bilaterally radialis/ dorsalis pedis, no cyanosis, minimal edema bilateral lower extremity Neuro: Awake alert oriented x3 Psych: Normal mood and affect G/U: No Nelson Skin: no rashes, warm and dry Lymphatic: no cervical or axillary lymphadenopathy Results & Data Results & Data ([facility]) Vital Signs (Past 12 Hours) Vital Signs Temp Pulse Pulse Resp BP Pulse Ox 11/01/19 15:08 36.8 C 77 19 116/70 98 11/01/19 12:18 36.3 C L 70 19 151/82 H 96 11/01/19 10:45 90 11/01/19 07:29 36.8 C 83 18 146/79 H 99 11/01/19 09:53 11/01/19 14:57 PG Care Time/CCT Total # of Minutes Spent Total Time Spent with Patient: Total time spent is greater than 50% in coordination of care (as documented) at patient's floor/unit and/or counseling patient: Coding Level of Care Code 46364 Subseq Hosp Care Lvl 3 Diagnoses 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
[2019-11-01] MEDS: LACTULOSE SYRUP 20 GM/30 ML UDC PO SCH (20:20)
[2019-11-02 08:01] LABS: Hematocrit (blood only) 23.7 % (42-52); Hemoglobin 8.5 g/dL (14.0-18.0); Mean Corpuscular Volume 80.9 fL (80-100); Platelet Count 15 K/uL (130-400); RDW Coefficient of Variation 16.3 % (11.5-14.5); RDW Standard Deviation 46.7 fL (36.4-46.3); Red Blood Count 2.93 M/uL (4.7-6.1); White Blood Count 0.85 K/uL (4.8-10.8)
[2019-11-02 08:06] LABS: Eosinophils # (auto) 0.01 K/uL (0-0.5); Eosinophils % (auto) 1.2 %; Lymphocytes # (auto) 0.78 K/uL (1.2-3.4); Lymphocytes % (auto) 91.8 %; Mean Corpuscular Hgb Conc 35.9 g/dL (32-36); Monocytes # (auto) 0.03 K/uL (0.11-0.59); Monocytes % (auto) 3.5 %; Neutrophils # (auto) 0.03 K/uL (1.4-6.5); Neutrophils % (auto) 3.5 %; Nucleated RBC # (auto) 0.04 K/uL (0-0); Nucleated RBC % (auto) 4.9 %; Platelet Estimate SIGNIFIC DECREASED (Normal)
[2019-11-02 08:18] LABS: BUN Creatinine Ratio 38.6 (10-20); Calcium 8.3 mg/dl (8.5-10.1); Creatinine Clr Calc Pharmacy 175.5 ml/min; Est GFR (African American) 133.5; Est GFR (Non-African American) 115.2; Potassium 3.9 mmol/L (3.5-5.1)
[2019-11-02] MEDS: INSULIN ASPART 100 UNITS/ML 3 ML PEN SC SCH ×4 (08:27→21:28)
[2019-11-02] MEDS: methIMAzole 5 MG TABLET PO SCH ×2 (08:29→21:08)
[2019-11-02] MEDS: METOPROLOL TARTRATE 100 MG TAB PO SCH ×2 (08:29→21:09)
[2019-11-02] MEDS: GABAPENTIN 300 MG CAP PO SCH ×2 (08:29→21:09)
[2019-11-02] MEDS: NYSTATIN SUSP 500,000 U/5 ML UDC PO SCH ×4 (08:30→21:09)
[2019-11-02] MEDS: predniSONE 10 MG TABLET PO SCH (08:30)
[2019-11-02] MEDS: SODIUM CHLORIDE 1 GM TABLET PO SCH ×2 (08:30→21:08)
[2019-11-02] MEDS: guaiFENesin 600 MG TABCR PO SCH ×2 (08:30→21:09)
[2019-11-02] MEDS: LACTULOSE SYRUP 20 GM/30 ML UDC PO SCH (08:31)
[2019-11-02] MEDS: LACTULOSE SYRUP 10 GM/15 ML BTL 960 ML PO SCH ×3 (08:31→21:10)
[2019-11-02] MEDS ORDERED: SODIUM CHLORIDE 1 GM TABLET PO ONE (09:00)
--- NOTE | 2019-11-02 11:16 | Nephrology Progress Note ---
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 This was treated w/ 300 cc 3% NaCl * Sodium improved to 125 this morning. Patient is without neurologic deficit. He has been transitioned to oral NaCl therapy * Will increase NaCl to 2g po BID * Start Furosemide 20 mg po BID to lower urine osmolality * Continue 1 L/day oral fluid restriction * Monitor daily PRP (outpatient sodium has been 132) (2) Small cell lung cancer: * Oncology consult reviewed today * Extensive small cell lung CA diagnosed 10/05/19 * Recently completed 1st cycle carboplatin, etoposide, atezolizumab (salvage therapy) * Undergoing evaluation for palliative radiation therapy (3) Pancytopenia: * Related to chemotherapy * GCSF and blood have been ordered Admission and Anticipated Discharge Date Admission Date: October 30, 2019 Subjective Mr. Mart was seen & examined in his hospital room this morning. He reports improved strength. He is tolerating oral NaCl without side effect. Review of Systems Constitutional: no fever Eyes: no problem reported Ear, Nose, Mouth, Throat: no problem reported Respiratory: no dyspnea Cardiovascular: no chest pain and no edema Gastrointestinal: no abdominal pain and no diarrhea/loose stools Genitourinary: no dysuria and no urinary hesitancy Musculoskeletal: no back pain Integumentary: no rash Neurologic: no dizziness and no confusion Physical Exam Constitutional: not in distress Eyes: PERRL, conjunctivae normal, anicteric sclerae ENMT: external ear and nose normal, oropharynx normal Neck: trachea midline, no thyromegaly Respiratory: normal respiratory effort, lungs clear to auscultation Cardiovascular: RRR, no murmur, no edema Gastrointestinal (Abdomen): normal bowel sounds, soft, nontender, no hepatosplenomegaly Musculoskeletal: Extremities: no cyanosis Skin: no rashes, warm and dry Neurologic: awake; not confused Results & Data ([facility]) Vital Signs (Past 12 Hours) Vital Signs Temp Pulse Pulse Resp BP BP Pulse Ox 11/02/19 09:00 74 11/02/19 06:57 36.6 C 80 16 135/75 97 11/02/19 04:00 36.5 C 78 19 146/80 H 97 11/02/19 00:00 68 11/01/19 23:35 36.3 C L 70 18 146/77 H 96 Laboratory Results Laboratory Tests 10/30/19 11/01/19 11/02/19 23:03 09:53 07:26 WBC 0.85 L* Hgb 8.8 L Hct 24.3 L Plt Count 21 L* Sodium Potassium Chloride Carbon Dioxide BUN Creatinine Glucose Calcium Urine Osmolality 700 11/02/19 07:26 WBC Hgb Hct Plt Count Sodium 125 L Potassium 3.9 Chloride 93 L Carbon Dioxide 23 BUN 17 Creatinine 0.43 L Glucose 102 H Calcium 8.3 L Urine Osmolality PG Care Time/CCT Total # of Minutes Spent Total Time Spent with Patient: Total time spent is greater than 50% in coordination of care (as documented) at patient's floor/unit and/or counseling patient: Coding Level of Care Code 74777 Subseq Hosp Care Lvl 3 Diagnoses Acute hyponatremia E87.1 Small cell lung cancer C34.90 Pancytopenia D61.818
[2019-11-02] MEDS: LEVOFLOXACIN/D5W 750 MG/150 ML BAG IV SCH (12:30)
--- NOTE | 2019-11-02 15:23 | Progress Notes ---
DATE: 11/02/2019 DIAGNOSES: 1. Right-sided chest pain/pleuritis attributable to malignant effusion. 2. Extensive stage small cell lung cancer. 3. Pancytopenia attributable to chemotherapeutic effect. 4. Hypoalbuminemia. 5. Oral candidiasis. 6. Syndrome of inappropriate antidiuretic hormone. 7. Hypophosphatemia. SUBJECTIVE: The patient was seen and examined at bedside this morning. Spirits are definitely brighter. His is here with him this afternoon. He is starting to ____ a bit more. Read Pulmonary's clinical note outlining not to perform thoracentesis because the patient is asymptomatic and higher risk of bleeding. The patient unfortunately remains very myelosuppressed, which concerns me for possible bone marrow involvement. I definitely need to consider dose adjustment upon resumption of therapy. The patient's nutritional status also needs work. Nursing reports no overnight difficulties and will continue to work on his faltering neutrophil count. He has been receiving granulocyte colony stimulating factor daily for the past 3 days. OBJECTIVE: GENERAL: A very pleasant 74-year-old gentleman, in no acute distress. VITAL SIGNS: Temperature 36.5, pulse 82, respiratory rate 16, blood pressure 134/78. SKIN: Without rash or lesion. HEENT: Buccal mucosa does look better, moist, no ulcerations or lesions. HEART: Regular rate and rhythm. LUNGS: Diminished breath sounds in the right posterior base. ABDOMEN: Soft, nontender, nondistended. EXTREMITIES: No clubbing, cyanosis or edema. NEUROLOGIC: He is grossly intact. LABORATORY DATA: WBC count 850, hemoglobin 8.5, platelet count 15,000. Sodium 125, potassium 3.9, chloride 93, carbon dioxide 23, creatinine 0.43, BUN 17. IMPRESSION: 1. Right-sided chest wall pain. 2. Hyponatremia/syndrome of inappropriate antidiuretic hormone. 3. Extensive stage small cell lung cancer. 4. Pancytopenia attributable to chemotherapeutic effect. 5. Severe protein-calorie malnutrition. PLAN: I had a very nice discussion with the patient and his today at bedside. I explained I remain concerned with his protracted myelosuppression that indeed a 20%-25% dose reduction may be in order before we resume therapy. I suspect his next cycle may be delayed by a week because of his protracted hematopoietic recovery. He is slowly making strides with his diet and p.o. intake which is encouraging. Sodium seems to have stabilized. Radiation plans to provide some palliative RT to the right bronchus. His platelets are at the threshold. If tomorrow they fall below 15,000, I would provide single donor plateletpheresis. We will continue to provide supportive care and hopefully he can stay on course to continue treatment. Thank you very much for allowing me to participate in his care.
--- NOTE | 2019-11-02 15:35 | Hospitalist Progress Note ---
Date of Service November 02, 2019 Assessment & Plan (1) Hyponatremia: acute/chronic. 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 Patient had mild improvement with fluid restriction and hypertonic saline nephrology is providing oversight has transition oral salt supplementation 1 gm bid TSH wnl. patient has been taking prednisone daily since September. this was for appetite stimulation, will decrease dose as poor appetite response, trying marinol appreciate nephrology consult (2) Right-sided chest pain: resolved suspect 2nd to worsening malignant effusion on right, right-sided lung ca, and potentially a progressive post-obstructive pneumonia. ischemic chest pain highly unlikely. pulmonary consult for malignant effusion - pleurX catheter to be considered once his hemoglobin and platelet count have improved, hopeful to have improved bonemarrow response soon abx for RUL pneumonia. Patient has changes of his parenchyma in addition to his pleural effusion rad onc / onc consults in am for lung ca, radiation oncology considering initiating treatment on Monday, November 03. CTA neg for PE. (3) Postobstructive pneumonia: treated for such in September. uncertain if CTA findings in RUL represent new pneumonia or old findings. in light of severe neutropenia will treat for a recurrent post-obstructive pneumonia with levaquin 750mg daily. blood cx's sent prior to abx initiation. (4) Candidiasis of mouth and esophagus: severe. I ALSO SUSPECT CANDIDAL ESOPHAGITIS GIVEN HIS DYSPHAGIA. nystatin 5cc qid - swish/swallow. (5) Neutropenia: spoke with Dr Crowley - neupogen 480mcg SC x 1. neutropenic precautions. 10/31 repeating Neupogen dosing (6) Pancytopenia due to antineoplastic chemotherapy: chemo for small cell lung ca was ~1 week ago. pt did have transfusion of 2 u prbc this stay current platelet counts are low but no active bleeding Dr Crowley formally consulted (7) Small cell lung cancer: right sided. very large tumor burden. worsening right-sided effusion which is malignant. (8) Severe protein-calorie malnutrition: ongoing weight loss since hospitalization in September, despite prednisone daily for appetite stimulation. 2nd to cancer. started marinol 11/01/19 , pt will explore outpt cannabis card, reduce prednisone tapering to avoid crisis (9) Hyperthyroidism: TSH wnl today. methimazole 10mg qam methimazole 5mg qhs follows with Dr Darnell (10) Obstructive sleep apnea syndrome: CPAP hs (11) Hypertension: controlled (12) Prediabetes: DM diet novolog for correction/carb coverage BSGs will be worse with prednisone, stress, caution with reducing prednisone (13) Anemia: (14) Atrial fibrillation and flutter: hospital stay earlier this summer for such. paroxysmal in setting of hyperthyroidism. controlled; in NSR. cont BB. no full AC in setting of thrombocytopenia (15) DVT prophylaxis: platelets <50 chemical means contraindicated at this moment; thus, SCDs extensively updated at bedside 10/31 Admission and Anticipated Discharge Date Admission Date: October 30, 2019 Subjective Patient is feeling somewhat tired today little worse so than 1 day prior. He has no focal complaints or concerns. He is discouraged about the amount of food he is getting his he is on the thousand cc fluid restriction. I spoke with Dr. Rodrigues will increase this to 1500 and change consistency of his foods. He is having no significant odynophagia with his oral thrush this being treated Review of Systems Review of Systems: Mild distress and fatigue no headache, blurry or double vision no speech or swallowing issues no chest pain, pressure or palpitations some dyspnea on exertion no abdominal pain, nausea or vomiting, diarrhea or constipation no dysuria, hematuria or frequency no focal joint pain or swelling no back pain, CVA tenderness or radicular pain no bruising, bleeding or rashes no focal signs of weakness or numbness or altered sensation no complaints or anxiety or depression. Cardiovascular: + edema (ankles - but improved ) Gastrointestinal: + vomiting (with chemotherapy ) Physical Exam Physical Exam: The patient appeared well nourished and normally developed. Vital signs as documented. Head exam is normocephalic atraumatic no scleral icterus Neck is without JVD, thyromegaly, or carotid bruits. Lungs are absent breath sounds to the right lung Cardiac exam, irregular but rate controlled Abdominal exam reveals normal bowel sounds, soft non tender, no masses Extremities are nonedematous and both pedal pulses are normal. Neurologic exam is alert and oriented, no focal loss of strength or sensation Skin is without bruises or rashes Psychologically is without concerns for anxiety or depression Results & Data Results & Data ([facility]) Vital Signs (Past 12 Hours) Vital Signs Temp Pulse Pulse Resp BP Pulse Ox 11/02/19 14:58 98.8 F 78 16 134/78 95 11/02/19 11:17 97.7 F 82 16 134/78 96 11/02/19 09:00 74 11/02/19 06:57 97.9 F 80 16 135/75 97 11/02/19 04:00 97.7 F 78 19 146/80 H 97 PG Care Time/CCT Total # of Minutes Spent Total Time Spent with Patient: Total time spent is greater than 50% in coordination of care (as documented) at patient's floor/unit and/or counseling patient: Coding Level of Care Code 16527 Subseq Hosp Care Lvl 3 Diagnoses Hyponatremia E87.1 Right-sided chest pain R07.9 Postobstructive pneumonia J18.9 Candidiasis of mouth and esophagus B37.81; B37.0 Neutropenia D70.1; T45.1X5A Neutropenia type: secondary to cancer chemotherapy Pancytopenia due to antineoplastic chemotherapy D61.810; T45.1X5A Small cell lung cancer C34.90 Severe protein-calorie malnutrition E43 Hyperthyroidism E05.90 Obstructive sleep apnea syndrome G47.33 Hypertension I10 Hypertension type: essential hypertension Prediabetes R73.03 Anemia D64.9 Anemia type: unspecified type Atrial fibrillation and flutter I48.91; I48.92 DVT prophylaxis Z29.9 (1) Neutropenia Neutropenia type: secondary to cancer chemotherapy Qualified Code(s): D70.1 - Agranulocytosis secondary to cancer chemotherapy; T45.1X5A - Adverse effect of antineoplastic and immunosuppressive drugs, initial encounter (2) Hypertension Hypertension type: essential hypertension Qualified Code(s): I10 - Essential (primary) hypertension (3) Anemia Anemia type: unspecified type Qualified Code(s): D64.9 - Anemia, unspecified
[2019-11-02] MEDS: FUROSEMIDE 20 MG TAB PO SCH (17:26)
[2019-11-02] MEDS: FILGRASTIM 480 MCG/1.6 ML VIAL SC SCH (21:17)
[2019-11-03 06:16] LABS: BUN Creatinine Ratio 29.5 (10-20); Calcium 7.3 mg/dl (8.5-10.1); Est GFR (African American) 129.9; Potassium 3.8 mmol/L (3.5-5.1)
[2019-11-03 06:19] LABS: Phosphorus 2.7 mg/dl (2.5-4.9)
[2019-11-03 06:24] LABS: Hematocrit (blood only) 22.4 % (42-52); Mean Corpuscular Hemoglobin 29.2 pg (25-34); Mean Corpuscular Hgb Conc 35.7 g/dL (32-36); Mean Corpuscular Volume 81.8 fL (80-100); Nucleated RBC # (auto) 0.04 K/uL (0-0); Nucleated RBC % (auto) 3.7 %; Platelet Count 17 K/uL (130-400); RDW Coefficient of Variation 16.7 % (11.5-14.5); RDW Standard Deviation 48.3 fL (36.4-46.3); Red Blood Count 2.74 M/uL (4.7-6.1); White Blood Count 1.04 K/uL (4.8-10.8)
[2019-11-03 06:26] LABS: Dohle Bodies 1+; Eosinophils # (auto) 0.01 K/uL (0-0.5); Lymphocytes # (auto) 0.87 K/uL (1.2-3.4); Lymphocytes % (auto) 83.7 %; Monocytes # (auto) 0.07 K/uL (0.11-0.59); Monocytes % (auto) 6.7 %; Neutrophils # (auto) 0.09 K/uL (1.4-6.5); Neutrophils % (auto) 8.6 %; Ovalocytes 1+; Platelet Estimate SIGNIFIC DECREASED (Normal)
[2019-11-03] MEDS: predniSONE 10 MG TABLET PO SCH (07:48)
[2019-11-03] MEDS: guaiFENesin 600 MG TABCR PO SCH ×2 (07:48→20:55)
[2019-11-03] MEDS: METOPROLOL TARTRATE 100 MG TAB PO SCH ×2 (07:48→20:54)
[2019-11-03] MEDS: GABAPENTIN 300 MG CAP PO SCH ×2 (07:48→20:55)
[2019-11-03] MEDS: LACTULOSE SYRUP 10 GM/15 ML BTL 960 ML PO SCH ×3 (07:49→20:53)
[2019-11-03] MEDS: NYSTATIN SUSP 500,000 U/5 ML UDC PO SCH ×4 (07:49→20:54)
[2019-11-03] MEDS: SODIUM CHLORIDE 1 GM TABLET PO SCH ×2 (07:49→20:54)
[2019-11-03] MEDS: methIMAzole 5 MG TABLET PO SCH ×2 (07:50→20:55)
[2019-11-03] MEDS: FUROSEMIDE 20 MG TAB PO SCH ×2 (07:50→16:37)
[2019-11-03] MEDS: INSULIN ASPART 100 UNITS/ML 3 ML PEN SC SCH ×2 (07:50→11:48)
--- NOTE | 2019-11-03 10:32 | Nephrology Progress Note ---
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 This was treated w/ 300 cc 3% NaCl * Sodium improved to 129 this morning. Patient is without neurologic deficit. He has been transitioned to oral NaCl therapy * Continue NaCl 2g BID and Furosemide 20 mg BID (urine osmolality remains elevated) * Continue 1500 cc/day oral fluid restriction * Monitor daily PRP (outpatient sodium has been 132) (2) Small cell lung cancer: * Oncology consult reviewed * Extensive small cell lung CA diagnosed 10/05/19 * Recently completed 1st cycle carboplatin, etoposide, atezolizumab (salvage therapy) * Undergoing evaluation for palliative radiation therapy (3) Pancytopenia: * Related to chemotherapy * GCSF and blood have been provided Admission and Anticipated Discharge Date Admission Date: October 30, 2019 Subjective Mr. Mart was seen & examined in his hospital room this morning. His was present via cellular speaker phone. Mr. Mart denied any side effects from NaCl tablets. He voiced no new medical concerns. Review of Systems Constitutional: no fever Eyes: no problem reported Ear, Nose, Mouth, Throat: no problem reported Respiratory: no dyspnea Cardiovascular: no chest pain and no edema Gastrointestinal: no abdominal pain and no diarrhea/loose stools Genitourinary: no dysuria and no urinary hesitancy Musculoskeletal: no back pain Integumentary: no rash Neurologic: no dizziness and no confusion Physical Exam Constitutional: not in distress Eyes: PERRL, conjunctivae normal, anicteric sclerae ENMT: external ear and nose normal, oropharynx normal Neck: trachea midline, no thyromegaly Respiratory: normal respiratory effort, lungs clear to auscultation Cardiovascular: RRR, no murmur, no edema Gastrointestinal (Abdomen): normal bowel sounds, soft, nontender, no hepatosplenomegaly Musculoskeletal: Extremities: no cyanosis Skin: no rashes, warm and dry Neurologic: awake; not confused Results & Data ([facility]) Vital Signs (Past 12 Hours) Vital Signs Temp Pulse Pulse Pulse Resp BP BP 11/03/19 08:00 37.0 C 91 H 19 131/74 11/03/19 03:24 36.8 C 80 18 124/78 11/03/19 00:00 92 H 11/02/19 23:17 36.5 C 89 21 119/71 Pulse Ox 11/03/19 08:00 97 11/03/19 03:24 96 11/03/19 00:00 11/02/19 23:17 93 Laboratory Results Laboratory Tests 11/01/19 11/03/19 11/03/19 05:35 05:18 05:18 WBC 1.04 L Hgb 8.0 L Hct 22.4 L Plt Count 17 L* Sodium 129 L Potassium 3.8 Chloride 96 L Carbon Dioxide 24 BUN 13 Creatinine 0.46 L Glucose 107 H Calcium 7.3 L Albumin 2.0 L Laboratory Tests 11/03/19 03:23 Urine Osmolality 729 PG Care Time/CCT Total # of Minutes Spent Total Time Spent with Patient: Total time spent is greater than 50% in coordination of care (as documented) at patient's floor/unit and/or counseling patient: Coding Level of Care Code 40212 Subseq Hosp Care Lvl 3 Diagnoses Acute hyponatremia E87.1 Small cell lung cancer C34.90 Pancytopenia D61.818
[2019-11-03] MEDS: LEVOFLOXACIN/D5W 750 MG/150 ML BAG IV SCH (12:28)
--- NOTE | 2019-11-03 15:27 | Hospitalist Progress Note ---
Date of Service November 03, 2019 Assessment & Plan (1) Hyponatremia: acute/chronic. 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 Patient had mild improvement even with liberalization of fluid restriction and nephrology with transition to oral salt supplementation 1 gm bid TSH wnl. patient has been taking prednisone daily since September. this was for appetite stimulation, will decrease dose as poor appetite response, trying marinol appreciate nephrology consult (2) Right-sided chest pain: resolved patient still with productive cough at times suspect 2nd to worsening malignant effusion on right, right-sided lung ca, and potentially a progressive post-obstructive pneumonia. ischemic chest pain highly unlikely. pulmonary consult for malignant effusion - pleurX catheter to be considered once his hemoglobin and platelet count have improved, hopeful to have improved bonemarrow response soon abx for RUL pneumonia. Patient has changes of his parenchyma in addition to his pleural effusion rad onc / onc consults in am for lung ca, radiation oncology considering initiating treatment on Monday, November 03. CTA neg for PE. (3) Postobstructive pneumonia: treated for such in September. uncertain if CTA findings in RUL represent new pneumonia or old findings. in light of severe neutropenia will treat for a recurrent post-obstructive pneumonia with levaquin 750mg daily. blood cx's negative (4) Candidiasis of mouth and esophagus: this is greatly improved with treatment nystatin 5cc qid - swish/swallow. (5) Neutropenia: spoke with Dr Crowley - neupogen 480mcg SC x 1. neutropenic precautions. Repeating Neupogen dosing until patient's neutropenia resolves (6) Pancytopenia due to antineoplastic chemotherapy: chemo for small cell lung ca was ~1 week ago. pt did have transfusion of 2 u prbc this stay current platelet counts remain low but no active bleeding Dr Crowley formally consulted (7) Small cell lung cancer: right sided. very large tumor burden. worsening right-sided effusion which is malignant. (8) Severe protein-calorie malnutrition: ongoing weight loss since hospitalization in September, despite prednisone daily for appetite stimulation. 2nd to cancer. started marinol 11/01/19 , pt will explore outpt cannabis card, reduce prednisone tapering to avoid crisis (9) Hyperthyroidism: TSH wnl today. methimazole 10mg qam methimazole 5mg qhs follows with Dr Darnell (10) Obstructive sleep apnea syndrome: CPAP hs (11) Hypertension: controlled (12) Prediabetes: DM diet novolog for correction/carb coverage BSGs will be worse with prednisone, stress, caution with reducing prednisone (13) Anemia: (14) Atrial fibrillation and flutter: hospital stay earlier this summer for such. paroxysmal in setting of hyperthyroidism. controlled; in NSR. cont BB. no full AC in setting of thrombocytopenia (15) DVT prophylaxis: platelets <50 chemical means contraindicated at this moment; thus, SCDs extensively updated at bedside 10/31 Admission and Anticipated Discharge Date Admission Date: October 30, 2019 Subjective Patient is no complaints or problems he feels more energetic than yesterday he is tolerant of his fluid restriction being liberalized and is pleased with his new dietary choices. His sodium is come up slightly to 129 he has no additional questions. Review of Systems Review of Systems: Mild distress and fatigue no headache, blurry or double vision no speech or swallowing issues no chest pain, pressure or palpitations some dyspnea on exertion no abdominal pain, nausea or vomiting, diarrhea or constipation no dysuria, hematuria or frequency no focal joint pain or swelling no back pain, CVA tenderness or radicular pain no bruising, bleeding or rashes no focal signs of weakness or numbness or altered sensation no complaints or anxiety or depression. Physical Exam Physical Exam: The patient appeared well nourished and normally developed. Vital signs as documented. Head exam is normocephalic atraumatic no scleral icterus Neck is without JVD, thyromegaly, or carotid bruits. Lungs are absent breath sounds to the right lung Cardiac exam, irregular but rate controlled Abdominal exam reveals normal bowel sounds, soft non tender, no masses Extremities are nonedematous and both pedal pulses are normal. Neurologic exam is alert and oriented, no focal loss of strength or sensation Skin is without bruises or rashes Psychologically is without concerns for anxiety or depression Results & Data Results & Data ([facility]) Vital Signs (Past 12 Hours) Vital Signs Temp Pulse Pulse Pulse Resp BP BP 11/03/19 15:11 98.4 F 91 H 18 114/72 11/03/19 11:22 98.6 F 83 16 118/71 11/03/19 11:15 80 11/03/19 08:00 98.6 F 91 H 19 131/74 Pulse Ox 08/16/20 15:11 95 11/03/19 11:22 94 11/03/19 11:15 11/03/19 08:00 97 PG Care Time/CCT Total # of Minutes Spent Total Time Spent with Patient: Total time spent is greater than 50% in coordination of care (as documented) at patient's floor/unit and/or counseling patient: Coding Level of Care Code 86927 Subseq Hosp Care Lvl 3 Diagnoses Hyponatremia E87.1 Right-sided chest pain R07.9 Postobstructive pneumonia J18.9 Candidiasis of mouth and esophagus B37.81; B37.0 Neutropenia D70.1; T45.1X5A Neutropenia type: secondary to cancer chemotherapy Pancytopenia due to antineoplastic chemotherapy D61.810; T45.1X5A Small cell lung cancer C34.90 Severe protein-calorie malnutrition E43 Hyperthyroidism E05.90 Obstructive sleep apnea syndrome G47.33 Hypertension I10 Hypertension type: essential hypertension Prediabetes R73.03 Anemia D64.9 Anemia type: unspecified type Atrial fibrillation and flutter I48.91; I48.92 DVT prophylaxis Z29.9 (1) Neutropenia Neutropenia type: secondary to cancer chemotherapy Qualified Code(s): D70.1 - Agranulocytosis secondary to cancer chemotherapy; T45.1X5A - Adverse effect of antineoplastic and immunosuppressive drugs, initial encounter (2) Hypertension Hypertension type: essential hypertension Qualified Code(s): I10 - Essential (primary) hypertension (3) Anemia Anemia type: unspecified type Qualified Code(s): D64.9 - Anemia, unspecified
[2019-11-03] MEDS: FILGRASTIM 480 MCG/1.6 ML VIAL SC SCH (20:53)
[2019-11-04 08:00] LABS: BUN Creatinine Ratio 31.6 (10-20); Calcium 7.5 mg/dl (8.5-10.1); Creatinine Clr Calc Pharmacy 188.7 ml/min; Est GFR (African American) 137.5; Est GFR (Non-African American) 118.7; Potassium 3.4 mmol/L (3.5-5.1)
[2019-11-04 08:13] LABS: Dohle Bodies 1+; Eosinophils # (auto) 0.01 K/uL (0-0.5); Eosinophils % (auto) 0.6 %; Hematocrit (blood only) 22.1 % (42-52); Immature Granulocytes # (auto) 0.03 K/uL (0.00-0.02); Immature Granulocytes % (auto) 1.7 %; Lymphocytes # (auto) 0.75 K/uL (1.2-3.4); Lymphocytes % (auto) 43.4 %; Mean Corpuscular Hemoglobin 29.7 pg (25-34); Mean Corpuscular Hgb Conc 36.2 g/dL (32-36); Mean Corpuscular Volume 82.2 fL (80-100); Monocytes # (auto) 0.11 K/uL (0.11-0.59); Monocytes % (auto) 6.4 %; Neutrophils # (auto) 0.83 K/uL (1.4-6.5); Neutrophils % (auto) 47.9 %; Nucleated RBC # (auto) 0.08 K/uL (0-0); Nucleated RBC % (auto) 4.7 %; Ovalocytes 1+; Platelet Count 24 K/uL (130-400); Platelet Estimate SIGNIFIC DECREASED (Normal); Polychromasia 1+; RDW Coefficient of Variation 17.3 % (11.5-14.5); Red Blood Count 2.69 M/uL (4.7-6.1); Tear Drop Cells 1+; White Blood Count 1.73 K/uL (4.8-10.8)
[2019-11-04] MEDS: NYSTATIN SUSP 500,000 U/5 ML UDC PO SCH ×4 (08:20→20:35)
[2019-11-04] MEDS: methIMAzole 5 MG TABLET PO SCH ×2 (08:20→20:37)
[2019-11-04] MEDS: SODIUM CHLORIDE 1 GM TABLET PO SCH ×2 (08:20→20:37)
[2019-11-04] MEDS: predniSONE 10 MG TABLET PO SCH (08:20)
[2019-11-04] MEDS: FUROSEMIDE 20 MG TAB PO SCH ×3 (08:20→20:36)
[2019-11-04] MEDS: METOPROLOL TARTRATE 100 MG TAB PO SCH ×2 (08:20→20:37)
[2019-11-04] MEDS: LACTULOSE SYRUP 10 GM/15 ML BTL 960 ML PO SCH ×2 (08:21→20:36)
[2019-11-04] MEDS: guaiFENesin 600 MG TABCR PO SCH ×2 (08:21→20:37)
[2019-11-04] MEDS: GABAPENTIN 300 MG CAP PO SCH ×2 (08:21→20:38)
--- NOTE | 2019-11-04 11:02 | Nephrology Progress Note ---
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 This was treated w/ 300 cc 3% NaCl * Sodium remains 129 this morning. I&O's are matched. Urine osmolality is elevated * Continue NaCl 2g BID * Continue 1500 cc/day oral fluid restriction * Will increase Furosemide to 20 mg po TID * Monitor daily PRP (outpatient sodium has been 132) (2) Small cell lung cancer: * Extensive small cell lung CA diagnosed 10/05/19 * Recently completed 1st cycle carboplatin, etoposide, atezolizumab (salvage therapy) * Palliative radiation therapy has been started * Await further Oncology input (3) Pancytopenia: * Related to chemotherapy * GCSF and blood have been provided Admission and Anticipated Discharge Date Admission Date: October 30, 2019 Subjective Mr. Mart was seen & examined in his hospital room this morning. He is tolerating his oral fluid restriction and NaCl tablets without side effect. He is scheduled for radiation therapy this morning. Review of Systems Constitutional: no fever Eyes: no problem reported Ear, Nose, Mouth, Throat: no problem reported Respiratory: no dyspnea Cardiovascular: no chest pain and no edema Gastrointestinal: no abdominal pain and no diarrhea/loose stools Genitourinary: no dysuria and no urinary hesitancy Musculoskeletal: no back pain Integumentary: no rash Neurologic: no dizziness and no confusion Physical Exam Constitutional: not in distress Eyes: PERRL, conjunctivae normal, anicteric sclerae ENMT: external ear and nose normal, oropharynx normal Neck: trachea midline, no thyromegaly Respiratory: normal respiratory effort, lungs clear to auscultation Cardiovascular: RRR, no murmur, no edema Gastrointestinal (Abdomen): normal bowel sounds, soft, nontender, no hepatosplenomegaly Musculoskeletal: Extremities: no cyanosis Skin: no rashes, warm and dry Neurologic: awake; not confused Results & Data ([facility]) Vital Signs (Past 12 Hours) Vital Signs Temp Pulse Pulse Resp BP Pulse Ox 11/04/19 10:31 86 11/04/19 07:20 36.9 C 90 18 130/74 94 11/04/19 03:27 36.8 C 86 17 127/80 96 11/04/19 00:00 93 H 11/03/19 23:13 36.5 C 76 17 116/70 95 Laboratory Tests 11/04/19 11/04/19 06:57 06:57 WBC 1.73 L Hgb 8.0 L Hct 22.1 L Plt Count 24 L* Sodium 129 L Potassium 3.4 L Chloride 94 L BUN 13 Creatinine 0.40 L Glucose 108 H Calcium 7.5 L PG Care Time/CCT Total # of Minutes Spent Total Time Spent with Patient: Total time spent is greater than 50% in coordination of care (as documented) at patient's floor/unit and/or counseling patient: Coding Level of Care Code 58180 Subseq Hosp Care Lvl 3 Diagnoses Acute hyponatremia E87.1 Small cell lung cancer C34.90 Pancytopenia D61.818
[2019-11-04] MEDS: LEVOFLOXACIN/D5W 750 MG/150 ML BAG IV SCH (14:18)
--- NOTE | 2019-11-04 16:23 | Hospitalist Progress Note ---
Date of Service November 04, 2019 Assessment & Plan (1) Hyponatremia: acute/chronic. 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 Patient had mild improvement even with liberalization of fluid restriction and nephrology with transition to oral salt supplementation 1 gm bid TSH wnl. patient has been taking prednisone daily since September. this was for appetite stimulation, will decrease dose as poor appetite response, trying marinol appreciate nephrology consult they did add Lasix dosing on 11/04/2019 (2) Right-sided chest pain: resolved patient still with productive cough at times suspect 2nd to worsening malignant effusion on right, right-sided lung ca, and potentially a progressive post-obstructive pneumonia. ischemic chest pain highly unlikely. pulmonary consult for malignant effusion - pleurX catheter to be considered once his hemoglobin and platelet count have improved, hopeful to have improved bonemarrow response soon however given the patient's clinical stability without removing this fluid it will ultimately be pulmonary decision whether it would be beneficial to have this removed abx for RUL pneumonia. Patient has changes of his parenchyma in addition to his pleural effusion rad onc / onc consults in am for lung ca, radiation oncology considering initiating treatment on Monday, November 03. CTA neg for PE. (3) Postobstructive pneumonia: treated for such in September. uncertain if CTA findings in RUL represent new pneumonia or old findings. in light of severe neutropenia will treat for a recurrent post-obstructive pneumonia with levaquin 750mg daily. Change to p.o. dosing once neutropenia resolves blood cx's negative (4) Candidiasis of mouth and esophagus: Continues to be improved with treatment patient tolerating more normal diet nystatin 5cc qid - swish/swallow. (5) Neutropenia: spoke with Dr Crowley - neupogen 480mcg [place] as his absolute neutrophil count is now 830 Neupogen injections which were given daily up until 11/03 are discontinued neutropenic precautions. (6) Pancytopenia due to antineoplastic chemotherapy: chemo for small cell lung ca was ~1 week ago. pt did have transfusion of 2 u prbc this stay current platelet counts remain low but no active bleeding Dr Crowley formally consulted (7) Small cell lung cancer: right sided. very large tumor burden. worsening right-sided effusion which is malignant. (8) Severe protein-calorie malnutrition: ongoing weight loss since hospitalization in September, despite prednisone daily for appetite stimulation. 2nd to cancer. started marinol 11/01/19 , pt will explore outpt cannabis card, reduce prednisone tapering to avoid crisis (9) Hyperthyroidism: TSH wnl today. methimazole 10mg qam methimazole 5mg qhs follows with Dr Darnell (10) Obstructive sleep apnea syndrome: CPAP hs (11) Hypertension: controlled (12) Prediabetes: DM diet novolog for correction/carb coverage BSGs will be worse with prednisone, stress, caution with reducing prednisone (13) Anemia: (14) Atrial fibrillation and flutter: hospital stay earlier this summer for such. paroxysmal in setting of hyperthyroidism. controlled; in NSR. cont BB. no full AC in setting of thrombocytopenia (15) DVT prophylaxis: platelets <50 chemical means contraindicated at this moment; thus, SCDs extensively updated at bedside 11/04/19 Admission and Anticipated Discharge Date Admission Date: October 30, 2019 Subjective This patient is seen in the presence of his in his hospital room he was told of his good news that his blood counts are slowly improved he is not yet out of the neutropenic range. He is going to have a simulation testing for radiation oncology on 11/03 with treatment on 11/04. There is no defined discussion on therapeutic and diagnostic thoracentesis due to his thrombocytopenia and this however may be placed into the future as the patient has been relatively stable despite having a significant effusion. Review of Systems Review of Systems: Mild distress and fatigue no headache, blurry or double vision no speech or swallowing issues no chest pain, pressure or palpitations some dyspnea on exertion some right-sided chest discomfort which is pleuritic no abdominal pain, nausea or vomiting, diarrhea or constipation no dysuria, hematuria or frequency no focal joint pain or swelling no back pain, CVA tenderness or radicular pain no bruising, bleeding or rashes no focal signs of weakness or numbness or altered sensation no complaints or anxiety or depression. Physical Exam Physical Exam: The patient appeared well nourished and normally developed. Vital signs as documented. Head exam is normocephalic atraumatic no scleral icterus Neck is without JVD, thyromegaly, or carotid bruits. Lungs are absent breath sounds to the right lung Cardiac exam, irregular but rate controlled Abdominal exam reveals normal bowel sounds, soft non tender, no masses Extremities are nonedematous and both pedal pulses are normal. Neurologic exam is alert and oriented, no focal loss of strength or sensation Skin is without bruises or rashes Psychologically is without concerns for anxiety or depression Results & Data Results & Data ([facility]) Vital Signs (Past 12 Hours) Vital Signs Temp Pulse Pulse Resp BP Pulse Ox 11/04/19 15:17 97.9 F 88 20 113/73 95 11/04/19 11:17 98.4 F 80 18 103/64 95 11/04/19 10:31 86 11/04/19 07:20 98.4 F 90 18 130/74 94 PG Care Time/CCT Total # of Minutes Spent Total Time Spent with Patient: Total time spent is greater than 50% in coordination of care (as documented) at patient's floor/unit and/or counseling patient: Coding Level of Care Code 40942 Subseq Hosp Care Lvl 3 Diagnoses Hyponatremia E87.1 Right-sided chest pain R07.9 Postobstructive pneumonia J18.9 Candidiasis of mouth and esophagus B37.81; B37.0 Neutropenia D70.1; T45.1X5A Neutropenia type: secondary to cancer chemotherapy Pancytopenia due to antineoplastic chemotherapy D61.810; T45.1X5A Small cell lung cancer C34.90 Severe protein-calorie malnutrition E43 Hyperthyroidism E05.90 Obstructive sleep apnea syndrome G47.33 Hypertension I10 Hypertension type: essential hypertension Prediabetes R73.03 Anemia D64.9 Anemia type: unspecified type Atrial fibrillation and flutter I48.91; I48.92 DVT prophylaxis Z29.9 (1) Neutropenia Neutropenia type: secondary to cancer chemotherapy Qualified Code(s): D70.1 - Agranulocytosis secondary to cancer chemotherapy; T45.1X5A - Adverse effect of antineoplastic and immunosuppressive drugs, initial encounter (2) Hypertension Hypertension type: essential hypertension Qualified Code(s): I10 - Essential (primary) hypertension (3) Anemia Anemia type: unspecified type Qualified Code(s): D64.9 - Anemia, unspecified
[2019-11-05] MEDS: NYSTATIN SUSP 500,000 U/5 ML UDC PO SCH ×4 (07:30→21:32)
[2019-11-05] MEDS: GABAPENTIN 300 MG CAP PO SCH ×2 (07:30→21:29)
[2019-11-05 07:31] LABS: BUN Creatinine Ratio 27.7 (10-20); Calcium 7.9 mg/dl (8.5-10.1); Creatinine Clr Calc Pharmacy 171.5 ml/min; Est GFR (African American) 132.3; Est GFR (Non-African American) 114.1; Potassium 3.4 mmol/L (3.5-5.1)
[2019-11-05] MEDS: methIMAzole 5 MG TABLET PO SCH ×2 (07:31→09:00)
[2019-11-05] MEDS: predniSONE 10 MG TABLET PO SCH (07:31)
[2019-11-05] MEDS: METOPROLOL TARTRATE 100 MG TAB PO SCH ×2 (07:32→21:28)
[2019-11-05] MEDS: SODIUM CHLORIDE 1 GM TABLET PO SCH ×2 (07:32→21:31)
[2019-11-05] MEDS: FUROSEMIDE 20 MG TAB PO SCH ×3 (07:33→21:28)
[2019-11-05] MEDS: guaiFENesin 600 MG TABCR PO SCH ×2 (07:33→21:29)
[2019-11-05] MEDS: LACTULOSE SYRUP 10 GM/15 ML BTL 960 ML PO SCH ×2 (07:34→21:31)
--- NOTE | 2019-11-05 09:42 | Nephrology Progress Note ---
Date of Service November 05, 2019 Assessment & Plan (1) Acute hyponatremia: * SIADH related to extensive small cell lung carcinoma * Presenting Na 119. This was treated w/ 300 cc 3% NaCl * Sodium remains 129 this morning. I&O's are matched. Urine osmolality is trending down following titration of Furosemide * Continue NaCl 2g BID * Continue 1500 cc/day oral fluid restriction * Continue Furosemide to 20 mg po TID * Monitor daily PRP (outpatient sodium has been 132) * Will ask office staff to schedule follow up Nephrology visit. Orders place in EMR for nonfasting blood and urine studies to be completed 24 - 48 hrs prior to OV (2) Small cell lung cancer: * Extensive small cell lung CA diagnosed 10/05/19 * Recently completed 1st cycle carboplatin, etoposide, atezolizumab (salvage therapy) * Palliative radiation therapy has been started * Await further Oncology input (3) Pancytopenia: * Related to chemotherapy * GCSF and blood have been provided Admission and Anticipated Discharge Date Admission Date: October 30, 2019 Subjective Mr. Mart was seen & examined in his hospital room this morning. He is tolerating his oral fluid restriction and NaCl tablets without side effect. He was marked for radiation therapy yesterday and hopes to begin treatment soon. Review of Systems Constitutional: no fever Eyes: no problem reported Ear, Nose, Mouth, Throat: no problem reported Respiratory: no dyspnea Cardiovascular: no chest pain and no edema Gastrointestinal: no abdominal pain and no diarrhea/loose stools Genitourinary: no dysuria and no urinary hesitancy Musculoskeletal: no back pain Integumentary: no rash Neurologic: no dizziness and no confusion Physical Exam Constitutional: not in distress Eyes: PERRL, conjunctivae normal, anicteric sclerae ENMT: external ear and nose normal, oropharynx normal Neck: trachea midline, no thyromegaly Respiratory: normal respiratory effort, lungs clear to auscultation Cardiovascular: RRR, no murmur, no edema Gastrointestinal (Abdomen): normal bowel sounds, soft, nontender, no hepatosplenomegaly Musculoskeletal: Extremities: no cyanosis Skin: no rashes, warm and dry Neurologic: awake; not confused Results & Data ([facility]) Vital Signs (Past 12 Hours) Vital Signs Temp Pulse Pulse Resp BP Pulse Ox 11/05/19 08:00 86 11/05/19 07:27 36.7 C 87 19 119/70 94 08/18/20 03:04 36.5 C 84 17 117/74 94 11/04/19 23:19 88 11/04/19 23:17 36.8 C 83 17 116/69 95 Laboratory Results Laboratory Tests 11/04/19 11/05/19 11/05/19 06:57 06:07 06:48 WBC 1.73 L Hgb 8.0 L Hct 22.1 L Plt Count 24 L* Sodium 129 L Potassium 3.4 L Chloride 94 L BUN 12 Creatinine 0.44 L Glucose 118 H Calcium 7.9 L Urine Osmolality 500 PG Care Time/CCT Total # of Minutes Spent Total Time Spent with Patient: Total time spent is greater than 50% in coordination of care (as documented) at patient's floor/unit and/or counseling patient: Coding Level of Care Code 66160 Subseq Hosp Care Lvl 3 Diagnoses Acute hyponatremia E87.1 Small cell lung cancer C34.90 Pancytopenia D61.818
[2019-11-05] MEDS: LEVOFLOXACIN/D5W 750 MG/150 ML BAG IV SCH (13:28)
--- NOTE | 2019-11-05 17:14 | Hospitalist Progress Note ---
Date of Service November 05, 2019 Assessment & Plan (1) Hyponatremia: acute/chronic. 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 Na stable at 129 today continue with Sodium Chloride tablets 2gm BID, Lasix FERNANDEZ urine osmolality is 500 so he is still with inappropriate concentration of urine continue tight fluid restriction stable for discharge tomorrow AM, discussed with Dr. Rodrigues (2) Right-sided chest pain: resolved patient still with productive cough at times suspect 2nd to worsening malignant effusion on right, right-sided lung ca, and potentially a progressive post-obstructive pneumonia. ischemic chest pain highly unlikely. pulmonary consult for malignant effusion - no indication for thoracentesis or PleurX as he is breathing well on room air could consider draining fluid if breathing gets worse abx for RUL pneumonia. Patient has changes of his parenchyma in addition to his pleural effusion rad onc / onc consults in am for lung ca, radiation oncology considering initiating treatment on Monday, November 03. CTA neg for PE. last day of antibiotics would be 11/05 (3) Postobstructive pneumonia: treated for such in September. uncertain if CTA findings in RUL represent new pneumonia or old findings. in light of severe neutropenia will treat for a recurrent post-obstructive pneumonia with levaquin 750mg daily. last dose tomorrow 11/05 blood cx's negative (4) Candidiasis of mouth and esophagus: Continues to be improved with treatment patient tolerating more normal diet nystatin 5cc qid - swish/swallow continue 7 days after discharge to eradicate infection (5) Neutropenia: resolved with Neupogen due to chemotherapy (6) Pancytopenia due to antineoplastic chemotherapy: chemo for small cell lung ca was ~1 week prior to admission pt did have transfusion of 2 u prbc this stay current platelet counts remain low but no active bleeding Dr Crowley formally consulted, patient okay to go home tomorrow and follow up closely with Dr. Crowley (7) Small cell lung cancer: right sided. very large tumor burden. worsening right-sided effusion which is malignant. (8) Severe protein-calorie malnutrition: ongoing weight loss since hospitalization in September, despite prednisone daily for appetite stimulation. 2nd to cancer. started marinol 11/01/19 , pt will explore outpt cannabis card, reduce prednisone tapering to avoid crisis (9) Hyperthyroidism: TSH wnl today. methimazole 10mg qam methimazole 5mg qhs follows with Dr Darnell (10) Obstructive sleep apnea syndrome: CPAP hs (11) Hypertension: controlled (12) Prediabetes: DM diet novolog for correction/carb coverage BSGs will be worse with prednisone, stress, caution with reducing prednisone (13) Anemia: (14) Atrial fibrillation and flutter: hospital stay earlier this summer for such. paroxysmal in setting of hyperthyroidism. controlled; in NSR. cont BB. no full AC in setting of thrombocytopenia (15) DVT prophylaxis: platelets <50 chemical means contraindicated at this moment; thus, SCDs extensively updated over the phone today plan for radiation treatment tomorrow, discharge late morning or afternoon Admission and Anticipated Discharge Date Admission Date: October 30, 2019 Subjective patient doing well, says his breathing is stable, no real change the past few days has a dry cough, no chest pain, no fever/chills his appetite is getting better discussed with Dr. Rodrigues, he recommends to continue sodium chloride BID on discharge as well as Lasix, fluid restriction discussed with Dr. Crowley, patient approaching point where he could be discharged he went for his first radiation therapy session today, tolerated well discussed with patient and his over the phone at the bedside, plan to check labs in morning, get radiation and then go home his is fine with him coming home, she is a physical therapist labs today show sodium stable at 129, Cr is 0.44, K is 3.4 urine osmolality remains inappropriately elevated at 500 Review of Systems Review of Systems: All systems reviewed & are unremarkable except as noted in Subjective Constitutional: + weakness; no fever Respiratory: + dyspnea on exertion; no cough and no dyspnea Cardiovascular: no chest pain and no edema Gastrointestinal: no abdominal pain, no nausea, no vomiting, no constipation and no diarrhea/loose stools Physical Exam Constitutional: WD/WN, vitals as above Eyes: PERRL, conjunctivae normal, anicteric sclerae ENMT: external ear and nose normal, oropharynx normal Neck: trachea midline, no thyromegaly Respiratory: normal respiratory effort; no respiratory distress Auscultation: + diminished lung sounds (bases); no crackles, no rales and no wheezes Cardiovascular: Rate/Rhythm: regular rhythm and + tachycardic Heart Sounds: normal S1 and normal S2; no murmur Extremities: normal capillary refill; no edema Gastrointestinal (Abdomen): normal bowel sounds, soft, nontender, no hepatosplenomegaly Musculoskeletal: no cyanosis or clubbing, extremities motor strength 5/5 Skin: no rashes, warm and dry Neurologic: patellar DTR's 2+ bilat, sensation intact and PERRL, EOMI, accomm odation nl, no face palsy, no dysarthria Psychiatric: A+Ox3, euthymic affect Lymphatic: no cervical or axillary lymphadenopathy Results & Data Results & Data ([facility]) Vital Signs (Past 12 Hours) Vital Signs Temp Pulse Pulse Resp BP Pulse Ox 11/05/19 15:34 36.9 C 105 H 19 119/71 96 11/05/19 11:10 36.9 C 81 19 119/72 96 11/05/19 08:00 86 11/05/19 07:27 36.7 C 87 19 119/70 94 Laboratory Results Laboratory Results - last 24 hr 11/05/19 11/05/19 06:07 06:48 Sodium 129 L Potassium 3.4 L Chloride 94 L Carbon Dioxide 28 Anion Gap 7.0 BUN 12 Creatinine 0.44 L Est Cr Clr Drug Dosing 171.5 Est GFR ( Amer) 132.3 Est GFR (Non-Af Amer) 114.1 BUN/Creatinine Ratio 27.7 H Glucose 118 H Calcium 7.9 L Urine Osmolality 500 Medications Administered Current Inpatient Medications Albuterol (Albuterol Hfa 8 Gm Inhaler) 2 puffs INH Q4 PRN PRN Reason: shortness of breath or wheezing Stop: 11/29/19 15:04 Dronabinol (Dronabinol 2.5 Mg Cap) 5 mg PO BID MAIA Stop: 12/04/19 20:59 Last Admin: 11/05/19 08:09 Dose: 5 mg Documented by: Furosemide (Furosemide 20 Mg Tab) 20 mg PO TID MAIA Stop: 12/04/19 13:59 Last Admin: 11/05/19 13:28 Dose: 20 mg Documented by: Gabapentin (Gabapentin 300 Mg Cap) 300 mg PO BID MAIA Stop: 11/29/19 20:59 Last Admin: 11/05/19 07:30 Dose: 300 mg Documented by: Guaifenesin (Guaifenesin 600 Mg Tabcr) 1,200 mg PO BID MAIA Stop: 11/29/19 20:59 Last Admin: 11/05/19 07:33 Dose: 1,200 mg Documented by: Hydrocodone Bit/Homatropine Methylb (Hydrocodone/Homatropine Syrup 5mg/1.5mg 5ml Udp) 5 ml PO BID PRN PRN Reason: cough Stop: 11/13/19 15:04 Hydromorphone HCl (Hydromorphone Inj 0.5 Mg/0.5 Ml Syr) 0.25 mg IV Q3H PRN PRN Reason: Pain Stop: 11/13/19 15:04 Levofloxacin/Dextrose (Levaquin/D5w) 750 mg in 150 mls @ 100 mls/hr IV Q24H [facility]; Protocol Stop: 11/07/19 13:14 Last Infusion: 11/05/19 14:58 Dose: Infused Documented by: Lactulose (Lactulose Syrup 10 Gm/15 Ml Btl 960 Ml) 10 gm PO BID [facility] Stop: 11/29/19 20:59 Last Admin: 11/05/19 07:34 Dose: 10 gm Documented by: Methimazole (Methimazole 5 Mg Tablet) 10 mg PO QAM [facility] Stop: 11/30/19 08:59 Last Admin: 11/05/19 09:00 Dose: 10 mg Documented by: Methimazole (Methimazole 5 Mg Tablet) 5 mg PO HS [facility] Stop: 11/29/19 20:59 Last Admin: 11/05/19 07:31 Dose: 5 mg Documented by: Metoprolol Tartrate (Metoprolol Tartrate 100 Mg Tab) 100 mg PO BID [facility] Stop: 11/29/19 20:59 Last Admin: 11/05/19 07:32 Dose: 100 mg Documented by: Nystatin (Nystatin Susp 500,000 U/5 Ml Udc) 5 ml PO QID [facility] Stop: 11/09/19 16:59 Last Admin: 11/05/19 16:50 Dose: 5 ml Documented by: Prednisone (Prednisone 10 Mg Tablet) 10 mg PO QAM [facility] Stop: 12/02/19 08:59 Last Admin: 11/05/19 07:31 Dose: 10 mg Documented by: Sodium Chloride (Sodium Chloride 0.65% Na Soln 45 Ml ([place])) 2 sprays NA Q1H PRN PRN Reason: Congestion Stop: 11/29/19 15:04 Sodium Chloride (Sodium Chloride 1 Gm Tablet) 2 gm PO BID [facility] Stop: 12/02/19 20:59 Last Admin: 11/05/19 07:32 Dose: 2 gm Documented by: PG Care Time/CCT Total # of Minutes Spent Total Time Spent with Patient: Total time spent is greater than 50% in coordination of care (as documented) at patient's floor/unit and/or counseling patient: Coding Level of Care Code 46295 Subseq Hosp Care Lvl 3 Diagnoses Hyponatremia E87.1 Right-sided chest pain R07.9 Postobstructive pneumonia J18.9 Candidiasis of mouth and esophagus B37.81; B37.0 Neutropenia D70.1; T45.1X5A Neutropenia type: secondary to cancer chemotherapy Pancytopenia due to antineoplastic chemotherapy D61.810; T45.1X5A Small cell lung cancer C34.90 Severe protein-calorie malnutrition E43 Hyperthyroidism E05.90 Obstructive sleep apnea syndrome G47.33 Hypertension I10 Hypertension type: essential hypertension Prediabetes R73.03 Anemia D64.9 Anemia type: unspecified type Atrial fibrillation and flutter I48.91; I48.92 DVT prophylaxis Z29.9 (1) Anemia Anemia type: unspecified type Qualified Code(s): D64.9 - Anemia, unspecified (2) Neutropenia Neutropenia type: secondary to cancer chemotherapy Qualified Code(s): D70.1 - Agranulocytosis secondary to cancer chemotherapy; T45.1X5A - Adverse effect of antineoplastic and immunosuppressive drugs, initial encounter (3) Hypertension Hypertension type: essential hypertension Qualified Code(s): I10 - Essential (primary) hypertension
[2019-11-06 07:32] LABS: Hemoglobin 7.4 g/dL (14.0-18.0); Mean Corpuscular Hemoglobin 29.5 pg (25-34); Mean Corpuscular Hgb Conc 35.2 g/dL (32-36); Mean Corpuscular Volume 83.7 fL (80-100); Mean Platelet Volume 10.8 fL (7.4-10.4); Nucleated RBC # (auto) 0.07 K/uL (0-0); Nucleated RBC % (auto) 2.1 %; Platelet Count 31 K/uL (130-400); RDW Coefficient of Variation 17.9 % (11.5-14.5); RDW Standard Deviation 52.5 fL (36.4-46.3); Red Blood Count 2.51 M/uL (4.7-6.1); White Blood Count 3.41 K/uL (4.8-10.8)
[2019-11-06 07:36] LABS: ALC (manual) 0.85 K/uL (1.2-3.4); ANC (manual) 2.42 K/uL (1.4-6.5); BUN Creatinine Ratio 33.3 (10-20); Calcium 7.6 mg/dl (8.5-10.1); Creatinine Clr Calc Pharmacy 150.9 ml/min; Dohle Bodies 1+; Est GFR (African American) 125.5; Est GFR (Non-African American) 108.3; Lymphocytes # (manual) 0.85 K/uL (1.2-3.4); Monocytes # (manual) 0.14 K/uL (0.11-0.59); Neutrophils # (manual) 2.42 K/uL (1.4-6.5); Potassium 3.5 mmol/L (3.5-5.1); Toxic Granulation 1+
[2019-11-06] MEDS: predniSONE 10 MG TABLET PO SCH (07:39)
[2019-11-06] MEDS: SODIUM CHLORIDE 1 GM TABLET PO SCH (07:39)
[2019-11-06] MEDS: NYSTATIN SUSP 500,000 U/5 ML UDC PO SCH (07:39)
[2019-11-06] MEDS: METOPROLOL TARTRATE 100 MG TAB PO SCH (07:40)
[2019-11-06] MEDS: methIMAzole 5 MG TABLET PO SCH (07:40)
[2019-11-06] MEDS: guaiFENesin 600 MG TABCR PO SCH (07:41)
[2019-11-06] MEDS: GABAPENTIN 300 MG CAP PO SCH (07:41)
[2019-11-06] MEDS: FUROSEMIDE 20 MG TAB PO SCH (07:42)
[2019-11-06] MEDS: LACTULOSE SYRUP 10 GM/15 ML BTL 960 ML PO SCH (07:43)
[2019-11-06] MEDS ORDERED: DiphenhydrAMINE HCL 50 MG/ML VIAL IV STA (09:50)
--- NOTE | 2019-11-06 10:08 | Discharge Summary ---
Date of Service November 06, 2019 Admission HPI Per Admitting Provider 74yo male with recently diagnosed small cell lung cancer (right lung) who presents with right-sided chest pain. He was sleeping in the recliner and about 2/3am he tried to get up from the recliner and this brought on a sharp right-sided chest pain. Laying back into the recliner made the pain better. This am he contacted Dr [facility] and he advised him to go to the ER. While preparing to get ready to come to the hospital he had a 2nd episode of right-sided chest pain while trying to stand up. First round of chemo was last week (/Mon/). He does have cough, mildly productive, with occasional blood but none recently. He has dyspnea on exertion and excessive fatigue with any activity. Denies orthopnea or PND. Has very poor appetite. Liquid intake is also poor. Has dizziness / lightheadedness intermittently - had it with the right-sided chest pain. No fever. Principal Diagnosis Pneumonia in setting of lung cancer Discharge Exam Constitutional WD/WN, vitals as above Eyes PERRL, conjunctivae normal, anicteric sclerae ENMT external ear and nose normal, oropharynx normal Neck trachea midline, no thyromegaly Respiratory normal respiratory effort; no respiratory distress Auscultation: + diminished lung sounds (bases); no crackles, no rales and no wheezes Cardiovascular Rate/Rhythm: regular rhythm and + tachycardic Heart Sounds: normal S1 and normal S2; no murmur Extremities: normal capillary refill; no edema Gastrointestinal (Abdomen) normal bowel sounds, soft, nontender, no hepatosplenomegaly Musculoskeletal no cyanosis or clubbing, extremities motor strength 5/5 Skin no rashes, warm and dry Neurologic patellar DTR's 2+ bilat, sensation intact and PERRL, EOMI, accommodation nl, no face palsy, no dysarthria Psychiatric A+Ox3, euthymic affect Lymphatic no cervical or axillary lymphadenopathy Discharge Data Allergies Allergy/AdvReac Type Severity Reaction Status Date / Time amoxicillin Allergy Severe HEAD TO Verified 10/30/19 11:51 TOE ITCHY RASH Consultations 10/30/19 12:39 ED Decision to Admit Stat 10/30/19 15:05 Consult Oncology Routine Consult Pulmonology Routine 10/30/19 19:27 Consult Nephrology Routine 10/30/19 19:32 Consult Radiation Oncology Routine Ordered Studies 10/30/19 09:59 CT angio chest PE protocol Stat 11/04/19 09:53 CT guide rad therapy chest Routine Hospital Course (1) Hyponatremia: acute/chronic. 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 Na stable at 130 today continue with Sodium Chloride tablets 2gm BID, Lasix TID urine osmolality is 500 so he is still with inappropriate concentration of urine continue tight fluid restriction at 1500mL a day, told patient and his stable for discharge, discussed with Dr. Rodrigues will check BMP next week (2) Right-sided chest pain: resolved patient still with productive cough at times suspect 2nd to worsening malignant effusion on right, right-sided lung ca, and potentially a progressive post-obstructive pneumonia. ischemic chest pain highly unlikely. pulmonary consult for malignant effusion - no indication for thoracentesis or PleurX as he is breathing well on room air could consider draining fluid if breathing gets worse abx for RUL pneumonia. Patient has changes of his parenchyma in addition to his pleural effusion rad onc / onc consults in am for lung ca, radiation oncology considering initiating treatment on Monday, November 03. CTA neg for PE. last day of antibiotics would be 11/05 (3) Postobstructive pneumonia: treated for such in September. uncertain if CTA findings in RUL represent new pneumonia or old findings. in light of severe neutropenia will treat for a recurrent post-obstructive pneumonia with levaquin 750mg daily. last dose tomorrow 11/05 blood cx's negative (4) Candidiasis of mouth and esophagus: Continues to be improved with treatment patient tolerating more normal diet nystatin 5cc qid - swish/swallow continue 7 days after discharge to eradicate infection (5) Neutropenia: resolved with Neupogen due to chemotherapy (6) Pancytopenia due to antineoplastic chemotherapy: chemo for small cell lung ca was ~1 week prior to admission pt did have transfusion of 2 u prbc this stay current platelet counts remain low but no active bleeding Dr Crowley formally consulted, patient okay to go home and follow up closely with Dr. Crowley next week (7) Small cell lung cancer: right sided. very large tumor burden. worsening right-sided effusion which is malignant, currently no need for thoracentesis started radiation therapy on 11/04 and received therapy on 11/05 prior to discharge (8) Severe protein-calorie malnutrition: ongoing weight loss since hospitalization in September, despite prednisone daily for appetite stimulation. 2nd to cancer. started marinol 11/01/19 , pt will explore outpt cannabis card, reduce prednisone tapering to avoid crisis (9) Hyperthyroidism: TSH wnl today. methimazole 10mg qam methimazole 5mg qhs follows with Dr Darnell (10) Obstructive sleep apnea syndrome: CPAP hs (11) Hypertension: controlled (12) Prediabetes: DM diet novolog for correction/carb coverage BSGs will be worse with prednisone, stress, caution with reducing prednisone (13) Anemia: (14) Atrial fibrillation and flutter: hospital stay earlier this summer for such. paroxysmal in setting of hyperthyroidism. controlled; in NSR. cont BB. no full AC in setting of thrombocytopenia Total Time Total Time Spent Total Time Spent (In Minutes): 32 Total Time Includes: Examination of the Patient, Discharge Planning, Medication Reconciliation, Communication With Other Providers (Dr. Crowley and Dr. Rodrigues) and Other (discussed with at the bedside) Discharge Plan Discharge Items Patient Disposition: Home - Self-Care Reason For Visit: HYPONATREMIA,RIGHT-SIDED MALIGNANT PLEURAL EFFUSIO Discharge Diagnosis: Hyponatremia due to SIADH from lung cancer Pancytopenia due to chemotherapy Condition on Discharge: Good Goals: maintain sodium levels stay well nourished follow fluid restriction for SIADH follow up closely with Dr. Crowley next week Activity: Resume your previous activity Non-emergency contact: Primary Care Provider and Oncologist Call non-emergency contact if: you have any medication questions, your symptoms worsen and you have a fever Follow-up/Referrals: Susie Grissom MD [Primary Care Provider] - 12/12/19 10:20 am (2 weeks) Barney Crowley DO [Physician] - (one week) Diet: Regular Fluids: 1500ml (6 cups) Ambulatory Orders: Basic Metabolic Panel (Routine) Timeframe: 1 Week Location: Determined by Patient Ordered By: Azael Rojas Complete Blood Count with Diff (Routine) Timeframe: 1 Week Location: Determined by Patient Ordered By: Azael Rojas [place]irk Attending Provider Instructions: Medications: - SODIUM CHLORIDE: 2gm twice a day to maintain sodium level - LASIX: 20mg three times a day to help limit kidney concentrating ability - MARINOL: 5mg twice a day to help with appetite - METHIMAZOLE: 10mg in the morning, 5mg at night - NYSTATIN: swish and swallow, continue to 7 more days to finish treatment of thrush - PREDNISONE: reduce to 10mg daily, can likely titrate down further in two weeks to 5mg daily Right sided pneumonia, lung cancer, pleural effusion completed 7 days of Levaquin, no further antibiotics breathing is improved, now stable Pancytopenia (low cell counts due to chemotherapy) WBC now up to safe levels after neupogen Hb is > 7, plts are still low at 30k but rising slowly follow up with CBC next week with Dr. Crowley prior to visit Hyponatremia (low sodium) due to SIADH (kidneys are holding onto water inappropriately) treatment includes the sodium chloride tablets twice a day, and you can eat as much salty food as you want Lasix 20mg three times a day to limit how much water the kidneys hold onto follow a fluid restriction of 1500mL a day, this includes anything that would melt at room temperature Rash: appears like a mild drug reaction or contact dermatitis use Benadryl as needed, no longer on antibiotics perhaps it is Marinol? watch for improvement Pending Studies at Discharge: No Stand-Alone Forms: My [facility] [employer], Smoking Cessation Medications and DC Order Prescriptions: New nystatin 100,000 unit/mL Suspension 5 ml PO QID 7 Days Qty: 140 RF: 0 prednisone 10 mg Tablet 10 mg PO QAM 30 Days Qty: 30 RF: 0 sodium chloride 1 gram Tablet 2 g PO BID 30 Days Qty: 120 RF: 1 dronabinol 2.5 mg Capsule 5 mg PO BID 30 Days Qty: 120 RF: 1 furosemide 20 mg Tablet 20 mg PO TID 30 Days Qty: 90 RF: 1 Continued gabapentin 300 mg capsule 300 mg PO BID RF: 0 (DME) CPAP Machine Misc See Rx Instructions .ROUTE .MEDSUPPLY Qty: 1 RF: 0 Hold Instructions: NOT CURENTLY USING metoprolol tartrate 100 mg tablet 100 mg PO BID Qty: 60 RF: 5 Mucinex 1,200 mg tablet extended release 12hr 1,200 mg PO BID Qty: 14 RF: 0 methimazole 10 mg tablet 5 - 10 mg PO BID RF: 0 hydrocodone-homatropine 5-1.5 mg/5 mL syrup 5 ml PO BID PRN (Reason: Pain) RF: 0 lactulose 10 gram/15 mL solution 15 ml PO BID RF: 0 sodium chloride [Saline Nasal] 0.65 % Aerosol,[place] 0 spray INTRANASAL DAILY PRN (Reason: Congestion) RF: 0 albuterol sulfate [Ventolin HFA] 90 mcg/actuation HFA aerosol inhaler 2 puffs INH Q4 PRN (Reason: shortness of breath or wheezing) Qty: 8 RF: 0 Discontinued prednisone 20 mg tablet 20 mg PO QAM RF: 0 Discharge Orders: Discharge Order (Routine); Ordered 11/06/19 Ordered By: Azael Rojas Admission Data Admit Date/Time: 10/30/19 13:16 Attending Provider: Azael Rojas Admit Provider: Muratza Paz Primary Care Provider: Susie Grissom Other Providers: Murtaza Paz ; Barney Crowley V. ; Emmanuelle Sharif ; Robin Blackwood ; Ruth Rowan Other Interventions: Discharge Summary Assessment (RN) Last Done: 11/06/19 10:12 Coding Level of Care Code D/C Day Management >30 mins Diagnoses Hyponatremia E87.1 Right-sided chest pain R07.9 Postobstructive pneumonia J18.9 Candidiasis of mouth and esophagus B37.81; B37.0 Neutropenia D70.1; T45.1X5A Neutropenia type: secondary to cancer chemotherapy Pancytopenia due to antineoplastic chemotherapy D61.810; T45.1X5A Small cell lung cancer C34.90 Severe protein-calorie malnutrition E43 Hyperthyroidism E05.90 Obstructive sleep apnea syndrome G47.33 Hypertension I10 Hypertension type: essential hypertension Prediabetes R73.03 Anemia D64.9 Anemia type: unspecified type Atrial fibrillation and flutter I48.91; I48.92
--- NOTE | 2019-11-06 11:04 | Nephrology Progress Note ---
Date of Service November 06, 2019 Assessment & Plan (1) Acute hyponatremia: * SIADH related to extensive small cell lung carcinoma * Presenting Na 119 was treated w/ 300 cc 3% NaCl * Sodium improved to 130 this morning. I&O's are matched. Urine osmolality is trending down following titration of Furosemide * Continue NaCl 2g BID * Continue 1500 cc/day oral fluid restriction * Continue Furosemide 20 mg po TID * Monitor daily PRP (outpatient sodium has been 132) * Office staff has been advised to schedule follow up Nephrology visit. Orders were placed in EMR for nonfasting blood and urine studies to be completed 24 - 48 hrs prior to OV (2) Small cell lung cancer: * Extensive small cell lung CA diagnosed 10/05/19 * Recently completed 1st cycle carboplatin, etoposide, atezolizumab (salvage therapy) * Palliative radiation therapy has been started * Await further Oncology input (3) Pancytopenia: * Related to chemotherapy * GCSF and blood have been provided Admission and Anticipated Discharge Date Admission Date: October 30, 2019 Subjective Mr. Mart was seen & examined in his hospital room this morning. He is tolerating NaCl tablets and loop diuretic without GI upset or cramping. He voices no new medical concerns. Review of Systems Constitutional: no fever Eyes: no problem reported Ear, Nose, Mouth, Throat: no problem reported Respiratory: no dyspnea Cardiovascular: no chest pain and no edema Gastrointestinal: no abdominal pain and no diarrhea/loose stools Genitourinary: no dysuria and no urinary hesitancy Musculoskeletal: no back pain Integumentary: no rash Neurologic: no dizziness and no confusion Physical Exam Constitutional: not in distress Eyes: PERRL, conjunctivae normal, anicteric sclerae ENMT: external ear and nose normal, oropharynx normal Neck: trachea midline, no thyromegaly Respiratory: normal respiratory effort, lungs clear to auscultation Cardiovascular: RRR, no murmur, no edema Gastrointestinal (Abdomen): normal bowel sounds, soft, nontender, no hepatosplenomegaly Musculoskeletal: Extremities: no cyanosis Skin: no rashes, warm and dry Neurologic: awake; not confused Results & Data ([facility]) Vital Signs (Past 12 Hours) Vital Signs Temp Pulse Pulse Pulse Resp BP BP 11/06/19 10:12 36.6 C 90 91 H 18 131/74 122/72 11/06/19 08:00 87 11/06/19 07:20 36.6 C 90 18 122/72 11/06/19 03:33 36.6 C 90 18 119/73 11/05/19 23:34 37.0 C 91 H 18 110/73 Pulse Ox 11/06/19 10:12 95 11/06/19 08:00 11/06/19 07:20 95 11/06/19 03:33 92 11/05/19 23:34 92 Laboratory Results Laboratory Tests 11/06/19 11/06/19 06:43 06:43 WBC 3.41 L Hgb 7.4 L Hct 21.0 L Plt Count 31 L Sodium 130 L Potassium 3.5 Chloride 95 L Carbon Dioxide 29 BUN 17 Creatinine 0.50 L Glucose 117 H Calcium 7.6 L PG Care Time/CCT Total # of Minutes Spent Total Time Spent with Patient: Total time spent is greater than 50% in coordination of care (as documented) at patient's floor/unit and/or counseling patient: Coding Level of Care Code 27186 Subseq Hosp Care Lvl 3 Diagnoses Acute hyponatremia E87.1 Small cell lung cancer C34.90 Pancytopenia D61.818
== END 2019-11-06 12:48 | disposition home or self-care (01) | DRG 180 ==
LOC: ED 09:41 → 2S 13:16 → SUATTDRO 13:16 → 2S 13:54

== ENCOUNTER 2020-01-31 12:17 | Inpatient (IN) ==
--- NOTE | 2020-01-31 12:47 | Emergency Department Note ---
History of Present Illness General Chief complaint: Respiratory Problems Stated complaint: blood clot in right lung Time Seen by Provider: 01/31/20 12:42 Home Medications Home Medications Medication Instructions Recorded Confirmed Type gabapentin 300 mg capsule 300 mg PO BID 10/22/18 01/21/20 History metoprolol tartrate 100 mg tablet 100 mg PO BID #60 tab 09/23/19 01/21/20 Rx Mucinex 1,200 mg PO BID #14 tab 10/07/19 01/21/20 Rx hydrocodone-homatropine 5 ml PO BID PRN 10/19/19 01/21/20 History sodium chloride [Saline Nasal] 2 spray INTRANASAL DAILY PRN 10/19/19 01/21/20 History albuterol sulfate [Ventolin HFA] 2 puffs INH Q4 PRN #8 gm 10/20/19 01/21/20 Rx acetaminophen 500 mg tablet 1,000 mg PO QID PRN tab 11/11/19 01/21/20 History dronabinol [Marinol] 5 mg PO BID 11/18/19 01/21/20 History methimazole 10 mg tablet 10 mg PO QAM tab 11/18/19 01/21/20 History multivitamin 1 tab PO QAM 11/18/19 01/21/20 History prochlorperazine maleate 10 mg PO Q6H PRN 11/18/19 01/21/20 History [Compazine] cholecalciferol (vitamin D3) 25 1,000 unit PO DAILY cap 12/20/19 01/21/20 History mcg (1,000 unit) capsule olanzapine 2.5 mg tablet 2.5 mg PO DAILY 12/20/19 01/21/20 History vitamin B complex 1 tab PO DAILY 12/20/19 01/21/20 History lactulose 10 gram/15 mL oral 15 ml PO BID PRN 01/02/20 01/21/20 History solution ondansetron HCl [Zofran] 8 mg PO Q8H PRN 01/31/20 01/31/20 History prednisone 10 mg PO DAILY 01/31/20 01/31/20 History sodium chloride 1 g PO BID 01/31/20 History Allergies Allergy/AdvReac Type Severity Reaction Status Date / Time amoxicillin Allergy Severe HEAD TO Verified 01/31/20 14:28 TOE ITCHY RASH levofloxacin [From Levaquin] Allergy Intermediate head to Verified 01/31/20 14:28 toe itchy rash Past Med/Surg History Medical History (Updated 01/31/20 @ 14:56 by Robin Post DO) AAA (abdominal aortic aneurysm) 3.3. cm per cardio note- monitoring. Follows with Dr Holloway Anxiety Atrial fibrillation and flutter hx eliquis - stopped in August 2019. currently reports he is in NSR Dyslipidemia Erectile dysfunction Graves disease follows with Dr Darnell Hepatic steatosis Hypertension Iliac artery aneurysm, left 3.0cm per cardio note- following with Dr Ray Obstructive sleep apnea syndrome Currently not using device per nursing assessment but CPAP noted in patient's med list Pleural effusion right lung 10/2019 Prediabetes Monitoring- glucose elevated due to Prednisone - Hgb A1C 7.9 in September 2019- no meds currently Right upper lobe pneumonia 10/2019 treated at [facility]. 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 No problems noted. Denies family history of Ovarian cancer Prostate cancer Cardiac disorder Myocardial infarction Breast cancer Colorectal cancer Social History Smoking Status: Former smoker (ESTIMATED QUIT 1999; 30 PACK YEAR HISTORY) Tobacco Type: Cigarettes Age Started Using Tobacco: 22; Age Quit Using Tobacco: 54; packs per day: 1; Years Smoked: 35; Number of Years Since Quit: 20; Second Hand Exposure: No; Hx Alcohol Use: No Hx Substance Use: No Preferred Language: Italian Communication Ability: Effective Visual Impairment: No Limitations Hearing Ability: Normal Manager Analysis Required: No Beliefs That Will Affect Care: None marital status: Current Living Situation: Spouse current occupational status: retired 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 How many Children do You have: 3 Feels Safe at Home: Yes Childhood Exposure to Second-Hand Smoke: Yes Diet Comment: special diet Dental Care, Regularly: No Physical Activity Frequency: Does not Exercise Seatbelt Use: always Sunscreen Use: Yes Assistive Devices: None Physical Exam Vital Signs Vital Signs - 24 hr 01/31/20 12:29 01/31/20 13:01 01/31/20 13:57 Temperature 37.2 C Temperature Source Oral Pulse Rate 95 H Pulse Rate [Right Finger] 88 Respiratory Rate 20 24 Respiratory Effort / Characteristics Non-Labored Non-Labored Respiratory Depth Normal Normal Respiratory Pattern Regular Blood Pressure 133/81 Blood Pressure [Right Arm] 119/76 Blood Pressure Mean 98 Blood Pressure Mean [Right Arm] 90 Blood Pressure Position Sitting Pulse Oximetry 94 96 95 Oxygen Delivery Method Room Air Room Air Room Air Sepsis Recent Fever Within 48 Hours No Sepsis New/Unexplained Change in Mental Status No Sepsis Action Taken by Nursing No Action Required Course Administered Medications Azithromycin 500 mg/ Dextrose 255 mls @ 127.5 mls/hr IV NOW STA Stop: 01/31/20 15:00 Last Admin: 01/31/20 14:06 Dose: 127.5 mls/hr Documented by: [id number] Medical Decision Making Differential Diagnosis The differential that was considered includes acute myocardial infarction, acute coronary syndrome, myocarditis, pericarditis, pericardial effusions /tamponade, esophageal perforation, thoracic aortic dissection, pulmonary embolism, p neumonia, pneumothorax, pancreatitis, shingles, acute cholecystitis, perforated abdominal viscus. Medical Records Attestation: I reviewed the patient's medical records. Home Medications Current Medication List: was personally reviewed by me Laboratory Data Attestation: I reviewed the patient's lab results. Lab Results 01/31/20 Range/Units 13:33 PT 12.4 H (9.0-12.0) Seconds INR 1.2 H (0.9-1.1) APTT 29.1 (21.0-31.0) Seconds PTT Ratio 1.0 CBC and chemistry panel was unremarkable. Imaging Data Radiologist's Impression: CT scan for pulmonary embolus: FINDINGS: There is persistent right paratracheal and right hilar adenopathy. There was no evidence of thoracic aortic dilatation. There are left lower lobe pulmonary artery filling defects indicative of acute pulmonary embolism. There is a decreasing right pleural effusion. There is a right Pleurx catheter present. There are right lower lobe airspace opacities. There is right lung septal edema. There are right upper lobe airspace opacities. There are multiple subcentimeter right apical nodules measuring up to 4 mm in diameter. There are subpleural tangential 3 mm left apical pulmonary nodules. There are multiple new left lung nodules measuring up to 3 mm in diameter. The previously identified right hilar mass is again evident. There is pulmonary emphysema. IMPRESSION: 1. Acute left lung pulmonary embolism 2. Persistent right hilar mass with pathologic mediastinal and hilar lymphadenopathy 3. Right upper lobe and right lower lobe airspace opacities consistent with pneumonia 4. Interval development of multiple subcentimeter pulmonary nodules, viewed as highly suspicious for metastatic disease 5. Interval decrease in the size of the right pleural effusion status post placement of a Pleurx catheter ECG Data Attestation: I personally reviewed and interpreted this ECG as follows: Indication: + chest pain Rate (beats per minute): 86 ECG Intervals/blocks: + First degree AV block ECG ST segments: no ST elevation ECG Findings: no PVCs MDM Narrative This is a 74-year-old male who presents to the ED with a chief complaint of having an abnormal CT scan showing right-sided pneumonia and left-sided PEs in the setting of lung cancer. The patient's twelve-lead EKG did not show any ischemic changes. CT scan as noted above. Blood work was unremarkable. The patient was started on some IV heparin. He was also started on IV Zithromax and Rocephin. He will be seen by the hospitalist for further inpatient evaluation and care. Impression & Plan Pulmonary emboli, Pneumonia Discharge Plan Visit Data Chief Complaint: Respiratory Problems Stated Complaint: blood clot in right lung ED Provider: Robin Post Discharge Problem: Pulmonary emboli, Pneumonia Patient Disposition: Being Evaluated by Hospitalist Forms Stand Alone Forms: [facility] Prescriptions Prescriptions: No Action acetaminophen [Tylenol Extra Strength] 500 mg tablet 1,000 mg PO QID PRN (Reason: Pain) RF: 0 gabapentin 300 mg capsule 300 mg PO BID RF: 0 cholecalciferol (vitamin D3) 25 mcg (1,000 unit) capsule 1,000 unit PO DAILY RF: 0 vitamin B complex Tablet 1 tab PO DAILY RF: 0 olanzapine 2.5 mg tablet 2.5 mg PO DAILY RF: 0 metoprolol tartrate 100 mg tablet 100 mg PO BID Qty: 60 RF: 5 Mucinex 1,200 mg tablet extended release 12hr 1,200 mg PO BID Qty: 14 RF: 0 methimazole 10 mg tablet 10 mg PO QAM RF: 0 prednisone 10 mg tablet 10 mg PO DAILY RF: 0 ondansetron HCl [Zofran] 8 mg Tablet 8 mg PO Q8H PRN (Reason: Nausea) RF: 0 sodium chloride 1 gram tablet 1 g PO BID RF: 0 hydrocodone-homatropine 5-1.5 mg/5 mL syrup 5 ml PO BID PRN (Reason: Pain) RF: 0 sodium chloride [Saline Nasal] 0.65 % Aerosol,[place] 2 spray INTRANASAL DAILY PRN (Reason: Congestion) RF: 0 albuterol sulfate [Ventolin HFA] 90 mcg/actuation HFA aerosol inhaler 2 puffs INH Q4 PRN (Reason: shortness of breath or wheezing) Qty: 8 RF: 0 lactulose 10 gram/15 mL solution 15 ml PO BID PRN (Reason: CONSTIPATION) RF: 0 multivitamin Tablet 1 tab PO QAM RF: 0 prochlorperazine maleate [Compazine] 10 mg Tablet 10 mg PO Q6H PRN (Reason: breakthrough nausea) RF: 0 dronabinol [Marinol] 2.5 mg capsule 5 mg PO BID RF: 0 Referrals Referrals: Susie Grissom MD [Primary Care Provider] - Discharge Problem: Pulmonary emboli Qualifiers: Pulmonary embolism type: multiple subsegmental (without acute cor pulmonale) Qualified Code(s): I26.94 - Multiple subsegmental pulmonary emboli without acute cor pulmonale Pneumonia Qualifiers: Pneumonia type: due to unspecified organism Laterality: right Lung location: unspecified part of lung Qualified Code(s): J18.9 - Pneumonia, unspecified organism
[2020-01-31] MEDS ORDERED: cefTRIAXone SODIUM 1,000 MG/50 ML BAG IV STA (13:01)
[2020-01-31] MEDS ORDERED: AZITHROMYCIN 500 MG in DEXTROSE 5% 250 ML IV STA (13:01)
--- NOTE | 2020-01-31 13:59 | History & Physical Report ---
Date of Service January 31, 2020 Assessment & Plan (1) Acute pulmonary embolus: Continue IV heparin drip started in ER. Consult oncology for advice regarding longer term anticoagulation (previously on Eliquis for atrial fibrillation until August 2019). (2) Pneumonia: Imaging suggestive of this. Procalcitonin negative. Given immunosuppressed state will cover with ceftriaxone and azithromycin. (3) Pleural effusion: Pleurx drain. Consult pulmonology for ongoing management of this. (4) SIADH (syndrome of inappropriate ADH production): Sodium improved with current treatment. Continue sodium chloride 1g BID and fluid restriction 2000ml daily. 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 (7) DVT prophylaxis: IV heparin as above History of Present Illness Chief Complaint: Shortness of breath and cough Primary Care Provider: Susie Grissom MD Rom Brown is a 74 year old male with small cell lung cancer on chemotherapy who presents to the ER with shortness of breath and cough and outpatient work-up showing a left pulmonary emboli and pneumonia. He reports progressively worse shortness of breath and coughing after each of the last few weeks of chemotherapy. Reduced exercise tolerance over the weekend, while walking 0.25 mile he found he was getting more fatigued - last did this walk 3-4 days ago. Because of his shortness of breath and cough CTA was arranged by his oncologist and subsequently sent to the ER after results showed PE and pneumonia. He denies any fevers, chills, chest pain or calf pain. Allergies Allergy/AdvReac Type Severity Reaction Status Date / Time amoxicillin Allergy Severe HEAD TO Verified 01/31/20 14:28 TOE ITCHY RASH levofloxacin [From Levaquin] Allergy Intermediate head to Verified 01/31/20 14:28 toe itchy rash Home Medications Home Medications Medication Instructions Recorded Confirmed Type gabapentin 300 mg capsule 300 mg PO BID 10/22/18 01/21/20 History metoprolol tartrate 100 mg tablet 100 mg PO BID #60 tab 09/23/19 01/21/20 Rx Mucinex 1,200 mg PO BID #14 tab 10/07/19 01/21/20 Rx hydrocodone-homatropine 5 ml PO BID PRN 10/19/19 01/21/20 History sodium chloride [Saline Nasal] 2 spray INTRANASAL DAILY PRN 10/19/19 01/21/20 History albuterol sulfate [Ventolin HFA] 2 puffs INH Q4 PRN #8 gm 10/20/19 01/21/20 Rx acetaminophen 500 mg tablet 1,000 mg PO QID PRN tab 11/11/19 01/21/20 History dronabinol [Marinol] 5 mg PO BID 11/18/19 01/21/20 History methimazole 10 mg tablet 10 mg PO QAM tab 11/18/19 01/21/20 History multivitamin 1 tab PO QAM 11/18/19 01/21/20 History prochlorperazine maleate 10 mg PO Q6H PRN 11/18/19 01/21/20 History [Compazine] cholecalciferol (vitamin D3) 25 1,000 unit PO DAILY cap 12/20/19 01/21/20 History mcg (1,000 unit) capsule olanzapine 2.5 mg tablet 2.5 mg PO DAILY 12/20/19 01/21/20 History vitamin B complex 1 tab PO DAILY 12/20/19 01/21/20 History lactulose 10 gram/15 mL oral 15 ml PO BID PRN 01/02/20 01/21/20 History solution ondansetron HCl [Zofran] 8 mg PO Q8H PRN 01/31/20 01/31/20 History prednisone 10 mg PO DAILY 01/31/20 01/31/20 History sodium chloride 1 g PO BID 01/31/20 History Past Med/Surg History Medical History AAA (abdominal aortic aneurysm) 3.3. cm per cardio note- monitoring. Follows with Dr Holloway Anxiety Atrial fibrillation and flutter hx eliquis - stopped in August 2019. currently reports he is in NSR Dyslipidemia Erectile dysfunction Graves disease follows with Dr Darnell Hepatic steatosis Hypertension Iliac artery aneurysm, left 3.0cm per cardio note- following with Dr Ray Obstructive sleep apnea syndrome Currently not using device per nursing assessment but CPAP noted in patient's med list Pleural effusion right lung 10/2019 Prediabetes Monitoring- glucose elevated due to Prednisone - Hgb A1C 7.9 in September 2019- no meds currently Right upper lobe pneumonia 10/2019 treated at [facility]. 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 No problems noted. Denies family history of Ovarian cancer Prostate cancer Cardiac disorder Myocardial infarction Breast cancer Colorectal cancer Social History Smoking Status: Former smoker Tobacco Type: Cigarettes Age Started Using Tobacco: 22; Age Quit Using Tobacco: 54; packs per day: 1; Years Smoked: 35; Smoking End Date: 1999; Number of Years Since Quit: 20; Second Hand Exposure: No; Do You Dip or Chew Tobacco: No; Tobacco Cessation Education Requested by Patient: No Hx Alcohol Use: No Hx Substance Use: No Preferred Language: Divehi Communication Ability: Effective Visual Impairment: No Limitations Hearing Ability: Normal Stripper Cutter Machine Required: No Beliefs That Will Affect Care: None marital status: Current Living Situation: Spouse current occupational status: retired 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 How many Children do You have: 3 Other Information That Helps Us Care for You: No Feels Safe at Home: Yes Safety Concerns: Feels Safe At This Time Childhood Exposure to Second-Hand Smoke: Yes Diet Comment: special diet Dental Care, Regularly: No Physical Activity Frequency: Does not Exercise Seatbelt Use: always Sunscreen Use: Yes Assistive Devices: None Review of Systems Review of Systems: All systems reviewed & are unremarkable except as noted in HPI & below Physical Exam Constitutional: well developed and well nourished; no acute distress Eyes: + anicteric sclerae; normal pupil size Respiratory: normal respiratory effort and able to speak in complete sentences; no respiratory distress and no cough Auscultation: + diminished lung sounds (Right base) and + crackles (Left base) Cardiovascular: Rate/Rhythm: regular rate and regular rhythm Heart Sounds: no murmur Extremities: normal capillary refill and + pedal edema (trace to mid shins equal bilaterally); no calf tenderness Gastrointestinal (Abdomen): normal bowel sounds, soft, nontender, no hepatosplenomegaly Musculoskeletal: no cyanosis or clubbing, extremities motor strength 5/5 Skin: no rashes, warm and dry Neurologic: moves all extremities and awake; not confused Psychiatric: A+Ox3, euthymic affect Genitourinary: no CVA tenderness Results & Data Results & Data ([facility]) Vital Signs (Past 12 Hours) Vital Signs Temp Pulse Resp BP Pulse Ox 01/31/20 12:29 37.2 C 95 H 20 133/[address] ANGIOGRAM OF THE CHEST IMPRESSION: 1. Acute left lung pulmonary embolism 2. Persistent right hilar mass with pathologic mediastinal and hilar lymphadenopathy 3. Right upper lobe and right lower lobe airspace opacities consistent with pneumonia 4. Interval development of multiple subcentimeter pulmonary nodules, viewed as highly suspicious for metastatic disease 5. Interval decrease in the size of the right pleural effusion status post placement of a Pleurx catheter ECG Indication: SOB/dyspnea Rate (beats per minute): 86 Rhythm: normal sinus Findings: + RBBB (incomplete) Comparison ECG Date: from (November 24, 2019) Change: no significant change Code Status & VTE Plan Code Status Full VTE Prophylaxis Plan VTE Prophylaxis will be ordered: Yes PG Care Time/CCT Total # of Minutes Spent Total Time Spent with Patient: Total time spent is greater than 50% in coordination of care (as documented) at patient's floor/unit and/or counseling patient: Coding Level of Care Code 28758 Initial Inpt Care Lvl 3 Diagnoses Acute pulmonary embolus I26.99 Pneumonia J18.9 Laterality: right Lung location: unspecified part of lung Pneumonia type: due to unspecified organism Pleural effusion J90 SIADH (syndrome of inappropriate ADH production) E22.2 Graves disease E05.00 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
[2020-01-31 14:49] LABS: INR 1.2 (0.9-1.1); Partial Thromboplastin Time 29.1 Seconds (21.0-31.0); Prothrombin Time 12.4 Seconds (9.0-12.0)
[2020-01-31 14:53] LABS: Adenovirus PCR Not Detected (NotDetected); Bordetella parapertussis PCR Not Detected (NotDetected); Bordetella pertussis PCR Not Detected (NotDetected); Chlamydia pneumoniae PCR Not Detected (NotDetected); Coronavirus 229E PCR Not Detected (NotDetected); Coronavirus CoV-2 (COVID19)PCR Not Detected (NotDetected); Coronavirus HKU1 PCR Not Detected (NotDetected); Coronavirus NL63 PCR Not Detected (NotDetected); Coronavirus OC43PCR Not Detected (NotDetected); Human Metapneumovirus PCR Not Detected (NotDetected); Influenza A PCR Not Detected (NotDetected); Influenza B PCR Not Detected (NotDetected); Mycoplasma pneumoniae PCR Not Detected (NotDetected); Parainfluenza Virus 1 PCR Not Detected (NotDetected); Parainfluenza Virus 2 PCR Not Detected (NotDetected); Parainfluenza Virus 3 PCR Not Detected (NotDetected); Parainfluenza Virus 4 PCR Not Detected (NotDetected); Respiratory Syncytial VirusPCR Not Detected (NotDetected); Rhinovirus/Enterovirus PCR Not Detected (NotDetected)
[2020-01-31] MEDS ORDERED: HEPARIN SOD (PORCINE) 1000 UNIT/ML 10 ML VIAL ONE (15:24)
[2020-01-31] MEDS: HEPARIN SODIUM/DEXTROSE 25,000 UNITS/500 ML BAG IV SCH (15:36)
[2020-01-31] MEDS ORDERED: ACETAMINOPHEN 325 MG TAB PO PRN (19:08)
[2020-01-31] MEDS ORDERED: PROCHLORPERAZINE MALEATE 10 MG TAB PO PRN (20:00)
[2020-01-31] MEDS ORDERED: HYDROcodone/HOMATROPINE SYRUP 5MG/1.5MG 5ML UDP PO PRN (20:01)
[2020-01-31] MEDS ORDERED: SODIUM CHLORIDE 0.65% NA SOLN 45 ML (OCEAN) NAE PRN (20:01)
[2020-01-31] MEDS ORDERED: LACTULOSE SYRUP 10 GM/15 ML BTL 960 ML PO PRN (20:10)
[2020-01-31] MEDS ORDERED: ONDANSETRON 8MG OD TAB PO PRN (20:11)
[2020-01-31] MEDS ORDERED: MEDICAL MARIJUANA PO SCH (21:00)
[2020-01-31] MEDS: guaiFENesin 600 MG TABCR PO SCH (21:28)
[2020-01-31] MEDS: LACTULOSE SYRUP 10 GM/15 ML BTL 960 ML PO SCH (21:28)
[2020-01-31] MEDS: SODIUM CHLORIDE 1 GM TABLET PO SCH (21:29)
[2020-01-31] MEDS: GABAPENTIN 300 MG CAP PO SCH (21:29)
[2020-01-31] MEDS: METOPROLOL TARTRATE 100 MG TAB PO SCH (21:30)
[2020-01-31] MEDS: ACETAMINOPHEN 325 MG TAB PO PRN (21:49)
[2020-01-31 22:32] LABS: Partial Thromboplastin Ratio > 5.0
[2020-02-01 00:02] LABS: Partial Thromboplastin Time > 139.0 Seconds (21.0-31.0)
[2020-02-01 00:11] LABS: Partial Thromboplastin Ratio 1.9
[2020-02-01 00:18] LABS: Partial Thromboplastin Time 51.9 Seconds (21.0-31.0)
[2020-02-01] MEDS ORDERED: HEPARIN 100 UNIT/ML 5ML FLUSH FLUSH PRN (01:03)
[2020-02-01 07:34] LABS: Basophils # (auto) 0.03 K/uL (0-0.2); Basophils % (auto) 0.2 %; Eosinophils # (auto) 0.07 K/uL (0-0.5); Eosinophils % (auto) 0.6 %; Hematocrit (blood only) 27.3 % (42-52); Hemoglobin 8.6 g/dL (14.0-18.0); Immature Granulocytes # (auto) 0.24 K/uL (0.00-0.02); Immature Granulocytes % (auto) 1.9 %; Lymphocytes # (auto) 0.98 K/uL (1.2-3.4); Lymphocytes % (auto) 7.7 %; Mean Corpuscular Hemoglobin 30.9 pg (25-34); Mean Corpuscular Hgb Conc 31.5 g/dL (32-36); Mean Corpuscular Volume 98.2 fL (80-100); Mean Platelet Volume 9.9 fL (7.4-10.4); Monocytes % (auto) 6.3 %; Neutrophils # (auto) 10.58 K/uL (1.4-6.5); Neutrophils % (auto) 83.3 %; Nucleated RBC # (auto) 0.03 K/uL (0-0); Nucleated RBC % (auto) 0.2 %; Platelet Count 195 K/uL (130-400); RDW Coefficient of Variation 18.2 % (11.5-14.5); RDW Standard Deviation 65.4 fL (36.4-46.3); Red Blood Count 2.78 M/uL (4.7-6.1)
[2020-02-01 07:54] LABS: Calcium 8.3 mg/dl (8.5-10.1); Creatinine Clr Calc Pharmacy 157.2 ml/min; Est GFR (African American) 127.6; Est GFR (Non-African American) 110.1; Potassium 3.9 mmol/L (3.5-5.1)
--- NOTE | 2020-02-01 08:02 | Hospitalist Progress Note ---
Date of Service February 01, 2020 Assessment & Plan (1) Acute pulmonary embolus: Left lower lobe, no mention of right heart strain on CTA report No hypotension Continue IV heparin drip until 11-16 in case bleeding is excessive and we need to shut it off If bleeding excessively, would need to consider IVC filter Oncology Dr. Crowley agrees with eliquis when ready for discharge (2) Pneumonia: Imaging suggestive of this. Procalcitonin negative. Given immunosuppressed state will cover with ceftriaxone and azithromycin 5 days 11-17 last day for antibx (3) Anemia: 11-13 Hg 9.3 11-14 Hg 8.6 check CBC daily in setting of anticoagulation to monitor bleeding (4) Leukocytosis: no fevers procal negative giving antibx for possible pneumonia monitor daily CBC (5) Pleural effusion: malignant effusion Pleurx drain in place Per , draining 100-200ml serosanguineous fluid daily at home Dr. 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 Crowley consulting -- states patient receiving final cycle of carboplatin, etoposide, atezolizumab "Discouraged by the CT findings as his disease may be resistant to current therapy." (9) DVT prophylaxis: IV heparin as above regular diet ( requests that we do NOT place him on sodium restrictions due to hyponatremia) Full code Admission and Anticipated Discharge Date Admission Date: January 31, 2020 Subjective Came in overnight for pulmonary embolism, started on heparin drip. Rocephin and azithro started for right sided pneumonia. Patient denies chest pain, abdominal pain. Has minimal blood streaks in phlegm and when blowing nose. Also, bloody drainage from pleur-x for the past week. Draining 100-200ml per day. Patient denies melena, hematochezia, hematuria. States that he had been on eliquis in the past for an episode of afib that occurred in the setting of hyperthyroidism -- he was taken off eliquis due to returning to sinus rhythm in addition to presumed higher risks of bleeding relative to clotting. History discussed with patient's on the phone. Review of Systems Constitutional: no fever, no chills, no fatigue, no weakness, no anorexia, no weight loss and no weight gain Ear, Nose, Mouth, Throat: + epistaxis; no nasal congestion, no sore throat and no dysphagia Respiratory: + cough and + hemoptysis; no dyspnea Cardiovascular: no chest pain, no dyspnea on exertion, no orthopnea and no palpitations Gastrointestinal: no abdominal pain, no nausea, no vomiting, no hematemesis, no dysphagia, no constipation, no diarrhea/loose stools, no blood in stools and no melena Musculoskeletal: no back pain, no joint pain, no myalgia and no muscle weakness Integumentary: no rash, no lesions, no skin ulcer, no erythema, no dry skin and no pruritus Neurologic: no falls, no localized weakness, no generalized weakness, no numbness, no paresthesia, no tremor(s) and no headache(s) Psychiatric: no depression, no suicidal ideation, no homicidal ideation and no anxiety Endocrine: no cold intolerance and no heat intolerance Hematologic / Lymphatic: no easy bleeding and no easy bruising Physical Exam Constitutional: well developed and well nourished; no acute distress Eyes: PERRL, conjunctivae normal, anicteric sclerae ENMT: Mouth: oral mucous membranes not dry Respiratory: normal respiratory effort (Pleur-x catheter in right chest); no respiratory distress and no labored breathing Auscultation: lungs clear to auscultation bilaterally; no crackles, no rales, no rhonchi and no wheezes Cardiovascular: Rate/Rhythm: regular rate and regular rhythm Heart Sounds: no murmur and no cardiac rub Vessels: normal peripheral pulses and radial pulses present; no JVD Extremities: no edema Gastrointestinal (Abdomen): Inspection/Auscultation: abdomen normal to inspection and normal bowel sounds; abdomen not distended Percussion/Palpation: abdomen soft; abdomen nontender, no guarding, abdomen not rigid and no hepatosplenomegaly Musculoskeletal: Head/Neck/Chest: normocephalic and head atraumatic Spine: no cervical spinal tenderness, no cervical muscular tenderness, no thoracic spinal tenderness and no lumbar spinal tenderness Skin: no rashes, warm and dry + pallor Neurologic: CN's II-XI intact bilaterally and moves all extremities Motor/Sensory: no tremor and no sensory deficit Psychiatric: Orientation: alert, oriented to person, oriented to place and oriented to time Apperance: appropriately groomed; not disheveled Affect: euthymic affect; no anxious affect and no tearful affect Genitourinary: no Nelson catheter Results & Data Results & Data ([facility]) Vital Signs (Past 12 Hours) Vital Signs Temp Pulse Pulse Resp BP Pulse Ox 02/01/20 07:40 36.9 C 108 H 16 122/79 93 02/01/20 07:15 84 02/01/20 03:30 36.5 C 77 18 121/75 92 02/01/20 00:00 85 01/31/20 23:09 36.9 C 83 15 144/78 H 94 01/31/20 20:00 36.7 C 94 H 19 123/73 93 Laboratory Results Abnormal lab results 01/31/20 01/31/20 01/31/20 Range/Units 13:33 21:21 23:38 WBC (4.8-10.8) K/uL RBC (4.7-6.1) M/uL Hgb (14.0-18.0) g/dL Hct (42-52) % MCHC (32-36) g/dL RDW Std Deviation (36.4-46.3) fL RDW Coeff of Shantel (11.5-14.5) % Neut # (Auto) (1.4-6.5) K/uL Lymph # (Auto) (1.2-3.4) K/uL [place] # (Auto) (0.11-0.59) K/uL Immature Gran # (Auto) (0.00-0.02) K/uL Absolute Nucleated RBC (0-0) K/uL PT 12.4 H (9.0-12.0) Seconds INR 1.2 H (0.9-1.1) APTT > 139.0 H* 51.9 H* (21.0-31.0) Seconds BUN (7-18) mg/dl Creatinine (0.6-1.4) mg/dl BUN/Creatinine Ratio (10-20) Glucose (70-99) mg/dl Calcium (8.5-10.1) mg/dl 02/01/20 02/01/20 02/01/20 Range/Units 06:57 06:57 06:57 WBC 12.70 H (4.8-10.8) K/uL RBC 2.78 L (4.7-6.1) M/uL Hgb 8.6 L (14.0-18.0) g/dL Hct 27.3 L (42-52) % MCHC 31.5 L (32-36) g/dL RDW Std Deviation 65.4 H (36.4-46.3) fL RDW Coeff of Shantel 18.2 H (11.5-14.5) % Neut # (Auto) 10.58 H (1.4-6.5) K/uL Lymph # (Auto) 0.98 L (1.2-3.4) K/uL [place] # (Auto) 0.80 H (0.11-0.59) K/uL Immature Gran # (Auto) 0.24 H (0.00-0.02) K/uL Absolute Nucleated RBC 0.03 H (0-0) K/uL PT (9.0-12.0) Seconds INR (0.9-1.1) APTT 72.1 H* (21.0-31.0) Seconds BUN 20 H (7-18) mg/dl Creatinine 0.48 L (0.6-1.4) mg/dl BUN/Creatinine Ratio 41.0 H (10-20) Glucose 113 H (70-99) mg/dl Calcium 8.3 L (8.5-10.1) mg/dl Medications Administered Current Inpatient Medications Acetaminophen (Acetaminophen 325 Mg Tab) 650 mg PO Q4H PRN PRN Reason: Pain or Fever Stop: 03/01/20 20:01 Last Admin: 01/31/20 21:49 Dose: 650 mg Documented by: Azithromycin (Azithromycin 250 Mg Tab) [facility] Stop: 02/04/20 09:01 Last Admin: 02/01/20 09:24 Dose: 250 mg Documented by: Dronabinol (Dronabinol 2.5 Mg Cap) 5 mg PO BID [facility] Stop: 03/01/20 21:44 Last Admin: 02/01/20 09:22 Dose: 5 mg Documented by: Gabapentin (Gabapentin 300 Mg Cap) 300 mg PO BID [facility] Stop: 03/01/20 20:59 Last Admin: 02/01/20 09:23 Dose: 300 mg Documented by: Guaifenesin (Guaifenesin 600 Mg Tabcr) 1,200 mg PO BID [facility] Stop: 03/01/20 20:59 Last Admin: 02/01/20 09:22 Dose: 1,200 mg Documented by: Heparin Sodium (Porcine) (Heparin 100 Unit/Ml 5ml Flush) 5 ml FLUSH PRN PRN PRN Reason: Flush Stop: 03/02/20 01:02 Hydrocodone Bit/Homatropine Methylb (Hydrocodone/Homatropine Syrup 5mg/1.5mg 5ml Udp) 5 ml PO BID PRN PRN Reason: Pain Stop: 02/14/20 20:00 Heparin Sodium/Dextrose (Heparin Sodium/Dextrose) 25,000 units in 500 mls @ 29 mls/hr IV .[id number] [facility]; Protocol Stop: 03/01/20 13:14 Last Admin: 02/01/20 10:30 Dose: 1,450 units/hr, 29 mls/hr Documented by: Ceftriaxone Sodium 2,000 mg/ (Dextrose) 70 mls @ 100 mls/hr IV Q24H [facility]; Protocol Stop: 02/07/20 15:59 Lactulose (Lactulose Syrup 10 Gm/15 Ml Btl 960 Ml) 10 gm PO BID [facility] Stop: 03/01/20 20:59 Last Admin: 02/01/20 09:22 Dose: 10 gm Documented by: Methimazole (Methimazole 5 Mg Tablet) 10 mg PO QAM [facility] Stop: 03/02/20 08:59 Last Admin: 02/01/20 09:23 Dose: 10 mg Documented by: Metoprolol Tartrate (Metoprolol Tartrate 100 Mg Tab) 100 mg PO BID [facility] Stop: 03/01/20 20:59 Last Admin: 02/01/20 09:22 Dose: 100 mg Documented by: Miscellaneous Medication (Medical Marijuana) 1 dose PO TID [facility] Stop: 03/02/20 13:59 Last Admin: 02/01/20 14:24 Dose: Not Given Documented by: Multivitamins (Multivitamin Tab) 1 tab PO QAM [facility] Stop: 03/02/20 08:59 Last Admin: 02/01/20 09:23 Dose: 1 tab Documented by: Ondansetron HCl (Ondansetron 8mg Od Tab) 8 mg PO Q8H PRN PRN Reason: Nausea Stop: 03/01/20 20:10 Prednisone (Prednisone 10 Mg Tablet) 10 mg PO DAILY [facility] Stop: 03/02/20 08:59 Last Admin: 02/01/20 09:23 Dose: 10 mg Documented by: Prochlorperazine (Prochlorperazine Maleate 10 Mg Tab) 10 mg PO Q6H PRN PRN Reason: breakthrough nausea Stop: 03/01/20 19:59 Sodium Chloride (Sodium Chloride 1 Gm Tablet) 1 gm PO BID [facility] Stop: 03/01/20 20:59 Last Admin: 02/01/20 09:23 Dose: 1 gm Documented by: Sodium Chloride (Sodium Chloride 0.65% Na Soln 45 Ml ([place])) 2 sprays FOZIA DAILY PRN PRN Reason: Congestion Stop: 03/01/20 20:00 Vitamin B Complex (Vitamin B Complex Tab) 1 tab PO DAILY [facility] Stop: 03/02/20 08:59 Last Admin: 02/01/20 09:23 Dose: 1 tab Documented by: Vitamin D (Cholecalciferol 1,000 Units 25 Mcg Tab) 1,000 units PO DAILY [facility] Stop: 03/02/20 08:59 Last Admin: 02/01/20 09:23 Dose: 1,000 units Documented by: PG Care Time/CCT Total # of Minutes Spent Total Time Spent with Patient: Total time spent is greater than 50% in coordination of care (as documented) at patient's floor/unit and/or counseling patient: Coding Level of Care Code 77465 Subseq Hosp Care Lvl 3 Diagnoses Acute pulmonary embolus I26.99 Pulmonary embolism type: other Acute cor pulmonale presence: without acute cor pulmonale Pneumonia J18.9 Laterality: right Lung location: unspecified part of lung Pneumonia type: due to unspecified organism Anemia D64.9 Anemia type: unspecified type Leukocytosis D72.829 Leukocytosis type: unspecified Pleural effusion J90 SIADH (syndrome of inappropriate ADH production) E22.2 Graves disease E05.00 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 C34.90 DVT prophylaxis Z29.9 (1) Acute pulmonary embolus Pulmonary embolism type: other Acute cor pulmonale presence: without acute cor pulmonale Qualified Code(s): I26.99 - Other pulmonary embolism without acute cor pulmonale (2) Pneumonia Laterality: right Lung location: unspecified part of lung Pneumonia type: due to unspecified organism Qualified Code(s): J18.9 - Pneumonia, unspecified organism (3) Anemia Anemia type: unspecified type Qualified Code(s): D64.9 - Anemia, unspecified (4) Leukocytosis Leukocytosis type: unspecified Qualified Code(s): D72.829 - Elevated white blood cell count, unspecified
[2020-02-01 08:08] LABS: Partial Thromboplastin Ratio 2.6
[2020-02-01 08:10] LABS: Partial Thromboplastin Time 72.1 Seconds (21.0-31.0)
[2020-02-01] MEDS ORDERED: OLANZAPINE 2.5 MG TAB PO SCH (09:00)
[2020-02-01] MEDS: LACTULOSE SYRUP 10 GM/15 ML BTL 960 ML PO SCH ×2 (09:22→20:33)
[2020-02-01] MEDS: guaiFENesin 600 MG TABCR PO SCH ×2 (09:22→20:33)
[2020-02-01] MEDS: METOPROLOL TARTRATE 100 MG TAB PO SCH ×2 (09:22→20:34)
[2020-02-01] MEDS: VITAMIN B COMPLEX TAB PO SCH (09:23)
[2020-02-01] MEDS: methIMAzole 5 MG TABLET PO SCH (09:23)
[2020-02-01] MEDS: CHOLECALCIFEROL 1,000 UNITS 25 MCG TAB PO SCH (09:23)
[2020-02-01] MEDS: GABAPENTIN 300 MG CAP PO SCH ×2 (09:23→20:34)
[2020-02-01] MEDS: predniSONE 10 MG TABLET PO SCH (09:23)
[2020-02-01] MEDS: SODIUM CHLORIDE 1 GM TABLET PO SCH ×2 (09:23→20:32)
[2020-02-01] MEDS: MULTIVITAMIN TAB PO SCH (09:23)
[2020-02-01] MEDS: AZITHROMYCIN 250 MG TAB PO SCH (09:24)
[2020-02-01] MEDS: HEPARIN SODIUM/DEXTROSE 25,000 UNITS/500 ML BAG IV SCH ×2 (10:30→16:22)
--- NOTE | 2020-02-01 10:45 | Consultation Report ---
DATE OF CONSULTATION: 02/01/2020 REASON FOR CONSULTATION: Pulmonary embolism in a 74-year-old gentleman with extensive-stage small cell lung cancer. HISTORY OF PRESENT ILLNESS: The patient is a pleasant 74-year-old gentleman with extensive-stage small cell lung cancer, currently under my care, was admitted through the Emergency Room yesterday because of shortness of breath, persistent cough and mild hemoptysis. According to the patient and his , they have been quite active taking walks on a daily basis and over the past couple of days, had noticed not only blood-tinged in his pleural fluid, but also dyspnea on exertion. He had also started coughing more vigorously. According to the patient, he had contact pulmonary physician who recommended observation. The patient subsequently contacted our office specifically with one of our physician extenders who recommended a CT scan of the chest. CTA of the chest revealed an acute left lung pulmonary embolism as well as persistent right hilar mass with pathologic mediastinal and hilar lymphadenopathy, right upper lobe and right lower lobe airspace opacities consistent with pneumonia. Interval development of multiple subcentimeter pulmonary nodules thought to be highly suspicious for metastatic disease. Interval decrease in the size of the right pleural effusion, status post PleurX catheter placement. The patient was in the midst of receiving his final cycle of carboplatin, etoposide and atezolizumab. He was subsequently started on heparin and this morning 200 mL of pleural fluid was drained. Clinically, seems to be doing much better. I am somewhat discouraged by the CT findings as his disease may be resistant to current therapy. I have been asked to render opinion on anticoagulation moving forward. PAST MEDICAL HISTORY: Significant for extensive stage small cell lung cancer, abdominal aortic aneurysm, anxiety, atrial fibrillation/flutter, dyslipidemia, Graves' disease, hepatic steatosis, hypertension, iliac artery aneurysm, obstructive sleep apnea, malignant pleural effusion, prediabetes, right upper lobe pneumonia. PAST SURGICAL HISTORY: Includes Mohs surgery, colonoscopy in 2014, wisdom teeth extraction, thoracentesis, right knee replacement, history of rectal surgery, history of cataract surgery and elbow surgery. MEDICATIONS: Includes sodium chloride 1 gram p.o. b.i.d., prednisone 10 mg p.o. daily, Zofran 8 mg p.o. q. 8 hours p.r.n., lactulose 15 mL p.o. b.i.d. p.r.n., vitamin B complex 1 tablet p.o. daily, olanzapine 2.5 mg p.o. daily, cholecalciferol 1000 units p.o. daily, Compazine 10 mg p.o. q. 6 hours p.r.n., multivitamin 1 tablet p.o. daily, methimazole 10 mg p.o. daily, Marinol 5 mg p.o. b.i.d., albuterol sulfate 2 puffs inhaled q. 4 hours p.r.n., hydrocodone/homatropine 5 mL p.o. b.i.d. p.r.n. for cough, Mucinex 1200 mg p.o. b.i.d., metoprolol 100 mg p.o. b.i.d., gabapentin 300 mg p.o. b.i.d. ALLERGIES: TO AMOXICILLIN AND LEVOFLOXACIN. SOCIAL HISTORY: The patient is retired. He lives with his spouse. He quit smoking 20 years ago. He smoked for 35 years in total. Negative for alcohol or illicit substances. FAMILY HISTORY: Mother of complications of diverticulitis/peritonitis. Father from complications of sinusitis. REVIEW OF SYSTEMS: CONSTITUTIONAL: As per HPI, most notably for dyspnea on exertion and hemoptysis, blood tinged pleural fluid. He battles with anorexia. No significant further weight loss. No fevers, chills or sweats. SKIN: No rashes or lesions. No history of dermatoses. HEENT: He denies headaches, lightheadedness or dizziness. No acute visual or hearing deficits. No sinus symptoms, sore throat or dysphagia. LYMPH: No history of lymphoproliferative disease. HEART: No angina or palpitations. PULMONARY: As per HPI, new diagnosis of pulmonary embolism. ABDOMEN: Negative for abdominal pain, nausea, vomiting, diarrhea or constipation, hematochezia or melena stools. GENITOURINARY: No hematuria, dysuria, urinary incontinence. MUSCULOSKELETAL: No arthralgias or focal muscle weakness. ENDOCRINE: Positive for Graves' disease by history. He is not diabetic. NEUROLOGIC: Negative for seizure, stroke, or migraine headache. HEMATOLOGIC: Positive for treatment-induced anemia. PHYSICAL EXAMINATION: GENERAL: The patient is a very pleasant 74-year-old , in no acute distress. VITAL SIGNS: Temperature 36.9, pulse 108, respiratory rate 16, blood pressure 122/79. SKIN: Warm, dry, noncyanotic without petechia, rash or ecchymosis. HEENT: Head is atraumatic, normocephalic. Eyes: PERRLA, EOMI. Sclerae nonicteric. No conjunctival injection. Nares patent without rhinorrhea or discharge. Throat is clear. Tongue is midline. Mucous membranes are moist. NECK: Supple without JVD or thyromegaly. LYMPHATICS: No cervical or supraclavicular palpable nodes. HEART: Regular rate and rhythm. No clicks, rubs, murmurs or gallops. LUNGS: Relatively, clear to auscultation, diminished breath sounds in the right posterior base. ABDOMEN: Soft, nontender, nondistended, without palpable hepatosplenomegaly. EXTREMITIES: No calf tenderness or swelling. No clubbing, cyanosis or edema. NEUROLOGICALLY: He is awake, alert and oriented x3. Cranial nerves are grossly intact. LABORATORY DATA: WBC count 12,700, hemoglobin 8.6, platelet count 195,000. PTT 72.1 seconds, currently on unfractionated heparin. Sodium 136, potassium 3.9, chloride 104, carbon dioxide 27, creatinine 0.48, BUN 20. IMPRESSION: 1. Acute pulmonary embolism. 2. Pneumonia. 3. Malignant pleural effusion. 4. History of syndrome of inappropriate antidiuretic hormone. 5. Graves' disease. 6. Extensive stage small cell lung cancer. PLAN: The patient is a pleasant 74-year-old gentleman well known to [facility], currently under my care for extensive small cell lung cancer. The patient was in the midst of completing his sixth and final cycle of carboplatin, etoposide and atezolizumab. Apparently over the past couple of days, developed progressive dyspnea on exertion and noted a blood tinge in his pleural drainage. His cough is also intensified. Thus contacted both the pulmonologists in our office, was ordered CTA of the chest which indeed confirmed an acute pulmonary embolism. Appropriately he was started on unfractionated heparin and would like him to remain on so over the weekend to be sure there are no procedures to be done. The patient has been on Eliquis in the past and have no reservations restarting Eliquis once the medical team is convinced there is no evidence of bleeding. Again, I am somewhat discouraged by the chest CT which would suggest disease progression despite our efforts. We will discuss further once the patient is medically stable and returns for an outpatient appointment. Agree with medical management otherwise. I also would back off on this gentleman's sodium, it would appear the SIADH has stabilized and thus do not feel he needs as much sodium supplementation moving forward. We will continue to follow the patient periodically throughout his hospital stay. Thank you very much for allowing me to participate in his care. CHING
[2020-02-01] MEDS ORDERED: AZITHROMYCIN 500 MG in DEXTROSE 5% 250 ML IV ONE (12:11)
--- NOTE | 2020-02-01 12:14 | Pulmonary Consultation ---
Date of Consultation February 01, 2020 Assessment & Plan (1) Shortness of breath: I agree with continued IV antibiotics with Rocephin and azithromycin for multifocal pneumonia. Would continue antibiotics for 7 days total. I added on a urine Legionella antigen and I am repeating a procalcitonin for today. His findings may also be related to pulmonary toxicity/pneumonitis related to chemotherapy/radiation. I would favor a course of antibiotics initially and then if there is no significant improvement over the next several days, we can consider increasing his prednisone dose. He is on chronic prednisone to increase his appetite. He does appear to have worsening metastatic small cell lung cancer burden on the most recent CT chest. Dr. Lopez has been consulted and is following the patient. Additionally, he does have a malignant pleural effusion that appears to be adequately controlled with the Pleurx catheter. He was drained today and I would recommend draining him tomorrow as well. He will need lifelong anticoagulation for his pulmonary embolism in the setting of malignancy. I think that if he has no further evidence of hemoptysis tomorrow, we can likely transition him to a DOAC. Goals of care discussion would also be warranted as he is listed as a full code. Palliative care consultation may be beneficial given the metastatic nature of his small cell carcinoma. (2) Pulmonary emboli: Pulmonary embolism type: multiple subsegmental (without acute cor pulmonale) Qualified Code(s): I26.94 - Multiple subsegmental pulmonary emboli without acute cor pulmonale (3) Pneumonia: Laterality: right Lung location: unspecified part of lung Pneumonia type: due to unspecified organism Qualified Code(s): J18.9 - Pneumonia, unspecified organism (4) Small cell lung cancer: (5) Malignant pleural effusion: (6) Hemoptysis: History of Present Illness Reason for Consultation: Extensive stage small cell carcinoma, acute pulmonary medicine and history of Pleurx catheter placement Requesting Physician: Hospitalist service Attending Physician: Enriqueta Montero MD History of Present Illness 74-year-old male with a past medical history of extensive stage small cell lung cancer, abdominal aortic aneurysm, atrial fibrillation, Graves' disease, hypertension and obstructive sleep apnea who presented to the hospital due to increasing shortness of breath and hemoptysis. He underwent a CT of his chest and was found to have increased right upper lobe and right lower lobe consolidative changes. A small right effusion was noted. Pleurx catheter is in place. Multiple small nodules are noted as well which are diffuse and possibly metastatic disease. He does have a left lower lobe pulmonary with him as well. He has been on a chemotherapy regimen as outlined in Dr. Crowley's note from today. He is currently on a heparin drip. It seems that 200 mL of pleural fluid was drained from the Pleurx catheter this morning with improvement of his shortness of breath. Leukocytosis on admission was 13,000. Creatinine electrolytes within normal limits. Phosphorus was quite low at 1.7. Bio fire panel and COVID-19 testing were negative. Blood cultures are pending. Procalcitonin was negative on admission at 0.21. Patient is currently on prednisone 10 mg daily, Rocephin 2000 mg every 24 hours, azithromycin 250 mg every morning and a heparin drip. EKG with incomplete right bundle branch block. QTC of 435. Echo from 09/11/2019 with an EF of 55 to 60%. Mild tricuspid regurg. Normal left ventricular systolic function. I spoke with the patient and the patient's via [employer] using the patient's phone. Patient notes that his breathing is about the same as it was yesterday. He is still coughing up some red-tinged sputum. He denies any chest pain. He has had substantial weight loss since starting chemotherapy. He does note a history of radiation treatment as well roughly 3 months ago. He has no issues with his Pleurx catheter currently. He denies any fevers or chills. He does note some dyspnea on mild to moderate exertion. He was very concerned about being able to open up his medical marijuana today. The nurse was assisting him with helping open his medical marijuana packaging. Allergies Allergy/AdvReac Type Severity Reaction Status Date / Time amoxicillin Allergy Severe HEAD TO Verified 01/31/20 14:28 TOE ITCHY RASH levofloxacin [From Levaquin] Allergy Intermediate head to Verified 01/31/20 14:28 toe itchy rash Home Medications Home Medications Medication Instructions Recorded Confirmed Type gabapentin 300 mg capsule 300 mg PO BID 10/22/18 01/21/20 History metoprolol tartrate 100 mg tablet 100 mg PO BID #60 tab 09/23/19 01/21/20 Rx Mucinex 1,200 mg PO BID #14 tab 10/07/19 01/21/20 Rx hydrocodone-homatropine 5 ml PO BID PRN 10/19/19 01/21/20 History sodium chloride [Saline Nasal] 2 spray INTRANASAL DAILY PRN 10/19/19 01/21/20 History albuterol sulfate [Ventolin HFA] 2 puffs INH Q4 PRN #8 gm 10/20/19 01/21/20 Rx acetaminophen 500 mg tablet 1,000 mg PO QID PRN tab 11/11/19 01/21/20 History dronabinol [Marinol] 5 mg PO BID 11/18/19 01/21/20 History methimazole 10 mg tablet 10 mg PO QAM tab 11/18/19 01/21/20 History multivitamin 1 tab PO QAM 11/18/19 01/21/20 History prochlorperazine maleate 10 mg PO Q6H PRN 11/18/19 01/21/20 History [Compazine] cholecalciferol (vitamin D3) 25 1,000 unit PO DAILY cap 12/20/19 01/21/20 History mcg (1,000 unit) capsule olanzapine 2.5 mg tablet 2.5 mg PO DAILY 12/20/19 01/21/20 History vitamin B complex 1 tab PO DAILY 12/20/19 01/21/20 History lactulose 10 gram/15 mL oral 15 ml PO BID PRN 01/02/20 01/21/20 History solution ondansetron HCl [Zofran] 8 mg PO Q8H PRN 01/31/20 01/31/20 History prednisone 10 mg PO DAILY 01/31/20 01/31/20 History sodium chloride 1 g PO BID 01/31/20 History Patient History Medical History (Updated 02/01/20 @ 12:18 by Titus Kyle MD) AAA (abdominal aortic aneurysm) 3.3. cm per cardio note- monitoring. Follows with Dr Holloway Anxiety Atrial fibrillation and flutter hx eliquis - stopped in August 2019. currently reports he is in NSR Dyslipidemia Erectile dysfunction Graves disease follows with Dr Darnell Hemoptysis Hepatic steatosis Hypertension Iliac artery aneurysm, left 3.0cm per cardio note- following with Dr Ray Malignant pleural effusion Obstructive sleep apnea syndrome Currently not using device per nursing assessment but CPAP noted in patient's med list Pleural effusion right lung 10/2019 Prediabetes Monitoring- glucose elevated due to Prednisone - Hgb A1C 7.9 in September 2019- no meds currently Right upper lobe pneumonia 10/2019 treated at [facility]. Shortness of breath 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 No problems noted. Denies family history of Ovarian cancer Prostate cancer Cardiac disorder Myocardial infarction Breast cancer Colorectal cancer Social History Smoking Status: Former smoker Tobacco Type: Cigarettes Age Started Using Tobacco: 22; Age Quit Using Tobacco: 54; packs per day: 1; Years Smoked: 35; Smoking End Date: 1999; Number of Years Since Quit: 20; Second Hand Exposure: No; Do You Dip or Chew Tobacco: No; Tobacco Cessation Education Requested by Patient: No Hx Alcohol Use: No Hx Substance Use: No Preferred Language: Italian Communication Ability: Effective Visual Impairment: No Limitations Hearing Ability: Normal Experience Design Director Required: No Beliefs That Will Affect Care: None marital status: Current Living Situation: Spouse current occupational status: retired 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 How many Children do You have: 3 Other Information That Helps Us Care for You: No Feels Safe at Home: Yes Safety Concerns: Feels Safe At This Time Childhood Exposure to Second-Hand Smoke: Yes Diet Comment: special diet Dental Care, Regularly: No Physical Activity Frequency: Does not Exercise Seatbelt Use: always Sunscreen Use: Yes Assistive Devices: None Review of Systems Review of Systems: All systems reviewed & are unremarkable except as noted in HPI & below Physical Exam Constitutional: WD/WN, vitals as above Eyes: PERRL, conjunctivae normal, anicteric sclerae ENMT: external ear and nose normal, oropharynx normal Neck: trachea midline, no thyromegaly Respiratory: normal respiratory effort, lungs clear to auscultation Cardiovascular: RRR, no murmur, no edema Gastrointestinal (Abdomen): normal bowel sounds, soft, nontender, no hepatosplenomegaly Musculoskeletal: no cyanosis or clubbing, extremities motor strength 5/5 Skin: no rashes, warm and dry Neurologic: PERRL, EOMI, accommodation nl, no face palsy, no dysarthria Psychiatric: A+Ox3, euthymic affect Results & Data Results & Data ([facility]) Vital Signs (Past 12 Hours) Vital Signs Temp Pulse Pulse Resp BP Pulse Ox 02/01/20 12:02 98.6 F 79 16 112/71 95 02/01/20 07:40 98.4 F 108 H 16 122/79 93 02/01/20 07:15 84 02/01/20 03:30 97.7 F 77 18 121/75 92 I reviewed the vital signs, labs and imaging PG Care Time/CCT Total # of Minutes Spent Total Time Spent with Patient: Total time spent is greater than 50% in coordination of care (as documented) at patient's floor/unit and/or counseling patient: Coding Level of Care Code 40308 Inpt Consult Level 3 Diagnoses Shortness of breath R06.02 Pulmonary emboli I26.94 Pulmonary embolism type: multiple subsegmental (without acute cor pulmonale) Pneumonia J18.9 Laterality: right Lung location: unspecified part of lung Pneumonia type: due to unspecified organism Small cell lung cancer C34.90 Malignant pleural effusion J91.0 Hemoptysis R04.2
[2020-02-01] MEDS ORDERED: AZITHROMYCIN 250 MG in DEXTROSE 5% 250 ML IV SCH (12:15)
[2020-02-01] MEDS: MEDICAL MARIJUANA PO SCH ×2 (14:24→20:37)
[2020-02-01 15:01] LABS: Partial Thromboplastin Ratio 2.2
[2020-02-01 15:25] LABS: Partial Thromboplastin Time 61.1 Seconds (21.0-31.0)
[2020-02-01] MEDS: cefTRIAXone SODIUM 2,000 MG in DEXTROSE 5% 50 ML IV SCH (16:20)
[2020-02-01] MEDS: ACETAMINOPHEN 325 MG TAB PO PRN (20:32)
[2020-02-02] MEDS: HEPARIN SODIUM/DEXTROSE 25,000 UNITS/500 ML BAG IV SCH ×2 (02:09→18:31)
--- NOTE | 2020-02-02 06:18 | Electrocardiogram Report ---
Test Reason : Blood Pressure : / mmHG Vent. Rate : 086 BPM Atrial Rate : 086 BPM P-R Int : 220 ms QRS Dur : 092 ms QT Int : 364 ms P-R-T Axes : 033 022 041 degrees QTc Int : 435 ms Sinus rhythm with 1st degree A-V block Incomplete right bundle branch block Borderline ECG When compared with ECG of 24-NOV-2019 21:41, GA interval has increased Confirmed by Deepak Holloway ([id number]) on 02/02/2020 6:17:47 AM Referred By: Barney Crowley Confirmed By:Deepak Holloway
[2020-02-02 07:18] LABS: Hematocrit (blood only) 25.1 % (42-52); Hemoglobin 8.1 g/dL (14.0-18.0); Mean Corpuscular Hemoglobin 31.5 pg (25-34); Mean Corpuscular Hgb Conc 32.3 g/dL (32-36); Mean Corpuscular Volume 97.7 fL (80-100); Mean Platelet Volume 9.8 fL (7.4-10.4); Nucleated RBC # (auto) 0.03 K/uL (0-0); Nucleated RBC % (auto) 0.3 %; Platelet Count 200 K/uL (130-400); RDW Coefficient of Variation 18.1 % (11.5-14.5); RDW Standard Deviation 64.2 fL (36.4-46.3); Red Blood Count 2.57 M/uL (4.7-6.1); White Blood Count 10.77 K/uL (4.8-10.8)
[2020-02-02 07:52] LABS: Partial Thromboplastin Time 82.9 Seconds (21.0-31.0)
[2020-02-02 07:58] LABS: BUN Creatinine Ratio 33.8 (10-20); Calcium 8.1 mg/dl (8.5-10.1); Creatinine Clr Calc Pharmacy 157.2 ml/min; Est GFR (African American) 127.6; Est GFR (Non-African American) 110.1; Magnesium 2.2 mg/dl (1.8-2.4); Phosphorus 1.7 mg/dl (2.5-4.9); Potassium 3.4 mmol/L (3.5-5.1)
[2020-02-02] MEDS: METOPROLOL TARTRATE 100 MG TAB PO SCH ×2 (08:05→21:19)
[2020-02-02] MEDS: MEDICAL MARIJUANA PO SCH ×3 (08:05→21:20)
[2020-02-02] MEDS: MULTIVITAMIN TAB PO SCH (08:06)
[2020-02-02] MEDS: guaiFENesin 600 MG TABCR PO SCH ×2 (08:06→21:21)
[2020-02-02] MEDS: LACTULOSE SYRUP 10 GM/15 ML BTL 960 ML PO SCH ×2 (08:06→21:18)
[2020-02-02] MEDS: GABAPENTIN 300 MG CAP PO SCH ×2 (08:06→21:22)
[2020-02-02] MEDS: predniSONE 10 MG TABLET PO SCH (08:07)
[2020-02-02] MEDS: SODIUM CHLORIDE 1 GM TABLET PO SCH ×2 (08:07→21:22)
[2020-02-02] MEDS: VITAMIN B COMPLEX TAB PO SCH (08:07)
[2020-02-02] MEDS: CHOLECALCIFEROL 1,000 UNITS 25 MCG TAB PO SCH (08:07)
[2020-02-02] MEDS: AZITHROMYCIN 250 MG TAB PO SCH (08:07)
[2020-02-02] MEDS: methIMAzole 5 MG TABLET PO SCH (08:07)
[2020-02-02] MEDS ORDERED: POTASSIUM CHLORIDE CRTAB 20 MEQ TABCR PO STA (09:11)
[2020-02-02] MEDS ORDERED: POTASSIUM PHOS 3 MMOL/1 ML INFUSION IV STA (09:13)
--- NOTE | 2020-02-02 09:16 | Hospitalist Progress Note ---
Date of Service February 02, 2020 Assessment & Plan (1) Acute pulmonary embolus: Left lower lobe, no mention of right heart strain on CTA report No hypotension Continue IV heparin drip until 16 in case bleeding is excessive and we need to shut it off If bleeding excessively, would need to consider IVC filter Oncology Dr. Crowley agrees with eliquis when ready for discharge (2) Pneumonia: Imaging suggestive of this. Procalcitonin negative. Given immunosuppressed state will cover with ceftriaxone and azithromycin 5 days 02-[address] Kyle -- thinks the airspace opacities may be related to cancer treatment vs noninfectious, but agrees with antibx course 02-03 last day for antibx (3) Anemia: -13 Hg 9.3 -14 Hg 8.6 -15 Hg 8.1, will likely need a unit of blood tomorrow check CBC daily in setting of anticoagulation to monitor bleeding (4) SIADH (syndrome of inappropriate ADH production): Sodium remains on the low end of normal Will need to continue sodium chloride 1g BID increase fluid restrictions 1500ml per day Monitor BMP daily (5) Pleural effusion: malignant effusion Pleurx drain in place Per , draining 100-200ml serosanguineous fluid daily at home Dr. Crowley to manage 01-31 200ml drained, per notes 02-[address] Kyle of pulmonology -- states the bleeding is m inimal and there is likely nothing to do about it (6) Hypophosphatemia: 02-01 phos 1.7, replace with 15mmol K phos (7) Hypokalemia: 02-01 K 3.4, replace with KCl PO 40meq once and k-phos 15mmol (about 20meq K), Mg is normal 2.2 (8) Leukocytosis: no fevers procal negative giving antibx for possible pneumonia monitor daily CBC (9) Graves disease: Continue methimazole 10mg PO daily (10) 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: CTA with right hilar mass with pathological mediastinal and hilar lymphadenopathy, bilateral apical subcentimeter nodules, new subcentimeter left lung nodules suspicious for metastases Dr. Crowley consulting -- states patient receiving final cycle of carboplatin, etoposide, atezolizumab "Discouraged by the CT findings as his disease may be resistant to current therapy." (11) DVT prophylaxis: IV heparin as above regular diet ( requests that we do NOT place him on sodium restrictions due to hyponatremia) Full code Admission and Anticipated Discharge Date Admission Date: January 31, 2020 Subjective Patient thinks he took too many drops of his medical marijuana this morning. He was feeling "woozy" during my visit. Denies sob, no headache, no chest pain. He thinks the amount of blood in his pleural fluid is steady, not increasing. Denies worsening hemoptysis or epistaxis. No evelyn blood, just blood streaks. No melena, no hematochezia, no hematuria. Review of Systems Constitutional: no fever, no chills, no fatigue, no weakness, no anorexia, no weight loss and no weight gain Ear, Nose, Mouth, Throat: + epistaxis; no nasal congestion, no sore throat and no dysphagia Respiratory: + cough and + hemoptysis; no dyspnea Cardiovascular: no chest pain, no dyspnea on exertion, no orthopnea and no palpitations Gastrointestinal: no abdominal pain, no nausea, no vomiting, no hematemesis, no dysphagia, no constipation, no diarrhea/loose stools, no blood in stools and no melena Musculoskeletal: no back pain, no joint pain, no myalgia and no muscle weakness Integumentary: no rash, no lesions, no skin ulcer, no erythema, no dry skin and no pruritus Neurologic: no falls, no localized weakness, no generalized weakness, no numbness, no paresthesia, no tremor(s) and no headache(s) Psychiatric: no depression, no suicidal ideation, no homicidal ideation and no anxiety Endocrine: no cold intolerance and no heat intolerance Hematologic / Lymphatic: no easy bleeding and no easy bruising Physical Exam Constitutional: well developed and well nourished; no acute distress Eyes: PERRL, conjunctivae normal, anicteric sclerae ENMT: Mouth: oral mucous membranes not dry Respiratory: normal respiratory effort (Pleur-x catheter in right chest); no respiratory distress and no labored breathing Auscultation: lungs clear to auscultation bilaterally; no crackles, no rales, no rhonchi and no wheezes Cardiovascular: Rate/Rhythm: regular rate and regular rhythm Heart Sounds: no murmur and no cardiac rub Vessels: normal peripheral pulses and radial pulses present; no JVD Extremities: no edema Gastrointestinal (Abdomen): Inspection/Auscultation: abdomen normal to inspection and normal bowel sounds; abdomen not distended Percussion/Palpation: abdomen soft; abdomen nontender, no guarding, abdomen not rigid and no hepatosplenomegaly Musculoskeletal: Head/Neck/Chest: normocephalic and head atraumatic Spine: no cervical spinal tenderness, no cervical muscular tenderness, no thoracic spinal tenderness and no lumbar spinal tenderness Skin: no rashes, warm and dry + pallor Neurologic: CN's II-XI intact bilaterally and moves all extremities Motor/Sensory: no tremor and no sensory deficit Psychiatric: Orientation: alert, oriented to person, oriented to place and oriented to time Apperance: appropriately groomed; not disheveled Affect: euthymic affect; no anxious affect and no tearful affect Results & Data Results & Data ([facility]) Vital Signs (Past 12 Hours) Vital Signs Temp Pulse Pulse Resp BP BP Pulse Ox 02/02/20 08:24 36.3 C L 99 H 16 158/80 H 92 02/02/20 07:32 81 02/02/20 04:31 36.5 C 80 18 127/82 92 02/02/20 00:00 83 02/01/20 23:00 36.6 C 83 18 136/79 94 Laboratory Results Abnormal lab results 02/01/20 02/02/20 02/02/20 Range/Units 14:19 06:43 06:43 RBC 2.57 L (4.7-6.1) M/uL Hgb 8.1 L (14.0-18.0) g/dL Hct 25.1 L (42-52) % RDW Std Deviation 64.2 H (36.4-46.3) fL RDW Coeff of Shantel 18.1 H (11.5-14.5) % Absolute Nucleated RBC 0.03 H (0-0) K/uL APTT 61.1 H* 82.9 H* (21.0-31.0) Seconds Sodium (136-145) mmol/L Potassium (3.5-5.1) mmol/L Creatinine (0.6-1.4) mg/dl BUN/Creatinine Ratio (10-20) Glucose (70-99) mg/dl Calcium (8.5-10.1) mg/dl Phosphorus (2.5-4.9) mg/dl 02/02/20 Range/Units 06:43 RBC (4.7-6.1) M/uL Hgb (14.0-18.0) g/dL Hct (42-52) % RDW Std Deviation (36.4-46.3) fL RDW Coeff of Shantel (11.5-14.5) % Absolute Nucleated RBC (0-0) K/uL APTT (21.0-31.0) Seconds Sodium 133 L (136-145) mmol/L Potassium 3.4 L (3.5-5.1) mmol/L Creatinine 0.48 L (0.6-1.4) mg/dl BUN/Creatinine Ratio 33.8 H (10-20) Glucose 117 H (70-99) mg/dl Calcium 8.1 L (8.5-10.1) mg/dl Phosphorus 1.7 L (2.5-4.9) mg/dl Medications Administered Current Inpatient Medications Acetaminophen (Acetaminophen 325 Mg Tab) 650 mg PO Q4H PRN PRN Reason: Pain or Fever Stop: 03/01/20 20:01 Last Admin: 02/01/20 20:32 Dose: 650 mg Documented by: Azithromycin (Azithromycin 250 Mg Tab) [facility] Stop: 02/04/20 09:01 Last Admin: 02/02/20 08:07 Dose: 250 mg Documented by: Dronabinol (Dronabinol 2.5 Mg Cap) 5 mg PO BID [facility] Stop: 03/01/20 21:44 Last Admin: 02/02/20 08:05 Dose: 5 mg Documented by: Gabapentin (Gabapentin 300 Mg Cap) 300 mg PO BID [facility] Stop: 03/01/20 20:59 Last Admin: 02/02/20 08:06 Dose: 300 mg Documented by: Guaifenesin (Guaifenesin 600 Mg Tabcr) 1,200 mg PO BID [facility] Stop: 03/01/20 20:59 Last Admin: 02/02/20 08:06 Dose: 1,200 mg Documented by: Heparin Sodium (Porcine) (Heparin 100 Unit/Ml 5ml Flush) 5 ml FLUSH PRN PRN PRN Reason: Flush Stop: 03/02/20 01:02 Hydrocodone Bit/Homatropine Methylb (Hydrocodone/Homatropine Syrup 5mg/1.5mg 5ml Udp) 5 ml PO BID PRN PRN Reason: Pain Stop: 02/14/20 20:00 Heparin Sodium/Dextrose (Heparin Sodium/Dextrose) 25,000 units in 500 mls @ 29 mls/hr IV .[id number] [facility]; Protocol Stop: 03/01/20 13:14 Last Titration: 02/02/20 07:58 Dose: 1,350 units/hr, 27 mls/hr Documented by: Ceftriaxone Sodium 2,000 mg/ (Dextrose) 70 mls @ 100 mls/hr IV Q24H [facility]; Protocol Stop: 02/04/20 18:00 Last Infusion: 02/01/20 17:04 Dose: Infused Documented by: Lactulose (Lactulose Syrup 10 Gm/15 Ml Btl 960 Ml) 10 gm PO BID [facility] Stop: 03/01/20 20:59 Last Admin: 02/02/20 08:06 Dose: 10 gm Documented by: Methimazole (Methimazole 5 Mg Tablet) 10 mg PO QAM [facility] Stop: 03/02/20 08:59 Last Admin: 02/02/20 08:07 Dose: 10 mg Documented by: Metoprolol Tartrate (Metoprolol Tartrate 100 Mg Tab) 100 mg PO BID [facility] Stop: 03/01/20 20:59 Last Admin: 02/02/20 08:05 Dose: 100 mg Documented by: Miscellaneous Medication (Medical Marijuana) 1 dose PO TID [facility] Stop: 03/02/20 13:59 Last Admin: 02/02/20 08:05 Dose: 1 dose Documented by: Multivitamins (Multivitamin Tab) 1 tab PO QAM [facility] Stop: 03/02/20 08:59 Last Admin: 02/02/20 08:06 Dose: 1 tab Documented by: Ondansetron HCl (Ondansetron 8mg Od Tab) 8 mg PO Q8H PRN PRN Reason: Nausea Stop: 03/01/20 20:10 Prednisone (Prednisone 10 Mg Tablet) 10 mg PO DAILY [facility] Stop: 03/02/20 08:59 Last Admin: 02/02/20 08:07 Dose: 10 mg Documented by: Prochlorperazine (Prochlorperazine Maleate 10 Mg Tab) 10 mg PO Q6H PRN PRN Reason: breakthrough nausea Stop: 03/01/20 19:59 Senna/Docusate Sodium (Docusate Sodium/Senna 50/8.6mg Tab) 1 tab PO QAM MAIA Stop: 03/03/20 09:14 Sodium Chloride (Sodium Chloride 1 Gm Tablet) 1 gm PO BID MAIA Stop: 03/01/20 20:59 Last Admin: 02/02/20 08:07 Dose: 1 gm Documented by: Sodium Chloride (Sodium Chloride 0.65% Na Soln 45 Ml ([place])) 2 sprays FOZIA DAILY PRN PRN Reason: Congestion Stop: 03/01/20 20:00 Vitamin B Complex (Vitamin B Complex Tab) 1 tab PO DAILY MAIA Stop: 03/02/20 08:59 Last Admin: 02/02/20 08:07 Dose: 1 tab Documented by: Vitamin D (Cholecalciferol 1,000 Units 25 Mcg Tab) 1,000 units PO DAILY MAIA Stop: 03/02/20 08:59 Last Admin: 02/02/20 08:07 Dose: 1,000 units Documented by: PG Care Time/CCT Total # of Minutes Spent Total Time Spent with Patient: Total time spent is greater than 50% in coordination of care (as documented) at patient's floor/unit and/or counseling patient: Coding Level of Care Code 70356 Subseq Hosp Care Lvl 3 Diagnoses Acute pulmonary embolus I26.99 Acute cor pulmonale presence: without acute cor pulmonale Pulmonary embolism type: other Pneumonia J18.9 Laterality: right Lung location: unspecified part of lung Pneumonia type: due to unspecified organism Anemia D64.9 Anemia type: unspecified type SIADH (syndrome of inappropriate ADH production) E22.2 Pleural effusion J90 Hypophosphatemia E83.39 Hypokalemia E87.6 Leukocytosis D72.829 Leukocytosis type: unspecified Graves disease E05.00 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 C34.90 DVT prophylaxis Z29.9 (1) Acute pulmonary embolus Acute cor pulmonale presence: without acute cor pulmonale Pulmonary embolism type: other Qualified Code(s): I26.99 - Other pulmonary embolism without acute cor pulmonale (2) Anemia Anemia type: unspecified type Qualified Code(s): D64.9 - Anemia, unspecified (3) Leukocytosis Leukocytosis type: unspecified Qualified Code(s): D72.829 - Elevated white blood cell count, unspecified (4) Pneumonia Laterality: right Lung location: unspecified part of lung Pneumonia type: due to unspecified organism Qualified Code(s): J18.9 - Pneumonia, unspecified organism
[2020-02-02] MEDS ORDERED: POTASSIUM PHOSPHATE 15 MMOL in SODIUM CHLORIDE 0.9% 250 ML IV ONE (09:30)
[2020-02-02] MEDS: DOCUSATE SODIUM/SENNA 50/8.6MG TAB PO SCH (10:00)
[2020-02-02] MEDS ORDERED: predniSONE 10 MG TABLET PO STA (13:02)
--- NOTE | 2020-02-02 14:24 | Pulmonology Progress Note ---
Date of Service February 02, 2020 Assessment & Plan (1) Shortness of breath: Can likely discontinue the Rocephin and continue azithromycin for 5 days. Urine Legionella antigen is pending. Procalcitonin x2 is negative. His findings may also be related to pulmonary toxicity/pneumonitis related to chemotherapy/radiation. He is on chronic prednisone as an appetite stimulant. I increased the dose of prednisone to 40 mg daily for possible chemoradiation pneumonitis. This can be tapered over the course of 3 to 4 weeks. He does appear to have worsening metastatic small cell lung cancer burden on the most recent CT chest. Dr. Lopez has been consulted and is following the patient. Additionally, he does have a malignant pleural effusion that appears to be adequately controlled with the Pleurx catheter. Further Pleurx drainage can be held off for tomorrow unless he becomes very short of breath. He will need lifelong anticoagulation for his pulmonary embolism in the setting of malignancy. Goals of care discussion would also be warranted as he is listed as a full code. Palliative care consultation may be beneficial given the metastatic nature of his small cell carcinoma. I discussed the case with the patient's over the phone via [employer]. The was surprised to hear that it appears that his lung cancer appears to be poorly controlled. I answered her questions in regards to the Pleurx catheter and possible chemo radiation pneumonitis. She seems somewhat apprehensive and anxious. Pulmonary will continue to follow along with you. Thank you for the consult. (2) Pulmonary emboli: Pulmonary embolism type: multiple subsegmental (without acute cor pulmonale) Qualified Code(s): I26.94 - Multiple subsegmental pulmonary emboli without acute cor pulmonale (3) Pneumonia: Laterality: right Lung location: unspecified part of lung Pneumonia type: due to unspecified organism Qualified Code(s): J18.9 - Pneumonia, unspecified organism (4) Small cell lung cancer: (5) Malignant pleural effusion: (6) Hemoptysis: Admission and Anticipated Discharge Date Admission Date: January 31, 2020 Subjective Patient still continues to have scant hemoptysis and shortness of breath at rest. Minimal cough. Approximately 250 mL of fluid was removed from the right Pleurx catheter. No significant improvement of symptoms after drainage. Review of Systems Review of Systems: All systems reviewed & are unremarkable except as noted in HPI & below Physical Exam Constitutional: WD/WN, vitals as above Eyes: PERRL, conjunctivae normal, anicteric sclerae ENMT: external ear and nose normal, oropharynx normal Neck: trachea midline, no thyromegaly Respiratory: normal respiratory effort, lungs clear to auscultation Cardiovascular: RRR, no murmur, no edema Gastrointestinal (Abdomen): normal bowel sounds, soft, nontender, no hepatosplenomegaly Musculoskeletal: no cyanosis or clubbing, extremities motor strength 5/5 Skin: no rashes, warm and dry Neurologic: PERRL, EOMI, accommodation nl, no face palsy, no dysarthria Psychiatric: A+Ox3, euthymic affect Results & Data Results & Data ([facility]) Vital Signs (Past 12 Hours) Vital Signs Temp Pulse Pulse Resp BP BP Pulse Ox 02/02/20 11:28 99.1 F 83 16 116/75 90 02/02/20 08:24 97.3 F L 99 H 16 158/80 H 92 02/02/20 07:32 81 02/02/20 04:31 97.7 F 80 18 127/82 92 I reviewed the vital signs, labs and imaging PG Care Time/CCT Total # of Minutes Spent Total Time Spent with Patient: Total time spent is greater than 50% in coordination of care (as documented) at patient's floor/unit and/or counseling patient: Coding Level of Care Code 21370 Subseq Hosp Care Lvl 3 Diagnoses Shortness of breath R06.02 Pulmonary emboli I26.94 Pulmonary embolism type: multiple subsegmental (without acute cor pulmona le) Pneumonia J18.9 Laterality: right Lung location: unspecified part of lung Pneumonia type: due to unspecified organism Small cell lung cancer C34.90 Malignant pleural effusion J91.0 Hemoptysis R04.2
[2020-02-02 15:06] LABS: Partial Thromboplastin Ratio 2.1
[2020-02-02 15:20] LABS: Partial Thromboplastin Time 59.7 Seconds (21.0-31.0)
[2020-02-02] MEDS: cefTRIAXone SODIUM 2,000 MG in DEXTROSE 5% 50 ML IV SCH (16:30)
[2020-02-02] MEDS: ACETAMINOPHEN 325 MG TAB PO PRN (21:17)
[2020-02-03 07:22] LABS: Hematocrit (blood only) 26.8 % (42-52); Hemoglobin 8.6 g/dL (14.0-18.0); Mean Corpuscular Hemoglobin 31.2 pg (25-34); Mean Corpuscular Hgb Conc 32.1 g/dL (32-36); Mean Corpuscular Volume 97.1 fL (80-100); Mean Platelet Volume 9.6 fL (7.4-10.4); Platelet Count 198 K/uL (130-400); RDW Coefficient of Variation 17.7 % (11.5-14.5); RDW Standard Deviation 62.7 fL (36.4-46.3); Red Blood Count 2.76 M/uL (4.7-6.1); White Blood Count 14.79 K/uL (4.8-10.8)
[2020-02-03 07:42] LABS: Partial Thromboplastin Ratio 2.6
[2020-02-03 07:54] LABS: BUN Creatinine Ratio 31.2 (10-20); Calcium 8.2 mg/dl (8.5-10.1); Creatinine Clr Calc Pharmacy 142.4 ml/min; Est GFR (African American) 122.5; Est GFR (Non-African American) 105.7; Magnesium 2.3 mg/dl (1.8-2.4); Phosphorus 1.7 mg/dl (2.5-4.9); Potassium 3.8 mmol/L (3.5-5.1)
--- NOTE | 2020-02-03 08:12 | Progress Notes ---
DATE: 02/03/2020 MEDICAL ONCOLOGY PROGRESS NOTE DIAGNOSES: 1. Acute pulmonary embolism. 2. Pneumonia, infectious versus inflammatory. 3. Malignant pleural effusion. 4. History of syndrome of inappropriate antidiuretic hormone. 5. Extensive stage small cell lung cancer. SUBJECTIVE: Rom is a pleasant 74-year-old gentleman currently under my care with extensive-stage small cell lung cancer, admitted a couple of days ago with subacute-onset shortness of breath and blood-tinged pleural fluid. CTA of the chest confirmed pulmonary embolism. Appropriately, he was started on unfractionated heparin. There has been no evidence of further hemorrhage. Unfortunately, it would appear on CTA, his disease may be progressing despite his current chemotherapeutic regimen. He denies fever or chills or discomfort. He is not short of breath at this moment. He remains on unfractionated heparin and needs to be converted to an oral anticoagulant. OBJECTIVE: GENERAL: A very pleasant 74-year-old gentleman, awake, alert and appropriate, in no acute distress. VITAL SIGNS: Temperature 36.5, pulse 82, respiratory rate 16, blood pressure 136/87. SKIN: Without rash or lesion. HEENT: Oral mucosa without erythema or ulceration. HEART: Regular rate and rhythm. LUNGS: Clear to auscultation bilaterally. ABDOMEN: Soft, nontender, nondistended. EXTREMITIES: No clubbing, cyanosis or edema. NEUROLOGIC: Grossly intact. LABORATORY DATA: WBC count 14,790, hemoglobin 8.6, platelet count 198,000. Chemistries are pending. IMPRESSION: 1. Acute pulmonary embolus. 2. Pneumonia, infectious versus perhaps radiation induced. 3. Syndrome of inappropriate antidiuretic hormone by history. 4. Malignant pleural effusion. 5. Electrolyte dysfunction. 6. Extensive stage small cell lung cancer. PLAN: Mr. Brown seems to be doing much better. According to Rom, pulmonary has increased his steroids thinking the patchy infiltrates may be radiation-induced versus infectious. His WBCs are reflecting demargination brought on by corticosteroids. There has been no further report of blood tinging in his pleural fluid. I spoke to Dr. Paz who is taking care of Rom starting today and advised to begin oral anticoagulation in preparation for discharge. Again, I am somewhat discouraged by his most recent CT of the chest, which suggests that he may be progressing despite his current regimen. We will address this with Rom when I see him in clinic. I have nothing further to add. Agree with medical management otherwise.
[2020-02-03 08:19] LABS: Partial Thromboplastin Time 71.7 Seconds (21.0-31.0)
[2020-02-03] MEDS ORDERED: predniSONE 20 MG TAB PO SCH (09:00)
[2020-02-03] MEDS: VITAMIN B COMPLEX TAB PO SCH (09:12)
[2020-02-03] MEDS: AZITHROMYCIN 250 MG TAB PO SCH (09:12)
[2020-02-03] MEDS: SODIUM CHLORIDE 1 GM TABLET PO SCH (09:12)
[2020-02-03] MEDS: CHOLECALCIFEROL 1,000 UNITS 25 MCG TAB PO SCH (09:13)
[2020-02-03] MEDS: MULTIVITAMIN TAB PO SCH (09:13)
[2020-02-03] MEDS: guaiFENesin 600 MG TABCR PO SCH (09:13)
[2020-02-03] MEDS: LACTULOSE SYRUP 10 GM/15 ML BTL 960 ML PO SCH (09:14)
[2020-02-03] MEDS: methIMAzole 5 MG TABLET PO SCH (09:14)
[2020-02-03] MEDS: METOPROLOL TARTRATE 100 MG TAB PO SCH (09:14)
[2020-02-03] MEDS: GABAPENTIN 300 MG CAP PO SCH (09:15)
[2020-02-03] MEDS ORDERED: APIXABAN 5 MG TABLET PO SCH (09:15)
[2020-02-03] MEDS: MEDICAL MARIJUANA PO SCH ×2 (09:15→13:59)
[2020-02-03] MEDS: DOCUSATE SODIUM/SENNA 50/8.6MG TAB PO SCH (09:21)
[2020-02-03] MEDS: POT PHOSPHATE MONOBASIC W/ SOD TAB PO SCH ×2 (09:37→13:59)
[2020-02-03] MEDS: ACETAMINOPHEN 325 MG TAB PO PRN (11:00)
--- NOTE | 2020-02-03 14:02 | Discharge Summary ---
Date of Service date of admission - January 31, 2020 date of discharge - February 03, 2020 Admission HPI Per Admitting Provider Rom Brown is a 74 year old male with small cell lung cancer on chemotherapy who presents to the ER with shortness of breath and cough and outpatient work-up showing a left pulmonary emboli and pneumonia. He reports progressively worse shortness of breath and coughing after each of the last few weeks of chemotherapy. Reduced exercise tolerance over the weekend, while walking 0.25 mile he found he was getting more fatigued - last did this walk 3-4 days ago. Because of his shortness of breath and cough CTA was arranged by his oncologist and subsequently sent to the ER after results showed PE and pneumonia. He denies any fevers, chills, chest pain or calf pain. Principal Diagnosis 1. pulmonary emboli 2. concern for radiation pneumonitis Discharge Exam Constitutional well developed and well nourished; no acute distress and no altered mental status ENMT external ear and nose normal, oropharynx normal Respiratory no respiratory distress Auscultation: + rales; no wheezes Cardiovascular Rate/Rhythm: regular rate and regular rhythm Heart Sounds: normal S1 and normal S2; no murmur Vessels: posterior tibial pulses present and dorsalis pedis pulses present; no JVD Extremities: no edema Gastrointestinal (Abdomen) normal bowel sounds, soft, nontender, no hepatosplenomegaly Skin PleurX catheter present - right thorax - intact, clean Psychiatric Orientation: alert and oriented x 3 Discharge Data Allergies Allergy/AdvReac Type Severity Reaction Status Date / Time amoxicillin Allergy Severe HEAD TO Verified 02/10/20 10:23 TOE ITCHY RASH levofloxacin [From Levaquin] Allergy Intermediate head to Verified 02/10/20 10:23 toe itchy rash Consultations 01/31/20 16:04 Consult Oncology - Barney Crowley DO 01/31/20 16:04 Consult Pulmonology - Emmanuelle Sharif MD Procedures Performed CTA chest: IMPRESSION: 1. Acute left lung pulmonary embolism 2. Persistent right hilar mass with pathologic mediastinal and hilar lymphadenopathy 3. Right upper lobe and right lower lobe airspace opacities consistent with pneumonia 4. Interval development of multiple subcentimeter pulmonary nodules, viewed as highly suspicious for metastatic disease 5. Interval decrease in the size of the right pleural effusion status post placement of a Pleurx catheter Hospital Course (1) Acute pulmonary embolus: Left lower lobe, no mention of right heart strain on CTA report. Patient was hemodynamically stable his entire stay. He never had an O2 requirement during the stay either. Patient was placed on heparin infusion and remained on such until his transition to PO Eliquis. He will take 10mg BID x 7 days, then 5mg BID thereafter. Treatment will be indefinite. The VTE was provoked in the setting of his extensive lung cancer. (2) Pneumonia: Imaging suggestive of right-sided pneumonia. It was uncertain if the pneumonia was infectious vs radiation induced. Procalcitonin was negative. Blood cultures were negative. Given his immunosuppressed state we did treat for infectious pneumonia to be on safe side with ceftriaxone and azithromycin. He will take 3 more days of doxycycline 100mg BID after discharge. He will also be on a slow prednisone taper for radiation pneumonitis - see below. (3) Radiation pneumonitis: [facility] saw patient in consult and felt that his right-sided infiltrates could be radiation pneumonitis. Thus, his chronic prednisone was increased to 40mg daily. He will take 40mg daily for 1 week, followed by 30mg daily for 1 week, and so forth. He will need follow-up with [facility], Dr Lynn, within 1-2 weeks of discharge to follow this issue. (4) 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: CTA with right hilar mass with pathological mediastinal and hilar lymphadenopathy, bilateral apical subcentimeter nodules, new subcentimeter left lung nodules suspicious for metastases. Dr. Barney Crowley consulted during the stay. Agreed with Eliquis for PEs. Patient to receive final cycle of carboplatin, etoposide, atezolizumab in the next couple of weeks post-discharge. Dr Crowley to continue following patient. (5) Anemia: Discharge hemoglobin level 9.1 Baseline Hb in setting of cancer is about 8-9. (6) SIADH (syndrome of inappropriate ADH production): Sodium level was stable with range of 132 to 136 while hospitalized. Will need to continue sodium chloride 1g BID after discharge. Continue fluid restriction. Monitor BMP as outpatient for stability. (7) Pleural effusion: malignant effusion on right 2nd to lung cancer. Pleurx drain in place. Per , draining 100-200ml serosanguineous fluid daily at home. Continue daily or every other day drainage at home. (8) Hypophosphatemia: Ongoing. Replaced IV while hospitalized. (9) Hypokalemia: Received replacement while hospitalized. Discharge K level 3.4. (10) Leukocytosis: Likely 2nd to chronic prednisone use. No fevers during the stay. Did receive antibiotics for questionable right-sided pneumonia while hospitalized and will complete a few more days of doxycycline at home as precaution. (11) Graves disease: Continue methimazole 10mg PO daily TSH wnl during the stay Total Time Total Time Spent Total Time Spent (In Minutes): 40 Total Time Includes: Examination of the Patient, Discharge Planning, Medication Reconciliation and Communication With Other Providers Discharge Plan Discharge Items Patient Disposition: Home - Self-Care Reason For Visit: Pulmonary Emboli (blood clots in the lungs) Discharge Diagnosis: 1. pulmonary emboli 2. question of radiation pneumonitis vs pneumonia of right lung 3. lung cancer Activity: As commented below Activity Comment: gradually increase your activities over the next week Non-emergency contact: Primary Care Provider, Oncologist and Skin Carver Call non-emergency contact if: you have any medication questions, your symptoms worsen and you have a fever Follow-up/Referrals: Susie Grissom MD [Primary Care Provider] - 02/05/20 11:20 am Barney Crowley DO [Physician] - (please call Dr Crowley's office to schedule a follow-up visit within 1 week ) Marquis Lynn MD [Physician] - ([facility] will call you for a follow-up appointment.) Diet: Regular Fluids: 1500ml (6 cups) Addtl Attending Provider Instructions: You were treated for blood clots in the lungs (pulmonary emboli) with IV heparin. Dr Crowley from oncology recommended oral Eliquis at discharge. The eliquis will help prevent you from getting new clots in the legs and/or lungs. Your CT scan of the lungs also showed either radiation pneumonitis (inflammation of the right lung due to prior radiation) or pneumonia. We treated you for both with steroids and antibiotics, respectively. Recommendations - 1. take eliquis blood thinner as follows -- * starting TONIGHT, 02/02 - take 2 tablets twice daily for 7 days, then reduce to 1 tablet twice daily thereafter. You will likely take the eliquis indefinitely. 2. for possible pneumonia - * doxycycline 100mg twice daily for 3 days, first dose tonight * this medication occasionally causes heartburn * also, avoid sun exposure as it can give you a rash if you have excessive sun exposure while taking it 3. for possible radiation pneumonitis - take as follows - * prednisone 40mg once daily x 7 days starting tomorrow, then - * prednisone 30mg once daily x 7 days -- please follow any additional instructions from Dr Lynn * take with food 4. contact Dr Crowley's office tomorrow to schedule a follow-up appointment; he likely will resume your chemotherapy sometime next week 5. other follow-up appointments - see separate section 6. PleurX catheter drainage - may drain today, if desired. Otherwise resume drainage tomorrow. 7. take a phosphorus supplement for 3 days; may start tonight. Return to [facility] if - * you have fevers over 100 degrees * you have worsening shortness of breath * you have chest pains * you have severe diarrhea * any other concerns Pending Studies at Discharge: No Stand-Alone Forms: My [facility], Smoking Cessation Medications and DC Order Prescriptions: New Eliquis 5 mg Tablet 5 mg PO DIRECTED Qty: 60 RF: 5 Continued acetaminophen [Tylenol Extra Strength] 500 mg tablet 1,000 mg PO QID PRN (Reason: Pain) RF: 0 gabapentin 300 mg capsule 300 mg PO BID RF: 0 cholecalciferol (vitamin D3) 25 mcg (1,000 unit) capsule 1,000 unit PO DAILY RF: 0 vitamin B complex Tablet 1 tab PO DAILY RF: 0 olanzapine 2.5 mg tablet 2.5 mg PO DAILY RF: 0 metoprolol tartrate 100 mg tablet 100 mg PO BID Qty: 60 RF: 5 Mucinex 1,200 mg tablet extended release 12hr 1,200 mg PO BID Qty: 14 RF: 0 methimazole 10 mg tablet 10 mg PO QAM RF: 0 ondansetron HCl 8 mg Tablet 8 mg PO Q8H PRN (Reason: Nausea) RF: 0 sodium chloride 1 gram tablet 1 g PO BID RF: 0 hydrocodone-homatropine 5-1.5 mg/5 mL syrup 5 ml PO BID PRN (Reason: Pain) RF: 0 sodium chloride [Saline Nasal] 0.65 % Aerosol,[place] 2 spray INTRANASAL DAILY PRN (Reason: Congestion) RF: 0 albuterol sulfate [Ventolin HFA] 90 mcg/actuation HFA aerosol inhaler 2 puffs INH Q4 PRN (Reason: shortness of breath or wheezing) Qty: 8 RF: 0 lactulose 10 gram/15 mL solution 15 ml PO BID PRN (Reason: CONSTIPATION) RF: 0 multivitamin Tablet 1 tab PO QAM RF: 0 prochlorperazine maleate [Compazine] 10 mg Tablet 10 mg PO Q6H PRN (Reason: breakthrough nausea) RF: 0 dronabinol [Marinol] 2.5 mg capsule 5 mg PO BID RF: 0 Changed prednisone 10 mg tablet 10 mg PO DIRECTED Qty: 60 RF: 1 No Action Virt-Phos 250 Neutral 250 mg tablet 1 tab PO QID RF: 0 Discharge Orders: Discharge Order (Routine); Ordered 02/03/20 Ordered By: Murtaza Lujan/Other Patient Handouts: Pulmonary Embolism, Apixaban oral tablets Admission Data Admit Date/Time: 01/31/20 15:48 Attending Provider: Murtaza Paz Admit Provider: Murtaza Arredondo Primary Care Provider: Susie Grissom Other Providers: Barney Crowley V. ; Titus Kyle Other Interventions: Discharge Summary Assessment (RN) Last Done: 02/03/20 14:01 Coding Level of Care Code D/C Day Management >30 mins Diagnoses Acute pulmonary embolus I26.99 Acute cor pulmonale presence: without acute cor pulmonale Pulmonary embolism type: other Pneumonia J18.9 Laterality: right Lung location: unspecified part of lung Pneumonia type: due to unspecified organism Radiation pneumonitis J70.0 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 C34.90 Anemia D64.9 Anemia type: unspecified type SIADH (syndrome of inappropriate ADH production) E22.2 Pleural effusion J90 Hypophosphatemia E83.39 Hypokalemia E87.6 Leukocytosis D72.829 Leukocytosis type: unspecified Graves disease E05.00
--- NOTE | 2020-02-03 14:12 | Pulmonology Progress Note ---
Date of Service February 03, 2020 Assessment & Plan (1) Shortness of breath: CT chest 01/31/2020 personally reviewed right-sided Pleurx catheter appreciated, right upper lobe as well as right lower lobe infiltrative process appreciated along with right hilar mass. There is mediastinal lymphadenopathy especially subcarinal station 4R. The last CT to be compared was in November 2019 when patient had right-sided pleural effusion. He does have history of fibrosis of the right middle lobe --Abnormal chest CT Procalcitonin 0.09 on 02/01/2020 Patient is afebrile. On Rocephin and azithromycin currently The infiltrates that the patient has on the right upper and right lower lobe could be because of radiation pneumonitis with a combination of pneumonitis from chemotherapy. Patient did get carboplatin as well as etoposide which have been associated with pulmonary toxicity. Patient also got radiation to the right hilum because of the mass that he had which can also give similar presentation. --Hemoptysis Mild Trending down Continue with antitussive medication as needed --Acute PE On anticoagulation --History of small cell lung cancer S/p 4 cycles of chemo consisting of carboplatin etoposide Got radiation to the right hemithorax as well Plan: Recommend completing the course of azithromycin for total of 5 days. Continue with prednisone 40 mg for at least 7 days and gradually go down to 30 mg for 5 days and gradually tapered off. Patient is going to follow-up with Dr. Lynn who is his management accounts manager in a week. Please note the above document was generated using voice recognition software. It may contain grammatical, syntax or spelling errors.Any formal questions or concerns about the content, text or information contained within the body of this dictation should be directly addressed to the provider for clarification. (2) Pulmonary emboli: Pulmonary embolism type: multiple subsegmental (without acute cor pulmonale) Qualified Code(s): I26.94 - Multiple subsegmental pulmonary emboli without acute cor pulmonale (3) Pneumonia: Laterality: right Lung location: unspecified part of lung Pneumonia type: due to unspecified organism Qualified Code(s): J18.9 - Pneumonia, unspecified organism (4) Small cell lung cancer: (5) Malignant pleural effusion: (6) Hemoptysis: Admission and Anticipated Discharge Date Admission Date: January 31, 2020 Subjective Patient seen and examined at bedside. No acute distress, no adverse events overnight. Patient denies any chest pain, no shortness of breath. No headache, no dizziness, no nausea or vomiting. Good appetite. Patient does cough and brings up clear phlegm. Is decreased in intensity. Patient does complain of hemoptysis which is significantly gone down. Review of Systems Review of Systems: All systems reviewed & are unremarkable except as noted in Subjective Physical Exam Physical Exam: Constitutional: No acute distress HEENT: EOMI, PERRLA Respiratory system: Decreased air entry on the right side, positive expiratory rhonchi, no wheeze, mild crackles right lower lobe CVS: S1-S2 positive, no murmurs or gallops Abdomen: Soft, nontender, nondistended, positive bowel sounds x4 Extremities: +2 pulses bilaterally radialis/ dorsalis pedis, no cyanosis, no edema Neuro: Awake alert oriented x3 Psych: Normal mood and affect G/U: No Nelson Skin: no rashes, warm and dry Lymphatic: no cervical or axillary lymphadenopathy Results & Data Results & Data ([facility]) Vital Signs (Past 12 Hours) Vital Signs Temp Pulse Pulse Resp BP BP Pulse Ox 02/03/20 14:01 36.5 C 82 16 136/87 132/75 93 02/03/20 07:23 36.5 C 82 16 136/87 93 02/03/20 07:00 80 02/03/20 04:21 36.6 C 75 16 132/75 94 02/03/20 07:09 02/03/20 07:09 PG Care Time/CCT Total # of Minutes Spent Total Time Spent with Patient: Total time spent is greater than 50% in coordination of care (as documented) at patient's floor/unit and/or counseling patient: Coding Level of Care Code 38928 Subseq Hosp Care Lvl 3 Diagnoses Shortness of breath R06.02 Pulmonary emboli I26.94 Pulmonary embolism type: multiple subsegmental (without acute cor pulmonale) Pneumonia J18.9 Laterality: right Lung location: unspecified part of lung Pneumonia type: due to unspecified organism Small cell lung cancer C34.90 Malignant pleural effusion J91.0 Hemoptysis R04.2
== END 2020-02-03 15:00 | disposition home or self-care (01) | DRG 175 ==
LOC: ED 12:17 → 2W 15:48 → SUATTDRO 15:48 → 2W 19:00